=== PATIENT | female | born 1945 | race Caucasian/White ===

== ENCOUNTER → 2020-06-04 14:16 | Outpatient (BNVA) | payer MEDICARE, OTHER, SELFPAY | PROVIDERS: PCP Internal Medicine; Visit Provider Internal Medicine Cardiovascular Disease | DX: I25.10 Atherosclerotic heart disease of native coronary artery without angina pectoris (principal); I50.9 Heart failure, unspecified; I25.5 Ischemic cardiomyopathy; I34.0 Nonrheumatic mitral (valve) insufficiency | CPT/HCPCS: 99212 ==

== ENCOUNTER 2020-07-09 10:37 | Outpatient (REF) | payer MEDICARE, OTHER, SELFPAY ==
[2020-07-09 10:50] LABS: MANUAL DIFF FLAG NO
[2020-07-09 11:03] LABS: Basophils Percent Auto 0.6 % (0-2); Eosinophils Absolute Auto 0.2 X10*3/uL (0.0-0.4); Eosinophils Percent Auto 3.3 % (0-4); Hemoglobin 11.7 g/dl (12.0-16.0); Imm Gran Abs Auto 0.02 X10*3/uL (0.00-0.03); Imm Gran Pct Auto 0.3 % (0.0-0.4); Lymphocytes Absolute Auto 2.6 X10*3/uL (1.2-4.9); Lymphocytes Percent Auto 40.3 % (20-40); Mean Corpuscular HGB Conc 32.5 g/dl (31.0-35.0); Mean Corpuscular Hemoglobin 30.3 pg (27.0-33.0); Mean Corpuscular Volume 93.3 fL (80-98); Mean Platelet Volume 11.4 fL (9.4-12.3); Monocytes Absolute Auto 0.9 X10*3/uL (0.1-1.2); Monocytes Percent Auto 13.2 % (2-11); Neutrophils Absolute Auto 2.7 X10*3/uL (2.0-8.3); Neutrophils Percent Auto 42.3 % (45-73); Platelet Count 217 X10*3/uL (160-400); Red Blood Count 3.86 X10*6/uL (4.20-5.50); Red Cell Distribution Width 14.2 % (11.0-16.0); White Blood Count 6.4 X10*3/uL (4.8-10.8)
[2020-07-09 11:35] LABS: Glucose Urine UA NEG (NEG); Leukocyte Esterase Urine NEG (NEG); Nitrite Urine NEG (NEG); PH 5.5 (5.0-8.0); Specific Gravity - Urine >= 1.030 (1.005-1.025); Urine Blood TRACE (NEG); Urine Ketones 5 MG/DL (NEG); Urine Protein 1+ MG/DL (NEG-TRACE)
[2020-07-09 11:38] LABS: Appearance Urine HAZY; Color Urine YELLOW
[2020-07-09 11:48] LABS: Mucus Urine 2+ /LPF; Squamous Epithelial Cell Urine 1+ /LPF; WBC Urine 0-2 /HPF (0-4)
[2020-07-09 12:21] LABS: Alanine Aminotransferase 16 U/L (0-31); Albumin Level 4.2 g/dL (3.5-5.0); Alkaline Phosphatase 69 U/L (39-117); Anion Gap 12 (12-20); Aspartate Amino Transferase 23 U/L (5-31); Bilirubin Total 0.3 mg/dL (0.0-1.0); Blood Urea Nitrogen 20 mg/dL (9-16); Carbon Dioxide 28 mmol/L (22-29); Chloride 105 mmol/L (96-108); Cholesterol 136 mg/dL; Estimated Glomerular Filt Rate > 60; Glucose Fasting 102 mg/dL (60-99); HDL Cholesterol 83 mg/dL; LDL Cholesterol Calculated 44 mg/dl; Potassium 4.1 mmol/L (3.3-5.1); Sodium 141 mmol/L (135-145); Total Protein 6.9 g/dL (6.5-8.0); Triglycerides 49 mg/dL
[2020-07-09 13:03] LABS: Reflex LDLD? No
== END 2020-07-09 10:38 | disposition home or self-care (01) ==
LOC: HO.LNP 10:37
PROVIDERS: Visit Provider Internal Medicine
DX: E78.00 Pure hypercholesterolemia, unspecified (principal); I50.22 Chronic systolic (congestive) heart failure; R94.5 Abnormal results of liver function studies; D72.820 Lymphocytosis (symptomatic)
CPT/HCPCS: 80053; 80061; 81001; 81003; 85025

== ENCOUNTER → 2020-11-16 10:28 | Outpatient (REF) | payer MEDICARE, OTHER, SELFPAY ==
--- NOTE | 2020-11-16 10:37 | CA_ITS ---
Transthoracic Echocardiogram Amended Patient (Last, First, Middle): Rochelle Garcia M Gender: Female Date of : 1945 Age: 75 Procedure Date: 11/16/2020 Procedure Type: Transthoracic Echocardiogram Location: OP Height: 160.02 cm Weight: 69.4 kg BSA: 1.73 m2 Heart Rate: bpm BP: 108 / 62 mmHg Hook And Eye Machine Operator: DSKobe Referring MD: Talha Ulloa MD Symptoms: I25.10 - Atherosclerotic heart disease of [place] coronary artery without angina pectoris Study Quality: Fair ECG Rhythm: Sinus Conclusions: - Severely increased left ventricular cavity size. - The left ventricular systolic function is mildly decreased. The calculated ejection fraction is 51% by biplane method. - Evidence suggests grade II (moderate) diastolic dysfunction. - The basal inferior, mid inferior, and basal inferolateral segments are akinetic. - The left atrium is severely dilated. - There is moderate mitral valve regurgitation. - Mild pulmonary hypertension is present. Findings Left Ventricle Severely increased left ventricular cavity size. There is normal left ventricular wall thickness. The left ventricular systolic function is mildly decreased. The calculated ejection fraction is 51% by biplane method. E/E prime ratio is >15, consistent with elevated filling pressures. Evidence suggests grade II (moderate) diastolic dysfunction. Wall Motion Rest Echo Findings The basal inferior, mid inferior, and basal inferolateral segments are akinetic. Atria The left atrium is severely dilated. The right atrium is normal in size. Aortic Valve There is a normal trileaflet aortic valve. There is no aortic valve stenosis. There is no aortic valve regurgitation. Mitral Valve The posterior mitral leaflet has restricted mobility. There is mild posterior mitral annular calcification. There is moderate mitral valve regurgitation. The mitral regurgitation jet is directed posteriorly. There is no mitral valve stenosis. ERO calculation seems to overestimate. Pulmonic Valve The pulmonic valve was not well visualized. Tricuspid Valve Normal tricuspid valve structure. There is mild tricuspid valve regurgitation. The right ventricular systolic pressure is 37 mmHg. Mild pulmonary hypertension is present. Great Vessels The aortic annulus, sinuses of valsalva, and asc aorta are normal in size. Venous The inferior vena cava is normal in size and collapses greater than 50% with inspiration. Pericardium/Pleural There is no evidence of pericardial effusion. Prior Study Comparison Changes noted compared to prior study dated: 11/22/2019. LV more dilated (but similar to 2019). Mitral regurgitation less prominent. Measurements 2D Linear Measurements IVSd: 0.96 0.6-0.9/0.6-1.0 cm LVIDd: 6.64 3.9-5.3/4.2-5.9 cm LVIDd Index: 3.84 2.4-3.2/2.2-3.1 cm/m2 LVIDs: 4.88 2.0-3.6 cm LVPWd: 0.85 0.7-1.1 cm Ao Root: 3.20 2.1-3.5 cm LA Diam: 4.30 2.7-3.8/3.0-4.0 cm LAIDs Index: 2.49 1.5-2.3 cm/m2 LV Mass: 322.80 67-162/88-224 g LV Mass Index: 186.59 43-95/49-115 g/m2 LVOT Diam: 1.90 3.0+(-)1.3 cm 2D Volumes LA Vol: 70.50 2D Systolic Function EF 4C: 57.90 >55% EF 2C: 39.60 >55% EF BiP: 50.60 >55% Mitral Valve MV Pk E: 0.78 MV PK A: 0.36 MV Decel Time: 278.00 E/A: 2.20 E'Lateral: 4.79 E'Medial: 4.90 E/E' Med: 16.00 E/E' Lat: 16.30 PHT: 81.00 MVA PHT: 2.72 Decel Nelson: 2.82 MR Vol - PW Dopp: 87.78 MR VTI: 1.54 MR ERO: 57.00 MR Alias Josse: 0.35 MR RAD: 1.10 Aortic Valve AoV Pk Josse: 1.19 AoV Pk Grad: 6.00 LVOT LVOT Pk Josse: 1.04 LVOT Mn Josse: 0.69 LVOT VTI: 0.23 LVOT Pk Grad: 4.00 LVOT Mn Grad: 2.00 LVOT Diam: 1.90 LVOT Area: 2.84 Diastolic Function MV Pk E: 0.78 MV Pk A: 0.36 E/A: 2.20 E'Medial: 4.90 E/E' Med: 16.00 E' Laterial: 4.79 E/E' Lat: 16.30 Tricuspid Valve TR Pk Josse: 2.92 TR Pk Grad: 34.00 RA Press: 3.00 RVSP: 37.00 Great Vessels Aorta Ao Root-2D: 3.20 2.0-3.7 cm Ao Asc: 3.20 2.1-3.4 cm Updated in Other Vendor System with Status of Final Christofer Grant MD electronically signed on 11/16/2020 12:09:36 PM with status of Final
== END ==
LOC: HO.CARD 10:28
PROVIDERS: PCP Internal Medicine; Visit Provider Internal Medicine Cardiovascular Disease
DX: I25.5 Ischemic cardiomyopathy (principal); I25.10 Atherosclerotic heart disease of native coronary artery without angina pectoris; I34.0 Nonrheumatic mitral (valve) insufficiency; I50.9 Heart failure, unspecified
CPT/HCPCS: 93306

== ENCOUNTER → 2020-12-01 10:55 | Outpatient (BNVA) | payer MEDICARE, OTHER, SELFPAY | PROVIDERS: PCP Internal Medicine; Referring Provider Internal Medicine; Visit Provider Internal Medicine Cardiovascular Disease | DX: I25.10 Atherosclerotic heart disease of native coronary artery without angina pectoris (principal); I50.9 Heart failure, unspecified; I25.5 Ischemic cardiomyopathy; I34.0 Nonrheumatic mitral (valve) insufficiency | CPT/HCPCS: 93005; 99212 ==

== ENCOUNTER 2020-12-17 09:25 | Day surgery (SDC) | payer MEDICARE, OTHER, SELFPAY ==
[2020-12-08 19:26] VITALS: BMI 26.7
--- NOTE | 2020-12-14 14:09 | P.CONAN_ITS ---
Documented by User: Debora Aleja 12/14/20 14:11 HPI - Anesthesia Eval Consult details Narrative: 75yo F for Transesophageal Echocardiogram PMFSH Active Problems Active Problems: All Active Problems (Updated 12/01/20 @ 11:34 by Talha Ulloa MD) CAD (coronary artery disease) (Acute) Congestive heart failure (Acute) Ischemic cardiomyopathy (Acute) Mitral regurgitation (Acute) Past Medical History Medical History CAD (coronary artery disease) Congestive heart failure Ischemic cardiomyopathy Mitral regurgitation Family History Family History Father CVD (cardiovascular disease) Mother No problems noted. Surgical History Surgical History Hx of hand surgery Social History Social History Patient Tobacco Use Status: Never used Tobacco Use of substances other than those prescribed or required for medical reasons: No Are you DNR?: No Advance Directives: No Advance Directives Information Provided: No Advance Directives on File: No Meds Allergies Allergy/AdvReac Type Severity Reaction Status Date / Time No Known Allergies Allergy Unverified 01/23/20 15:35 [No Known Allergies*] Home Medications Medication Instructions Recorded Confirmed Last Taken Type furosemide 40 mg tablet 40 mg PO DAILY 06/04/20 12/08/20 Unknown History metoprolol succinate 25 mg 25 mg PO BID 06/04/20 12/08/20 12/17/20 08:00 History tablet,extended release 24 hr rosuvastatin 40 mg tablet 40 mg PO DAILY 06/04/20 12/08/20 Unknown History multivit with min-folic 1 tab PO DAILY 12/01/20 12/08/20 Unknown History acid-lutein 200 mcg-137.5 mcg chewable tablet (Adult Multivitamin (w-lutein)) Exam Exam Date and Time: December 14, 2020 1409 Height,Weight and Vital Signs: Height 5 ft 3 in Weight 68.492 kg Pertinent Lab Results Pertinent Lab Results: ? Laboratory Tests 07/09/20 07/09/20 07:50 07:50 WBC 6.4 Hgb 11.7 L Hct 36.0 L Plt Count 217 Sodium 141 Potassium 4.1 Chloride 105 Carbon Dioxide 28 BUN 20 H Creatinine 0.89 Narrative Narrative: EKG 12/01/20 normal sinus rhythm with inferior infarct ECHO 11/2020 Conclusions: - Severely increased left ventricular cavity size. ? - The left ventricular systolic function is mildly decreased.? ? The calculated ejection fraction is 51% by biplane method. ? ? ? - Evidence suggests grade II (moderate) diastolic dysfunction. ? - The basal inferior, mid inferior, and basal inferolateral? ? ? segments are akinetic. ? - The left atrium is severely dilated. ? - There is moderate mitral valve regurgitation.? - Mild pulmonary hypertension is present.? ? Assessment and Plan Assessment Anesthesia Assessment: Chart Reviewed Documented by User: Preston García MD 12/17/20 11:16 [facility] Past Medical History Medical History CAD (coronary artery disease) Congestive heart failure Ischemic cardiomyopathy Mitral regurgitation Family History Family History Father CVD (cardiovascular disease) Mother No problems noted. Family history of problems with anesthesia: No Surgical History Surgical History Hx of hand surgery History of Problems with Anesthesia: No Social History Social History Patient Tobacco Use Status: Never used Tobacco Use of substances other than those prescribed or required for medical reasons: No Are you DNR?: No Advance Directives: No Advance Directives Information Provided: No Advance Directives on File: No Meds Allergies Allergy/AdvReac Type Severity Reaction Status Date / Time No Known Allergies Allergy Unverified 01/23/20 15:35 [No Known Allergies*] Home Medications Medication Instructions Recorded Confirmed Last Taken Type furosemide 40 mg tablet 40 mg PO DAILY 06/04/20 12/08/20 Unknown History metoprolol succinate 25 mg 25 mg PO BID 06/04/20 12/08/20 12/17/20 08:00 History tablet,extended release 24 hr rosuvastatin 40 mg tablet 40 mg PO DAILY 06/04/20 12/08/20 Unknown History multivit with min-folic 1 tab PO DAILY 12/01/20 12/08/20 Unknown History acid-lutein 200 mcg-137.5 mcg chewable tablet (Adult Multivitamin (w-lutein)) Exam Airway Mallampati Class: II TM Dist: >3cm Neck ROM: Full Loose/Missing/Broken Teeth: Yes Heart: RRR, TW abnormality Lungs: Mild orthopnea Assessment and Plan Assessment Anesthesia Assessment: Anesthesia Plan Discussed Final Anesthetic Review Family History of Problems with Anesthesia: No History of Problems with Anesthesia: No ASA Class: IV Final Preanesthetic Review: No Changes in Pt Med Stat, Meds/Allgs Chart Reviewed, Consent Obtained/Reviewed and Anes Risks/Benef Reviewed Patient Risk: High Procedure Risk: Low Anesthetic Plan Anesthetic Plan: MAC: Disposition: Standard PACU
[2020-12-17] VITALS (8 sets, daily range): BP systolic 79–126; BP diastolic 33–70; PULSE 60–76; RESP 16–19; TEMP 36.1; O2SAT 96–99
--- NOTE | 2020-12-17 08:37 | CA_ITS ---
Transesophageal Echocardiogram Patient (Last, First, Middle): Rochelle Garcia M Gender: Female Date of : 1945 Age: 75 Procedure Date: 12/17/2020 Procedure Type: Transesophageal Echocardiogram Location: OR Height: 160.02 cm Weight: 68.49 kg BSA: 1.72 m2 Heart Rate: bpm BP: 126 / 70 mmHg Family Day Care Worker: BRET Benitez MD: Talha Ulloa MD Consumer Loan Officer: Talha Ulloa MD Symptoms: I34.0 - Nonrheumatic mitral (valve) insufficiency Conclusion: ??? 1. Severe eccentric mitral regurgitation due to tethered posterior leaflet due to underlying myocardial infarction segment 2. Mild to moderate LV systolic dysfunction with dilated LV 3. Dilated left atrium 4. No intracardiac thrombi, masses or vegetation 4. Normal RV systolic pressure 5. No gross pericardial effusion Findings Procedure Information Consent was obtained prior to the procedure. Pre FRANCOISE oral cavity was checked and revealed no overcrowding. The adult 3D probe was passed with no difficulty. Left Ventricle Moderately increased left ventricular cavity size. There is normal left ventricular wall thickness. The left ventricular systolic function is mild to moderately decreased. The visually estimated ejection fraction is between 40-45%. Spectral Doppler is indicative of a normal filling pattern. Wall Motion Transesophageal Echo Findings The inferoseptal wall, the basal inferior, and basal inferolateral segments are akinetic. All other scored wall segments showed normal motion. Right Ventricle Normal right ventricular cavity size and systolic function. Atria The left atrium is moderately dilated. There is no evidence of interatrial shunt. The left atrial appendage was identified in multiple views. There is no evidence of clot or smoke formation seen with the left atrial appendage. The left upper, right upper pulmonary vein drained normally into the left atrium. The right atrium is normal in size. The IVC in SVC drain normally into the right atrium. Aortic Valve Normal aortic valve structure and function. There is no aortic valve stenosis. There is no aortic valve regurgitation. Mitral Valve The anterior mitral leaflet has normal mobility and the posterior mitral leaflet is immobile. There is no mitral valve stenosis. The posterior leaflet is tethered due to underlying infarcted myocardium. This leads to poor coaptation of the anterior leaflet and posterior mitral leaflet causing eccentric mitral regurgitation which appears to be severe by color Doppler. Also measuring by quantitative analysis by PISA measured effective orifice area is 0.44 centimeters sq and regurgitant volume of 61 mL which are both suggestive of severe mitral regurgitation. Pulmonic Valve The pulmonic valve is normal. There is trace pulmonic valve regurgitation. Tricuspid Valve Normal tricuspid valve structure. There is mild tricuspid valve regurgitation. The right ventricular systolic pressure is normal. Great Vessels All visible segments of the aorta are normal in size. The visualized portions of the pulmonary artery and branches are normal. there is mild atherosclerotic changes noted in the arch and descending thoracic aorta Venous The inferior vena cava is normal in size and collapses greater than 50% with inspiration. Pericardium/Pleural There is no evidence of pericardial effusion. Measurements Mitral Valve MV Pk E: 0.66 MV PK A: 0.37 MV Decel Time: 254.00 E/A: 1.80 E'Lateral: 7.72 E'Medial: 6.59 E/E' Med: 10.00 E/E' Lat: 8.60 PHT: 74.00 MVA PHT: 2.97 Decel [place]: 2.61 MR Vol - PW Dopp: 60.72 MR VTI: 1.38 MR ERO: 44.00 MR Alias Josse: 0.31 MR RAD: 1.00 Diastolic Function MV Pk E: 0.66 MV Pk A: 0.37 E/A: 1.80 E'Medial: 6.59 E/E' Med: 10.00 E' Laterial: 7.72 E/E' Lat: 8.60 Tricuspid Valve TR Pk Josse: 2.81 TR Pk Grad: 32.00 Updated by Talha Ulloa on 04:41 PM with Status of Final Talha Ulloa MD electronically signed on 12/17/2020 4:41:42 PM with status of Final
[2020-12-17] MEDS: Lactated Ringers 500 ML 20 ML IVCONT (10:22)
--- NOTE | 2020-12-17 11:25 | MHC.SHP ---
Pre-Procedural Eval Section A Date of Service: 12/17/20 The patient is an INPATIENT: No Changes since office visit: Yes Patient answered all questions; No Cold of Flu in the past 2 weeks, No New Medical Problems and No Changes in Medication The History & Physical has been completed within 30 days and I have reviewed it.: Yes Section B Chief Complaint: Nonrheumatic Mintral insufficiency Allergies: Allergies Allergy/AdvReac Type Severity Reaction Status Date / Time No Known Allergies Allergy Unverified 01/23/20 15:35 [No Known Allergies*] Plan I have reviewed the history and physical and performed a pertinent physical examination on my patient. No changes have occurred unless specified.
== END 2020-12-17 13:25 | disposition home or self-care (01) ==
PROVIDERS: PCP Internal Medicine; Visit Provider Internal Medicine Cardiovascular Disease
PROC: (CPT 93312; principal; 2020-12-17 11:00)
DX: I34.0 Nonrheumatic mitral (valve) insufficiency (principal); I25.10 Atherosclerotic heart disease of native coronary artery without angina pectoris; I50.9 Heart failure, unspecified; I25.5 Ischemic cardiomyopathy; Z79.899 Other long term (current) drug therapy; Z79.82 Long term (current) use of aspirin
CPT/HCPCS: 93312

== ENCOUNTER 2021-01-07 10:33 | Outpatient (REF) | payer MEDICARE, OTHER, SELFPAY ==
[2021-01-07 10:51] LABS: Alanine Aminotransferase 14 U/L (0-31); Albumin Level 4.2 g/dL (3.5-5.0); Alkaline Phosphatase 65 U/L (39-117); Aspartate Amino Transferase 22 U/L (5-31); Bilirubin Direct 0.2 mg/dL (0.0-0.5); Bilirubin Total 0.5 mg/dL (0.0-1.0); Cholesterol 135 mg/dL; HDL Cholesterol 75 mg/dL; LDL Cholesterol Calculated 50 mg/dl; Total Protein 6.8 g/dL (6.5-8.0); Triglycerides 50 mg/dL
[2021-01-07 11:14] LABS: Reflex LDLD? No
== END 2021-01-07 10:34 | disposition home or self-care (01) ==
LOC: HO.LNP 10:33
PROVIDERS: Visit Provider Internal Medicine
DX: E78.00 Pure hypercholesterolemia, unspecified (principal)
CPT/HCPCS: 80061; 80076

== ENCOUNTER → 2021-01-18 13:26 | Outpatient (BNVA) | payer MEDICARE, OTHER, SELFPAY | PROVIDERS: PCP Internal Medicine; Referring Provider Internal Medicine; Visit Provider Internal Medicine Cardiovascular Disease | DX: I34.0 Nonrheumatic mitral (valve) insufficiency (principal); I25.5 Ischemic cardiomyopathy; I50.20 Unspecified systolic (congestive) heart failure; I25.10 Atherosclerotic heart disease of native coronary artery without angina pectoris | CPT/HCPCS: 99212 ==

== ENCOUNTER → 2021-04-19 13:03 | Outpatient (BNVA) | payer MEDICARE, OTHER, SELFPAY | PROVIDERS: PCP Internal Medicine; Referring Provider Internal Medicine; Visit Provider Internal Medicine Cardiovascular Disease | DX: I34.0 Nonrheumatic mitral (valve) insufficiency (principal); I50.9 Heart failure, unspecified; I25.10 Atherosclerotic heart disease of native coronary artery without angina pectoris | CPT/HCPCS: 99212 ==

== ENCOUNTER 2021-05-06 13:22 | Outpatient (REF) | payer MEDICARE, OTHER, SELFPAY ==
[2021-05-06 14:08] LABS: Hematocrit 34.7 % (37.0-47.0); Hemoglobin 11.4 g/dl (12.0-16.0); Mean Corpuscular HGB Conc 32.9 g/dl (31.0-35.0); Mean Corpuscular Hemoglobin 30.6 pg (27.0-33.0); Mean Platelet Volume 10.9 fL (9.4-12.3); Platelet Count 195 X10*3/uL (160-400); Red Blood Count 3.73 X10*6/uL (4.20-5.50); White Blood Count 7.3 X10*3/uL (4.8-10.8)
[2021-05-06 14:20] LABS: INTERNATIONAL NORM RATIO 0.9 (0.9-1.1); Prothrombin Time 10.7 SEC (9.9-13.0)
[2021-05-06 14:37] LABS: Anion Gap 11 (12-20); Blood Urea Nitrogen 20 mg/dL (9-16); Calcium 9.8 mg/dL (8.4-10.2); Carbon Dioxide 31 mmol/L (22-29); Chloride 102 mmol/L (96-108); Estimated Glomerular Filt Rate > 60; Glucose Random 93 mg/dL (60-115); Potassium 4.2 mmol/L (3.3-5.1); Sodium 140 mmol/L (135-145)
== END 2021-05-06 13:23 | disposition home or self-care (01) ==
LOC: HO.LAB 13:22
PROVIDERS: PCP Internal Medicine; Referring Provider Internal Medicine; Visit Provider Internal Medicine Cardiovascular Disease
DX: I25.10 Atherosclerotic heart disease of native coronary artery without angina pectoris (principal); I25.5 Ischemic cardiomyopathy; I50.9 Heart failure, unspecified
CPT/HCPCS: 36415; 80048; 85027; 85610

== ENCOUNTER 2021-07-15 12:00 | Outpatient (REF) | payer MEDICARE, OTHER, SELFPAY ==
[2021-07-15 12:05] LABS: MANUAL DIFF FLAG NO
[2021-07-15 12:18] LABS: Basophils Percent Auto 0.6 % (0-2); Eosinophils Absolute Auto 0.2 X10*3/uL (0.0-0.4); Hematocrit 34.2 % (37.0-47.0); Hemoglobin 11.2 g/dl (12.0-16.0); Imm Gran Abs Auto 0.01 X10*3/uL (0.00-0.03); Imm Gran Pct Auto 0.2 % (0.0-0.4); Lymphocytes Absolute Auto 1.9 X10*3/uL (1.2-4.9); Lymphocytes Percent Auto 29.4 % (20-40); Mean Corpuscular HGB Conc 32.7 g/dl (31.0-35.0); Mean Corpuscular Hemoglobin 30.4 pg (27.0-33.0); Mean Corpuscular Volume 92.9 fL (80.0-98.0); Mean Platelet Volume 11.4 fL (9.4-12.3); Monocytes Absolute Auto 0.7 X10*3/uL (0.1-1.2); Monocytes Percent Auto 11.5 % (2-11); Neutrophils Absolute Auto 3.5 x10*3/uL (2.0-8.3); Neutrophils Percent Auto 55.3 % (45-73); Platelet Count 208 X10*3/uL (160-400); Red Blood Count 3.68 X10*6/uL (4.20-5.50); Red Cell Distribution Width 14.3 % (11.0-16.0); White Blood Count 6.4 X10*3/uL (4.8-10.8)
[2021-07-15 12:41] LABS: Alanine Aminotransferase 16 U/L (0-31); Albumin Level 4.1 g/dL (3.5-5.0); Alkaline Phosphatase 65 U/L (39-117); Anion Gap 13 (12-20); Aspartate Amino Transferase 22 U/L (5-31); Bilirubin Total 0.5 mg/dL (0.0-1.0); Blood Urea Nitrogen 25 mg/dL (9-16); Calcium 9.3 mg/dL (8.4-10.2); Carbon Dioxide 28 mmol/L (22-29); Chloride 103 mmol/L (96-108); Cholesterol 149 mg/dL; Estimated Glomerular Filt Rate 60; Glucose Fasting 98 mg/dL (60-99); HDL Cholesterol 75 mg/dL; LDL Cholesterol Calculated 60 mg/dl; Sodium 140 mmol/L (135-145); Total Protein 6.8 g/dL (6.5-8.0); Triglycerides 70 mg/dL
[2021-07-15 12:49] LABS: Appearance Urine CLEAR; Color Urine OTHER; Glucose Urine UA NEG (NEG); Leukocyte Esterase Urine NEG (NEG); Nitrite Urine NEG (NEG); Urine Blood NEG (NEG); Urine Ketones NEG (NEG); Urine Protein NEG (NEG-TRACE)
== END 2021-07-15 12:01 | disposition home or self-care (01) ==
LOC: HO.LNP 12:00
PROVIDERS: Visit Provider Internal Medicine
DX: D72.820 Lymphocytosis (symptomatic) (principal); E78.00 Pure hypercholesterolemia, unspecified; I50.22 Chronic systolic (congestive) heart failure
CPT/HCPCS: 80053; 80061; 81003; 85025

== ENCOUNTER → 2021-07-19 13:50 | Outpatient (REF) | payer MEDICARE, OTHER, SELFPAY ==
--- NOTE | 2021-07-19 13:57 | CA_ITS ---
Transthoracic Echocardiogram Patient (Last, First, Middle): Rochelle Garcia M Gender: Female Date of : 1945 Age: 75 Procedure Date: 07/19/2021 Procedure Type: Transthoracic Echocardiogram Location: OP Height: 160.02 cm Weight: 70.31 kg BSA: 1.74 m2 Heart Rate: bpm BP: 110 / 80 mmHg Barrel Bridge Assembler: BRET Referring MD: Talha Ulloa MD Symptoms: I34.0 - Nonrheumatic mitral (valve) insufficiency Study Quality: Good Conclusions: - The left ventricular systolic function is low normal. The visually estimated ejection fraction is between 50-55%. - The basal inferior, basal inferoseptal, and basal inferolateral segments are akinetic. - The posterior mitral leaflet has restricted mobility. There is moderate to severe mitral valve regurgitation. The mitral regurgitation jet is directed posteriorly. Underestimation possible due to eccentricity. - Mild pulmonary hypertension is present. Findings Left Ventricle Moderately increased left ventricular cavity size. There is normal left ventricular wall thickness. The left ventricular systolic function is low normal. The visually estimated ejection fraction is between 50-55%. There is evidence of regional wall motion abnormalities. E/E prime ratio is >15, consistent with elevated filling pressures. Evidence suggests grade II (moderate) diastolic dysfunction. LV peak GLS -15.6%. Wall Motion Rest Echo Findings The basal inferior, basal inferoseptal, and basal inferolateral segments are akinetic. Right Ventricle Mildly increased right ventricular cavity size. Atria The left atrium is severely dilated. The right atrium is normal in size. Aortic Valve There is a normal trileaflet aortic valve. There is no aortic valve stenosis. There is no aortic valve regurgitation. Mitral Valve The posterior mitral leaflet has restricted mobility. There is moderate to severe mitral valve regurgitation. The mitral regurgitation jet is directed posteriorly. ERO by PISA 0.36sqcm. Regurgitant volume 51cc. Pulmonic Valve The pulmonic valve is likely normal. Tricuspid Valve Normal tricuspid valve structure. There is mild tricuspid valve regurgitation. The right ventricular systolic pressure is 43 mmHg. Mild pulmonary hypertension is present. Great Vessels The sinuses of valsalva, asc aorta, and aortic arch are normal in size. Venous The inferior vena cava is normal in size and collapses greater than 50% with inspiration. Pericardium/Pleural There is no evidence of pericardial effusion. Prior Study Comparison No significant change compared to prior study dated: 12/17/2020. Measurements 2D Linear Measurements IVSd: 0.82 0.6-0.9/0.6-1.0 cm LVIDd: 6.36 3.9-5.3/4.2-5.9 cm LVIDd Index: 3.66 2.4-3.2/2.2-3.1 cm/m2 LVIDs: 4.55 2.0-3.6 cm LVPWd: 0.68 0.7-1.1 cm LA Diam: 4.30 2.7-3.8/3.0-4.0 cm LAIDs Index: 2.47 1.5-2.3 cm/m2 LV Mass: 237.08 67-162/88-224 g LV Mass Index: 136.25 43-95/49-115 g/m2 LVOT Diam: 2.00 3.0+(-)1.3 cm 2D Systolic Function EF 4C: 58.60 >55% EF 2C: 56.20 >55% EF BiP: 57.70 >55% Mitral Valve MV Pk E: 0.90 MV PK A: 0.48 MV Decel Time: 231.00 E/A: 1.90 E'Lateral: 5.55 E'Medial: 4.79 E/E' Med: 18.80 E/E' Lat: 16.20 PHT: 68.00 MVA PHT: 3.24 Decel Elbert: 3.89 MR Vol - PW Dopp: 51.48 MR VTI: 1.43 MR ERO: 36.00 MR Alias Josse: 0.46 MR RAD: 0.80 Aortic Valve AoV Pk Josse: 1.33 AoV Mn Josse: 0.91 AoV VTI: 0.27 AoV Pk Grad: 7.00 Aov Mn Grad: 4.00 QUITA Cont.VTI: 2.20 LVOT LVOT Pk Josse: 0.81 LVOT Mn Josse: 0.59 LVOT VTI: 0.19 LVOT Pk Grad: 3.00 LVOT Mn Grad: 2.00 LVOT Diam: 2.00 LVOT Area: 3.14 Diastolic Function MV Pk E: 0.90 MV Pk A: 0.48 E/A: 1.90 E'Medial: 4.79 E/E' Med: 18.80 E' Laterial: 5.55 E/E' Lat: 16.20 Right Ventricle TAPSE (mm): 26.50 TVS' Josse: 11.90 Tricuspid Valve TR Pk Josse: 3.15 TR Pk Grad: 40.00 RA Press: 3.00 RVSP: 43.00 Great Vessels Aorta Sinus of Valsalva: 3.76 2.0-3.[address] [place]: 3.16 1.7-3.4 cm Ao Asc: 3.40 2.1-3.4 cm Ao Arch: 3.00 Updated in Other Vendor System with Status of Final Christofer Grant MD electronically signed on 07/20/2021 12:29:34 PM with status of Final
== END ==
LOC: HO.CARD 13:50
PROVIDERS: PCP Internal Medicine; Visit Provider Internal Medicine Cardiovascular Disease
DX: I34.0 Nonrheumatic mitral (valve) insufficiency (principal)
CPT/HCPCS: 93306; 93356

== ENCOUNTER → 2021-07-26 13:15 | Outpatient (BNVA) | payer MEDICARE, OTHER, SELFPAY | PROVIDERS: PCP Internal Medicine; Referring Provider Internal Medicine; Visit Provider Internal Medicine Cardiovascular Disease | DX: I51.7 Cardiomegaly (principal); I50.9 Heart failure, unspecified; I25.10 Atherosclerotic heart disease of native coronary artery without angina pectoris; I25.5 Ischemic cardiomyopathy; I34.0 Nonrheumatic mitral (valve) insufficiency; R53.83 Other fatigue; Z79.82 Long term (current) use of aspirin; Z79.899 Other long term (current) drug therapy | CPT/HCPCS: 99212 ==

== ENCOUNTER 2021-07-28 11:18 | Outpatient (REF) | payer MEDICARE, OTHER, SELFPAY ==
[2021-07-28 12:01] LABS: MANUAL DIFF FLAG NO
[2021-07-28 12:35] LABS: Basophils Percent Auto 0.6 % (0-2); Eosinophils Absolute Auto 0.1 X10*3/uL (0.0-0.4); Eosinophils Percent Auto 2.2 % (0-4); Hematocrit 35.9 % (37.0-47.0); Hemoglobin 11.5 g/dl (12.0-16.0); Imm Gran Abs Auto 0.01 X10*3/uL (0.00-0.03); Imm Gran Pct Auto 0.2 % (0.0-0.4); Mean Corpuscular Hemoglobin 29.6 pg (27.0-33.0); Mean Corpuscular Volume 92.3 fL (80.0-98.0); Mean Platelet Volume 10.9 fL (9.4-12.3); Monocytes Absolute Auto 0.8 X10*3/uL (0.1-1.2); Monocytes Percent Auto 11.9 % (2-11); Neutrophils Absolute Auto 3.4 x10*3/uL (2.0-8.3); Neutrophils Percent Auto 54.1 % (45-73); Platelet Count 195 X10*3/uL (160-400); Red Blood Count 3.89 X10*6/uL (4.20-5.50); Red Cell Distribution Width 14.4 % (11.0-16.0); White Blood Count 6.3 X10*3/uL (4.8-10.8)
[2021-07-28 12:39] LABS: Prothrombin Time 11.5 SEC (9.9-13.0)
[2021-07-28 13:36] LABS: Anion Gap 14 (12-20); Blood Urea Nitrogen 23 mg/dL (9-16); Calcium 9.6 mg/dL (8.4-10.2); Carbon Dioxide 29 mmol/L (22-29); Chloride 103 mmol/L (96-108); Estimated Glomerular Filt Rate 53; Glucose Random 96 mg/dL (60-115); Sodium 142 mmol/L (135-145)
== END 2021-07-28 11:19 | disposition home or self-care (01) ==
LOC: HO.LAB 11:18
PROVIDERS: Visit Provider Internal Medicine Cardiovascular Disease
DX: I25.10 Atherosclerotic heart disease of native coronary artery without angina pectoris (principal)
CPT/HCPCS: 36415; 80048; 85025; 85610

== ENCOUNTER → 2021-09-01 13:10 | Outpatient (BNVA) | payer MEDICARE, OTHER, SELFPAY | PROVIDERS: PCP Internal Medicine; Referring Provider Internal Medicine; Visit Provider Nurse Practitioner Family | DX: I25.10 Atherosclerotic heart disease of native coronary artery without angina pectoris (principal); I25.5 Ischemic cardiomyopathy; I50.9 Heart failure, unspecified; I34.0 Nonrheumatic mitral (valve) insufficiency; Z79.899 Other long term (current) drug therapy; Z98.890 Other specified postprocedural states | CPT/HCPCS: Q3014 ==

== ENCOUNTER 2021-12-02 10:58 | Outpatient (REF) | payer MEDICARE, OTHER, SELFPAY ==
[2021-12-02 12:17] LABS: Basophils Percent Auto 0.7 % (0-2); Eosinophils Absolute Auto 0.2 X10*3/uL (0.0-0.4); Eosinophils Percent Auto 3.3 % (0-4); Hematocrit 34.6 % (37.0-47.0); Hemoglobin 11.3 g/dl (12.0-16.0); Imm Gran Abs Auto 0.02 X10*3/uL (0.00-0.03); Imm Gran Pct Auto 0.4 % (0.0-0.4); Lymphocytes Absolute Auto 1.8 X10*3/uL (1.2-4.9); MANUAL DIFF FLAG SCAN; Mean Corpuscular HGB Conc 32.7 g/dl (31.0-35.0); Mean Corpuscular Hemoglobin 29.4 pg (27.0-33.0); Mean Corpuscular Volume 90.1 fL (80.0-98.0); Monocytes Absolute Auto 0.6 X10*3/uL (0.1-1.2); Monocytes Percent Auto 10.5 % (2-11); Neutrophils Absolute Auto 2.9 x10*3/uL (2.0-8.3); Neutrophils Percent Auto 52.1 % (45-73); Platelet Count 195 X10*3/uL (160-400); Red Blood Count 3.84 X10*6/uL (4.20-5.50); Red Cell Distribution Width 14.9 % (11.0-16.0); SCAN SMEAR FLAG 1; White Blood Count 5.5 X10*3/uL (4.8-10.8)
[2021-12-02 12:40] LABS: SLIDE REVIEW VERIFIED
[2021-12-02 12:48] LABS: Anion Gap 10 (12-20); Blood Urea Nitrogen 28 mg/dL (9-16); Calcium 9.3 mg/dL (8.4-10.2); Carbon Dioxide 30 mmol/L (22-29); Chloride 103 mmol/L (96-108); Estimated Glomerular Filt Rate 52; Glucose Random 91 mg/dL (60-115); Potassium 4.4 mmol/L (3.3-5.1); Sodium 139 mmol/L (135-145)
[2021-12-04 04:31] LABS: NT-proBNP 718 pg/mL
== END 2021-12-02 10:59 | disposition home or self-care (01) ==
LOC: HO.LAB 10:58
PROVIDERS: PCP Internal Medicine; Visit Provider Internal Medicine Cardiovascular Disease
DX: Z01.818 Encounter for other preprocedural examination (principal)
CPT/HCPCS: 36415; 80048; 83880; 85025

== ENCOUNTER → 2021-12-24 11:12 | Outpatient (BNVA) | payer MEDICARE, OTHER, SELFPAY | PROVIDERS: PCP Internal Medicine; Referring Provider Internal Medicine; Visit Provider Internal Medicine Cardiovascular Disease | DX: I25.10 Atherosclerotic heart disease of native coronary artery without angina pectoris (principal); I25.5 Ischemic cardiomyopathy; Z95.2 Presence of prosthetic heart valve; Z95.818 Presence of other cardiac implants and grafts; Z98.890 Other specified postprocedural states; Z79.899 Other long term (current) drug therapy | CPT/HCPCS: 99212 ==

== ENCOUNTER 2021-12-28 10:20 | Outpatient (REF) | payer MEDICARE, OTHER, SELFPAY ==
--- NOTE | ~2021-12-28 | MM_ITS ---
EXAMINATION: BONE DENSITOMETRY CLINICAL INDICATION: Menopause. COMPARISON: Previous BD dated 12/25/2019 and baseline BD dated 01/04/2013. TECHNIQUE: Using a [employer] DXA System (software version: 13.1) manufactured by [employer], dual-energy x-ray absorptiometry was performed of the lumbar spine and left hip. The images are of good technical quality. Summary results are attached. FINDINGS: AP SPINE L1-L4: Current: BMD 1.043 g/cm2, Z-score 0.5, T-score -1.1, osteopenia, 2.5% increase from previous, 0.1% decrease from baseline (<5% change is not significant). Prior: BMD 1.018 g/cm2. Baseline: BMD 1.044 g/cm2. LEFT FEMUR, NECK: Current: BMD 0.746 g/cm2, Z-score -0.2, T-score -2.1, osteopenia. Prior: BMD 0.756 g/cm2. Baseline: BMD 0.832 g/cm2. LEFT FEMUR, TOTAL: Current: BMD 0.848 g/cm2, Z-score 0.4, T-score -1.3, osteopenia, 4.3% increase from previous, 6.7% decrease from baseline (<5% change is not significant). Prior: BMD 0.813 g/cm2. Baseline: BMD 0.909 g/cm2. IDENTIFIED RISK FACTORS: Early menopause, secondary osteoporosis, hysterectomy, thiazide. HISTORY OF FRACTURE: None listed. MEDICATIONS: Calcium supplements or multivitamin, vitamin D. MM/XR DEXA axial skeleton IMPRESSION: 1. DIAGNOSIS: Osteopenia based on the lowest T-score value of -2.1 in the femoral neck applying World Health Organization criteria. 2. 10-YEAR FRACTURE RISK PREDICTION, FRAX: Major osteoporotic fracture (clinical spine, forearm, hip or shoulder) 14.5%. Hip fracture 4.0%. 3. Treatment Recommendations: NOF guidelines recommend consideration for treatment in postmenopausal women and men age 50 and older presenting with the following: -A hip or vertebral (clinical or morphometric) fracture. -T-score less than or equal to -2.5 at the femoral neck or spine after appropriate evaluation to exclude secondary causes. -Low bone mass at the hip or spine and a 10-year fracture probability by FRAX of greater than or equal to 3% for hip fracture or greater than or equal to 20% for major osteoporotic fracture based on the [place] adapted WHO algorithm. 4. Other Recommendations: All treatment decisions require clinical judgment and consideration of individual patient factors, including patient preferences, comorbidities, previous drug use, risk factors not captured in the FRAX model (e.g. frailty, falls, vitamin D deficiency, increased bone turnover, interval significant decline in bone density) and possible under or overestimation of fracture risk by FRAX. Additional medical evaluation for secondary cause of low bone mineral density may be appropriate. FUTURE SCAN RECOMMENDATION: People with diagnosed cases of osteoporosis or at high risk for fracture should have regular bone mineral density tests. For patients eligible for Medicare, routine testing is allowed once every 2 years. The testing frequency can be increased to one year for patients who have rapidly progressing disease, those who are receiving or discontinuing medical therapy to restore bone mass, or have additional risk factors.
== END 2021-12-28 10:21 | disposition home or self-care (01) ==
LOC: HO.MAMMO 10:20
PROVIDERS: Visit Provider Internal Medicine
DX: Z13.820 Encounter for screening for osteoporosis (principal); M85.80 Other specified disorders of bone density and structure, unspecified site; Z78.0 Asymptomatic menopausal state
CPT/HCPCS: 77080

== ENCOUNTER 2021-12-30 15:58 | Outpatient (REF) | payer MEDICARE, OTHER, SELFPAY ==
[2021-12-30 16:01] LABS: MANUAL DIFF FLAG NO
[2021-12-30 16:05] LABS: Basophils Absolute Auto 0.1 X10*3/uL (0.0-0.2); Basophils Percent Auto 0.8 % (0-2); Eosinophils Absolute Auto 0.4 X10*3/uL (0.0-0.4); Eosinophils Percent Auto 6.7 % (0-4); Hematocrit 31.3 % (37.0-47.0); Hemoglobin 10.5 g/dl (12.0-16.0); Imm Gran Abs Auto 0.02 X10*3/uL (0.00-0.03); Imm Gran Pct Auto 0.3 % (0.0-0.4); Lymphocytes Absolute Auto 1.4 X10*3/uL (1.2-4.9); Lymphocytes Percent Auto 22.3 % (20-40); Mean Corpuscular HGB Conc 33.5 g/dl (31.0-35.0); Mean Corpuscular Hemoglobin 30.3 pg (27.0-33.0); Mean Corpuscular Volume 90.2 fL (80.0-98.0); Mean Platelet Volume 10.6 fL (9.4-12.3); Monocytes Percent Auto 16.4 % (2-11); Neutrophils Absolute Auto 3.3 x10*3/uL (2.0-8.3); Neutrophils Percent Auto 53.5 % (45-73); Platelet Count 226 X10*3/uL (160-400); Red Blood Count 3.47 X10*6/uL (4.20-5.50); White Blood Count 6.2 X10*3/uL (4.8-10.8)
== END 2021-12-30 15:59 | disposition home or self-care (01) ==
LOC: HO.LNP 15:58
PROVIDERS: Visit Provider Internal Medicine
DX: D62 Acute posthemorrhagic anemia (principal)
CPT/HCPCS: 85025

== ENCOUNTER → 2022-01-03 10:27 | Outpatient (REF) | payer MEDICARE, OTHER, SELFPAY ==
--- NOTE | 2022-01-03 10:31 | CA_ITS ---
Transthoracic Echocardiogram Patient (Last, First, Middle): Rochelle Garcia M Gender: Female Date of : 1945 Age: 76 Procedure Date: 01/03/2022 Procedure Type: Transthoracic Echocardiogram Location: OP Height: 160.02 cm Weight: 64.86 kg BSA: 1.68 m2 Heart Rate: bpm BP: 103 / 65 mmHg Group Captain: IMELDA Referring MD: Claudia Mohan MD Vp Analytics: Talha Ulloa MD Symptoms: S/P MITRACLIP , MITRAL STENOSIS Study Quality: Good ECG Rhythm: Sinus Conclusions: - 1. Mildly reduced LV systolic function with underlying regional wall motion abnormality suggestive coronary artery disease with impaired relaxation. 2. Presence of MitraClip with mild mitral regurgitation 3. Normal RV systolic pressure 4. No gross pericardial effusion Findings Left Ventricle Mildly increased left ventricular cavity size. There is normal left ventricular wall thickness. The left ventricular systolic function is mildly decreased. The visually estimated ejection fraction is between 45-50%. There is evidence of regional wall motion abnormalities. Spectral Doppler is indicative of an impaired relaxation filling pattern. Wall Motion Rest Echo Findings The mid inferior and mid inferoseptal segments are hypokinetic. The basal inferior, basal inferoseptal, and basal inferolateral segments are akinetic. All other scored wall segments showed normal motion. Right Ventricle Normal right ventricular cavity size and systolic function. Atria The left atrium is severely dilated. There is no evidence of interatrial shunt. The right atrium is mildly dilated. Aortic Valve Normal aortic valve structure and function. There is no aortic valve stenosis. There is no aortic valve regurgitation. Mitral Valve There is mild anterior and severe posterior mitral leaflet thickening. There is mild mitral valve regurgitation. There is no mitral valve stenosis. Reported and findings consistent with presence of MitraClip with restricted anterior and posterior mitral leaflet. There is no significant mitral stenosis. However there is mild mitral regurgitation noted. Pulmonic Valve The pulmonic valve is likely normal. Tricuspid Valve Normal tricuspid valve structure. There is trace tricuspid valve regurgitation. The right ventricular systolic pressure is normal. The right ventricular systolic pressure is 30 mmHg. Normal right atrial pressure. There is no evidence of pulmonary hypertension. Great Vessels All visible segments of the aorta are normal in size. The pulmonary artery was not well visualized. Venous The inferior vena cava is normal in size and collapses greater than 50% with inspiration. Pericardium/Pleural There is no evidence of pericardial effusion. Prior Study Comparison Changes noted compared to prior study dated: 07/19/2021. Mitral regurgitation has significantly improved with presence of MitraClip. LV systolic function is marginally reduced Measurements 2D Linear Measurements IVSd: 0.94 0.6-0.9/0.6-1.0 cm LVIDd: 5.55 3.9-5.3/4.2-5.9 cm LVIDd Index: 3.30 2.4-3.2/2.2-3.1 cm/m2 LVIDs: 4.74 2.0-3.6 cm LVPWd: 1.05 0.7-1.1 cm LA Diam: 4.20 2.7-3.8/3.0-4.0 cm LAIDs Index: 2.50 1.5-2.3 cm/m2 LV Mass: 268.37 67-162/88-224 g LV Mass Index: 159.74 43-95/49-115 g/m2 LVOT Diam: 1.90 3.0+(-)1.3 cm 2D Systolic Function EF 4C: 50.00 >55% EF 2C: 50.90 >55% EF BiP: 47.70 >55% Mitral Valve MV VTI: 0.51 MV Pk Josse: 1.54 MV Mn Josse: 0.77 MV Pk Grad: 9.00 MV Mn Grad: 3.00 MV Pk E: 0.95 MV PK A: 1.38 MV Decel Time: 440.00 E/A: 0.70 E'Lateral: 6.20 E'Medial: 3.15 E/E' Med: 30.00 E/E' Lat: 15.30 PHT: 129.00 MVA PHT: 1.71 MVA Continuity: 1.52 Decel Lincoln: 2.15 MR VTI: 1.59 Aortic Valve AoV Pk Josse: 1.36 AoV Mn Josse: 0.97 AoV VTI: 0.32 AoV Pk Grad: 7.00 Aov Mn Grad: 4.00 QIUTA Cont.VTI: 2.43 LVOT LVOT Pk Josse: 1.25 LVOT Mn Josse: 0.81 LVOT VTI: 0.27 LVOT Pk Grad: 6.00 LVOT Mn Grad: 3.00 LVOT Diam: 1.90 LVOT Area: 2.84 Diastolic Function MV Pk E: 0.95 MV Pk A: 1.38 E/A: 0.70 E'Medial: 3.15 E/E' Med: 30.00 E' Laterial: 6.20 E/E' Lat: 15.30 Right Ventricle TAPSE (mm): 22.60 TVS' Josse: 10.20 Tricuspid Valve TR Pk Josse: 2.60 TR Pk Grad: 27.00 RA Press: 3.00 RVSP: 30.00 Great Vessels Aorta Sinus of Valsalva: 3.93 2.0-3.[address] [place]: 2.86 1.7-3.4 cm Ao Asc: 3.40 2.1-3.4 cm Ao Arch: 3.00 Updated in Other Vendor System with Status of Final Talha Ulloa MD electronically signed on 01/04/2022 11:14:06 AM with status of Final
== END ==
LOC: HO.CARD 10:27
PROVIDERS: PCP Internal Medicine; Visit Provider Internal Medicine Cardiovascular Disease
DX: I34.2 Nonrheumatic mitral (valve) stenosis (principal)
CPT/HCPCS: 93306

== ENCOUNTER 2022-01-20 11:47 | Outpatient (REF) | payer MEDICARE, OTHER, SELFPAY ==
[2022-01-20 12:24] LABS: Alanine Aminotransferase 10 U/L (0-31); Albumin Level 3.7 g/dL (3.5-5.0); Alkaline Phosphatase 71 U/L (39-117); Aspartate Amino Transferase 16 U/L (5-31); Bilirubin Direct 0.2 mg/dL (0.0-0.5); Bilirubin Total 0.3 mg/dL (0.0-1.0); Cholesterol 110 mg/dL; HDL Cholesterol 51 mg/dL; LDL Cholesterol Calculated 47 mg/dl; Total Protein 6.8 g/dL (6.5-8.0); Triglycerides 60 mg/dL
[2022-01-20 13:37] LABS: Reflex LDLD? No
== END 2022-01-20 11:48 | disposition home or self-care (01) ==
LOC: HO.LNP 11:47
PROVIDERS: Visit Provider Internal Medicine
DX: E78.00 Pure hypercholesterolemia, unspecified (principal)
CPT/HCPCS: 80061; 80076

== ENCOUNTER 2022-01-28 09:08 | Outpatient (REF) | payer MEDICARE, OTHER, SELFPAY ==
[2022-01-28 09:33] LABS: MANUAL DIFF FLAG NO
[2022-01-28 09:43] LABS: Basophils Absolute Auto 0.1 X10*3/uL (0.0-0.2); Basophils Percent Auto 1.2 % (0-2); Eosinophils Absolute Auto 0.7 X10*3/uL (0.0-0.4); Eosinophils Percent Auto 9.5 % (0-4); Hematocrit 32.1 % (37.0-47.0); Hemoglobin 10.5 g/dl (12.0-16.0); Imm Gran Abs Auto 0.02 X10*3/uL (0.00-0.03); Imm Gran Pct Auto 0.3 % (0.0-0.4); Lymphocytes Absolute Auto 1.3 X10*3/uL (1.2-4.9); Lymphocytes Percent Auto 18.1 % (20-40); Mean Corpuscular HGB Conc 32.7 g/dl (31.0-35.0); Mean Corpuscular Volume 88.7 fL (80.0-98.0); Mean Platelet Volume 9.6 fL (9.4-12.3); Neutrophils Absolute Auto 4.2 x10*3/uL (2.0-8.3); Neutrophils Percent Auto 57.9 % (45-73); Platelet Count 306 X10*3/uL (160-400); Red Blood Count 3.62 X10*6/uL (4.20-5.50); Red Cell Distribution Width 13.8 % (11.0-16.0); White Blood Count 7.3 X10*3/uL (4.8-10.8)
[2022-01-28 10:13] LABS: Anion Gap 17 (12-20); Blood Urea Nitrogen 20 mg/dL (9-16); Calcium 8.9 mg/dL (8.4-10.2); Carbon Dioxide 24 mmol/L (22-29); Chloride 101 mmol/L (96-108); Estimated Glomerular Filt Rate 54; Glucose Random 95 mg/dL (60-115); Potassium 4.2 mmol/L (3.3-5.1); Sodium 138 mmol/L (135-145)
== END 2022-01-28 09:09 | disposition home or self-care (01) ==
LOC: HO.LAB 09:08
PROVIDERS: PCP Internal Medicine; Referring Provider Internal Medicine; Visit Provider Internal Medicine Cardiovascular Disease
DX: Z95.2 Presence of prosthetic heart valve (principal)
CPT/HCPCS: 36415; 80048; 85025

== ENCOUNTER → 2022-02-15 11:02 | Outpatient (BNVA) | payer MEDICARE, OTHER, SELFPAY | PROVIDERS: PCP Internal Medicine; Referring Provider Internal Medicine; Visit Provider Internal Medicine Cardiovascular Disease | DX: I50.9 Heart failure, unspecified (principal); I25.10 Atherosclerotic heart disease of native coronary artery without angina pectoris; Z98.890 Other specified postprocedural states; Z95.818 Presence of other cardiac implants and grafts | CPT/HCPCS: 99212 ==

== ENCOUNTER 2022-07-25 10:42 | Outpatient (REF) | payer MEDICARE, OTHER, SELFPAY ==
[2022-03-01 10:00] VITALS: BP 110/58; BP 128/62
[2022-06-29 12:19] VITALS: BP 102/50; BMI 25.2
[2022-07-25 10:46] LABS: MANUAL DIFF FLAG NO
[2022-07-25 10:59] LABS: Basophils Percent Auto 0.7 % (0-2); Eosinophils Absolute Auto 0.2 X10*3/uL (0.0-0.4); Eosinophils Percent Auto 3.3 % (0-4); Hematocrit 34.6 % (37.0-47.0); Hemoglobin 11.2 g/dl (12.0-16.0); Imm Gran Abs Auto 0.02 X10*3/uL (0.00-0.03); Imm Gran Pct Auto 0.3 % (0.0-0.4); Lymphocytes Absolute Auto 2.5 X10*3/uL (1.2-4.9); Lymphocytes Percent Auto 43.3 % (20-40); Mean Corpuscular HGB Conc 32.4 g/dl (31.0-35.0); Mean Corpuscular Hemoglobin 30.4 pg (27.0-33.0); Mean Platelet Volume 11.8 fL (9.4-12.3); Monocytes Absolute Auto 0.9 X10*3/uL (0.1-1.2); Monocytes Percent Auto 14.7 % (2-11); Neutrophils Absolute Auto 2.2 x10*3/uL (2.0-8.3); Neutrophils Percent Auto 37.7 % (45-73); Platelet Count 187 X10*3/uL (160-400); Red Blood Count 3.68 X10*6/uL (4.20-5.50); Red Cell Distribution Width 15.1 % (11.0-16.0); White Blood Count 5.8 X10*3/uL (4.8-10.8)
[2022-07-25 11:08] LABS: Appearance Urine Clear; Color Urine Yellow; Glucose Urine UA Negative (Negative); Leukocyte Esterase Urine Small (1+) (Negative); Nitrite Urine Negative (Negative); PH 5.5 (5.0-9.0); UMIC TRIGGER UACC YES; Urine Blood Negative (Negative); Urine Ketones Negative (Negative); Urine Protein Negative (Neg-Trace)
[2022-07-25 11:33] LABS: Alanine Aminotransferase 14 U/L (0-31); Albumin Level 3.9 g/dL (3.5-5.0); Alkaline Phosphatase 66 U/L (39-117); Anion Gap 11 (12-20); Aspartate Amino Transferase 22 U/L (5-31); Bilirubin Total 0.4 mg/dL (0.0-1.0); Blood Urea Nitrogen 28 mg/dL (9-16); Carbon Dioxide 28 mmol/L (22-29); Chloride 107 mmol/L (96-108); Cholesterol 144 mg/dL; Estimated Glomerular Filt Rate 47; Glucose Fasting 87 mg/dL (60-99); HDL Cholesterol 75 mg/dL; LDL Cholesterol Calculated 61 mg/dl; Potassium 4.4 mmol/L (3.3-5.1); Sodium 142 mmol/L (135-145); Total Protein 6.4 g/dL (6.5-8.0); Triglycerides 41 mg/dL
[2022-07-25 11:41] LABS: Bacteria Urine None Seen (None Seen); Hyaline Casts Urine 0-2 /LPF (0-2); RBC Urine 0-2 /HPF (0-2); Squamous Epithelial Cell Urine 0-2 /HPF (0-2); UACC Culture Trigger YES; WBC Urine 0-5 /HPF (0-5)
== END 2022-07-25 10:43 | disposition home or self-care (01) ==
LOC: HO.LNP 10:42
PROVIDERS: Visit Provider Internal Medicine
DX: D72.820 Lymphocytosis (symptomatic) (principal); E78.00 Pure hypercholesterolemia, unspecified; I50.22 Chronic systolic (congestive) heart failure; R82.90 Unspecified abnormal findings in urine
CPT/HCPCS: 80053; 80061; 81001; 85025; 87086

== ENCOUNTER 2023-01-02 11:05 | Outpatient (AMB) | payer MEDICARE, OTHER, SELFPAY ==
[2022-08-03 07:45] VITALS: BP 102/50; BP 104/62; BP 126/50; BMI 24.1
--- NOTE | 2023-01-02 11:12 | MHC.OFFVIS ---
Intake Vital Signs 01/02/23 11:13 Height 5 ft 5 in Weight 149 lb 0.52 oz BMI 24.8 BP 102/62 Blood Pressure Location Lt brachial Position Sitting Pulse 65 Pulse Source Monitor Intake Visit Reasons: 6 month follow up Intake Note: 6 month follow up with EKG. 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 Accompanied by: Self / Same As Patient Allergies No Known Allergies [No Known Allergies*] Allergy (Verified 01/02/23 11:14) Medication List - Last Reconciled 01/02/23 by Talha Ulloa MD amoxicillin 500 mg orally 4 capsules ( 2000 mg) one hour prior to dental work; aspirin 81 mg PO DAILY blood pressure test kit-medium As directed furosemide 20 mg PO DAILY losartan 25 mg PO BID metoprolol succinate ER 25 mg PO BID dh-zhe-kjnch acid-lutein 200-137.5 mcg (Adult Multivitamin (w-lutein)) 1 tab PO DAILY rosuvastatin 40 mg PO DAILY HPI HPI Comments History of Present Illness Details Rochelle comes for follow-up. She has been doing well from cardiac perspective. She is remaining very active. Denies any exertional chest pain, shortness of breath. No heart failure symptoms of orthopnea, PND. Taking all her medications currently. Not on Plavix anymore although it is listed on her med list. She is currently taking low-dose Lasix therapy.. No prolonged palpitations irregular heartbeats. [facility], [facility] Medical History CAD (coronary artery disease) Congestive heart failure Ischemic cardiomyopathy Mitral regurgitation Surgical History Hx of hand surgery Status post cardiac catheterization Family History Father CVD (cardiovascular disease) Mother No problems noted. Social History Alcohol intake: never Patient Tobacco Use Status: Never used Tobacco Tobacco use type: Smokeless Tobacco Review of Systems Const Denies weakness ENT Denies dizziness Card Denies chest pain, Denies chest pain with activity, Denies syncope, Denies rapid heart rate, Denies pedal edema, Denies edema, Denies leg edema, Denies lightheadedness, Denies palpitations, Denies dyspnea, Denies dyspnea on exertion and Denies orthopnea Resp Denies cough, Denies dyspnea and Denies dyspnea on exertion GI Denies hematochezia and Denies change in stool character Musc Denies abnormal gait, Denies muscle cramps, Denies muscle weakness, Denies numbness, Denies radiating pain into limb and Denies tingling Neuro Denies abnormal gait, Denies dizziness, Denies syncope, Denies numbness, Denies tingling and Denies weakness Endo Denies palpitations Physical Exam Vital Signs: Last Vital Signs Pulse 65 01/02/23 11:13 BP 102/62 01/02/23 11:13 BMI result Body Mass Index 24.8 Const General: cooperative, healthy appearing, no acute distress, alert and awake Orientation/consciousness: patient oriented x3 Neck Neck: Yes normal visual inspection and Yes no JVD Resp Effort & Inspection: normal respiratory effort, able to speak in complete sentences and not labored Auscultation: clear to auscultation bilaterally, no crackles, no rales, no rhonchi and no wheezes Cardio Rate: regular rate Rhythm: regular rhythm Heart sounds: S1 normal heart sound present, S2 normal heart sound present, no click, no gallops and Murmur heart sound present systolic other (Short systolic murmur which has much improved) Peripheral pulses: Peripheral pulses 2+ throughout GI Inspection: Yes normal to inspection Neuro General: patient oriented x3 Extrem Other: Right radial catheterization site with easily palpable radial pulse, right hand assessment normal General: Yes normal to inspection and No edema Office Procedures EKG Details: EKG shows normal sinus rhythm with normal EKG at 65 beats per minute [id number], Complete Assessment & Plan Assessment & Plan (1) S/P mitral valve clip implantation: Code(s): Z98.890 - Other specified postprocedural states; Z95.818 - Presence of other cardiac implants and grafts Plan: Status post MitraClip for significant ischemic mitral regurgitation. Since then she has done remarkably well. She has improvement symptomatology. Continue monitor. Continue low-dose aspirin therapy for life. SBE prophylaxis as per ACC/aha guidelines. Will follow up with echocardiogram in near future. (2) Congestive heart failure: Code(s): I50.9 - Heart failure, unspecified Plan: Heart failure with mildly reduced ejection fraction by last echocardiogram. Could not tolerate Entresto therapy. Currently tolerating losartan as well as metoprolol for neurohormonal modulation. Clinically appears to be euvolemic and well compensated. Continue current low-dose diuretic therapy with Lasix. Daily weight monitoring avoidance of salt loading was discussed. Continue to exercise as tolerated. (3) CAD (coronary artery disease): Comment: History of inferior inferolateral myocardial infarction, manage conservatively as for patient's wish Code(s): I25.10 - Atherosclerotic heart disease of circle coronary artery without angina pectoris Plan: Patient underlying CAD with no recent symptoms of angina. Continue lifelong aspirin therapy. Blood pressure is currently well optimized. Importance of good blood pressure control was discussed. Continue high-intensity statin therapy. Target goal LDL less than 70 mg/dL. Will follow up in the clinic in 1 year's time, sooner p.r.n.. Thank you for allowing me to partake in her care Orders: Orders CA echo transthoracic complete Today Z95.818 - Presence of other cardiac implants and grafts, Z98.890 - Other specified postprocedural states Coding Level of Care Code Est Pt Level 4 (50895) Diagnoses S/P mitral valve clip implantation Z98.890; Z95.818 Congestive heart failure I50.9 CAD (coronary artery disease) I25.10 CPT Codes EKG - CPT: 25179-[id number], Complete ([id number])
[2023-01-02 11:13] VITALS: BP 102/62; PULSE 65; BMI 24.8
== END 2023-01-02 11:31 | disposition home or self-care (01) ==
PROVIDERS: PCP Internal Medicine; Referring Provider Internal Medicine; Visit Provider Internal Medicine Cardiovascular Disease
DX: Z98.890 Other specified postprocedural states (principal); Z95.818 Presence of other cardiac implants and grafts; I50.9 Heart failure, unspecified; I25.10 Atherosclerotic heart disease of native coronary artery without angina pectoris
CPT/HCPCS: 93010; 99214

== ENCOUNTER → 2023-01-02 11:05 | Outpatient (BNVA) | payer MEDICARE, OTHER, SELFPAY ==
[2022-08-03 07:45] VITALS: BP 102/50; BP 104/62; BP 126/50; BMI 24.1
== END ==
PROVIDERS: PCP Internal Medicine; Referring Provider Internal Medicine; Visit Provider Internal Medicine Cardiovascular Disease
DX: I50.9 Heart failure, unspecified (principal); I25.10 Atherosclerotic heart disease of native coronary artery without angina pectoris; Z79.82 Long term (current) use of aspirin; Z79.899 Other long term (current) drug therapy; Z95.818 Presence of other cardiac implants and grafts
CPT/HCPCS: 93005; 99212

== ENCOUNTER → 2023-01-23 12:54 | Outpatient (REF) | payer MEDICARE, OTHER, SELFPAY ==
[2022-08-03 07:45] VITALS: BP 102/50; BP 104/62; BP 126/50; BMI 24.1
--- NOTE | 2023-01-23 12:56 | CA_ITS ---
Transthoracic Echocardiogram Patient (Last, First, Middle): Rochelle Garcia M Gender: Female Date of : 1945 Age: 77 Procedure Date: 01/23/2023 Procedure Type: Transthoracic Echocardiogram Location: OP Height: 165.1 cm Weight: 66.23 kg BSA: 1.73 m2 Heart Rate: 55 bpm BP: 118 / 62 mmHg Writer Technical Publications: PETE Referring MD: Talha Ulloa MD Symptoms: Z98.890 - Other specified postprocedural states Study Quality: Adequate ECG Rhythm: Bradycardia Conclusions: - The left ventricular systolic function is mildly decreased. The visually estimated ejection fraction is between 45-50%. - The basal inferior, mid inferior, basal inferoseptal, and basal inferolateral segments are akinetic. - There is mild mitral valve regurgitation. s/p mitraclip. Findings Left Ventricle Mildly increased left ventricular cavity size. There is normal left ventricular wall thickness. The left ventricular systolic function is mildly decreased. The visually estimated ejection fraction is between 45-50%. There is evidence of regional wall motion abnormalities. Evidence suggests grade I (mild) diastolic dysfunction. LV peak GLS -17.5%, suspect overestimate. Wall Motion Rest Echo Findings The basal inferior, mid inferior, basal inferoseptal, and basal inferolateral segments are akinetic. Right Ventricle Normal right ventricular cavity size and systolic function. Atria The left atrium is severely dilated. The right atrium is normal in size. Aortic Valve There is a normal trileaflet aortic valve. There is no aortic valve stenosis. There is no aortic valve regurgitation. Mitral Valve There is mild mitral valve regurgitation. There is no mitral valve stenosis. s/p mitraclip. Pulmonic Valve The pulmonic valve is likely normal. Tricuspid Valve There is mild tricuspid valve regurgitation. There is no evidence of pulmonary hypertension. Great Vessels The asc aorta is normal in size. Venous The inferior vena cava is normal in size and collapses greater than 50% with inspiration. Pericardium/Pleural There is no evidence of pericardial effusion. Prior Study Comparison No significant change compared to prior study dated: 01/03/2022. Measurements 2D Linear Measurements IVSd: 0.88 0.6-0.9/0.6-1.0 cm LVIDd: 5.61 3.9-5.3/4.2-5.9 cm LVIDd Index: 3.24 2.4-3.2/2.2-3.1 cm/m2 LVIDs: 4.32 2.0-3.6 cm LVPWd: 0.83 0.7-1.1 cm LA Diam: 3.40 2.7-3.8/3.0-4.0 cm LAIDs Index: 1.97 1.5-2.3 cm/m2 LV Mass: 223.96 67-162/88-224 g LV Mass Index: 129.45 43-95/49-115 g/m2 LVOT Diam: 1.90 3.0+(-)1.3 cm 2D Systolic Function EF 4C: 56.70 >55% EF 2C: 53.90 >55% EF BiP: 54.20 >55% Mitral Valve MV VTI: 0.44 MV Pk Josse: 1.41 MV Mn Josse: 0.77 MV Pk Grad: 8.00 MV Mn Grad: 3.00 MV Pk E: 1.08 MV PK A: 1.23 MV Decel Time: 414.00 E/A: 0.90 E'Lateral: 5.45 E'Medial: 4.04 E/E' Med: 26.70 E/E' Lat: 19.80 PHT: 121.00 MVA PHT: 1.82 MVA Continuity: 1.60 Decel Dade: 2.61 MR Vol - PW Dopp: 22.22 MR VTI: 2.02 MR ERO: 11.00 MR Alias Josse: 0.39 MR RAD: 0.50 Aortic Valve AoV Pk Josse: 1.14 AoV Mn Josse: 0.86 AoV VTI: 0.31 AoV Pk Grad: 5.00 Aov Mn Grad: 3.00 QUITA Cont.VTI: 2.27 LVOT LVOT Pk Josse: 1.00 LVOT Mn Josse: 0.71 LVOT VTI: 0.25 LVOT Pk Grad: 4.00 LVOT Mn Grad: 2.00 LVOT Diam: 1.90 LVOT Area: 2.84 Diastolic Function MV Pk E: 1.08 MV Pk A: 1.23 E/A: 0.90 E'Medial: 4.04 E/E' Med: 26.70 E' Laterial: 5.45 E/E' Lat: 19.80 Right Ventricle TAPSE (mm): 24.30 TVS' Josse: 8.08 Tricuspid Valve TR Pk Josse: 2.42 TR Pk Grad: 23.00 RA Press: 3.00 RVSP: 26.00 Great Vessels Aorta Sinus of Valsalva: 3.70 2.0-3.5 cm Ao Asc: 3.40 2.1-3.4 cm Pulmonary Valve PV Pk Josse: 0.75 Peak PV Grad: 2.00 Updated in Other Vendor System with Status of Final Christofer Grant MD electronically signed on 01/24/2023 1:45:06 PM with status of Final
== END ==
LOC: HO.CARD 12:54
PROVIDERS: PCP Internal Medicine; Visit Provider Internal Medicine Cardiovascular Disease
DX: Z98.890 Other specified postprocedural states (principal); Z95.818 Presence of other cardiac implants and grafts; Z95.4 Presence of other heart-valve replacement
CPT/HCPCS: 93306; 93356

== ENCOUNTER → 2023-01-23 12:56 | Outpatient (BNV) | payer MEDICARE, OTHER, SELFPAY ==
[2022-08-03 07:45] VITALS: BP 102/50; BP 104/62; BP 126/50; BMI 24.1
== END ==
PROVIDERS: PCP Internal Medicine; Visit Provider Internal Medicine
DX: I34.0 Nonrheumatic mitral (valve) insufficiency (principal)
CPT/HCPCS: 93306

== ENCOUNTER 2023-01-26 13:33 | Outpatient (REF) | payer MEDICARE, OTHER, SELFPAY ==
[2022-08-03 07:45] VITALS: BP 102/50; BP 104/62; BP 126/50; BMI 24.1
[2023-01-26 14:21] LABS: Alanine Aminotransferase 16 U/L (0-31); Albumin Level 4.2 g/dL (3.5-5.0); Alkaline Phosphatase 58 U/L (39-117); Aspartate Amino Transferase 25 U/L (5-31); Bilirubin Direct 0.2 mg/dL (0.0-0.5); Bilirubin Total 0.4 mg/dL (0.0-1.0); Blood Urea Nitrogen 21 mg/dL (9-16); Estimated Glomerular Filt Rate 54; Total Protein 7.2 g/dL (6.5-8.0)
[2023-01-26 14:30] LABS: Cholesterol 142 mg/dL (<200); HDL Cholesterol 79 mg/dL (>40); LDL Cholesterol Calculated 52 mg/dL (<100); Triglycerides 55 mg/dL (<150)
[2023-01-26 15:49] LABS: Reflex LDLD? No
== END 2023-01-26 13:34 | disposition home or self-care (01) ==
LOC: HO.LNP 13:33
PROVIDERS: Visit Provider Internal Medicine
DX: E78.00 Pure hypercholesterolemia, unspecified (principal); I50.22 Chronic systolic (congestive) heart failure; R79.9 Abnormal finding of blood chemistry, unspecified
CPT/HCPCS: 80061; 80076; 82565; 84520

== ENCOUNTER 2023-07-21 11:15 | Outpatient (REF) | payer MEDICARE, OTHER, SELFPAY ==
[2022-08-03 07:45] VITALS: BP 102/50; BP 104/62; BP 126/50; BMI 24.1
[2023-07-21 11:18] LABS: MANUAL DIFF FLAG NO
[2023-07-21 11:50] LABS: Appearance Urine Clear; Color Urine Yellow; Glucose Urine UA Negative (Negative); Leukocyte Esterase Urine Moderate (2+) (Negative); Nitrite Urine Negative (Negative); PH 5.5 (5.0-9.0); UMIC TRIGGER UACC YES; Urine Blood Negative (Negative); Urine Ketones Negative (Negative); Urine Protein Negative (Neg-Trace)
[2023-07-21 11:58] LABS: Basophils Absolute Auto 0.1 X10*3/uL (0.0-0.2); Eosinophils Absolute Auto 0.2 X10*3/uL (0.0-0.4); Eosinophils Percent Auto 3.4 % (0-4); Hematocrit 36.5 % (37.0-47.0); Hemoglobin 11.9 g/dl (12.0-16.0); Imm Gran Abs Auto 0.01 X10*3/uL (0.00-0.03); Imm Gran Pct Auto 0.2 % (0.0-0.4); Lymphocytes Absolute Auto 2.1 X10*3/uL (1.2-4.9); Lymphocytes Percent Auto 41.9 % (20-40); Mean Corpuscular HGB Conc 32.6 g/dl (31.0-35.0); Mean Corpuscular Hemoglobin 30.4 pg (27.0-33.0); Mean Corpuscular Volume 93.1 fL (80.0-98.0); Mean Platelet Volume 11.6 fL (9.4-12.3); Monocytes Absolute Auto 0.7 X10*3/uL (0.1-1.2); Monocytes Percent Auto 13.7 % (2-11); Neutrophils Percent Auto 39.8 % (45-73); Platelet Count 183 X10*3/uL (160-400); Red Blood Count 3.92 X10*6/uL (4.20-5.50); Red Cell Distribution Width 14.2 % (11.0-16.0)
[2023-07-21 12:05] LABS: Bacteria Urine None Seen (None Seen); Granular Casts Urine Present; Hyaline Casts Urine 0-2 /LPF (0-2); RBC Urine 0-2 /HPF (0-2); Squamous Epithelial Cell Urine 0-2 /HPF (0-2); UACC Culture Trigger YES
[2023-07-21 12:39] LABS: Alanine Aminotransferase 13 U/L (0-31); Alkaline Phosphatase 62 U/L (39-117); Anion Gap 12 (12-20); Aspartate Amino Transferase 20 U/L (5-31); Bilirubin Total 0.3 mg/dL (0.0-1.0); Blood Urea Nitrogen 29 mg/dL (9-16); Calcium 9.3 mg/dL (8.4-10.2); Carbon Dioxide 28 mmol/L (22-29); Chloride 107 mmol/L (96-108); Cholesterol 144 mg/dL (<200); Estimated Glomerular Filt Rate 45; Glucose Fasting 84 mg/dL (60-99); HDL Cholesterol 78 mg/dL (>40); LDL Cholesterol Calculated 55 mg/dL (<100); Potassium 4.3 mmol/L (3.3-5.1); Sodium 143 mmol/L (135-145); Total Protein 6.8 g/dL (6.5-8.0); Triglycerides 56 mg/dL (<150)
== END 2023-07-21 11:16 | disposition home or self-care (01) ==
LOC: HO.LNP 11:15
PROVIDERS: Visit Provider Internal Medicine
DX: D72.820 Lymphocytosis (symptomatic) (principal); E78.00 Pure hypercholesterolemia, unspecified; I50.22 Chronic systolic (congestive) heart failure; R82.90 Unspecified abnormal findings in urine
CPT/HCPCS: 80053; 80061; 81001; 85025; 87086

== ENCOUNTER 2023-09-06 13:41 | Outpatient (REF) | payer MEDICARE, OTHER, SELFPAY ==
[2022-08-03 07:45] VITALS: BP 102/50; BP 104/62; BP 126/50; BMI 24.1
--- NOTE | ~2023-09-06 | MM_ITS ---
EXAMINATION: MM SCREENING DIGITAL BREAST TOMOSYNTHESIS, BILATERAL CLINICAL INFORMATION: Screening. Asymptomatic. COMPARISON: Mammography: 05/22/2015, 01/04/2013, 06/24/2018. TECHNIQUE: Digital breast tomosynthesis is performed in both the craniocaudal and mediolateral oblique views along with computer-aided detection (CAD). Synthesized 2D images are generated from the tomosynthesis. FINDINGS: There are scattered areas of fibroglandular density (ACR BI-RADS breast composition Category b). There are vascular and secretory calcifications bilaterally. There are no suspicious masses, suspicious grouped calcifications, or areas of architectural distortion in either breast. The parenchymal pattern is stable from prior exams. No skin or axillary abnormalities. MM/MM tomosynthesis screening BI IMPRESSION: No mammographic evidence of malignancy. ASSESSMENT: BI-RADS BI-RADS 2 - Benign Findings RECOMMENDATION: Routine annual mammography screening. 1 year F/U This examination should not preclude the clinical evaluation of a suspicious palpable abnormality. This patient's information was entered into a reminder system with a target due date for their next mammogram.
== END 2023-09-06 13:42 | disposition home or self-care (01) ==
LOC: HO.MAMMO 13:41
PROVIDERS: PCP Internal Medicine; Visit Provider Internal Medicine
DX: Z12.31 Encounter for screening mammogram for malignant neoplasm of breast (principal)
CPT/HCPCS: 77063; 77067

== ENCOUNTER → 2023-09-06 13:45 | Outpatient (BNV) | payer MEDICARE, OTHER, SELFPAY ==
[2022-08-03 07:45] VITALS: BP 102/50; BP 104/62; BP 126/50; BMI 24.1
== END ==
PROVIDERS: PCP Internal Medicine; Visit Provider Radiology Diagnostic Radiology
DX: Z12.31 Encounter for screening mammogram for malignant neoplasm of breast (principal)
CPT/HCPCS: 77063; 77067

== ENCOUNTER 2023-10-27 10:38 | Outpatient (REF) | payer MEDICARE, OTHER, SELFPAY ==
[2022-08-03 07:45] VITALS: BP 102/50; BP 104/62; BP 126/50; BMI 24.1
[2023-10-27 11:21] LABS: Blood Urea Nitrogen 21 mg/dL (9-16); Estimated Glomerular Filt Rate > 60
== END 2023-10-27 10:39 | disposition home or self-care (01) ==
LOC: HO.LNP 10:38
PROVIDERS: Visit Provider Internal Medicine
DX: R79.9 Abnormal finding of blood chemistry, unspecified (principal)
CPT/HCPCS: 82565; 84520

== ENCOUNTER 2024-01-19 10:48 | Outpatient (REF) | payer MEDICARE, OTHER, SELFPAY ==
[2022-08-03 07:45] VITALS: BP 102/50; BP 104/62; BP 126/50; BMI 24.1
[2024-01-19 11:37] LABS: Alanine Aminotransferase 14 U/L (0-31); Albumin Level 3.9 g/dL (3.5-5.0); Alkaline Phosphatase 55 U/L (39-117); Aspartate Amino Transferase 22 U/L (5-31); Bilirubin Direct 0.1 mg/dL (0.0-0.5); Bilirubin Total 0.3 mg/dL (0.0-1.0); Cholesterol 131 mg/dL (<200); HDL Cholesterol 72 mg/dL (>40); LDL Cholesterol Calculated 48 mg/dL (<100); Total Protein 6.6 g/dL (6.5-8.0); Triglycerides 56 mg/dL (<150)
[2024-01-19 12:50] LABS: Reflex LDLD? No
== END 2024-01-19 10:49 | disposition home or self-care (01) ==
LOC: HO.LNP 10:48
PROVIDERS: Visit Provider Internal Medicine
DX: E78.00 Pure hypercholesterolemia, unspecified (principal)
CPT/HCPCS: 80061; 80076

== ENCOUNTER 2024-01-31 10:51 | Outpatient (AMB) | payer MEDICARE, OTHER, SELFPAY ==
[2022-08-03 07:45] VITALS: BP 102/50; BP 104/62; BP 126/50; BMI 24.1
[2024-01-31 11:11] VITALS: BP 116/60; PULSE 55; BMI 26.9
--- NOTE | 2024-01-31 11:11 | MHC.OFFVIS ---
Vital Signs 01/31/24 11:11 Height 5 ft 3 in Weight 152 lb 1.903 oz BMI 26.9 BP 116/60 Blood Pressure Location Lt brachial Position Sitting Pulse 55 Pulse Source Monitor Intake Visit Reasons: 1 yr f/up Allergies No Known Allergies [No Known Allergies*] Allergy (Verified 01/02/23 11:14) Medication List - Last Reconciled 01/31/24 by Talha Ulloa MD amoxicillin 500 mg orally 4 capsules ( 2000 mg) one hour prior to dental work; aspirin 81 mg PO DAILY blood pressure test kit-medium As directed furosemide 20 mg PO DAILY losartan 25 mg PO BID metoprolol succinate ER 25 mg PO BID ms-ywu-vjhvj acid-lutein 200-137.5 mcg (Adult Multivitamin (w-lutein)) 1 tab PO DAILY rosuvastatin 40 mg PO DAILY HPI Comments Details: Rochelle comes for follow-up. She has been doing extremely well. She says she is completely functional, she does get short of breath when she completes a flight of stairs but this is not change. No orthopnea, PND, leg edema. No abdominal distension. No prolonged palpitation irregular heartbeat. Takes all her medications. No lightheadedness, syncope. No fever or chills. [facility] Medical History CAD (coronary artery disease) Congestive heart failure Ischemic cardiomyopathy Mitral regurgitation Surgical History Status post cardiac catheterization Hx of hand surgery Family History Father CVD (cardiovascular disease) Mother No problems noted. Social History Alcohol intake: never Patient Tobacco Use Status: Never used Tobacco Tobacco use type: Smokeless Tobacco Review of Systems Const Denies weakness ENT Denies dizziness Card Denies chest pain, Denies chest pain with activity, Denies syncope, Denies rapid heart rate, Denies pedal edema, Denies edema, Denies leg edema, Denies lightheadedness, Denies palpitations, Denies dyspnea, Denies dyspnea on exertion and Denies orthopnea Resp Denies cough, Denies dyspnea and Denies dyspnea on exertion GI Denies hematochezia and Denies change in stool character Musc Denies abnormal gait, Denies muscle cramps, Denies muscle weakness, Denies numbness, Denies radiating pain into limb and Denies tingling Neuro Denies abnormal gait, Denies dizziness, Denies syncope, Denies numbness, Denies tingling and Denies weakness Endo Denies palpitations Physical Exam Vital Signs: Last Vital Signs Pulse 55 01/31/24 11:11 BP 116/60 01/31/24 11:11 BMI result Body Mass Index 26.9 Const General: cooperative, healthy appearing, no acute distress, alert and awake Orientation/consciousness: patient oriented x3 Neck Neck: Yes normal visual inspection and Yes no JVD Resp Effort & Inspection: normal respiratory effort, able to speak in complete sentences and not labored Auscultation: clear to auscultation bilaterally, no crackles, no rales, no rhonchi and no wheezes Cardio Rate: regular rate Rhythm: regular rhythm Heart sounds: S1 normal heart sound present, S2 normal heart sound present, no click, no gallops and Murmur heart sound present systolic other (Short systolic murmur which has much improved) Peripheral pulses: Peripheral pulses 2+ throughout GI Inspection: Yes normal to inspection Neuro General: patient oriented x3 Extrem Other: Right radial catheterization site with easily palpable radial pulse, right hand assessment normal General: Yes normal to inspection and No edema Office Procedures EKG Details: EKG shows normal sinus rhythm with Q-waves in inferior and lateral wall suggestive of prior myocardial infarction [id number], Complete Assessment & Plan Assessment & Plan (1) Congestive heart failure: Code(s): I50.9 - Heart failure, unspecified Category: Medical Plan: Ischemic cardiomyopathy with erme-fi-kshvppho LV systolic dysfunction. Clinically euvolemic and well compensated current diuretic dose. Continue the same. Importance of diuretic therapy was discussed. Daily weight monitoring avoidance of salt loading was discussed. Continue current neurohormonal modulation with losartan and metoprolol therapy. Management of heart failure was discussed in details. Continue maintain activity level as tolerated. She understands and agrees. (2) CAD (coronary artery disease): Comment: History of inferior inferolateral myocardial infarction, manage conservatively as for patient's wish Code(s): I25.10 - Atherosclerotic heart disease of [place] coronary artery without angina pectoris Category: Medical Plan: CAD with inferior inferolateral myocardial infarction with occluded LAD. Clinically without any symptoms angina. Continue aggressive medical therapy. Low-dose aspirin therapy for life. Continue metoprolol therapy. Continue high-intensity statin therapy. Target goal LDL less than 70 mg/dL. Her last LDL was 48 mg/dL well optimized. Continue current therapy. (3) S/P mitral valve clip implantation: Code(s): Z98.890 - Other specified postprocedural states; Z95.818 - Presence of other cardiac implants and grafts Category: Surgical Plan: Status post mitral valve clip for heart failure syndrome and significant mitral regurgitation due to restricted posterior leaflet. Has done well with heart failure syndrome since the MitraClip procedure. Follow-up echocardiogram near future. Continue aspirin therapy. SBE prophylaxis as per ACC/[facility] guidelines. Follow up in the clinic in 1 year's time, sooner p.r.n.. Thank you for allowing me to partake in her care Orders: Orders CA echo transthoracic complete 1 Day I25.5 - Ischemic cardiomyopathy Coding Level of Care Code Est Pt Level 4 (01591) Diagnoses Congestive heart failure I50.9 CAD (coronary artery disease) I25.10 S/P mitral valve clip implantation Z98.890; Z95.818 CPT Codes EKG - CPT: 09469-Zmjfycmajdgbcjqlm, Complete ([id number])
== END 2024-01-31 11:26 | disposition home or self-care (01) ==
PROVIDERS: PCP Internal Medicine; Visit Provider Internal Medicine Cardiovascular Disease
DX: I50.9 Heart failure, unspecified (principal); I25.10 Atherosclerotic heart disease of native coronary artery without angina pectoris; Z98.890 Other specified postprocedural states; Z95.818 Presence of other cardiac implants and grafts
CPT/HCPCS: 93010; 99214

== ENCOUNTER → 2024-01-31 10:51 | Outpatient (BNVA) | payer MEDICARE, OTHER, SELFPAY ==
[2022-08-03 07:45] VITALS: BP 102/50; BP 104/62; BP 126/50; BMI 24.1
== END ==
PROVIDERS: PCP Internal Medicine; Visit Provider Internal Medicine Cardiovascular Disease
DX: I11.0 Hypertensive heart disease with heart failure (principal); I50.9 Heart failure, unspecified; I25.10 Atherosclerotic heart disease of native coronary artery without angina pectoris; Z98.890 Other specified postprocedural states; Z95.818 Presence of other cardiac implants and grafts
CPT/HCPCS: 93005; 99212

== ENCOUNTER → 2024-02-15 14:42 | Outpatient (REF) | payer MEDICARE, OTHER, SELFPAY ==
[2022-08-03 07:45] VITALS: BP 102/50; BP 104/62; BP 126/50; BMI 24.1
--- NOTE | 2024-02-15 14:46 | CA_ITS ---
Transthoracic Echocardiogram Patient (Last, First, Middle): Rochelle Garcia M Gender: Female Date of : 1945 Age: 78 Procedure Date: 02/15/2024 Procedure Type: Transthoracic Echocardiogram Location: OP Height: 160.02 cm Weight: 68.49 kg BSA: 1.72 m2 Heart Rate: bpm BP: 114 / 60 mmHg Technical Support Assistant: IMELDA Referring MD: Talha Ulloa MD Tire Fixer: Talha Ulloa MD Symptoms: I25.5 - Ischemic cardiomyopathy Study Quality: Adequate ECG Rhythm: Sinus Conclusions: - 1. Mildly dilated left ventricle with low normal LV ejection fraction of 50-55% with regional wall motion abnormality consistent with ischemic cardiomyopathy 2. Severely dilated left atrium 3. Presence of MitraClip with xdqt-ba-grpbihqj mitral regurgitation 4. Normal RV systolic pressure 5. No gross pericardial effusion Findings Left Ventricle Mildly increased left ventricular cavity size. There is normal left ventricular wall thickness. The left ventricular systolic function is low normal. The visually estimated ejection fraction is between 50-55%. Spectral Doppler is indicative of an impaired relaxation filling pattern. E/E prime ratio is between 8 and 15 consistent with indeterminate filling pressures. Wall Motion Rest Echo Findings The mid inferior and mid inferoseptal segments are hypokinetic. The inferolateral wall, the apical inferior, basal inferior, and basal inferoseptal segments are akinetic. All other scored wall segments showed normal motion. Right Ventricle Normal right ventricular cavity size and systolic function. Atria The left atrium is severely dilated. There is no evidence of interatrial shunt. The right atrium is mildly dilated. Aortic Valve Normal aortic valve structure and function. There is no aortic valve stenosis. There is no aortic valve regurgitation. Mitral Valve The posterior mitral leaflet has restricted mobility. that is linear refractile density at the tip of both mitral valve leaflet consistent with MitraClip. No significant mitral stenosis noted by gradient Although this can not be entirely ruled out. Jdnj-vv-kqvgekdx mitral regurgitation noted Pulmonic Valve The pulmonic valve is likely normal. Tricuspid Valve Normal tricuspid valve structure. There is mild tricuspid valve regurgitation. The right ventricular systolic pressure is normal. The right ventricular systolic pressure is 28 mmHg. Normal right atrial pressure. There is no evidence of pulmonary hypertension. Great Vessels All visible segments of the aorta are normal in size. The pulmonary artery was not well visualized. Venous The inferior vena cava is normal in size and collapses greater than 50% with inspiration. Pericardium/Pleural There is no evidence of pericardial effusion. Prior Study Comparison Changes noted compared to prior study dated: 01/23/2023. marginal improvement in LV systolic function. Measurements 2D Linear Measurements IVSd: 1.02 0.6-0.9/0.6-1.0 cm LVIDd: 5.82 3.9-5.3/4.2-5.9 cm LVIDd Index: 3.38 2.4-3.2/2.2-3.1 cm/m2 LVIDs: 4.51 2.0-3.6 cm LVPWd: 1.05 0.7-1.1 cm LA Diam: 3.90 2.7-3.8/3.0-4.0 cm LAIDs Index: 2.27 1.5-2.3 cm/m2 LV Mass: 305.79 67-162/88-224 g LV Mass Index: 177.79 43-95/49-115 g/m2 LVOT Diam: 2.00 3.0+(-)1.3 cm 2D Systolic Function EF 4C: 55.60 >55% EF 2C: 54.20 >55% EF BiP: 54.70 >55% Mitral Valve MV VTI: 0.51 MV Pk Josse: 1.62 MV Mn Josse: 0.81 MV Pk Grad: 10.00 MV Mn Grad: 3.00 MV Pk E: 1.03 MV PK A: 1.28 MV Decel Time: 401.00 E/A: 0.80 E'Lateral: 4.13 E'Medial: 3.15 E/E' Med: 32.70 E/E' Lat: 24.90 PHT: 118.00 MVA PHT: 1.86 MVA Continuity: 1.56 Decel Stone: 2.58 Aortic Valve AoV Pk Josse: 1.24 AoV Mn Josse: 0.88 AoV VTI: 0.32 AoV Pk Grad: 6.00 Aov Mn Grad: 3.00 QUITA Cont.VTI: 2.49 LVOT LVOT Pk Josse: 1.09 LVOT Mn Josse: 0.73 LVOT VTI: 0.25 LVOT Pk Grad: 5.00 LVOT Mn Grad: 2.00 LVOT Diam: 2.00 LVOT Area: 3.14 Diastolic Function MV Pk E: 1.03 MV Pk A: 1.28 E/A: 0.80 E'Medial: 3.15 E/E' Med: 32.70 E' Laterial: 4.13 E/E' Lat: 24.90 Right Ventricle TAPSE (mm): 26.50 TVS' Josse: 11.60 Tricuspid Valve TR Pk Josse: 2.48 TR Pk Grad: 25.00 RA Press: 3.00 RVSP: 28.00 Great Vessels Aorta Sinus of Valsalva: 3.88 2.0-3.[address] Ridge: 2.60 1.7-3.4 cm Ao Asc: 3.30 2.1-3.4 cm Ao Arch: 2.80 Updated in Other Vendor System with Status of Final Talha Ulloa MD electronically signed on 02/16/2024 4:20:17 PM with status of Final
== END ==
LOC: HO.CARD 14:42
PROVIDERS: PCP Internal Medicine; Visit Provider Internal Medicine Cardiovascular Disease
DX: I25.5 Ischemic cardiomyopathy (principal)
CPT/HCPCS: 93306

== ENCOUNTER → 2024-02-15 14:46 | Outpatient (BNV) | payer MEDICARE, OTHER, SELFPAY ==
[2022-08-03 07:45] VITALS: BP 102/50; BP 104/62; BP 126/50; BMI 24.1
== END ==
PROVIDERS: PCP Internal Medicine; Visit Provider Internal Medicine Cardiovascular Disease
DX: I25.5 Ischemic cardiomyopathy (principal); I34.89 Other nonrheumatic mitral valve disorders; Z95.4 Presence of other heart-valve replacement; I36.1 Nonrheumatic tricuspid (valve) insufficiency
CPT/HCPCS: 93306

== ENCOUNTER 2024-07-23 10:57 | Outpatient (REF) | payer MEDICARE, OTHER, SELFPAY ==
[2022-08-03 07:45] VITALS: BP 102/50; BP 104/62; BP 126/50; BMI 24.1
[2024-07-23 11:02] LABS: MANUAL DIFF FLAG NO
[2024-07-23 11:16] LABS: Basophils Absolute Auto 0.1 X10*3/uL (0.0-0.2); Basophils Percent Auto 0.8 % (0-2); Eosinophils Absolute Auto 0.2 X10*3/uL (0.0-0.4); Eosinophils Percent Auto 2.9 % (0-4); Hemoglobin 10.9 g/dl (12.0-16.0); Imm Gran Abs Auto 0.01 X10*3/uL (0.00-0.03); Imm Gran Pct Auto 0.2 % (0.0-0.4); Lymphocytes Absolute Auto 2.7 X10*3/uL (1.2-4.9); Mean Corpuscular Hemoglobin 29.9 pg (27.0-33.0); Mean Corpuscular Volume 90.7 fL (80.0-98.0); Mean Platelet Volume 11.2 fL (9.4-12.3); Monocytes Absolute Auto 0.7 X10*3/uL (0.1-1.2); Monocytes Percent Auto 11.1 % (2-11); Neutrophils Absolute Auto 2.9 x10*3/uL (2.0-8.3); Platelet Count 219 X10*3/uL (160-400); Red Blood Count 3.64 X10*6/uL (4.20-5.50); Red Cell Distribution Width 15.3 % (11.0-16.0); White Blood Count 6.6 X10*3/uL (4.8-10.8)
[2024-07-23 11:17] LABS: Appearance Urine Clear; Color Urine Yellow; Glucose Urine UA Negative (Negative); Leukocyte Esterase Urine Negative (Negative); Nitrite Urine Negative (Negative); Specific Gravity - Urine 1.015 (1.005-1.025); Urine Blood Negative (Negative); Urine Ketones Negative (Negative); Urine Protein Negative (Neg-Trace)
[2024-07-23 11:22] LABS: Bacteria Urine None Seen (None Seen); Hyaline Casts Urine 0-2 /LPF (0-2); RBC Urine 0-2 /HPF (0-2); Squamous Epithelial Cell Urine 0-2 /HPF (0-2); WBC Urine 0-5 /HPF (0-5)
[2024-07-23 11:26] LABS: Alanine Aminotransferase 13 U/L (0-31); Alkaline Phosphatase 65 U/L (39-117); Anion Gap 11 (12-20); Aspartate Amino Transferase 25 U/L (5-31); Bilirubin Total 0.3 mg/dL (0.0-1.0); Blood Urea Nitrogen 27 mg/dL (9-16); Calcium 9.1 mg/dL (8.4-10.2); Carbon Dioxide 27 mmol/L (22-29); Chloride 108 mmol/L (96-108); Cholesterol 145 mg/dL (<200); Estimated Glomerular Filt Rate 54; Glucose Fasting 94 mg/dL (60-99); HDL Cholesterol 74 mg/dL (>40); LDL Cholesterol Calculated 60 mg/dL (<100); Potassium 4.2 mmol/L (3.3-5.1); Sodium 142 mmol/L (135-145); Total Protein 7.1 g/dL (6.5-8.0); Triglycerides 57 mg/dL (<150)
== END 2024-07-23 10:58 | disposition home or self-care (01) ==
LOC: HO.LNP 10:57
PROVIDERS: Visit Provider Internal Medicine
DX: D72.820 Lymphocytosis (symptomatic) (principal); E78.00 Pure hypercholesterolemia, unspecified; I50.22 Chronic systolic (congestive) heart failure
CPT/HCPCS: 80053; 80061; 81001; 85025

== ENCOUNTER 2024-08-20 13:56 | Outpatient (AMB) | payer MEDICARE, OTHER, SELFPAY ==
[2022-08-03 07:45] VITALS: BP 102/50; BP 104/62; BP 126/50; BMI 24.1
--- NOTE | 2024-08-20 13:58 | MHC.OFFVIS ---
Vital Signs 08/20/24 14:02 Height 5 ft 2.05 in Weight 145 lb 4.554 oz BMI 26.5 BP 110/70 Blood Pressure Location Rt brachial Position Sitting Pulse 68 Pulse Source Pulse Oximeter Pulse Oximetry (%) 99 Oxygen Delivery Method Room Air Intake Visit Reasons: Osteoporosis Intake Note: New patient present today for Osteoporosis. Allergies No Known Allergies [No Known Allergies*] Allergy (Verified 08/20/24 14:06) HPI Comments Details: The patient is a 78-year-old female presenting with concerns regarding osteopenia, initially diagnosed a few years ago during a screening test at a senior center using a portable device. . She has not received treatment beyond calcium and vitamin D supplementation. She denies any fractures since a childhood radius fracture. She also has a history of macular degeneration, stage 3A renal failure likely related to Lasix use, and mild mitral regurgitation post-mitraclip. She maintains regular weight-bearing exercises at the gym. Menopause occurred naturally at age 42 without estrogen replacement. Laboratory findings suggest anemia, possibly due to B12 deficiency, warranting further evaluation. First diagnosed in few yrs . Not Received treatment in the past No history of pathologic fracture or ONJ. Has several servings of dietary calcium per day in the form of cheese, broccoli, OJ , oranges . Takes Calcium supplement 200 mg daily in divided doses. Takes 3000 IU of Vitamin D daily. Denies ever using PPI, anticoagulant, antiepileptic or glucocorticoid medication. - Calcium and Vitamin D supplementation for osteopenia: No previous pharmacological treatment noted. The patient reports a diet that includes cheese two to three times a week, broccoli once a week, and cereal with milk. She attempts to consume orange juice fortified with calcium as much as possible and eats oranges at least four times weekly. Approximately 40-50% of her diet consists of raw fruits and vegetables. She denies regular calcium supplementation aside from some intake through ?[employer]? which contains 216 mg of calcium. - Vitamins for macular degeneration: No noted adverse effects. - Lasix (Furosemide): Maintains renal function, possibly contributing to minor renal status changes. - Aspirin for coronary artery disease: No noted complications. Does weight bearing exercise 3 days per week in the form of wt bearing exercise . - Engages in weight-bearing exercises three times a week at the gym. - Exercise regimen includes cycling and light weightlifting. - Reports exercise positively impacting general health without associated symptoms. Fracture history: No Height loss: Yes RN INTERNSHIP history: Menarche at age 13- Menopause at age 42 - nl menses Denies history of Kidney stones: Denies family history of Osteoporosis or hip fracture. UTD on dental cleanings and sees dentist every 6 months. No planned upcoming dental work or extractions. No tabacco use or heavy ETOH use DXA dated 12/28/21:FINDINGS: AP SPINE L1-L4: Current: BMD 1.043 g/cm2, Z-score 0.5, T-score -1.1, osteopenia, 2.5% increase from previous, 0.1% decrease from baseline (<5% change is not significant). Prior: BMD 1.018 g/cm2. Baseline: BMD 1.044 g/cm2. LEFT FEMUR, NECK: Current: BMD 0.746 g/cm2, Z-score -0.2, T-score -2.1, osteopenia. Prior: BMD 0.756 g/cm2. Baseline: BMD 0.832 g/cm2. LEFT FEMUR, TOTAL: Current: BMD 0.848 g/cm2, Z-score 0.4, T-score -1.3, osteopenia, 4.3% increase from previous, 6.7% decrease from baseline (<5% change is not significant). Prior: BMD 0.813 g/cm2. Baseline: BMD 0.909 g/cm2. IDENTIFIED RISK FACTORS: Early menopause, secondary osteoporosis, hysterectomy, thiazide. HISTORY OF FRACTURE: None listed. MEDICATIONS: Calcium supplements or multivitamin, vitamin D. MM/XR DEXA axial skeleton IMPRESSION: 1. DIAGNOSIS: Osteopenia based on the lowest T-score value of -2.1 in the femoral neck applying World Health Organization criteria. Labs: [facility] Medical History Osteopenia CAD (coronary artery disease) Congestive heart failure Ischemic cardiomyopathy Mitral regurgitation Surgical History Status post cardiac catheterization Hx of hand surgery Family History Father CVD (cardiovascular disease) Mother No problems noted. Social History (Reviewed 04/15/25 @ 14:11 by Candace Ladd [facility] [address]) Alcohol intake: never Patient Tobacco Use Status: Never used Tobacco Tobacco use type: Smokeless Tobacco Physical Exam Vital Signs: Last Vital Signs Pulse 68 08/20/24 14:02 BP 110/70 08/20/24 14:02 Pulse Ox 99 08/20/24 14:02 Oxygen Delivery Method Room Air 08/20/24 14:02 BMI result Body Mass Index 26.5 There are no Cushingoid features. Absence of blue sclera. Absence of kyphosis. Thyroid gland is of nl size and weighs 15 gms. There are no thyroid nodules palpated. Lungs CTA. Heart S1 S2 Reg R/R Abdominal exam benign. Muscle strength 5/5 . Examination of spine reveals absence of tenderness on palpation Assessment & Plan Assessment & Plan (1) Osteopenia: Code(s): M85.80 - Other specified disorders of bone density and structure, unspecified site Category: Medical Plan: This 78-year-old white female with a history of low bone mass with partial secondary workup. Plan is to complete the secondary workup by checking a phosphorus level, TSH, free T4, 25 hydroxy vitamin-D, SPEP, urine immunofixation, 24 hour urine for calcium and creatinine. Will ensure 1200 mg of calcium and vitamin D3 supplementation 2000 IU. Assuming secondary workup is negative, the patient does meet FRAX threshold for hip fracture and could be treated with anti resorptive agent like an oral bisphosphonate. 1. Osteopenia Request a DEXA scan with vertebral fracture assessment. Order secondary workup including 24 urine calcium and vitamin D level monitoring. Encourage 1200 mg calcium intake daily primarily through diet. 6. Weight-Bearing Exercise Recommend continuation of current exercise routine due to positive effects on bone health. During the visit, I explained to the patient the importance of treating osteopenia proactively to prevent osteoporosis development. I outlined the plan for follow-up DEXA imaging including a vertebral fracture assessment, emphasizing the potential role of calcium and vitamin D in maintaining bone health. We discussed the balanced approach to her diuretic use regarding its impact on renal function. Concerns about osteoporosis pharmacotherapy side effects were addressed, ensuring her current regimen supports her cardiac status. The patient agreed with this comprehensive approach and appeared reassured regarding renal status, believing it to be reflective of medication effects rather than intrinsic dysfunction. - Obtain a DEXA scan along with a vertebral fracture assessment as ordered. - Increase calcium intake through diet, reaching 1200 mg daily. Use calcium citrate supplements if dietary sources are insufficient. - Continue vitamin regimen for macular degeneration as advised by your equipment operator/laborer. - Engage in regular weight-bearing exercises without overexertion. - - Return for follow-up in approximately four months with the completed labs and imaging. - The patient had an opportunity to ask questions regarding treatment plan. The patient expressed understanding and agreement with the above treatment plan. The patient is aware they should contact our office by phone for worsening glucose readings or for any low blood sugars which may warrant a change in diabetes medication. Compliance is encouraged with medications and any followup testing/consults which may have been ordered. Patient was informed and verbally consented to the use of an ambient scribe for clinic note documentation during this visit. Orders: Orders Protein Electrophoresis, Serum Today M85.80 - Other specified disorders of bone density and structure, unspecified site Immunofixation, Random Urine Today M85.80 - Other specified disorders of bone density and structure, unspecified site Calcium, 24 Hr Ur Today M85.80 - Other specified disorders of bone density and structure, unspecified site Creatinine, 24 Hr Group Today M85.80 - Other specified disorders of bone density and structure, unspecified site Phosphorus Today M85.80 - Other specified disorders of bone density and structure, unspecified site Free T4 (Free Thyroxine) Today M85.80 - Other specified disorders of bone density and structure, unspecified site Thyroid Stimulating Hormone Today M85.80 - Other specified disorders of bone density and structure, unspecified site Vitamin D 25-OH Total Today M85.80 - Other specified disorders of bone density and structure, unspecified site XR DEXA axial skeleton Today M85.80 - Other specified disorders of bone density and structure, unspecified site Coding Level of Care Code New Pt Level 4 (33695) Diagnoses Osteopenia M85.80
[2024-08-20 14:02] VITALS: BP 110/70; PULSE 68; O2SAT 99; BMI 26.5
--- OUTSIDE RECORDS SUMMARY | 2024-08-20 17:10 | XMS_ITS | Patient Health Record ---
Author Organization Wyatt Eldridge MD Address [address] [place], [place] [id number] Care Team Providers Care Overlay Plastician Name Role Phone Wyatt Eldridge Primary Care Provider Allergies Allergen (clinical drug ingredient) Drug/Non Drug Allergy documented on EMR Reaction Allergy Type Onset Date Status tramadol traMADol HCl confusion Drug Allergy Acti ve Results Component Value Reference Range Notes Blood Urea Nitrogen Reviewed date:10/27/2023 12:35:34 PM Interpretation: Performing Lab:[facility], [address] [place] [phone] Notes/Report: Blood Urea Nitrogen 21 9-16 mg/dL Creatinine Reviewed date:10/27/2023 12:36:28 PM Interpretation: Performing Lab:[facility], [address] [place] [phone] Notes/Report: Creatinine 0.83 0.5-1.4 mg/dL Estimated Glomerular Filt Rate > 60 NOTE: For -[place] Island[place] individuals, multiply the result by 1.210. Chronic Kidney Disease: Estimated GFR < 60 mL/min/1.73m2 Severe Kidney Disease: Estimated GFR < 15 mL/min/1.73m2 Liver Panel Reviewed date:01/19/2024 03:46:59 PM Interpretation: Performing Lab:[facility], [address] [place] [phone] Notes/Report: Bilirubin Total 0.3 0.0-1.0 mg/dL Bilirubin Direct 0.1 0.0-0.5 mg/dL Aspartate Amino Transferase 22 5-31 U/L Alanine Aminotransferase 14 0-31 U/L Total Protein 6.6 6.5-8.0 g/dL Albumin Level 3.9 3.5-5.0 g/dL Alkaline Phosphatase 55 39-117 U/L Lipid Panel with Reflex Reviewed date:01/21/2024 05:01:09 PM Interpretation: Performing Lab:[facility], [address] [place] [phone] Notes/Report: Triglycerides 56 <150 mg/dL Desirable Triglyceride: [...] low results in patients with liver disease. Complete Blood Count Auto Di ff Reviewed date:07/23/2024 12:10:00 PM Interpretation: Performing Lab:[facility], [address] [place] [phone] Notes/Report: White Blood Count 6.6 4.8-10.8 X10*3/uL [...] NRBC Abs Auto 0.000 0.0-0.012 X10*3/uL Comprehensive Corry. Panel Fa st Reviewed date:07/23/2024 12:09:07 PM Interpretation: Performing Lab:[facility], [address] [place] [phone] Notes/Report: Sodium 142 135-145 mmol/L Potassium 4.2 [...] Panel Reviewed date:07/23/2024 12:08:44 PM Interpretation: Performing Lab:[facility], [address] [place] [phone] Notes/Report: Triglycerides 57 <150 mg/dL Desirable Triglyceride: [...] t Reviewed date:07/23/2024 12:10:23 PM Interpretation: Performing Lab:[facility], [address] [place] [phone] Notes/Report: Urine, Clean Catch Color Urine Yellow Appearance Urine Clear PH 6.0 5.0-9.0 Glucose Urine UA Negative Negative mg/dL Urine Blood Negative Negative Specific [place] - Urine 1.015 1.005-1.025 Urine Protein Negative Neg-Trace mg/dL Urine Ketones Negative Negative mg/dL Nitrite Urine Negative Negative Leukocyte Esterase Urine Negative Negative RBC Urine 0-2 0-2 /HPF WBC Urine 0-5 0-5 /HPF Squamous Epithelial Cell Urine 0-2 0-2 /HPF Bacteria Urine None Seen None Seen Hyaline Casts Urine 0-2 0-2 /LPF MM tomosynthesis screening B I Reviewed date:09/28/2023 07:17:08 PM Interpretation: Performing Lab: Notes/Report: [facility] [address] [place] [address] Mammography Report Signed Patient: Rochelle Garcia MR#: [id number] : 1945 Acct:[id number] Age/Sex: 77 / F ADM Date: 09/06/23 Loc: MAMMO Attending Dr: Wyatt Eldridge MD Ordering Physician: Wyatt Eldridge MD Results: 2Be nign Findings Date of Service: 09/06/23 Follow Up: 1 Year From Orig inal Mammogram Procedure(s): MM tomosynthesis screening BI Accession Number(s): [id number] cc: Wyatt Eldridge MD EXAMINATION: MM SCREENING DIGITAL BREAST TOMOSYNTHESIS, BILATERAL CLINICAL INFORMATION: Screening. Asymptomatic. COMPARISON: Mammography: 05/22/2015, 01/04/2013, 06/24/2018. TECHNIQUE: Digital breast tomosynthesis is performed in both the craniocaudal and mediolateral oblique views along with computer-aided detection (CAD). Synthesized 2D images are generated from the tomosynthesis. FINDINGS: There are scattered areas of fibroglandular density (ACR BI-RADS breast composition Category b). There are vascular and secretory calcifications bilaterally. There are no suspicious masses, suspicious grouped calcifications, or areas of architectural distortion in either breast. The parenchymal pattern is stable from prior exams. No skin or axillary abnormalities. MM/MM tomosynthesis screening BI IMPRESSION: No mammographic evidence of malignancy. ASSESSMENT: BI-RADS BI-RADS 2 - Benign Findings RECOMMENDATION: Routine annual mammography screening. 1 year F/U This examination should not preclude the clinical evaluation of a suspicious palpable abnormality. This patient's information was entered into a reminder system with a target due date for their next mammogram. Dictated By: Gregg Conklin MD Signed By: <Electronically signed by Gregg Conklin MD in OV> 09/26/23 0914 DD/ 1400 TD/TT: Special Services Director: [facility] [address] [place] [address] Mammography Report Signed Patient: Rochelle Garcia MR#: [id number] : 1945 Acct:[id number] Age/Sex: 77 / F ADM Date: 09/06/23 Loc: MAMMO Attending Dr: Wyatt Eldridge MD Ordering Physician: Wyatt Eldridge MD Results: 2Be nign Findings Date of Service: 09/06/23 Follow Up: 1 Year From Orig inal Mammogram Procedure(s): MM tomosynthesis screening BI Accession Number(s): [id number] cc: Wyatt Eldridge MD EXAMINATION: MM SCREENING DIGITAL BREAST TOMOSYNTHESIS, BILATERAL CLINICAL INFORMATION: Screening. Asymptomatic. COMPARISON: Mammography: 05/22/2015, 01/04/2013, 06/24/2018. TECHNIQUE: Digital breast tomosynthesis is performed in both the craniocaudal and mediolateral oblique views along with computer-aided detection (CAD). Synthesized 2D image s are generated from the tomosynthesis. FINDINGS: There are scattered areas of fibroglandular density (ACR BI-RADS breast composition Category b). There are vascular a nd secretory calcifications bilaterally. There are no suspicious masses , suspicious grouped calcifications, or areas of architectural distortion in either breast. The parenchymal pattern is stable from prior exams. No skin or axillary abnormalities. MM/MM tomosynthesis screening BI IMPRESSION: No mammographic evidence of malignancy. ASSESSMENT: BI-RADS BI-RADS 2 - Benign Findings RECOMMENDATION: Routine annual mammography screening. 1 year F/U This examination nikhil uld not preclude the clinical evaluation of a suspicious palpable abnormality. This patient's information was entered into a reminder system with a target due date for their next mammogram. Dictated By: Gregg Conklin MD Signed By: <Electronically signed by Gregg Conklin MD in OV> 09/26/23 0914 DD/ 1400 TD/TT: Special Services Director: Flavia Duran Reviewed date:01/19/2024 03:44:37 PM Interpretation: Performing Lab:[facility], [address] [place] [phone] Notes/Report: Flavia Duran See Note Specimen held untested for 24 hours; Call to request Chemistry testing. Reason For Referral Reason OSTEOPOROSIS Diagnosis 1 Osteoporosis (M81.0) Referral Organization Wyatt Eldridge MD Referring Provider First Name Wyatt Referring Provider Last Name Jazmyn Referring Provider Speciality Internal M edicine Referred Provider Zach Bolton Referred Provider Specialty Endocrinolog y General Notes Radha Cruz 07/30/2024 03:09:03 PM >REFERRAL FAXED TO [facility], Anthony Radha Morton 08/12/2024 10:20:34 AM >APPT SCHEDULED FOR 08/20/24 AT 2PM Referral Priority Routine Referral Appointment Date 08/20/2024 Medications Medication SIG (Take, Route, Frequency, Duration) Notes Start Date End Date Status Rosuvastatin Calcium 40 MG TAKE 1 TABLET BY MOUTH EVERY DAY Active Losartan Potassium 25 MG 1 tablet Orally BID Active Metoprolol Succinate ER 25 MG 1 tablet Orally bid Active Farxiga 5 MG 1 tablet Orally Once a day for 30 days 07/30/2024 Active traZODone HCl 50 MG TAKE 1 TABLET BY MOUTH DAILY AT BEDTIME NEEDED for 30 Not-Taking Slow Fe 142 (45 Fe) MG 1 tablet Orally T wice a week Active Furosemide 20 MG TAKE 1 TABLET BY MOUTH EVERY DAY Orally Active Aspir-Low 81 MG 1 tablet Orally Once a day for 30 day(s) Active Cyclobenzaprine HCl 5 MG TAKE 1 TABLET B Y MOUTH TWICE DAILY AT BEDTIME FOR 10 DAYS NEEDED for 10 Not-Taking traMADol HCl 50 MG 1 tablet as needed Orally every 8 hrs as needed for 10 days 05/03/2024 Active Ibuprofen 800 MG TAKE 1 TABLET BY MOUTH THREE TIMES DAILY WITH FOOD OR MILK FOR 14 DAYS NEEDED for 14 Active Immunizations Vaccine Route Administration Date Status Comme nts Flu Vaccine Unknown 02/10/2014 Administered [facility] Flu Vaccine Unknown 02/17/2015 Administered [facility] Flu Vaccine Unknown 03/07/2016 Administered pt had it a [facility] Fluarix Quadrivalent Unknown 01/26/2017 Administered [facility] Fluarix Quadrivalent IM Intramuscular 01/23/2018 Administered Prevnar 13 IM Intramuscular 07/06/2018 Administered Influenza High Dose IM Intramuscular 03/19/2019 Administer ed Fluarix Quadrivalent IM Intramuscular 01/29/2020 Administered SARS-COV-2 Moderna Unknown 08/26/2020 Administered SARS-COV-2 Moderna Unknown 09/23/2020 Administered Influenza High Dose IM Intramuscular 01/29/2021 Administer ed SARS-COV-2 Moderna Unknown 05/15/2021 Administered Influenza High Dose IM Intramuscular 02/02/2023 Administer ed Influenza High Dose IM Intramuscular 01/19/2024 Administer ed PPSV23 (Pnemovax) Unknown 05/12/2015 Refused PPSV23 (Pnemovax) Unknown 05/27/2016 Refused PPSV23 (Pnemovax) Unknown 07/08/2019 Refused Social History Tobacco Use: Social History Observation [...] Problem Status W/U Status Risk Notes Problem 43813582 Lymphocytosis (D72.820) Active confirmed Problem Insomnia (919566771) Insomnia (G47.00) Active confirmed Problem 7266614 Primary insomnia (F51.01) Active confirmed Problem 625514104 Ischemic cardiomyopathy (I25.5) Active confirmed Problem Localized, primary osteoarthritis of the hand (159725772) Primary osteoarthritis, right hand (M19.041) Active confirmed Problem Localized, primary osteoarthritis of the hand (481662491) Primary osteoarthritis, left hand (M19.042) Active confirmed Problem 441800787 Osteopenia (M85.80) Active confirmed Problem Osteoporosis (70783262) Osteoporosis (M81.0) Active confirmed Problem Age-related macular degeneration (disorder) (673617117) Macular degeneration (H35.30) Active confirmed Problem 588150917 Non-rheumatic mi tral regurgitation (I34.0) Active confirmed Problem Coronary artery disease (52836726) CAD (coronary artery disease) (I25.10) Active confirmed Problem 03477426 Acute GA, inferi or wall (I21.19) Active confirmed Problem 593359416 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 Problem 730653157 Pure hypercholesterolemia (E78.00) Active confirmed Problem Anemia due to blood loss (673190062) Anemia due to blood loss (D50.0) Active confirmed Problem 684450499 Chronic systolic heart failure (I50.22) Active confirmed Problem 551692429 Osteopenia of ne ck of femur, unspecified laterality (M85.859) Active confirmed Problem 158003230 Basal cell carci noma, forehead (C44.319) Active confirmed Vital Signs Blood pressure diastolic 58 mm Hg 07/30/2024 esme ght is3 pounds since 05-03-24 Height 63 in 07/30/2024 weight is3 poun ds since 05-03-24 Blood pressure systolic 122 mm Hg 07/30/2024 weig ht is3 pounds since 05-03-24 Weight 155 lbs 07/30/2024 weight is3 poun ds since 05-03-24 BMI 27.45 kg/m2 07/30/2024 weight is3 poun ds since 05-03-24 Encounters Encounter Location Date Provider Diagnosis Wyatt Eldridge MD [address] [place] [id number] 10/27/2023 Wyatt Eldridge Elevated BUN R79.9 Wyatt Eldridge MD [address] [place] [id number] 01/19/2024 Wyatt Lucretiaer Pure hypercholestero lemia E78.00 and Encounter for immunization Z23 Wyatt Eldridge MD [address] [place] [id number] 07/23/2024 Wyatt Eldridge Lymphocytosis D72.82 0 ; Pure hypercholesterolemia E78.00 and Chronic systolic heart failure I50.22 Wyatt Eldridge MD [address] [place] [id number] 08/29/2023 Wyatt Eldridge Back muscle spasm M6 2.830 Wyatt Eldridge MD [address] [place] [id number] 01/26/2024 Wyatt Boykiner Pure hypercholestero lemia E78.00 and Chronic systolic heart failure I50.22 Wyatt Eldridge MD [address] [place] [id number] 05/03/2024 Wytat Eldridge Muscle spasm of back M62.830 Wyatt Eldridge MD [address] [place] [id number] 07/30/2024 Wyatt Eldridge Muscle spasm of back M62.830 ; Macular degeneration H35.30 ; Osteoporosis M81.0 ; Chronic systolic heart failure I50.22 ; Pure hypercholesterolemia E78.00 and Depression screening Z13.31 Wyatt Eldridge MD [address] [place] [address] Drive [address] [place], [place] [id number] 09/22/2023 Wyatt Eldridge Assessments Encounter Date Diagnosis (ICD Code) Assessment Notes Treatment Notes Treatment Clinical Notes Section Notes 10/27/2023 Elevated BUN (ICD-10 - R79.9) 01/19/2024 Pure hypercholesterolemia (ICD-10 - E78.00) 01/19/2024 Encounter for immunization (ICD-10 - Z23) 07/23/2024 Lymphocytosis (ICD-1 0 - D72.820) 08/29/2023 Back muscle spasm (ICD-10 - M62.830) patient vrblized understanding of medication and directions for use 01/26/2024 Pure hypercholesterolemia (ICD-10 - E78.00) has great cholesterol 01/26/2024 Chronic systolic hea rt failure (ICD-10 - I50.22) Stable. Continue current regiment. doing great on meds. no symptoms 05/03/2024 Muscle spasm of back (ICD-10 - M62.830) have her use the cyclobenziprine and ibuprofen, patient verbalized understanding of medications and directions for use 07/30/2024 Muscle spasm of back (ICD-10 - M62.830) consider physical therapy 07/30/2024 Macular degeneration (ICD-10 - H35.30) followed by opth 07/23/2024 Pure hypercholesterolemia (ICD-10 - E78.00) 07/30/2024 Osteoporosis (ICD-10 - M81.0) send to endocrine/ REFERRAL FAXED TO [facility] 07/23/2024 Chronic systolic hea rt failure (ICD-10 - I50.22) 07/30/2024 Chronic systolic hea rt failure (ICD-10 - I50.22) stable, will continue current regiment 07/30/2024 Pure hypercholesterolemia (ICD-10 - E78.00) stable, will continue current regiment 07/30/2024 Depression screening (ICD-10 - Z13.31) negative screen Plan Of Treatment Pending Test Test Name Order Date Electrocardiogram (EKG) 05/27/2016 Electrocardiogram (EKG) 07/06/2018 BONE DENSITY DEXA 11/05/2021 BONE DENSITY DEXA 10/29/2021 MAMMOGRAM DIGITAL BILATERAL SCREEN 07/27 US CAROTID BILATERAL DOPPLER 07/12/2019 MM tomosynthesis diagnostic BI Future Test Test Name Order Date BONE DENSITY DEXA 02/03/2021 Next Appt Details Provider Name:Wyatt Meyers ier, 10/31/2024 07:30:00 AM, [address] [place] [address], Suite [facility], [place], [place], [phone], Provider Name:Wyatt Meyers ier, 01/30/2025 08:00:00 AM, [address] [place] [address], [place] [address], [place], [place], [phone], Provider Name:Wyatt Meyers ier, 07/28/2025 07:45:00 AM, [address] [place] [address], [place] [address], [place], [place], [phone], Provider Name:Wyatt Meyers ier, 08/04/2025 01:00:00 PM, [address] [place] [address], [place] [address], [place], [place], [phone], Insurance Providers Payer Name Payer Address Payer Phone Subscriber Number Group Number Insured Name Patient Relationship to Insured Coverage Start Date Coverage End Date [employer] [address] [place] [address] [id number] Rochelle Garcia Self - patient is the insured [facility] [address] [place] [address] [phone] [id number] Rochelle Garcia Self - patient is the insured Medical (General) History Medical History History ICD Code colonoscopy refused. 2012,2015, 201801/04/2013 - bone density - repeat 1 year ; done 05/2015; done 09/08/17 Deep vein thrombosis (DVT) o f femoral vein of left lower extremity, unspecified chronicity I82.412 Deep vein thrombosis (DVT) o f femoral vein of left lower extremity, unspecified chronicity
--- OUTSIDE RECORDS SUMMARY | 2024-08-20 17:10 | XMS_ITS | Patient Health Record ---
Author Organization [facility] Address [address] [place] [address] Care Team Providers Care Para Professional Name Role Phone Wyatt Eldridge MD Primary Care Provider Aye Grace Unavailable [phone] Allergies No Known Allergies Reason For Referral No Information Medications Medication SIG (Take, Route, Frequency, Duration) Notes Start Date End Date Status Ammonium Lactate 12 % 1 application Exte rnally to affected areas of dry skin to feet except for between the toes Twice a day for 30 days Active Metoprolol Succinate 25 MG 1 capsule Ora lly Once a day Active Aspirin Adult Low Dose Active Losartan Potassium 25 MG 1 tablet Orally Once a day Active Lasix Active Rosuvastatin Calcium 40 MG 1 tablet Oral ly Once a day Active Social History Tobacco Use: Social History Observation Description Date Details (start date - stop date) Never Smoker NA - NA Tobacco use other than smoking: Question Answer Notes Are you an other tobacco user? No Tobacco Control (Standard) Question Answer Notes Tobacco use: Nonsmoker Additional Findings: Tobacco non-user Current no nsmoker AUDIT-C (Standard) Question Answer Notes Did you have a drink containing alcohol in the p ast year? No Points 0 Interpretation Negative Problems Problem Type SNOMED Code ICD Code Onset Dates Problem Status W/U Status Risk Notes Problem Atherosclerosis of ute artery of both lower extremities, with unspecified presence of clinical manifestation (I70.203) Active confirmed Q7(A), Q8(2B), Q9(1B,2C) Vital Signs Blood pressure diastolic 56 mm Hg 06/18/2024 Height 5ft3in in 06/18/2024 Blood pressure systolic 98 mm Hg 06/18/2024 Weight 149 lbs 06/18/2024 BMI 26.39 kg/m2 06/18/2024 Encounters Encounter Location Date Provider Diagnosis [address] [phone] 06/18/2024 Aye Reardon Atherosclerosis of ute artery of both lower extremities, with unspecified presence of clinical manifestation I70.203 ; Xerosis of skin L85.3 ; Tinea unguium B35.1 ; Pain in right toe(s) M79.674 and Pain in left toe(s) M79.[address] [phone] 04/01/2024 Aye Reardon Assessments Encounter Date Diagnosis (ICD Code) Assessment Notes Treatment Notes Treatment Clinical Notes Section Notes 06/18/2024 Xerosis of skin (ICD-10 - L85.3) 06/18/2024 Atherosclerosis of ute artery of both lower extremities, with unspecified presence of clinical manifestation (ICD-10 - I70.203) Q7(A), Q8(2B), Q9(1B,2C) 06/18/2024 Tinea unguium (ICD-10 - B35.1) 06/18/2024 Pain in right toe(s) (ICD-10 - M79.674) 06/18/2024 Pain in left toe(s) (ICD-10 - M79.675) Plan Of Treatment Next Appt Details Provider Name:Aye Selene colón, 09/11/2024 01:00:00 PM, [address] [place] [address], [phone], Insurance Providers Payer Name Payer Address Payer Phone Subscriber Number Group Number Insured Name Patient Relationship to Insured Coverage Start Date Coverage End Date [employer] [address] [place] [address] [id number] Rochelle Landeros Self - patient is the insured [place] ([facility]) [address] [place] [address] [phone] [id number] Rochelle Landeros Self - patient is the insured Medical (General) History Medical History History ICD Code Back,Hip,and Knee pain Heart disease Vascular phlebitis (clots) Surgical History Surgery Date(Month/Year) heart surgery/ davon clip 12/08/21
--- OUTSIDE RECORDS SUMMARY | 2024-08-20 17:10 | XMS_ITS ---
Author Organization [facility] Address [address] [place] [address] Care Team Providers Care Founder Name Role Phone Wyatt Eldridge MD Primary Care Provider Aye Grace Unavailable [phone] REASON FOR VISIT RECYCLING ATTENDANT Encounters Encounter Location Date Provider Diagnosis [address] [phone] 04/01/2024 Aye Reardon Plan Of Treatment Next Appt Details Provider Name:Aye colón, 09/11/2024 01:00:00 PM, [address] [place] [address], [phone], Progress Notes * Jaycob HUDDLESTONOB:1945 (78 yo F)Acc No.[id number]:04/01/2024 Patient:?Glory HUDDLESTON :1945???Age:78 Y???Sex:Female Address:[address] [place], [address] * true * Date:? Generated for Printi ng/Faxing/eTransmitting on:?08/20/2024 05:10 PM EDT
--- OUTSIDE RECORDS SUMMARY | 2024-08-20 17:10 | XMS_ITS ---
Author Organization Wyatt Eldridge MD Address [address] [place] [id number] Care Team Providers Care Security Flex Utility Officer Name Role Phone Jazmyn Wyatt Primary Care Provider [phone] Allergies Allergen (clinical drug ingredient) Drug/Non Drug [...] Cruz 07/30/2024 03:09:03 PM >[facility] Patti A 08/12/2024 10:20:34 AM >APPT [...] Risk Notes Problem Age-related macular degeneration (disorder) (183267558) Macular degeneration (H35.30) Active confirmed Problem Osteoporosis (03915181) Osteoporosis (M81.0) Active confirmed Vital Signs Blood pressure systolic 122 mm Hg 07/31/19 Blood pressure diastolic 58 mm Hg 025 Height 63 in 07/30/2024 Weight 155 lbs 07/30/2024 BMI 27.45 kg/m2 07/30/2024 weight is3 pounds since 12-2 7-24 Encounters Encounter Location Date Provider Diagnosis Wyatt Eldridge MD [address] [place] [address] [address] [place], [place] [id number] 07/30/2024 Wyatt Eldridge Muscle spasm of back M62.830 ; Macular degeneration H35.30 ; Osteoporosis M81.0 ; Chronic systolic heart failure I50.22 ; Pure hypercholesterolemia E78.00 and Depression screening Z13.31 Assessments Encounter Date Diagnosis (ICD Code) Assessment Notes Treatment Notes Treatment Clinical Notes Section Notes 07/30/2024 Muscle spasm of back (ICD-10 - M62.830) consider physical therapy 07/30/2024 Macular degeneration (ICD-10 - H35.30) followed by opt 07/30/2024 Osteoporosis (ICD-10 - M81.0) send to endocrine/ REFERRAL FAXED TO [facility] 07/30/2024 Chronic systolic hea rt failure [...] send to endocrine/ R EFERRAL FAXED TO [facility] Chronic systolic heart failure stable, w ill continue current regiment Pure hypercholesterolemia stable, will c ontinue current regiment Depression screening negative screen Future Test Test Name Order Date Blood Urea Nitrogen 10/30/2024 Creatinine 10/30/2024 Referrals Referral Date Details 07/30/2024 07/30/2024, Zach BARNETT Next Appt Details Provider Name:Wyatt walton, 10/31/2024 07:30:00 AM, [address] [place] [address], [address], [place], [place], [phone], Provider Name:Wyatt walton, 01/30/2025 08:00:00 AM, [address] [place] [address], [address], [place], [place], [phone], Provider Name:Wyatt walton, 07/28/2025 07:45:00 AM, [address] [place] [address], [address], [place], [place], [phone], Provider Name:Wyatt walton, 08/04/2025 01:00:00 PM, [address], [address], [place], [place], [phone], Progress Notes * Rochelle DOWNS MDOB:0 1945 (78 yo F)Acc No.[id number]:07/30/2024 Patient:?Glory DOWNS Provider:?Wyatt Eldridge MD :1945???Age:78 Y???Sex:Female D ate:07/30/2024 Address:[address] [place] [address] [place] [phone] Subjective: * Chief Complaints: * ???Review labs * HPI: ???Depression Screening:?PHQ-9?Little interest or pleasure in doing things?Not at all,?Feeling down, depressed, or hopeless?Not at all,?Trouble falling or staying asleep, or sleeping too much?Not at all,?Feeling tired or having little energy?Not at all,?Poor appetite or overeating?Not at all,?Feeling bad about yourself or that you are a failure, or have let yourself or your family down?Not at all,?Trouble concentrating on things, such as reading the newspaper or watching television?Not at all,?Moving or speaking so slowly that other people could have noticed; or the opposite, being so fidgety or restless that you have been moving around a lot more than usual?Not at all,?Thoughts that you would be better off or of hurting yourself in some way?Not at all,?Total Score?0.?Interpretation and Intervention?Depression Screening Findings?Negative,?Follow-Up for Depression?: review of PHQ-9 found negative result, no follow-up needed.?patient is? 78 yo female here for visit with review of recent and follow up of chronci issues/ back pain in may. got confused on tramadol. ???Communication Needs:?Communication Needs?Does the patient have a hearing impairment?No,?Does the patient have a vision impairment??Yes,?If yes, what is the vision impairment??Glasses,?Does the patient have a cognition impairment??No.?Fall Risk:?History?Have you had any falls with injury in the past year??No,?Have you had two or more falls in the past year??No.?SDOH Questions:?SDOH Questions?In the past year have you been worried about losing housing??No,?In the past year have you or any family members you live with been unable to get any of the following when it was really needed? Check all that apply:?None.? * ROS:?General/Constitutional:?Change in appetite?denies.?Chills?denies.?Fever?denies.?Ophthalmologic:?Blurred vision?denies.?Discharge?denies.?Pain?denies.?ENT:?Decreased hearing?denies.?Sore throat?denies.?Swollen glands?denies.?Endocrine:?Cold intolerance?denies.?Excessive thirst?denies.?Heat intolerance?denies.?Weight loss?denies.?Respiratory:?Cough?denies.?Shortness of breath at rest?denies.?Shortness of breath with exertion?denies.?Wheezing?denies.?Cardiovascular:?Chest pain at rest?denies.?Chest pain with exertion?denies.?Irregular heartbeat?denies.?Shortness of breath?denies.?Gastrointestinal:?Abdominal pain?denies.?Change in bowel habits?denies.?Diarrhea?denies.?Nausea?denies.?Rectal bleeding?denies.?Vomiting?denies .?Genitourinary:?Blood in urine?denies.?Difficulty urinating?denies.?Frequent urination?denies.?Urinary incontinence?Denies.?Musculoskeletal:?Painful joints?denies.?Weakness?denies.?Skin:?Dry skin?denies.?Itching?denies.?Denies?Mole(s),? changes in moles, new moles or any lesions of concern.?Denies?Photosensitivity.?Rash?denies.?Neurologic:?Dizziness?denies.?Fainting?denies.?Headache?denies.? * Medical History:? * Surgical History:? * Hospitalization/Major Diagno stic Procedure:? * Family History:?Father: dece ased 73 yrs, diagnosed with COPD.?Mother: 83 yrs.?1 brother(s) , 1 sister(s) . 4 son(s) , 2 daughter(s) . .? Father- AAA Mother- CVA, Denies mental health/substance abuse family history, Denies mental health/substance abuse family history, Denies mental health/substance abuse family history, Denies mental health/substance abuse family history 1 son. * Social History:?Tobacco Use:?Tobacco Use/Smoking?Patient is a?nonsmoker,?Additional Findings: Tobacco Non-User?Current non-smoker, currently using no form of tobacco.?Drugs/Alcohol:?Alcohol Screen?Did you have a drink containing alcohol in the past year??Yes,?How often did you have a drink containing alcohol in the past year??Monthly or less (1 point),?How many drinks did you have on a typical day when you were drinking in the past year??1 or 2 drinks (0 point),?How often did you have 6 or more drinks on one occasion in the past year??Never (0 point),?Points?1,?Interpretation?Negative.?Miscellaneous:?Caffeine: yes, frequency:, more than 4 cups per day. Children: yes. Exercise: yes, 45 min cardio senior strength. Home smoke detector use: yes. Living with: family. Marital status: . Occupation: works part-time. Pets: cats: dogs: 1 dog 1 cat. Travel outside of the [place]: no. * Medications:?TakingSlow Fe 1 42 (45 Fe) MG Tablet Extended Release 1 [...] reviewed and reconciled with the patient * Allergies:?traMADol HCl: con fusion - Side Effects Objective: * Vitals:?Ht: 63, Wt: 155, BMI :27.45, BP:122/58, Wt-k.31. weight is3 pounds since 05-03-24. * ???Past Orders: ???Lab:Complete Blood Count Auto Diff (Order Date - 07/23/2024) (Collection Date & Time - 07/23/2024 07:45 AM) ? Value Reference Range ?White Blood Count 6.6 4. 8-10.8 - X10*3/uL ?Red Blood Count 3.64 L 4.20 -5.50 - X10*6/uL ?Hemoglobin 10.9 L 12.0-16.0 - g/dl ?Hematocrit 33.0 L 37.0-47.0 - % ?Mean Corpuscular Volume 90.7 80.0-98.0 - fL ?Mean Corpuscular Hemoglobin 29.9 27.0-33.0 - pg ?Mean Corpuscular HGB Conc 33.0 31.0-35.0 - g/dl ?Red Cell Distribution Width 15.3 11.0-16.0 - % ?Platelet Count 219 160-4 00 - X10*3/uL ?Mean Platelet Volume 11.2 9.4-12.3 - fL ?Neutrophils Percent Auto 44.0 L 45-73 - % ?Imm Gran Pct Auto 0.2 0. 0-0.4 - % ?Lymphocytes Percent Auto 41.0 H 20-40 - % ?Monocytes Percent Auto 11.1 H 2-11 - % ?Eosinophils Percent Auto 2.9 0-4 - % ?Basophils Percent Auto 0.8 0-2 - % ?NRBC Pct Auto 0.0 0.0-0. 2 - /100WBC ?Neutrophils Absolute Auto 2.9 2.0-8.3 - x10*3/uL ?Imm Gran Abs Auto 0.01 0. 00-0.03 - X10*3/uL ?Lymphocytes Absolute Auto 2.7 1.2-4.9 - X10*3/uL ?Monocytes Absolute Auto 0.7 0.1-1.2 - X10*3/uL ?Eosinophils Absolute Auto 0.2 0.0-0.4 - X10*3/uL ?Basophils Absolute Auto 0.1 0.0-0.2 - X10*3/uL ?NRBC Abs Auto 0.000 0.0-0. 012 - X10*3/uL ???Lab:Comprehensive [place]. P jacoby Fast (Order Date - 07/23/2024) (Collection Date & Time - 07/23/2024 07:45 AM) ? Value Reference Range ?Sodium 142 135-145 - mmo l/L ?Bilirubin Total 0.3 0.0- 1.0 - mg/dL ?Aspartate Amino Transferase 25 5-31 - U/L ?Alanine Aminotransferase 13 0-31 - U/L ?Total Protein 7.1 6.5-8. 0 - g/dL ?Albumin Level 4.0 3.5-5. 0 - g/dL ?Alkaline Phosphatase 65 39-117 - U/L ?Potassium 4.2 3.3-5.1 - mmol/L ?Chloride 108 96-108 - mm ol/L ?Carbon Dioxide 27 22-29 - mmol/L ?Anion Gap 11 L 12-20 - ?Blood Urea Nitrogen 27 H 9-16 - mg/dL ?Creatinine 0.99 0.5-1.4 - mg/dL ?Estimated Glomerular Filt Rate 54 - ?Glucose Fasting 94 60-9 9 - mg/dL ?Calcium 9.1 8.4-10.2 - m g/dL ???Lab:Lipid Panel (Order Da te - 07/23/2024) (Collection Date & Time - 07/23/2024 07:45 AM) ? Value Reference Range ?Triglycerides 57 <150 - mg/dL ?Cholesterol 145 <200 - m g/dL ?LDL Cholesterol Calculated 60 <100 - mg/dL ?HDL Cholesterol 74 >40 - mg/dL ???Lab:UA ClnCatch+Micro w/r flx Cult (Order Date - 07/23/2024) (Collection Date & Time - 07/23/2024 07:45 AM) ? Value Reference Range ?Color Urine Yellow - ?Appearance Urine Clear - ?PH 6.0 5.0-9.0 - ?Glucose Urine UA Negative Neg ative - mg/dL ?Urine Blood Negative Negative - ?Specific [place] - Urine 1.015 1.005-1.025 - ?Urine Protein Negative Neg-Tr hans - mg/dL ?Urine Ketones Negative Negati ve - mg/dL ?Nitrite Urine Negative Negati ve - ?Leukocyte Esterase Urine Negative Negative - ?RBC Urine 0-2 0-2 - /HPF ?WBC Urine 0-5 0-5 - /HPF ?Squamous Epithelial Cell Urine 0-2 0-2 - /HPF ?Bacteria Urine None Seen None Seen - ?Hyaline Casts Urine 0-2 0-2 - /LPF * Examination: ???General Examination: ?GENERAL APPEARANCE:?well developed, well nourished, in no acute distress.?HEAD:?normocephalic, atraumatic.?EYES:?pupils equal, round, reactive to light and accommodation, sclera non-icteric.?EARS:?normal.?ORAL CAVITY:?mucosa moist.?THROAT:?clear.?NECK/THYROID:?neck supple, full range of motion, no cervical lymphadenopathy, no bruits.?SKIN:?warm and dry, no suspicious lesions.?HEART:?regular rate and rhythm, S1, S2 normal, loud systolic murmur at apex.?LUNGS:?clear to auscultation bilaterally.?BREASTS:?No mass, no lump.?ABDOMEN:?soft, nontender, nondistended, bowel sounds present, normal, no organomegaly , no masses palpable.?RECTAL EXAM:?declined.?FEMALE GENITOURINARY:?declined.?EXTREMITIES:?no clubbing, cyanosis, or edema.?NEUROLOGIC:?nonfocal, motor strength normal upper and lower extremities, sensory exam intact.? Assessment: * Assessment: 1.?Muscle spasm of back - M6 2.830 (Primary)???2.?Macular degeneration - H35.30???3.?Osteoporosis - M81.0???4.?Chronic systolic heart failure - I50.22???5.?Pure hypercholesterolemia - E78.00???6.?Depression screening - Z13.31??? Plan: * Treatment: 2.?Macular degeneration? Notes: followed by opth?? 3.?Osteoporosis? Notes: send to endocrine/ REFERRAL FAXED TO [facility] ? Referral To:Zach Bolton??Endocrinology ?Reason:OSTEOPOROSIS 4.?Chronic systolic heart fa ilure? Start Farxiga Tablet, 5 MG, 1 tablet, Orally, Once a day, 30 days, 30, Refills 5;?Continue Furosemide Tablet, 20 MG, TAKE 1 TABLET BY MOUTH EVERY DAY, Orally.?? Notes: stable, will continue current regiment?? 5.?Pure hypercholesterolemia ? Continue Rosuvastatin Calcium Tablet, 40 MG, TAKE 1 TABLET BY MOUTH EVERY DAY.?? Notes: stable, will continue current regiment?? 6.?Depression screening? Notes: negative screen?? * Procedure Codes:?G2211 Compl ex e/m visit add on * * Sign off status: Completed true * Provider:?Wyatt Eldridge MD Date:?0 07/30/2024 Generated for Nai ramírez/Emily/Dianeitting on:?08/20/2024 05:10 PM EDT History and Physical Notes * [...] Total Score: 0 Interpretation and Intervention Depression Rito jacobs Findings: Negative Follow-Up for Depression: : review [...] had two or more falls in the st year?: No Communication Needs Communication Needs Does the patient have a hearing impairment: No Does the patient have a vision impairmen t?: Yes ?If yes, what is the vision impairment?: Glasses Does the patient have a cognition impair ment?: No Examination Category Sub-Category Detail Notes Category Not es General Examination GENERAL APPEARANCE: well dev eloped, well nourished, in no acute distress HEAD: normocephalic, atrau matic EYES: pupils equal, round, reactive to light and accommodation, sclera non- icteric EARS: normal THROAT: clear NECK/THYROID: neck supple, [...]
--- OUTSIDE RECORDS SUMMARY | 2024-08-20 17:10 | XMS_ITS ---
Author Organization Wyatt Eldridge MD Address [address] [place] [phone] Care Team Providers Care Enamel Burner Name Role Phone Wyatt Eldridge Primary Care Provider [phone] Results Component Value Reference Range Notes Complete Blood Count Auto Di ff Reviewed date:07/23/2024 12:10:00 PM Interpretation: Performing Lab:[facility], [address] [place] [phone] Notes/Report: White Blood Count 6.6 4.8-10.8 X10*3/uL [...] NRBC Abs Auto 0.000 0.0-0.012 X10*3/uL Comprehensive [place]. Panel Fa st Reviewed date:07/23/2024 12:09:07 PM Interpretation: Performing Lab:[address] [phone] Notes/Report: Sodium 142 135-145 mmol/L Potassium 4.2 [...] Panel Reviewed date:07/23/2024 12:08:44 PM Interpretation: Performing Lab:[address] [phone] Notes/Report: Triglycerides 57 <150 mg/dL Desirable Triglyceride: [...] t Reviewed date:07/23/2024 12:10:23 PM Interpretation: Performing Lab:[facility], [address] [place] [phone] Notes/Report: Urine, Clean Catch Color Urine Yellow Appearance Urine Clear PH 6.0 5.0-9.0 Glucose Urine UA Negative Negative mg/dL Urine Blood Negative Negative Specific [place] [address] [place] - Urine 1.015 1.005-1.025 Urine Protein Negative [...] Date Provider Diagnosis Wyatt Eldridge MD [address] [place], [place] [phone] 07/23/2024 Wyatt Eldridge Lymphocytosis D72.82 0 ; [...] Provider Name:Wyatt Meyers ier, 10/31/2024 07:30:00 AM, [address], [address], [place], [id number], Provider Name:Wyatt Meyers ier, 01/30/2025 08:00:00 AM, [address], [address], [place], [id number], Provider Name:Wyatt Meyers ier, 07/28/2025 07:45:00 AM, [address], [address], [place], [id number], Provider Name:Wyatt Meyers ier, 08/04/2025 01:00:00 PM, [address], [address], [place], [id number], Progress Notes * Rochelle DOWNS MDOB:0 1945 (78 yo F)Acc No.[id number]:07/23/2024 Progress Note Patient:?Glory DOWNS Provider:?Wyatt Eldridge MD :1945???Age:78 Y???Sex:Female D ate:07/23/2024 Address:[address] [place], [place] [phone] Subjective: * Chief Complaints: * ???1. FASTING LABS. * Medical History:? Objective: * Vitals:? Assessment: * Assessment: 1.?Lymphocytosis - D72.820 ( Primary)???2.?Pure hypercholesterolemia - E78.00???3.?Chronic systolic heart failure - I50.22??? Plan: * Treatment: 2.?Pure hypercholesterolemia ?LAB: Complete Blood Count Auto Diff (Collection Date & Time - 07/23/2024 07:45 AM) ?LAB: Comprehensive [place]. Panel Fast (Collection Date & Time - 07/23/2024 07:45 AM) ?LAB: Lipid Panel (Collection Date & Time - 07/23/2024 07:45 AM) ?LAB: UA ClnCatch+Micro w/rflx Cult (Collection Date & Time - 07/23/2024 07:45 AM) 3.?Chronic systolic heart fa ilure?LAB: Complete Blood Count Auto Diff (Collection Date & Time - 07/23/2024 07:45 AM) ?LAB: Comprehensive [place]. Panel Fast (Collection Date & Time - 07/23/2024 07:45 AM) ?LAB: Lipid Panel (Collection Date & Time - 07/23/2024 07:45 AM) ?LAB: UA ClnCatch+Micro w/rflx Cult (Collection Date & Time - 07/23/2024 07:45 AM) * Procedure Codes:?69103 VENIP UNCT, ROUTINE* * * The named appointment provid er may or may not be the originator of this progress note, and it is not deemed complete until electronically signed by the appointment provider. Sign off status: Pending * Provider:?Wyatt Eldridge MD Date:?0 07/23/2024 Generated for Nai ramírez/Emily/eTransmitting on:?08/20/2024 05:10 PM EDT
--- OUTSIDE RECORDS SUMMARY | 2024-08-20 17:10 | XMS_ITS ---
Author Organization [facility] Address [address] [place] [address] Care Team Providers Care Utility Lineman Name Role Phone Wyatt Eldridge MD Primary Care Provider Aye Grace Unavailable [phone] Allergies No Known Allergies REASON FOR VISIT At Risk Footcare, Painful Nail(s) aggravated by shoes and causing difficulty standing/walking., Skin problem(s) Medications Medication SIG (Take, Route, Frequency, Duration) [...] W/U Status Risk Notes Problem Atherosclerosis of [place] artery of both lower extremities, with unspecified presence of clinical manifestation (I70.203) Active confirmed Q7(A), Q8(2B), Q9(1B,2C) Vital Signs Height 5ft3in in 06/18/2024 Weight 149 lbs 06/18/2024 BMI 26.39 kg/m2 06/18/2024 Blood pressure systolic 98 mm Hg 06/18/19 25 Blood pressure diastolic 56 mm Hg 025 Encounters Encounter Location Date Provider Diagnosis [facility] [place] [address] [place] [address] 06/18/2024 Aye Reardon Atherosclerosis of bridge[place] artery of both lower extremities, with unspecified presence of clinical manifestation I70.203 ; Xerosis of skin L85.3 ; Tinea unguium B35.1 ; Pain in right toe(s) M79.674 and Pain in left toe(s) M79.675 Assessments Encounter Date Diagnosis (ICD Code) Assessment Notes Treatment Notes Treatment Clinical Notes Section Notes 06/18/2024 Atherosclerosis of bridge[place] artery of both lower extremities, with unspecified presence of clinical manifestation (ICD-10 - I70.203) Q7(A), Q8(2B), Q9(1B,2C) 06/18/2024 Xerosis of skin (ICD-10 - L85.3) 06/18/2024 Tinea unguium (ICD-10 - B35.1) 06/18/2024 Pain in right toe(s) (ICD-10 - M79.674) 06/18/2024 Pain in left toe(s) (ICD-10 - M79.675) Plan Of Treatment Medication Medication Name Sig Start Date Stop Date Notes Ammonium Lactate 12 % 1 application Exte rnally to affected areas of dry skin to feet except for between the toes Twice a day for 30 days Next Appt Details Follow Up: 2 Months, Reason: Provider Name:Aye colón, 09/11/2024 01:00:00 PM, [address] [place], [id number], Procedure Notes * Category Sub-Category Detail Notes Debride Nail 6-10 Nail debridement Due to the cl inical pathology outlined in the exam findings, performance of this nail treatment is medically necessary as its management by an unskilled/untrained nonprofessional would put this patients foot and overall health at risk. Therefore, debridement to affected nail(s), as described in exam ( TA, T1, T2, T3, T4, T5, T6, T7, T8, T9, ), was performed exclusively by the physician of record to reduce/remove overall nail length, girth, thickness, subungual debris, and necrotic tissue, by manual and/or electrical means through the use of a nail nipper and/or dremel-type hob grinder, to a more viable healthy nail plate or bed tissue 6-10 nails in total. Silver nitrate was used for any petechial bleeding as necessary. Definitive antifungal treatment options, both pharmaceutical and surgical, have been reviewed and discussed with the patient. The patient solely prefers the use of intermittent/as needed professional debridement services for their nail condition and understands the need for additional periodic treatments to maintain effectiveness in symptomatic relief - 74469 Keratoma Treatment Parring or Cutting o f Benign Hyperkeratotic Lesion(s) (-57) More than 4 Lesions - Due to the at risk nature of the patients medical condition as documented in the exam findings, performance of this keratoderma treatment is medically necessary as its management by an unskilled/untrained nonprofessional would put this patients foot and overall health at risk. Therefore, the benign hyperkeratotic lesions, ( 10 ) in total, locations as stated and described in the exam ( TA, T5, T1, T4, T6, T9, SUB MTH (s), 1, 3, B/L), were pared, and/or cut utilizing a sterile 15 blade, tissue nippers, and/or power dremel instrumentation by the physician of record - 38117 Progress Notes * Rochelle FOOTE MDOB: [birth year] (78 yo F)Acc No.[id number]:06/18/2024 Progress Notes Patient:?Rochelle FOOTE Provider:?Aye Reardon DPM :1945???Age:78 Y???Sex:Female D ate:06/18/2024 Address:[address] [place] [address] [facility] Pcp:Wyatt Eldridge MD Subjective: * Chief Complaints: * ???At Risk FootcarePainful N ail(s) aggravated by shoes and causing difficulty standing/walking.Skin problem(s) * HPI: ???At Risk footcare:?Pt States Last PCP Visit:?Date?01/24/2024 ???Skin problems:?Nature:?dryness , scaling.?Location:?B/L .?Duration:?several days.?Course:?worse.? * ROS:?General/Constitutional:?Nausea?denies.?Vomiting?denies.?Hunger Thirst?denies.?Loss appetite?denies.?Chills?denies.?Fatigue?admits.?Fever?denies.?Night Sweats?denies.?Unexplained weight loss?denies.?Unexplained weight gain?denies.?HEENTM:?Dentures?denies.?Dizziness?denies.?Glasses/contacts?admits.?Retinopathy?de nies.?Blurred/double vision?denies.?TMJ?denies.?Discharge/drainage?denies.?Implants?denies.?Sore throat?denies.?Dental implants?denies.?Hard of hearing ?denies.?Difficulty chewing/swallowing/speaking?denies.?Nose bleeds?denies.?Sore mouth?denies.?Respiratory:?On Oxygen?denies.?Pneumonia/pleurisy?denies.?Bronchitis?denies.?Emphysema?denies.?C oughing?denies.?Cough blood?denies.?Shortness of breath?denies.?Wheezing?denies.?Cardiovascular:?Pacemaker?denies.?MVP?denies.?WPW?denies.?CHF?admits.?Heart attack?admits.?Septal defect?denies.?Rapid beat?denies.?Chest pain ?denies.?Atrial Fib.?denies.?Murmur/Palpitations?denies.?Gastrointestinal:?Hemorrhoids?denies.?Stomach/Abdominal pain?denies.?Dark blood stool?denies.?Irritable bowel ?denies.?Constipation?denies.?Diarrhea?denies.?Hematology:?Swelling?denies.?Clots?denies.?Varicose Veins?denies.?Bruising?denies.?Bleeding problem?denies.?Genitourinary:?Blood urine?denies.?Frequent/Painfu/urination/bladder control?denies.?Kidney stones?denies.?Infection (UTI)?denies.?Nephropathy?denies.?sex trans dis (STD)?denies.?Prostate?denies.?Musculoskeletal:?Hammertoes?admits.?Bunions?denies.?Back Pain?denies.?Muscle Cramps/ Resting?admits.?Muscle cramps / walking?denies.?Generalized aches and pains?denies.?Weakness?denies.?Integ.:?Duenas?denies.?Scars?denies.?Corns/calluses?admits.?Ingrown nails?admits.?Painful nails?denies.?Open Sores?denies.?Rashes?denies.?Neurologic:?Difficulty sleeping?admits.?Brain disorder?denies.?Numbness?denies.?Balance trouble?denies.?Confusion?denies.?Fainting/blackouts?denies.?Tingling?denies.?Tr emors?denies.? * Medical History:? * Surgical History:?heart surg carine/ davon clip 12/08/21 * Hospitalization/Major Diagno stic Procedure:?Denies Past Hospitalization * Family History:?Mother: dece ased, stroke, diagnosed with Unspecified heart disease.?Father: , heart attack, diagnosed with Unspecified heart disease.?Son(s): cancer, heart attack, diagnosed with Other malignant neoplasm of unspecified site, Unspecified heart disease.? * Social History:?Tobacco Use:?Tobacco use other than smoking?Are you an other tobacco user??No ?Tobacco Control (Standard)?Tobacco use:?Nonsmoker ?Additional Findings: Tobacco non-user?Current nonsmoker ???Drugs/Alcohol:?Drugs?Have you used drugs other than those for medical reasons in the past 12 months??No ???Miscellaneous:?Caffeine: yes, 2-3 cups. ?Children: yes, 7 kids. ?Exercise: yes, Gym membership. ?Marital status: , . 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 ???Drug/Alcohol:?AUDIT-C (Standard)?Did you have a drink containing alcohol in the past year??No ?Points?0 ?Interpretation?Negative * Medications:?TakingAspirin A dult Low Dose Metoprolol Succinate 25 MG Capsule ER 24 Hour Sprinkle 1 capsule Orally Once a day Rosuvastatin Calcium 40 MG Tablet 1 tablet Orally Once a day Lasix Losartan Potassium 25 MG Tablet 1 tablet Orally Once a day Medication List reviewed and reconciled with the patientTaking Aspirin Adult Low Dose Taking Metoprolol Succinate 25 MG Capsule ER 24 Hour Sprinkle 1 capsule Orally Once a day Taking Rosuvastatin Calcium 40 MG Tablet 1 tablet Orally Once a day Taking Lasix Taking Losartan Potassium 25 MG Tablet 1 tablet Orally Once a day Medication List reviewed and reconciled with the patient * Allergies:?N.K.D.A.yes[Aller gies Verified] Objective: * Vitals:?Ht: 5ft3in, Wt: 149, BMI: 26.39, Shoe size: 8, BP: 98/56 mm Hg, Ht-cm: 160.02 cm, Wt-k.59 kg. * Examination: ???Vascular: ?DP PULSES (B):?1/4, B/L.?PT PULSES (B):? 0/4, B/L.?CAPILLARY FILL TIME:? delayed, all digits, B/L.?TROPHIC CONDITION-TEXTURE/ELASTICITY/TURGOR/HAIR GROWTH (B):? decreased, fragile, thin, shiny skin, with sparse to absent hair growth, B/L.?TEMPERTURE GRADIENT (C):? decreased, cool to cool, proximal to distal, B/L.?PIGMENTATION:?pale, B/L.?EDEMA (C):?absent, B/L.?CLAUDICATION (C):?denies, B/L.?REST PAIN:?denies, B/L.?PARESTHESIA (C):?absent, B/L.?BURNING (C):?absent, B/L.?Nails: ?NAILS are:? Elongated, overgrown, dystrophic, lytic, greater than 3mm thick, discolored and friable with crumbly malodorous subungual debris, with pain on palpation,TA, T1, T2, T3, T4, T5, T6, T7, T8, T9.?Dermatologic: ?SKIN FINDINGS:?Skin shows sign(s) of, dryness, scaling, in a stocking fashion, no fissure(s) present, B/L Skin exam reveals Keratotic lesion(s) located at , , Medial plantar, TA, T5, T1, T4, T6, T9, SUB MTH (s), 1, 3, B/L.?Orthopedic: ?MUSCLE STRENGTH:?5/5 all groups in a symmetrical fashion, B/L.?DIGITAL DEFORMITIES:?Digital contracture, PIPJ, 2-5 B/L, incompl-reducible with WB, or to push-up test, no over, nor underlapping.?FOOTWEAR:?fair condition.?Neurological: ?SENSORY:?Neurological exam reveals intact sensorium, pain sensation normal, vibration sensation intact, pinprick sensation is normal in the lower extremities, Pt denies, anesthesia, burning, paresthesia, tingling, B/L.?General Examination: ?GENERAL APPEARANCE:?Reveals a pleasant, alert, well nourished, well- developed, well hydrated individual, who demonstrates proper attention to hygiene/body habitus, and is in no acute distress, Pt serves as own historian for office visit today.?ORIENTED:?person, place, and time.? Assessment: * Assessment: 1.?Xerosis of skin - L85.3 ( Primary)???2.?Atherosclerosis of bridge[place] artery of both lower extremities, with unspecified presence of clinical manifestation - I70.203???Notes :Q7(A), Q8(2B), Q9(1B,2C)???3.?Tinea unguium - B35.1???4.?Pain in right toe(s) - M79.674???5.?Pain in left toe(s) - M79.675??? Plan: * Treatment: * Procedures:?Debride Nail 6-10:?Nail debridement?Due to the clinical pathology outlined in the exam findings, performance of this nail treatment is medically necessary as its management by an unskilled/untrained nonprofessional would put this patients foot and overall health at risk. Therefore, debridement to affected nail(s), as described in exam ( TA, T1, T2, T3, T4, T5, T6, T7, T8, T9, ), was performed exclusively by the physician of record to reduce/remove overall nail length, girth, thickness, subungual debris, and necrotic tissue, by manual and/or electrical means through the use of a nail nipper and/or dremel-type hob grinder, to a more viable healthy nail plate or bed tissue 6- 10 nails in total. Silver nitrate was used for any petechial bleeding as necessary. Definitive antifungal treatment options, both pharmaceutical and surgical, have been reviewed and discussed with the patient. The patient solely prefers the use of intermittent/as needed professional debridement services for their nail condition and understands the need for additional periodic treatments to maintain effectiveness in symptomatic relief - 21332.?Keratoma Treatment:?Parring or Cutting of Benign Hyperkeratotic Lesion(s)?(-57) More than 4 Lesions - Due to the at risk nature of the patients medical condition as documented in the exam findings, performance of this keratoderma treatment is medically necessary as its management by an unskilled/untrained nonprofessional would put this patients foot and overall health at risk. Therefore, the benign hyperkeratotic lesions, ( 10 ) in total, locations as stated and described in the exam (?TA,?T5,?T1,?T4,?T6,?T9,?SUB MTH (s),?1,?3,?B/L), were pared, and/or cut utilizing a sterile 15 blade, tissue nippers, and/or power dremel instrumentation by the physician of record - 96872.? * Procedure Codes:?42178 DEBRI DE NAIL, 6 OR MORE, Modifiers: XS 67895 TRIM SKIN LESIONS, OVER 4, Modifiers: XS , Q8 * Preventive Medicine:? ??Counseling:?Discussion:?-03: Office or other outpatient visit for the evaluation and management of a new patient, which required a medically appropriate history and/or examination and LOW level of DECISION MAKING for: 1 STABLE ACUTE UNCOMPLICATED PROBLEM, 2 OR MORE MINOR PROBLEMS, OR 1 STABLE CHRONIC PROBLEM, THAT POSE(S) A LOW RISK FOR MORBIDITY/MORTALITY. The visit on the day of the encounter encompassed interpreting the data and educating the patient as to the nature of their condition, treatment options available according to their individual PMH, meds, allergies, and overall health/living conditions, as well as any potential risks or complications that may occur from a failure to adhere to, and participate in, the recommended course of therapy. The discussion included a complete verbal, and/or written explanation of the examination results, any x-rays taken, the proposed diagnosis, and outline of the treatment plan. A schedule for future care needs was also explained. The patient verbalized an understanding of the instructions at this time and agreed to be an active participant in their treatment. If the patient should think of any questions or concerns after the visit, I have encouraged the patient to call the office.?Fungal Nail Counseling:?The patient was counseled on the diagnosis, potential etiologies (including, but not limited to, environmental factors, genetic, immune deficiency), and the multiple treatment options for Onychomycosis. We discussed the risks and benefits of each option from performing no treatment, to ultraviolet light shoe treatment, to laser nail treatment, to applying topical antifungals, to taking oral antifungal medication, to surgical removal of the involved nail(s) with or without performing a matricectomy, or any combination thereof. We discussed the advantages and disadvantages of each of possible treatment and importance for adherence to all the recommended therapies for optimum success. This includes the necessity for weekly emery board self nail home debridements, and control the nail and skin environment as much as possible by only using a fresh, dry pair of shoes/socks each day, as well as keeping the skin as dry as possible through the use of sprays/powders if necessary. The patient was instructed to discard the emery board after use to prevent reinfection of the involved nail(s). We discussed the mycological and visual clinical effectiveness of topical vs oral antifungal treatments as well as each ones potential side effects and/or any patient- specific medication interactions. We discussed the reasons behind the important requirement of regular liver function testing with oral antifungal therapy for safety. Patient questions regarding use, dosage, successful outcomes, blood tests, and possible pharmaceutical interactions were reviewed and the patient verbalized that all answers were clearly understood.?Xerosis:?The patient was counseled on the diagnosis, potential etiologies, and treatment options for their skin condition. We discussed the risks and benefits of each option from performing no treatment, to utilizing OTC topical skin creams/ointments, to utilizing prescription topical creams/ointments, to utilizing customized compounded topical medications and use of nocturnal occlusion with any/all previously detailed therapies. We discussed the advantages and disadvantages of each possible treatment and importance for adherence to all the recommended therapies for optimum success and avoid potential complications such as open sore/infection/possible hospitalization. We discussed the potential effectiveness of each topical preparation as well as each ones possible side effects and/or patient medication interactions. Patient questions re: use, dosage, successful outcomes, and application consistency were reviewed and the patient verbalized that all answers were clearly understood, Recom Eucerin or Cerave OTC as directed twice daily, Recom. Gold Graham.? ??Screening/Special Tests:?Fall Risk?Screening:?No falls in the past year ?FALLS: Screening for Future Fall Risk?Have you had any falls with injury in the past year??No * Follow Up:?2 Months * Images: * Sign off status: Completed true * Provider:?Aye Reardon DPM Date:?03/2025 Generated for Nai ramírez/Emily/[place] on:?08/20/2024 05:10 PM EDT History and Physical Notes * HPI (History of Present Illness) Category Sub-Category Detail Notes Category Not es Skin problems Nature: dryness , scaling Location: B/L Duration: several days Course: worse At Risk footcare Pt States Last PCP Visit: Date: 4 Examination Category Sub-Category Detail Notes Category Not es Neurological SENSORY: Neurological exa m reveals intact sensorium, pain sensation normal, vibration sensation intact, pinprick sensation is normal in the lower extremities, Pt denies, anesthesia, burning, paresthesia, tingling, B/L Dermatologic SKIN FINDINGS: Skin shows sign( s) of, dryness, scaling, in a stocking fashion, no fissure(s) present, B/L Skin exam reveals Keratotic lesion(s) located at , , Medial plantar, TA, T5, T1, T4, T6, T9, SUB MTH (s), 1, 3, B/L Orthopedic FOOTWEAR EVALUATION: fair condition DIGITAL DEFORMITIES: Digital contracture , PIPJ, 2-5 B/L, incompl-reducible with WB, or to push-up test, no over, nor underlapping MUSCLE STRENGTH: 5/5 all groups in a symmetrical fashion, B/L General Examination GENERAL APPEARANCE: Reveals a pleasant, alert, well nourished, well-developed, well hydrated individual, who demonstrates proper attention to hygiene/body habitus, and is in no acute distress, Pt serves as own historian for office visit today ORIENTED: person, place, and t maria g Vascular DP PULSES (B): 1/4, B/L PT PULSES (B): 0/4, B/L CAPILLARY FILL TIME: delayed, all digits , B/L TEMPERTURE GRADIENT (C): decreased, cool to cool, proximal to distal, B/L TROPHIC CONDITION-TEXTURE/ELASTICITY/TURGOR/HAIR GROWTH (B): decreased, fragile, thin, shiny skin, wi th sparse to absent hair growth, B/L EDEMA (C): absent, B/L CLAUDICATION (C): denies, B/L REST PAIN: denies, B/L PIGMENTATION: pale, B/L PARESTHESIA (C): absent, B/L BURNING (C): absent, B/L Nails NAILS are: Elongated, overg rown, dystrophic, lytic, greater than 3mm thick, discolored and friable with crumbly malodorous subungual debris, with pain on palpation,TA, T1, T2, T3, T4, T5, T6, T7, T8, T9
--- OUTSIDE RECORDS SUMMARY | 2024-08-20 17:10 | XMS_ITS ---
Author Organization Wyatt Eldridge MD Address [address] [place] [phone] Care Team Providers Care Metal Smelter Name Role Phone Wyatt Edlridge Primary Care Provider Allergies No Known Allergies REASON FOR VISIT [...] Location Date Provider Diagnosis Wyatt Eldridge MD [address] [place] [phone] 05/03/2024 Wyatt Eldridge Muscle spasm of back [...] use Next Appt Details Provider Name:Wyatt walton, 10/31/2024 07:30:00 AM, [address] [place] [address], [address], [phone], Provider Name:Wyatt walton, 01/30/2025 08:00:00 AM, [address] [place] [address], [phone], Provider Name:Wyatt walton, 07/28/2025 07:45:00 AM, [address] [place] [address], [id number], Provider Name:Wyatt walton, 08/04/2025 01:00:00 PM, [address] [place] [address], [phone], Progress Notes * Rochelle DOWNS MDOB:0 1945 (78 yo F)Acc No.[id number]:05/03/2024 Progress Notes Patient:?Glory Downs Provider:?Wyatt Eldridge MD :1945???Age:78 Y???Sex:Female D ate:05/03/2024 Address:[facility] [place], [id number] Subjective: * Chief Complaints: * ???Back pain since 04-12 was lower back pulling out a Ellis bed * HPI: ???Symptom(s):? patient is a 78 yo female here for a severe back pain.. was pulling ellis bed. and hurt lower back. took the flexeril with some relief but stopped it and went on ibuprofen. * ROS:?General/Constitutional:?Denies?Chills.?Denies?Fatigue.?Denies?Fever.?Denies?Headache.?ENT:?Patient denies?decreased sense of smell , any loss of taste , sore throat.?Denies?Sore throat.?Respiratory:?Denies?Cough.?Denies?Shortness of breath at rest.?Denies?Shortness of breath with exertion.?Gastrointestinal:?Denies?Diarrhea.?Denies?Nausea.?Musculoskeletal:?Patient denies?muscle aches.?Peripheral Vascular:?Patient denies?red and blue toes.? * Medical History:? * Surgical History:? * Hospitalization/Major Diagno stic Procedure:? * Medications:?TakingSlow Fe 1 42 (45 Fe) [...] * Allergies:?N.K.D.A.yes[Aller gies Verified] Objective: * Vitals:?Ht: 63, Wt:158, BMI: 27.99, BP:104/50 weight is up 4 pounds since 01-26-24. * Examination: ???General Examination: ?GENERAL APPEARANCE:?alert, well hydrated, in no distress.?HEAD:?normocephalic.?SKIN:?good turgor.?HEART:?grade 2/6 systolic murmur at left sternal border.?LUNGS:?no wheezes, rales, rhonchi , good air movement , clear to auscultation bilaterally.? Assessment: * Assessment: 1.?Muscle spasm of back - M6 2.830 (Primary)? Plan: * Treatment: * Procedure Codes:? * * Sign off status: Completed true * Provider:?Wyatt Eldridge MD Date:?07/04/2023 Generated for Nai ramírez/Emily/eTransmitting on:?08/20/2024 05:10 PM EDT History and Physical [...]
== END 2024-08-20 14:57 | disposition home or self-care (01) ==
LOC: HO.ENCR 13:56
PROVIDERS: PCP Internal Medicine; Visit Provider Internal Medicine Endocrinology, Diabetes & Metabolism
DX: M85.80 Other specified disorders of bone density and structure, unspecified site (principal)
CPT/HCPCS: 99204

== ENCOUNTER → 2024-08-20 13:56 | Outpatient (BNVA) | payer MEDICARE, OTHER, SELFPAY ==
[2022-08-03 07:45] VITALS: BP 102/50; BP 104/62; BP 126/50; BMI 24.1
== END ==
PROVIDERS: PCP Internal Medicine; Visit Provider Internal Medicine Endocrinology, Diabetes & Metabolism
DX: M85.80 Other specified disorders of bone density and structure, unspecified site (principal)
CPT/HCPCS: 99202

== ENCOUNTER 2024-09-19 13:17 | Outpatient (REF) | payer MEDICARE, OTHER, SELFPAY ==
[2022-08-03 07:45] VITALS: BP 102/50; BP 104/62; BP 126/50; BMI 24.1
--- NOTE | ~2024-09-19 | MM_ITS ---
EXAMINATION: DXA BONE DENSITY AXIAL HISTORY: M85.80 - Other specified disorders of bone density and structure, unspecified... TECHNIQUE: Smartisan Dual energy absorptiometry (DEXA) of the lumbar spine, total left hip, and femoral neck was performed. COMPARISON: Comparison is made with the prior examination dated 12/28/2021. FINDINGS: The bone mineral density of the lumbar spine is 1.041 with a T-score of -1.2, and a Z-score of 0.6. This is indicative of osteopenia. This represents a BMD change of -0.2% compared to the prior exam. This is not statistically significant. The bone mineral density of the left total hip is 0.787 with a T-score of -1.7, and a Z-score of 0.1. This is indicative of osteopenia. This represents a BMD change of -7.2% compared to the prior exam. This is statistically significant. The bone mineral density of the left femoral neck is 0.756 with a T-score of -2.0, and a Z-score of 0.0. This is indicative of osteopenia.- This represents a BMD change of 9.1% compared to the prior exam. FRACTURE RISK: The FRAX index suggests a ten year probability of major osteoporotic fracture of 15.6%, and of hip fracture 4.6%. MM/XR DEXA axial skeleton IMPRESSION: Based on bone mineral density, and according to World Health Organization (WHO) criteria, the diagnosis is consistent with osteopenia. All bone density values are in grams per centimeter squared (g/cm2). Statistically, 68% of repeat scans fall within 1 SD (+/- 0.010 g/cm2 for AP spine L1-L4) and 1 SD (+/- 0.012 g/cm2 for femur total) FRAX is a trademark of the [employer]'s [place] for Metabolic Bone Disease, a World Health Organization (WHO) Collaborating Center. Electronically signed by: Zach Reece MD 09/19/2024 02:01 PM EDT
--- OUTSIDE RECORDS SUMMARY | 2024-09-19 13:51 | XMS_ITS ---
Author Organization [facility] Address [address] [place] [address] Care Team Providers Care Qa Automation Architect Name Role Phone Wyatt Eldridge MD Primary Care Provider Aye Grace Unavailable [phone] Allergies No Known Allergies REASON FOR VISIT [...] W/U Status Risk Notes Problem Atherosclerosis of tribal artery of both lower extremities, with unspecified presence of clinical manifestation (I70.203) Active confirmed Q7(A), Q8(2B), Q9(1B,2C) Vital Signs Height 5ft3in in 06/18/2024 Weight 149 lbs 06/18/2024 BMI 26.39 kg/m2 06/18/2024 Blood pressure systolic 98 mm Hg 06/18/19 25 Blood pressure diastolic 56 mm Hg 025 Encounters Encounter Location Date Provider Diagnosis [facility] [place] [address] [place] [address] 06/18/2024 Aye Reardon Atherosclerosis of tribal artery of both lower extremities, with unspecified presence of clinical manifestation I70.203 ; Xerosis of skin L85.3 ; Tinea unguium B35.1 ; Pain in right toe(s) M79.674 and Pain in left toe(s) M79.675 Assessments Encounter Date Diagnosis (ICD Code) Assessment Notes Treatment Notes Treatment Clinical Notes Section Notes 06/18/2024 Atherosclerosis of tribal artery of both lower extremities, with unspecified [...] Up: 2 Months, Reason: Provider Name:Aye colón, 12/11/2024 02:30:00 PM, [address] [place], [address], Procedure Notes * Category Sub-Category Detail Notes [...] use of a nail nipper and/or dremel-type grinder machine setter, to a more viable healthy nail plate [...] to maintain effectiveness in symptomatic relief - 80045 Keratoma Treatment Parring or Cutting o f [...] instrumentation by the physician of record - 50413 Progress Notes * Rochelle FOOTE MDOB: [birth year] (78 yo F)Acc No.[id number]:06/18/2024 Progress Notes Patient:?Rochelle FOOTE Provider:?Aye Reardon DPM :1945???Age:78 Y???Sex:Female D ate:06/18/2024 Address:[address] [place] [address] [facility] Pcp:Wyatt Eldridge MD Subjective: * Chief Complaints: [...] of skin - L85.3 ( Primary)???2.?Atherosclerosis of tribal artery of both lower extremities, with unspecified [...] use of a nail nipper and/or dremel-type grinder machine setter, to a more viable healthy nail plate [...] to maintain effectiveness in symptomatic relief - 17336.?Keratoma Treatment:?Parring or Cutting of Benign Hyperkeratotic Lesion(s)?(-57) [...] instrumentation by the physician of record - 13715.? * Procedure Codes:?55078 DEBRI DE NAIL, 6 OR MORE, Modifiers: XS 91974 TRIM SKIN LESIONS, OVER 4, Modifiers: XS [...] Reardon DPM Date:?03/2025 Generated for Nai ramírez/Emily/[place] on:?09/19/2024 01:51 PM EDT History and Physical Notes * [...]
--- OUTSIDE RECORDS SUMMARY | 2024-09-19 13:51 | XMS_ITS | Patient Health Record ---
Author Organization Wyatt Eldridge MD Address [address] [place], [place] [id number] Care Team Providers Care Leather Stretcher Name Role Phone Wyatt Eldridge Primary Care Provider Allergies Allergen (clinical drug ingredient) Drug/Non Drug Allergy documented on EMR Reaction Allergy Type Onset Date Status tramadol traMADol HCl confusion Drug Allergy Acti ve Results Component Value Reference Range Notes Blood Urea Nitrogen Reviewed date:10/27/2023 12:35:34 PM Interpretation: Performing Lab:[facility], [address] [place] [phone] Notes/Report: Blood Urea Nitrogen 21 9-16 mg/dL Creatinine Reviewed date:10/27/2023 12:36:28 PM Interpretation: Performing Lab:[facility], [address] [place] [phone] Notes/Report: Creatinine 0.83 0.5-1.4 mg/dL Estimated Glomerular Filt Rate > 60 NOTE: For -Belarusian individuals, multiply the result by 1.210. Chronic Kidney Disease: Estimated GFR < 60 mL/min/1.73m2 Severe Kidney Disease: Estimated GFR < 15 mL/min/1.73m2 Liver Panel Reviewed date:01/19/2024 03:46:59 PM Interpretation: Performing Lab:[facility], [address] [place] [phone] Notes/Report: Bilirubin Total 0.3 0.0-1.0 mg/dL Bilirubin Direct 0.1 0.0-0.5 mg/dL Aspartate Amino Transferase 22 5-31 U/L Alanine Aminotransferase 14 0-31 U/L Total Protein 6.6 6.5-8.0 g/dL Albumin Level 3.9 3.5-5.0 g/dL Alkaline Phosphatase 55 39-117 U/L Lipid Panel with Reflex Reviewed date:01/21/2024 05:01:09 PM Interpretation: Performing Lab:[facility], [address] [place] [phone] Notes/Report: Triglycerides 56 <150 mg/dL Desirable Triglyceride: [...] ff Reviewed date:07/23/2024 12:10:00 PM Interpretation: Performing Lab:[facility], [address] [place] [phone] Notes/Report: White Blood Count 6.6 4.8-10.8 X10*3/uL [...] NRBC Abs Auto 0.000 0.0-0.012 X10*3/uL Comprehensive [place]. Panel Fa st Reviewed date:07/23/2024 12:09:07 PM Interpretation: Performing Lab:[facility], [address] [place] [phone] Notes/Report: Sodium 142 135-145 mmol/L Potassium 4.2 [...] Panel Reviewed date:07/23/2024 12:08:44 PM Interpretation: Performing Lab:[facility], [address] [place] [phone] Notes/Report: Triglycerides 57 <150 mg/dL Desirable Triglyceride: [...] t Reviewed date:07/23/2024 12:10:23 PM Interpretation: Performing Lab:[facility], [address] [place] [phone] Notes/Report: Urine, Clean Catch Color Urine Yellow Appearance Urine Clear PH 6.0 5.0-9.0 Glucose Urine UA Negative Negative mg/dL Urine Blood Negative Negative Specific [place] - Urine 1.015 1.005-1.025 Urine Protein Negative Neg-Trace mg/dL Urine Ketones Negative Negative mg/dL Nitrite Urine Negative Negative Leukocyte Esterase Urine Negative Negative RBC Urine 0-2 0-2 /HPF WBC Urine 0-5 0-5 /HPF Squamous Epithelial Cell Urine 0-2 0-2 /HPF Bacteria Urine None Seen None Seen Hyaline Casts Urine 0-2 0-2 /LPF Hold Gold Reviewed date:01/19/2024 03:44:37 PM Interpretation: Performing Lab:[facility], [address] [place] [phone] Notes/Report: Flavia Duran See Note Specimen held [...] Cruz 07/30/2024 03:09:03 PM >REFERRAL FAXED TO [facility], Radha Cruz 08/12/2024 10:20:34 AM >APPT SCHEDULED FOR 08/20/24 AT 2PM, Radha Cruz 08/22/2024 12:19:17 PM >OFFICE NOTE HAS BEEN [...] Comme nts Flu Vaccine Unknown 02/10/2014 Administered [facility] Flu Vaccine Unknown 02/17/2015 Administered [facility] Flu Vaccine Unknown 03/07/2016 Administered pt had it a t [facility] Fluarix Quadrivalent Unknown 01/26/2017 Administered [facility] [place] Fluarix Quadrivalent IM Intramuscular 01/23/2018 Administered Prevnar [...] Problem Status W/U Status Risk Notes Problem 06697900 Lymphocytosis (D72.820) Active confirmed Problem Insomnia (926904897) Insomnia (G47.00) Active confirmed Problem 0460301 Primary insomnia (F51.01) Active confirmed Problem 191566606 Ischemic cardiomyopathy (I25.5) Active confirmed Problem Localized, primary osteoarthritis of the hand (702672391) Primary osteoarthritis, right hand (M19.041) Active confirmed Problem Localized, primary osteoarthritis of the hand (841441683) Primary osteoarthritis, left hand (M19.042) Active confirmed Problem 939883189 Osteopenia (M85.80) Active confirmed Problem Osteoporosis (17056981) Osteoporosis (M81.0) Active confirmed Problem Age-related macular degeneration (disorder) (972666980) Macular degeneration (H35.30) Active confirmed Problem 305531402 Non-rheumatic mi tral regurgitation (I34.0) Active confirmed Problem Coronary artery disease (85062498) CAD (coronary artery disease) (I25.10) Active confirmed Problem 69085826 Acute OH, inferi or wall (I21.19) Active confirmed Problem 795298105 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 Problem 257194163 Pure hypercholesterolemia (E78.00) Active confirmed Problem Anemia due to blood loss (478181449) Anemia due to blood loss (D50.0) Active confirmed Problem 834488201 Chronic systolic heart failure (I50.22) Active confirmed Problem 060842310 Osteopenia of ne ck of femur, unspecified laterality (M85.859) Active confirmed Problem 184663130 Basal cell carci noma, forehead (C44.319) Active [...] Wyatt Eldridge MD [address] [place] [id number] 10/27/2023 Wyatt Eldridge Elevated BUN R79.9 Wyatt Eldridge MD [address] [place] [id number] 01/19/2024 Wyatt Billardier Pure hypercholestero lemia E78.00 and Encounter for immunization Z23 Wyatt Eldridge MD [address] [place] [id number] 07/23/2024 Wyatt Eldridge Lymphocytosis D72.82 0 ; Pure hypercholesterolemia E78.00 and Chronic systolic heart failure I50.22 Wyatt Eldridge MD [address] [place] [id number] 01/26/2024 Wyatt Eldridge Pure hypercholestero lemia E78.00 and Chronic systolic heart failure I50.22 Wyatt Eldridge MD [address] [place] [id number] 05/03/2024 Wyatt Eldridge Muscle spasm of back M62.830 Wyatt Eldridge MD [address] [place] [id number] 07/30/2024 Wyatt Eldridge Muscle spasm of back M62.830 ; Macular degeneration H35.30 ; Osteoporosis M81.0 ; Chronic systolic heart failure I50.22 ; Pure hypercholesterolemia E78.00 and Depression screening Z13.31 Wyatt Eldridge MD [address] [place] [id number] 09/22/2023 Wyatt Eldridge MD [address] [place] [id number] 08/22/2024 Wyatt Eldridge Assessments Encounter Date Diagnosis (ICD Code) Assessment Notes Treatment Notes Treatment Clinical Notes Section Notes 10/27/2023 Elevated BUN (ICD-10 - R79.9) 01/19/2024 Pure hypercholesterolemia (ICD-10 - E78.00) 01/19/2024 Encounter for immunization (ICD-10 - Z23) 07/23/2024 Lymphocytosis (ICD-1 0 - D72.820) 01/26/2024 Pure hypercholesterolemia (ICD-10 - E78.00) has [...] M81.0) send to endocrine/ REFERRAL FAXED TO [facility] 07/23/2024 Chronic systolic hea rt failure [...] DEXA 02/03/2021 Next Appt Details Provider Name:Wyatt tomasr, 10/31/2024 07:30:00 AM, [address] [place] [address], [address], [phone], Provider Name:Wyatt Meyers ier, 01/30/2025 08:00:00 AM, [address] [place] [address], [address], [phone], Provider Name:Wyatt Meyers ier, 02/03/2025 10:00:00 AM, [address] [place] [address], [address], [phone], Provider Name:Wyatt Meyers ier, 07/28/2025 07:45:00 AM, [address] [place] [address], [address], [phone], Provider Name:Wyatt tomasr, 08/04/2025 01:00:00 PM, [address] [place] [address], [address], [phone], Insurance Providers Payer Name Payer Address Payer Phone Subscriber Number Group Number Insured Name Patient Relationship to Insured Coverage Start Date Coverage End Date [employer] [address] [place] [address] [id number] Rochelle Garcia Self - patient is the insured [facility] [address] [place] [phone] [id number] Rochelle Garcia Self - patient is the [...]
--- OUTSIDE RECORDS SUMMARY | 2024-09-19 13:52 | XMS_ITS | Patient Health Record ---
Author Organization [facility] Address [address] [place] [address] Care Team Providers Care Soa Engineer Name Role Phone Wyatt Eldridge MD Primary Care Provider Aye Grace Unavailable [phone] Allergies No Known Allergies Reason For Referral No Information Medications Medication SIG (Take, Route, Frequency, Duration) Notes Start Date End Date Status Losartan Potassium 25 MG 1 tablet Orally Once a day Active Ammonium Lactate 12 % 1 application Exte rnally to affected areas of dry skin to feet except for between the toes Twice a day for 30 days Active Rosuvastatin Calcium 40 MG 1 tablet Oral ly Once a day Active Lasix Active Aspirin Adult Low Dose Active Metoprolol Succinate 25 MG 1 capsule Ora lly Once a day Active Social History Tobacco [...] W/U Status Risk Notes Problem Atherosclerosis of cher[place] artery of both lower extremities, with unspecified presence of clinical manifestation (I70.203) Active confirmed Q7(A), Q8(2B), Q9(1B,2C) Vital Signs Blood pressure diastolic 60 mm Hg 09/11/2024 Height 5ft3in in 09/11/2024 Blood pressure systolic 98 mm Hg 09/11/2024 Weight 147 lbs 09/11/2024 BMI 26.04 kg/m2 09/11/2024 Encounters Encounter Location Date Provider Diagnosis [address] [address] 06/18/2024 Aye Reardon Atherosclerosis of cher-ae heights artery of both lower extremities, with unspecified presence of clinical manifestation I70.203 ; Xerosis of skin L85.3 ; Tinea unguium B35.1 ; Pain in right toe(s) M79.674 and Pain in left toe(s) M79.[address] [address] 09/11/2024 Aye Reardon Xerosis of skin L85. 3 ; Tinea unguium B35.1 ; Atherosclerosis of cher-ae heights artery of both lower extremities, with unspecified presence of clinical manifestation I70.203 ; Pain in right toe(s) M79.674 and Pain in left toe(s) M79.[address] [address] 04/01/2024 Aye Reardon Assessments Encounter Date Diagnosis (ICD Code) Assessment Notes Treatment Notes Treatment Clinical Notes Section Notes 06/18/2024 Xerosis of skin (ICD-10 - L85.3) 06/18/2024 Atherosclerosis of cher-ae heights artery of both lower extremities, with unspecified presence of clinical manifestation (ICD-10 - I70.203) Q7(A), Q8(2B), Q9(1B,2C) 09/11/2024 Tinea unguium (ICD-10 - B35.1) 09/11/2024 Xerosis of skin (ICD-10 - L85.3) 09/11/2024 Atherosclerosis of cher-ae heights artery of both lower extremities, with unspecified presence of clinical manifestation (ICD-10 - I70.203) Q7(A), Q8(2B), Q9(1B,2C) 06/18/2024 Tinea unguium (ICD-10 - B35.1) 06/18/2024 Pain in right toe(s) (ICD-10 - M79.674) 09/11/2024 Pain in right toe(s) (ICD-10 - M79.674) 06/18/2024 Pain in left toe(s) (ICD-10 - M79.675) 09/11/2024 Pain in left toe(s) (ICD-10 - M79.675) Plan Of Treatment Next Appt Details Provider Name:Aye colón, 12/11/2024 02:30:00 PM, [address] [place] [address], [phone], Insurance Providers Payer Name Payer Address Payer Phone Subscriber Number Group Number Insured Name Patient Relationship to Insured Coverage Start Date Coverage End Date Medicare National Govt [facility] [address] [facility] [place] [address] [id number] Rochelle Landeros Self - patient is the insured [facility] [address] [place] [address] [phone] [id number] Rochelle Landeros Self - patient is the insured Medical (General) History Medical History History ICD Code Back,Hip,and Knee pain Heart disease Vascular phlebitis (clots) Surgical History Surgery Date(Month/Year) heart surgery/ davon clip 12/08/21
--- OUTSIDE RECORDS SUMMARY | 2024-09-19 13:52 | XMS_ITS ---
Author Organization Wyatt Eldridge MD Address [address] [place] [phone] Care Team Providers Care Online Community Manager Name Role Phone Jazmyn Wyatt Primary [...] Cruz 07/30/2024 03:09:03 PM >[facility] Patti A 08/12/2024 [...] Risk Notes Problem Age-related macular degeneration (disorder) (107789100) Macular degeneration (H35.30) Active confirmed Problem Osteoporosis (96852346) Osteoporosis (M81.0) Active confirmed Vital Signs Blood pressure systolic 122 mm Hg 07/31/19 25 Blood pressure diastolic 58 mm Hg 025 Height 63 in 07/30/2024 Weight 155 lbs 07/30/2024 BMI 27.45 kg/m2 07/30/2024 weight is3 pounds since 12-2 7-24 Encounters Encounter Location Date Provider Diagnosis Wyatt Eldridge MD [address] [place] [address] [place] [id number] 07/30/2024 Wyatt Eldridge Muscle spasm of back [...] M81.0) send to endocrine/ REFERRAL FAXED TO [facility] 07/30/2024 Chronic systolic [...] send to endocrine/ R EFERRAL FAXED TO [facility] Chronic systolic heart failure stable, w ill continue current regiment Pure hypercholesterolemia stable, will c ontinue current regiment Depression screening negative screen Future Test Test Name Order Date Blood Urea Nitrogen 10/30/2024 Creatinine 10/30/2024 Referrals Referral Date Details 07/30/2024 07/30/2024, Zach BARNETT Next Appt Details Provider Name:Wyatt walton, 10/31/2024 07:30:00 AM, [address] [place] [address], [address], [place], [phone], Provider Name:Wyatt walton, 01/30/2025 08:00:00 AM, [address] [facility], [address], [place], [place], [phone], Provider Name:Wyatt walton, 02/03/2025 10:00:00 AM, [address], [address], [place], [place], [phone], Provider Name:Wyatt Meyers isabelle, 07/28/2025 07:45:00 AM, [address], [address], [place], [place], [phone], Provider Name:Wyatt Meyers isabelle, 08/04/2025 01:00:00 PM, [address], [address], [place], [place], [phone], Progress Notes * Rochelle DOWNS MDOB:0 1945 (78 yo F)Acc No.[id number]:07/30/2024 Patient:?Glory DOWNS Provider:?Wyatt Eldridge MD :1945???Age:78 Y???Sex:Female D ate:07/30/2024 Address:[address] [place] [address] Subjective: * Chief Complaints: * ???Review labs [...] Auto 0.000 0.0-0. 012 - X10*3/uL ???Lab:[facility]. P jacoby Fast (Order Date - 07/23/2024) [...] mg/dL ?Urine Blood Negative Negative - ?Specific [place] - Urine 1.015 1.005-1.025 - ?Urine Protein [...] Notes: send to endocrine/ REFERRAL FAXED TO [facility] ? Referral To:Zach Bolton??Endocrinology ?Reason:OSTEOPOROSIS 4.?Chronic [...] MD Date:?0 07/30/2024 Generated for Nai ramírez/Emily/Dianeitting on:?09/19/2024 01:52 PM EDT History and Physical Notes * [...]
--- OUTSIDE RECORDS SUMMARY | 2024-09-19 13:52 | XMS_ITS ---
Author Organization [facility] Address [address] [place] [address] Care Team Providers Care Schedule Checker Name Role Phone Wyatt Eldridge MD Primary Care Provider Aye Grace Unavailable [phone] Allergies No Known Allergies REASON FOR VISIT [...] Additional Findings: Tobacco non-user Current no nsmoker Vital Signs Height 5ft3in in 09/11/2024 Weight 147 lbs 09/11/2024 BMI 26.04 kg/m2 09/11/2024 Blood pressure systolic 98 mm Hg 09/12/19 25 Blood pressure diastolic 60 mm Hg 025 Encounters Encounter Location Date Provider Diagnosis [facility] [address] [place] [address] 09/11/2024 Aye Adamaeldon Xerosis of skin L85. 3 ; Tinea unguium B35.1 ; Atherosclerosis of [place] artery of both lower extremities, with unspecified presence of clinical manifestation I70.203 ; Pain in right toe(s) M79.674 and Pain in left toe(s) M79.675 Assessments Encounter Date Diagnosis (ICD Code) Assessment Notes Treatment Notes Treatment Clinical Notes Section Notes 09/11/2024 Xerosis of skin (ICD-10 - L85.3) 09/11/2024 Tinea unguium (ICD-10 - B35.1) 09/11/2024 Atherosclerosis of [place] artery of both lower extremities, with unspecified presence of clinical manifestation (ICD-10 - I70.203) Q7(A), Q8(2B), Q9(1B,2C) 09/11/2024 Pain in right toe(s) (ICD-10 - M79.674) 09/11/2024 Pain in left toe(s) (ICD-10 - M79.675) Plan Of Treatment Next Appt Details Follow Up: 3 Months, Reason: Provider Name:Aye colón, 12/11/2024 02:30:00 PM, [address] [place] [address], [phone], Procedure Notes * Category Sub-Category Detail Notes Debride Nail 6-10 Nail debridement Due to the cl inical pathology outlined in the exam findings, performance of this nail treatment is medically necessary as its management by an unskilled/untrained nonprofessional would put this patients foot and overall health at risk. Therefore, debridement to affected nail(s), as described in exam ( TA, T1, T2, T3, T5, T6, T7, T8 ), was performed exclusively by the physician of record to reduce/remove overall nail length, girth, thickness, subungual debris, and necrotic tissue, by manual and/or electrical means through the use of a nail nipper and/or dremel-type radius grinder, to a more viable healthy nail [...] to maintain effectiveness in symptomatic relief - 31185 Keratoma Treatment Parring or Cutting o f [...] risk. Therefore, the benign hyperkeratotic lesions, ( 6 ) in total, locations as stated and described in the exam ( SUB MTH (s), 1, 3, B/L lateral T9, T4 DIPJ), were pared, and/or cut utilizing a sterile 15 blade, tissue nippers, and/or power dremel instrumentation by the physician of record - 93832 Progress Notes * Rochelle HUDDLESTON MDOB: [birth year] (78 yo F)Acc No.[id number]:09/11/2024 Progress Note Patient:?Rochelle HUDDLESTON Provider:?Aye Reardon DPM :1945???Age:78 Y???Sex:Female D ate:09/11/2024 Address:[address] [place] [address] [phone] Pcp:Wyatt Eldridge MD Subjective: * Chief Complaints: * ???At Risk FootcarePainful N ail(s) aggravated by shoes and causing difficulty standing/walking.Skin problem(s) * HPI: ???At Risk footcare:?Pt States Last PCP Visit:?Date?07/06/2024 ???Skin problems:?Nature:?dryness , scaling.?Location:?B/L .?Course:?improved.?Treatments:?Topical OTC moisturizing lotion/cream Gold Graham?.? * ROS:?General/Constitutional:?Nausea?denies.?Vomiting?denies.?Hunger Thirst?denies.?Loss appetite?denies.?Chills?denies.?Fatigue?admits.?Fever?denies.?Night Sweats?denies.?Unexplained weight loss?denies.?Unexplained [...] (Standard)?Tobacco use:?Nonsmoker ?Additional Findings: Tobacco non-user?Current nonsmoker ???Miscellaneous:?Caffeine: yes, 2-3 cups. ?Children: yes, 7 kids. ?Exercise: yes, Gym membership. ?Marital status: , . 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 * Medications:?TakingAspirin A dult Low Dose Metoprolol Succinate 25 MG Capsule ER 24 Hour Sprinkle 1 capsule Orally Once a day Rosuvastatin Calcium 40 MG Tablet 1 tablet Orally Once a day Lasix Losartan Potassium 25 MG Tablet 1 tablet Orally Once a day Ammonium Lactate 12 % Cream 1 application Externally to affected areas of dry skin to feet except for between the toes Twice a day Medication List reviewed and reconciled with the patientTaking Aspirin Adult Low Dose Taking Metoprolol Succinate 25 MG Capsule ER 24 Hour Sprinkle 1 capsule Orally Once a day Taking Rosuvastatin Calcium 40 MG Tablet 1 tablet Orally Once a day Taking Lasix Taking Losartan Potassium 25 MG Tablet 1 tablet Orally Once a day Taking Ammonium Lactate 12 % Cream 1 application Externally to affected areas of dry skin to feet except for between the toes Twice a day Medication List reviewed and reconciled with the patient * Allergies:?N.K.D.A.yes[Aller gies Verified] Objective: * Vitals:?Ht: 5ft3in, Wt: 147, BMI: 26.04, Shoe size: 8, BP: 98/60 mm Hg, Ht-cm: 160.02 cm, Wt-k.68 kg. * Examination: ???Vascular: ?DP PULSES (B):?1/4, [...] T6, T7, T8, T9.?Dermatologic: ?SKIN FINDINGS:?Skin shows approximately 90 percent LESS, sign(s) of, dryness, scaling, in a stocking fashion, no fissure(s) present, B/L Skin exam reveals Keratotic lesion(s) located at , SUB MTH (s), 1, 3, B/L lateral T9, T4 DIPJ.?Orthopedic: ?MUSCLE STRENGTH:?5/5 all groups in a symmetrical fashion, B/L.?DIGITAL DEFORMITIES:?Digital contracture, PIPJ, 2-5 B/L, incompl-reducible with WB, or to push-up test, no over, nor underlapping.?Neurological: ?SENSORY:?Neurological exam reveals intact sensorium, pain sensation [...] today.?ORIENTED:?person, place, and time.? Assessment: * Assessment: 1.?Tinea unguium - B35.1 (Pr imary)???2.?Xerosis of skin - L85.3???3.?Atherosclerosis of [place] artery of both lower extremities, with unspecified presence of clinical manifestation - I70.203???Notes :Q7(A), Q8(2B), Q9(1B,2C)???4.?Pain in right toe(s) - M79.674???5.?Pain in left [...] described in exam ( TA, T1, T2, T3,? T5, T6, T7, T8 ), was performed exclusively by the physician of record to reduce/remove overall nail length, girth, thickness, subungual debris, and necrotic tissue, by manual and/or electrical means through the use of a nail nipper and/or dremel-type radius grinder, to a more viable healthy nail [...] to maintain effectiveness in symptomatic relief - 40206.?Keratoma Treatment:?Parring or Cutting of Benign Hyperkeratotic Lesion(s)?(-57) More than 4 Lesions - Due to the at risk nature of the patients medical condition as documented in the exam findings, performance of this keratoderma treatment is medically necessary as its management by an unskilled/untrained nonprofessional would put this patients foot and overall health at risk. Therefore, the benign hyperkeratotic lesions, ( 6 ) in total, locations as stated and described in the exam (?SUB MTH (s),?1,?3,?B/L lateral T9, T4 DIPJ), were pared, and/or cut utilizing a sterile 15 blade, tissue nippers, and/or power dremel instrumentation by the physician of record - 03030.? * Procedure Codes:?27003 DEBRI DE NAIL, 6 OR MORE, Modifiers: XS 10001 TRIM SKIN LESIONS, OVER 4, Modifiers: XS , Q8 * Preventive Medicine:? ??Screening/Special Tests:?Fall Risk?Screening:?No falls in the past year ?FALLS: Screening for Future Fall Risk?Have you had any falls with injury in the past year??No * Follow Up:?3 Months * Images: * Sign off status: Completed true * Provider:?Aye Reardon, DPM Date:?11/2024 Generated for Nai ramírez/Emily/[place] on:?09/19/2024 01:51 PM EDT History and Physical Notes * HPI (History of Present Illness) Category Sub-Category Detail Notes Category Not es Skin problems Nature: dryness , scaling Location: B/L Course: improved Treatments: Topical OTC moisturi zing lotion/cream Gold Graham At Risk footcare Pt States Last PCP Visit: Date: 5 Examination Category Sub-Category Detail Notes Category Not es Neurological SENSORY: Neurological exa m reveals intact sensorium, pain sensation normal, vibration sensation intact, pinprick sensation is normal in the lower extremities, Pt denies, anesthesia, burning, paresthesia, tingling, B/L Dermatologic SKIN FINDINGS: Skin shows appro ximately 90 percent LESS, sign(s) of, dryness, scaling, in a stocking fashion, no fissure(s) present, B/L Skin exam reveals Keratotic lesion(s) located at , SUB MTH (s), 1, 3, B/L lateral T9, T4 DIPJ Orthopedic DIGITAL DEFORMITIES: Digital con tracture, PIPJ, 2-5 B/L, incompl-reducible with WB, or [...]
--- OUTSIDE RECORDS SUMMARY | 2024-09-19 13:52 | XMS_ITS ---
Author Organization Wyatt Eldridge MD Address [address] [facility] [address] [place] [phone] Care Team Providers Care Tetryl Wringer Operator Name Role Phone Wyatt Eldridge Primary Care Provider REASON FOR VISIT ENDO VISIT Encounters Encounter Location Date Provider Diagnosis Wyatt Eldridge MD [address] [place] [address] [address] [place] [phone] 08/22/2024 Wyatt Eldridge Plan Of Treatment Next Appt Details Provider Name:Wyatt walton, 10/31/2024 07:30:00 AM, [address] [place] [address], [address], [phone], Provider Name:Wyatt tomasr, 01/30/2025 08:00:00 AM, [address] [place] [address], [address], [phone], Provider Name:Wyatt walton, 02/03/2025 10:00:00 AM, [address] [place] [address], [address], [phone], Provider Name:Wyatt walton, 07/28/2025 07:45:00 AM, [address] [place] [address], [address], [phone], Provider Name:Wyatt Meyers isabelle, 08/04/2025 01:00:00 PM, [address], [address], [place], [phone], Progress Notes * Rochelle DOWNS MDOB:0 1945 (78 yo F)Acc No.[id number]:08/22/2024 Patient:?Glory DOWNS :1945???Age:78 Y???Sex:Female Address:[address] [place] [address] [facility], [address] * true * Date:? Generated for Nai ramírez/Emily/eTransmitting on:?09/19/2024 01:52 PM EDT
--- OUTSIDE RECORDS SUMMARY | 2024-09-19 13:52 | XMS_ITS ---
Author Organization Wyatt Eldridge MD Address [address] [place] [phone] Care Team Providers Care Resizer Operator Name Role Phone Wyatt Eldridge Primary Care Provider Results Component Value Reference Range Notes Complete Blood Count Auto Di ff Reviewed date:07/23/2024 12:10:00 PM Interpretation: Performing Lab:[facility], [address] [place] [phone] Notes/Report: White Blood Count 6.6 4.8-10.8 X10*3/uL [...] NRBC Abs Auto 0.000 0.0-0.012 X10*3/uL Comprehensive [place]. Panel Fa st Reviewed date:07/23/2024 12:09:07 PM Interpretation: Performing Lab:[address] [address] Notes/Report: Sodium 142 135-145 mmol/L Potassium 4.2 [...] Panel Reviewed date:07/23/2024 12:08:44 PM Interpretation: Performing Lab:[address] [phone] Notes/Report: Triglycerides 57 <150 mg/dL Desirable Triglyceride: [...] t Reviewed date:07/23/2024 12:10:23 PM Interpretation: Performing Lab:[facility], [address] [place] [phone] Notes/Report: Urine, Clean Catch Color Urine Yellow Appearance Urine Clear PH 6.0 5.0-9.0 Glucose Urine UA Negative Negative mg/dL Urine Blood Negative Negative Specific [place] - Urine 1.015 1.005-1.025 Urine Protein Negative [...] Date Provider Diagnosis Wyatt Eldridge MD [address] [place], [place] [phone] 07/23/2024 Wyatt Eldridge Lymphocytosis D72.82 0 ; [...] [address], [address], [place], [phone], Provider Name:Wyatt Meyers ier, 01/30/2025 08:00:00 AM, [address], [address], [place], [phone], Provider Name:Wyatt Meyers ier, 02/03/2025 10:00:00 AM, [address], [address], [place], [place], [phone], Provider Name:Wyatt Meyers ier, 07/28/2025 07:45:00 AM, [address], [address], [place], [place], [phone], Provider Name:Wyatt Meyers ier, 08/04/2025 01:00:00 PM, [address], [address], [place], [place], [phone], Progress Notes * Rochelle DOWNS MDOB:0 1945 (79 yo F)Acc No.[id number]:07/23/2024 Progress Note Patient:?Glory DOWNS Provider:?Wyatt Eldridge MD :1945???Age:78 Y???Sex:Female D ate:07/23/2024 Address:[address] [place] [address] [place] [facility], [phone] Subjective: * Chief Complaints: * ???1. FASTING LABS. * Medical History:? Objective: * Vitals:? Assessment: * Assessment: 1.?Lymphocytosis - D72.820 ( Primary)???2.?Pure hypercholesterolemia - E78.00???3.?Chronic systolic heart failure - I50.22??? Plan: * Treatment: 2.?Pure hypercholesterolemia ?LAB: Complete Blood Count Auto Diff (Collection Date & Time - 07/23/2024 07:45 AM) ?LAB: Comprehensive [place]. Panel Fast (Collection Date & Time - 07/23/2024 07:45 AM) ?LAB: Lipid Panel (Collection Date & Time - 07/23/2024 07:45 AM) ?LAB: UA ClnCatch+Micro w/rflx Cult (Collection Date & Time - 07/23/2024 07:45 AM) 3.?Chronic systolic heart fa ilure?LAB: Complete Blood Count Auto Diff (Collection Date & Time - 07/23/2024 07:45 AM) ?LAB: Comprehensive [place]. Panel Fast (Collection Date & Time - 07/23/2024 07:45 AM) ?LAB: Lipid Panel (Collection Date & Time - 07/23/2024 07:45 AM) ?LAB: UA ClnCatch+Micro w/rflx Cult (Collection Date & Time - 07/23/2024 07:45 AM) * Procedure Codes:?47027 VENIP UNCT, ROUTINE* * * The named appointment provid er may or may not be the originator of this progress note, and it is not deemed complete until electronically signed by the appointment provider. Sign off status: Pending * Provider:?Wyatt Eldridge MD Date:?0 07/23/2024 Generated for Nai ramírez/Emily/eTransmitting on:?09/19/2024 01:51 PM EDT
--- OUTSIDE RECORDS SUMMARY | 2024-09-19 13:52 | XMS_ITS ---
Author Organization [facility] Address [address] [place] [address] Care Team Providers Care Plsql Developer Name Role Phone Wyatt Eldridge MD Primary Care Provider Aye Grace Unavailable [phone] REASON FOR VISIT FILE CLERK Encounters Encounter Location Date Provider Diagnosis [address] [address] 04/01/2024 Aye Reardon Plan Of Treatment Next Appt Details Provider Name:Aye colón, 12/11/2024 02:30:00 PM, [address] [place] [address], [phone], Progress Notes * Jaycob HUDDLESTONOB:1945 (78 yo F)Acc No.[id number]:04/01/2024 Patient:?Glory HUDDLESTON :1945???Age:78 Y???Sex:Female Address:[address] [place], [address] * true * Date:? Generated for Printi ng/Faxing/eTransmitting on:?09/19/2024 01:52 PM EDT
[2024-09-19 15:25] LABS: Phosphorus 3.9 mg/dL (2.7-4.5)
[2024-09-19 15:38] LABS: Free T4 (Free Thyroxine) 0.93 ng/dL (0.71-1.85); Thyroid Stimulating Hormone 2.64 uIU/mL (0.32-4.0)
[2024-09-23 19:18] LABS: Prot Elec - Alpha1 0.2 g/dL (0.2-0.3); Prot Elec - Alpha2 0.6 g/dL (0.5-0.9); Prot Elec - Beta 1 0.4 g/dL (0.4-0.6); Prot Elec - Beta 2 0.3 g/dL (0.2-0.5); Prot Elec - Gamma 1.1 g/dL (0.8-1.7); Prot Elec - Total Protein 6.6 g/dL (6.1-8.1)
== END 2024-09-19 13:18 | disposition home or self-care (01) ==
LOC: HO.MAMMO 13:17
PROVIDERS: PCP Internal Medicine; Visit Provider Internal Medicine Endocrinology, Diabetes & Metabolism
DX: Z13.820 Encounter for screening for osteoporosis (principal)
CPT/HCPCS: 77080; 82306; 84100; 84165; 84439; 84443; 86335

== ENCOUNTER → 2024-09-19 13:30 | Outpatient (BNV) | payer MEDICARE, OTHER, SELFPAY ==
[2022-08-03 07:45] VITALS: BP 102/50; BP 104/62; BP 126/50; BMI 24.1
== END ==
PROVIDERS: PCP Internal Medicine; Visit Provider Radiology Diagnostic Radiology
DX: E28.39 Other primary ovarian failure (principal)
CPT/HCPCS: 77080

== ENCOUNTER 2024-09-25 10:35 | Outpatient (REF) | payer MEDICARE, OTHER, SELFPAY ==
[2022-08-03 07:45] VITALS: BP 102/50; BP 104/62; BP 126/50; BMI 24.1
[2024-09-25 11:30] LABS: Creatinine, mg/dL 50.14
--- OUTSIDE RECORDS SUMMARY | 2024-09-25 12:03 | XMS_ITS ---
Author Organization [facility] Address [address] [place] [address] Care Team Providers Care Unbundler Name Role Phone Wyatt Eldridge MD Primary Care Provider Aye Grace Unavailable [phone] Allergies No Known Allergies REASON FOR VISIT [...] W/U Status Risk Notes Problem Atherosclerosis of [place] artery of both lower extremities, with unspecified presence of clinical manifestation (I70.203) Active confirmed Q7(A), Q8(2B), Q9(1B,2C) Vital Signs Height 5ft3in in 06/18/2024 Weight 149 lbs 06/18/2024 BMI 26.39 kg/m2 06/18/2024 Blood pressure systolic 98 mm Hg 06/18/19 25 Blood pressure diastolic 56 mm Hg 025 Encounters Encounter Location Date Provider Diagnosis [facility] [address] [place] [address] 06/18/2024 Aye Reardon Atherosclerosis of [place] artery of both lower extremities, with unspecified presence of clinical manifestation I70.203 ; Xerosis of skin L85.3 ; Tinea unguium B35.1 ; Pain in right toe(s) M79.674 and Pain in left toe(s) M79.675 Assessments Encounter Date Diagnosis (ICD Code) Assessment Notes Treatment Notes Treatment Clinical Notes Section Notes 06/18/2024 Atherosclerosis of [place] artery of both lower extremities, with unspecified [...] Provider Name:Aye colón, 12/11/2024 02:30:00 PM, [address] [place], [phone], Procedure Notes * Category Sub-Category Detail Notes [...] use of a nail nipper and/or dremel-type stand grinder, to a more viable healthy nail [...] to maintain effectiveness in symptomatic relief - 54952 Keratoma Treatment Parring or Cutting o f [...] instrumentation by the physician of record - 86417 Progress Notes * Rochelle FOOTE MDOB: [birth year] (78 yo F)Acc No.[id number]:06/18/2024 Progress Notes Patient:?Rochelle FOOTE Provider:?Aye Reardon DPM :1945???Age:78 Y???Sex:Female D ate:06/18/2024 Address:[address] [place] [address] [facility] Pcp:Wyatt Eldridge MD Subjective: * Chief [...] of skin - L85.3 ( Primary)???2.?Atherosclerosis of [place] artery of both lower extremities, with unspecified [...] use of a nail nipper and/or dremel-type stand grinder, to a more viable healthy nail [...] to maintain effectiveness in symptomatic relief - 87578.?Keratoma Treatment:?Parring or Cutting of Benign Hyperkeratotic Lesion(s)?(-57) [...] instrumentation by the physician of record - 79190.? * Procedure Codes:?68743 DEBRI DE NAIL, 6 OR MORE, Modifiers: XS 93781 TRIM SKIN LESIONS, OVER 4, Modifiers: XS [...] Reardon DPM Date:?03/2025 Generated for Nai ramírez/Emily/[place] on:?09/25/2024 12:03 PM EDT History and Physical Notes * [...]
--- OUTSIDE RECORDS SUMMARY | 2024-09-25 12:03 | XMS_ITS | Patient Health Record ---
Author Organization Wyatt Eldridge MD Address [address] [place], [place] [id number] Care Team Providers Care Meteorological Aide Name Role Phone Wyatt Eldridge Primary Care Provider Allergies Allergen (clinical drug ingredient) Drug/Non Drug Allergy documented on EMR Reaction Allergy Type Onset Date Status tramadol traMADol HCl confusion Drug Allergy Acti ve Results Component Value Reference Range Notes Blood Urea Nitrogen Reviewed date:10/27/2023 12:35:34 PM Interpretation: Performing Lab:[facility], [address] [place] [phone] Notes/Report: Blood Urea Nitrogen 21 9-16 mg/dL Creatinine Reviewed date:10/27/2023 12:36:28 PM Interpretation: Performing Lab:[facility], [address] [place] [phone] Notes/Report: Creatinine 0.83 0.5-1.4 mg/dL Estimated Glomerular Filt Rate > 60 NOTE: For -Mexican individuals, multiply the result by 1.210. Chronic Kidney Disease: Estimated GFR < 60 mL/min/1.73m2 Severe Kidney Disease: Estimated GFR < 15 mL/min/1.73m2 Liver Panel Reviewed date:01/19/2024 03:46:59 PM Interpretation: Performing Lab:[facility], [address] [place] [phone] Notes/Report: Bilirubin Total 0.3 0.0-1.0 mg/dL Bilirubin Direct 0.1 0.0-0.5 mg/dL Aspartate Amino Transferase 22 5-31 U/L Alanine Aminotransferase 14 0-31 U/L Total Protein 6.6 6.5-8.0 g/dL Albumin Level 3.9 3.5-5.0 g/dL Alkaline Phosphatase 55 39-117 U/L Lipid Panel with Reflex Reviewed date:01/21/2024 05:01:09 PM Interpretation: Performing Lab:[facility], [address] [place] [phone] Notes/Report: Triglycerides 56 <150 mg/dL Desirable Triglyceride: [...] ff Reviewed date:07/23/2024 12:10:00 PM Interpretation: Performing Lab:[facility], [address] [place] [phone] Notes/Report: White Blood Count 6.6 4.8-10.8 X10*3/uL [...] 0.0-0.2 /100WBC Neutrophils Absolute Auto 2.9 2.0-8.3 x10*3/uL Imm Gran Abs Auto 0.01 0.00-0.03 X10*3/uL Lymphocytes Absolute Auto 2.7 1.2-4.9 X10*3/uL Monocytes Absolute Auto 0.7 0.1-1.2 X10*3/uL Eosinophils Absolute Auto 0.2 0.0-0.4 X10*3/uL Basophils Absolute Auto 0.1 0.0-0.2 X10*3/uL NRBC Abs Auto 0.000 0.0-0.012 X10*3/uL Comprehensive [place]. Panel Fa st Reviewed date:07/23/2024 12:09:07 PM Interpretation: Performing Lab:[facility], [address] [place] [phone] Notes/Report: Sodium 142 135-145 mmol/L Potassium 4.2 [...] Panel Reviewed date:07/23/2024 12:08:44 PM Interpretation: Performing Lab:[facility], [address] [place] [phone] Notes/Report: Triglycerides 57 <150 mg/dL Desirable Triglyceride: [...] t Reviewed date:07/23/2024 12:10:23 PM Interpretation: Performing Lab:[facility], [address] [place] [phone] Notes/Report: Urine, Clean Catch Color Urine Yellow Appearance Urine Clear PH 6.0 5.0-9.0 Glucose Urine UA Negative Negative mg/dL Urine Blood Negative Negative Specific [place] - Urine 1.015 1.005-1.025 Urine Protein Negative Neg-Trace mg/dL Urine Ketones Negative Negative mg/dL Nitrite Urine Negative Negative Leukocyte Esterase Urine Negative Negative RBC Urine 0-2 0-2 /HPF WBC Urine 0-5 0-5 /HPF Squamous Epithelial Cell Urine 0-2 0-2 /HPF Bacteria Urine None Seen None Seen Hyaline Casts Urine 0-2 0-2 /LPF Hold Gold Reviewed date:01/19/2024 03:44:37 PM Interpretation: Performing Lab:[facility], [address] [place] [phone] Notes/Report: Hold Gold See Note Specimen held untested for 24 hours; Call to request Chemistry testing. Protein Electrophoresis, Ser um (Not yet reviewed by provider) Interpretation: Performing Lab:[facility], [address] [place] [phone] Notes/Report: Prot Elec - Total Protein 6.6 6.1-8.1 g/dL Prot Elec - Albumin 4.0 3.8-4.8 g/dL Prot Elec - Alpha1 0.2 0.2-0.3 g/dL Prot Elec - Alpha2 0.6 0.5-0.9 g/dL Prot Elec - Beta 1 0.4 0.4-0.6 g/dL Prot Elec - Beta 2 0.3 0.2-0.5 g/dL Prot Elec - Gamma 1.1 0.8-1.7 g/dL PES - Abn Protein Band 1 TNP PES-Abn Protein Band 2 TNP PES-Abn Protein Band 3 TNP Prot Elec - Interpretation SEE NOTE Normal Serum Protein Electrophoresis Pattern. No abnormal protein bands (M-protein) detected. THIS TEST WAS PERFORMED AT: [facility] [address] [place] [phone] MINOO BRYAN MD Phosphorus Reviewed date:09/19/2024 04:40:31 PM Interpretation: Performing Lab:[facility], [address] [place] [phone] Notes/Report: Phosphorus 3.9 2.7-4.5 mg/dL Vitamin D 25-OH Total Reviewed date:09/19/2024 04:40:22 PM Interpretation: Performing Lab:[facility], [address] [place] [phone] Notes/Report: Vitamin D 25-OH Total 63.0 >30 ng/mL Health Based Reference Values* < 20 ng/mL Deficient 20-30 ng/mL Insufficient > 30 ng/mL Sufficient *Eliza DARDEN. N Engl J Med. 2007;357:266-280 There is no well-established upper level of normal vitamin D levels. Some laboratories use 50 ng/mL as an upper limit of normal. However, toxicity is patient-dependent and may occur at any level. Careful correlation with the patient's presentation is necessary and, if there is concern for vitamin D toxicity, treatment should be considered irrespective of the serum level. Care must be taken in interpreting Vitamin D results from different laboratories and methodologies. Published data demonstrated that results from patients undergoing hemodialysis may show a negative bias when tested with various automated 25-OH vitamin D assays when compared to LC-MS/MS. When testing samples from patients whose predominant form of Vitamin D is Vitamin D2, such as patients receiving Vitamin D2 supplementation, results that are subtherapeutic should be confirmed with another method such as LC-MS/MS. Free T4 (Free Thyroxine) Reviewed date:09/19/2024 04:40:13 PM Interpretation: Performing Lab:[address] [phone] Notes/Report: Free T4 (Free Thyroxine) 0.93 0.71-1.85 ng/dL Thyroid Stimulating Hormone Reviewed date:09/19/2024 04:40:06 PM Interpretation: Performing Lab:[facility], [address] [place] [phone] Notes/Report: Thyroid Stimulating Hormone 2.64 0.32-4.0 uIU/mL Note: A sustained TSH level above 2.5 uIU/mL may warrant further investigation. TSH 3rd Generation ([facility]) Immunofixation, Random Urine Reviewed date:09/22/2024 05:37:27 PM Interpretation: Performing Lab:[address] [phone] Notes/Report: Immunofixation, Random Urine SEE NOTE Normal pattern. No monoclonal proteins detected. The supplier of the testing reagents for this assay has changed. Detection of small monoclonal proteins may vary by test system. THIS TEST WAS PERFORMED AT: [facility] [address] [place] [phone] MINOO BRYAN MD XR DEXA axial skeleton Reviewed date:09/19/2024 02:34:51 PM Interpretation: Performing Lab: Notes/Report: [facility] [address] [place] [address] Mammography Report Signed Patient: Rochelle Garcia MR#: [id number] : 1945 Acct:[id number] Age/Sex: 79 / F ADM Date: 09/19/24 Loc: ITA.MAMMO Attending Dr: Zach Bolton MD Ordering Physician: Zach Bolton MD Results: Date of Service: 09/19/24 Follow Up: Procedure(s): XR DEXA axial skeleton Accession Number(s): [id number] cc: Wyatt Eldridge MD; Zach Bolton MD EXAMINATION: DXA BONE DENSITY AXIAL HISTORY: M85.80 - Other specified disorders of bone density and structure, unspecified... TECHNIQUE: Micromidas Dual energy absorptiometry (DEXA) of the lumbar spine, total left hip, and femoral neck was performed. COMPARISON: Comparison is made with the prior examination dated 12/28/2021. FINDINGS: The bone mineral density of the lumbar spine is 1.041 with a T-score of -1.2, and a Z-score of 0.6. This is indicative of osteopenia. This represents a BMD change of -0.2% compared to the prior exam. This is not statistically significant. The bone mineral density of the left total hip is 0.787 with a T-score of -1.7, and a Z-score of 0.1. This is indicative of osteopenia. This represents a BMD change of -7.2% compared to the prior exam. This is statistically significant. The bone mineral density of the left femoral neck is 0.756 with a T-score of -2.0, and a Z-score of 0.0. This is indicative of osteopenia.- This represents a BMD change of 9.1% compared to the prior exam. FRACTURE RISK: The FRAX index suggests a ten year probability of major osteoporotic fracture of 15.6%, and of hip fracture 4.6%. MM/XR DEXA axial skeleton IMPRESSION: Based on bone mineral density, and according to World Health Organization (WHO) criteria, the diagnosis is consistent with osteopenia. All bone density values are in grams per centimeter squared (g/cm2). Statistically, 68% of repeat scans fall within 1 SD (+/- 0.010 g/cm2 for AP spine L1-L4) and 1 SD (+/- 0.012 g/cm2 for femur total) FRAX is a trademark of the [employer] Metabolic Bone Disease, a World Health Organization (WHO) Collaborating Center. Electronically signed by: Zach Reece MD 09/19/2024 02:01 PM EDT RP Dictated By: Zach Reece MD Signed By: <Electronically signed by Zach Reece MD in OV> 09/19/24 1401 DD/ 1330 TD/TT: 09/19/24 1346 Public Welfare Director: [facility] [address] [place] [address] Mammography Report Signed Patient: Rochelle Garcia MR#: [id number] : 1945 Acct:[id number] Age/Sex: 79 / F ADM Date: 09/19/24 Loc: HO.MAMMO Attending Dr: Zach Bolton MD Ordering Physician: Zach Bolton MD Results: Date of Service: 09/19/24 Follow Up: Procedure(s): XR DEX A axial skeleton Accession Number(s): [id number] cc: Wyatt Eldridge MD; Zach Bolton MD EXAMINATION: DXA BON E DENSITY AXIAL HISTORY: M85.80 - Other specified disorders of bone density and structure, unspecified... TECHNIQUE: Micromidas Dual energy absorptiometry (DEXA) of the lumbar spine, total left hip, and femoral neck was performed. COMPARISON: Comparison is made with the prior examination dated 12/28/2021. FINDINGS: The bone mineral density of the lumbar spine is 1.041 with a T-score of -1.2, and a Z-score of 0.6. This is indicative of osteopenia. This represents a BM D change of -0.2% compared to the prior exam. This is not statistically significant. The bone mineral density of the left total hip is 0.787 with a T-score of -1.7, and a Z-sco re of 0.1. This is indicative of osteopenia. This represents a BM D change of -7.2% compared to the prior exam. This is statistically significant. The bone mineral density of the left femoral neck is 0.756 with a T-score of -2.0, and a Z-score of 0.0. This is indicative of osteopenia.- This represents a BM D change of 9.1% compared to the prior exam. FRACTURE RISK: The FRAX index suggests a ten year probability of major osteoporotic fracture of 15.6%, a nd of hip fracture 4.6%. __ MM/XR DEXA axial skeleton IMPRESSION: Based on bone minera l density, and according to World Health Organization (WHO) criteria, the diagnosis is consistent with osteopenia. All bone density values are in grams per centimeter squared (g/cm2). Statistically, 68% o f repeat scans fall within 1 SD (+/- 0.010 g/cm2 for AP spine L1-L4) and 1 SD (+/- 0.012 g/cm2 for femur total) FRAX is a trademark of the [employer] for Metabolic Bone Disease, a World Health Organization (WHO) Collaborating Center. Electronically rui d by: Zach Reece MD 09/19/2024 02:01 PM EDT Dictated By: Zach Reece MD Signed By: <Electronically signed by Zach Reece MD in OV> 09/19/24 1401 DD/ 1330 TD/TT: 09/19/24 1346 Public Welfare Director: Reason For Referral Reason OSTEOPOROSIS Diagnosis 1 Osteoporosis (M81.0) Referral Organization Wyatt Eldridge MD Referring Provider First Name Wyatt Referring Provider Last Name Jazmyn Referring Provider Speciality Internal M edicine Referred Provider Zach Bolton Referred Provider Specialty Endocrinolog y General Notes Radha Cruz 07/30/2024 03:09:03 PM >REFERRAL FAXED TO [facility], Rdaha Cruz 08/12/2024 10:20:34 AM >APPT SCHEDULED FOR [...] Comme nts Flu Vaccine Unknown 02/10/2014 Administered [facility] Flu Vaccine Unknown 02/17/2015 Administered [facility] Flu Vaccine Unknown 03/07/2016 Administered pt had it a t [email or web address] Flu[employer]ix Quadrivalent Unknown 01/26/2017 Administered [facility] [place] Fluarix Quadrivalent IM Intramuscular 01/23/2018 Administered Prevnar [...] Problem Status W/U Status Risk Notes Problem 02313588 Lymphocytosis (D72.820) Active confirmed Problem Insomnia (G47.00) Active confirmed Problem 4182444 Primary insomnia (F51.01) Active confirmed Problem 050160055 Ischemic cardiomyopathy (I25.5) Active confirmed Problem Localized, primary osteoarthritis of the hand (899344004) Primary osteoarthritis, right hand (M19.041) Active confirmed Problem Localized, primary osteoarthritis of the hand (244983353) Primary osteoarthritis, left hand (M19.042) Active confirmed Problem 625006841 Osteopenia (M85.80) Active confirmed Problem Osteoporosis (18210579) Osteoporosis (M81.0) Active confirmed Problem Age-related macular degeneration (disorder) (671073136) Macular degeneration (H35.30) Active confirmed Problem 974648568 Non-rheumatic mi tral regurgitation (I34.0) Active confirmed Problem Coronary artery disease (92315716) CAD (coronary artery disease) (I25.10) Active confirmed Problem 32247891 Acute SD, inferi or wall (I21.19) Active confirmed Problem 545383663 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 Problem 091920374 Pure hypercholesterolemia (E78.00) Active confirmed Problem Anemia due to blood loss (002381375) Anemia due to blood loss (D50.0) Active confirmed Problem 008106993 Chronic systolic heart failure (I50.22) Active confirmed Problem 866686476 Osteopenia of ne ck of femur, unspecified laterality (M85.859) Active confirmed Problem 814242476 Basal cell carci noma, forehead (C44.319) Active [...] Wyatt Eldridge MD [address] [place] [id number] 10/27/2023 Wyatt Eldridge Elevated BUN R79.9 Wyatt Eldridge MD [address] [place] [id number] 01/19/2024 Wyatt Eldridge Pure hypercholestero lemia E78.00 and Encounter for immunization Z23 Wyatt Eldridge MD [address] [place] [id number] 07/23/2024 Wyatt Eldridge Lymphocytosis D72.82 0 ; Pure hypercholesterolemia E78.00 and Chronic systolic heart failure I50.22 Wyatt Eldridge MD [address] [place] [id number] 01/26/2024 Wyatt Eldridge Pure hypercholestero lemia E78.00 and Chronic systolic heart failure I50.22 Wyatt Eldridge MD [address] [place] [id number] 05/03/2024 Wyatt Eldridge Muscle spasm of back M62.830 Wyatt Eldridge MD [address] [place] [id number] 07/30/2024 Wyatt Eldridge Muscle spasm of back M62.830 ; Macular degeneration H35.30 ; Osteoporosis M81.0 ; Chronic systolic heart failure I50.22 ; Pure hypercholesterolemia E78.00 and Depression screening Z13.31 Wyatt Eldridge MD [address] [place] [id number] 08/22/2024 Wyatt Eldridge Assessments Encounter Date Diagnosis [...] M81.0) send to endocrine/ REFERRAL FAXED TO [facility] 07/23/2024 Chronic systolic hea rt failure [...] SCREEN 07/27 US CAROTID BILATERAL DOPPLER 07/12/2019 Protein Electrophoresis, Serum 5 MM tomosynthesis diagnostic BI 4 Future Test Test Name Order Date BONE DENSITY DEXA 02/03/2021 Next Appt Details Provider Name:Wyatt walton, 10/31/2024 07:30:00 AM, [address] [place] [address], [address], [place], [place], [phone], Provider Name:Wyatt walton, 01/30/2025 08:00:00 AM, [address] [place] [address], [address], [place], [place], [phone], Provider Name:Wyatt Meyers ier, 02/03/2025 10:00:00 AM, [address] [place] [address], [address], [place], [phone], Provider Name:Wyatt Meyers ier, 07/28/2025 07:45:00 AM, [address] [place] [address], [address], [place], [phone], Provider Name:Wyatt Meyers ier, 08/04/2025 01:00:00 PM, [address] [place] [address], Suite [facility] [place], [phone], Insurance Providers Payer Name Payer Address Payer Phone Subscriber Number Group Number Insured Name Patient Relationship to Insured Coverage Start Date Coverage End Date MEDICARE NHIC KIRA [address] [place] [address] [id number] Rochelle Garcia Self - patient is the insured [facility] [address] [place] [phone] [id number] Rochelle Garcia Self - patient is the [...]
--- OUTSIDE RECORDS SUMMARY | 2024-09-25 12:03 | XMS_ITS ---
Author Organization Wyatt Eldridge MD Address [address] [place] [phone] Care Team Providers Care Nuclear Instructor Name Role Phone Wyatt Eldridge Primary Care Provider Results Component Value Reference Range Notes Complete Blood Count Auto Di ff Reviewed date:07/23/2024 12:10:00 PM Interpretation: Performing Lab:[facility], [address] [place] [phone] Notes/Report: White Blood Count 6.6 4.8-10.8 X10*3/uL [...] NRBC Abs Auto 0.000 0.0-0.012 X10*3/uL Comprehensive [place]. Panel Fa st Reviewed date:07/23/2024 12:09:07 PM Interpretation: Performing Lab:[address] [phone] Notes/Report: Sodium 142 135-145 mmol/L Potassium 4.2 [...] Panel Reviewed date:07/23/2024 12:08:44 PM Interpretation: Performing Lab:[address] [phone] Notes/Report: Triglycerides 57 <150 mg/dL Desirable Triglyceride: [...] t Reviewed date:07/23/2024 12:10:23 PM Interpretation: Performing Lab:[facility], [address] [place] [phone] Notes/Report: Urine, Clean Catch Color Urine Yellow Appearance Urine Clear PH 6.0 5.0-9.0 Glucose Urine UA Negative Negative mg/dL Urine Blood Negative Negative Specific [place] - Urine 1.015 1.005-1.025 Urine Protein Negative [...] Date Provider Diagnosis Wyatt Eldridge MD [address] [place], [place] [phone] 07/23/2024 Wyatt Eldridge Lymphocytosis D72.82 0 ; [...] [address], [address], [place], [phone], Provider Name:Wyatt Meyers ier, 01/30/2025 08:00:00 AM, [address], [address], [place], [phone], Provider Name:Wyatt Meyers ier, 02/03/2025 10:00:00 AM, [address], [address], [place], [place], [phone], Provider Name:Wyatt Meyers ier, 07/28/2025 07:45:00 AM, [address], [address], [place], [place], [phone], Provider Name:Wyatt Meyers ier, 08/04/2025 01:00:00 PM, [address], [address], [place], [place], [phone], Progress Notes * Rochelle DOWNS MDOB:0 1945 (79 yo F)Acc No.[id number]:07/23/2024 Progress Note Patient:?Glory DOWNS Provider:?Wyatt Eldridge MD :1945???Age:78 Y???Sex:Female D ate:07/23/2024 Address:[address] [place] [address] [place] [facility], [place] Subjective: * Chief Complaints: * ???1. FASTING LABS. * Medical History:? Objective: * Vitals:? Assessment: * Assessment: 1.?Lymphocytosis - D72.820 ( Primary)???2.?Pure hypercholesterolemia - E78.00???3.?Chronic systolic heart failure - I50.22??? Plan: * Treatment: 2.?Pure hypercholesterolemia ?LAB: Complete Blood Count Auto Diff (Collection Date & Time - 07/23/2024 07:45 AM) ?LAB: Comprehensive [place]. Panel Fast (Collection Date & Time - 07/23/2024 07:45 AM) ?LAB: Lipid Panel (Collection Date & Time - 07/23/2024 07:45 AM) ?LAB: UA ClnCatch+Micro w/rflx Cult (Collection Date & Time - 07/23/2024 07:45 AM) 3.?Chronic systolic heart fa ilure?LAB: Complete Blood Count Auto Diff (Collection Date & Time - 07/23/2024 07:45 AM) ?LAB: Comprehensive [place]. Panel Fast (Collection Date & Time - 07/23/2024 07:45 AM) ?LAB: Lipid Panel (Collection Date & Time - 07/23/2024 07:45 AM) ?LAB: UA ClnCatch+Micro w/rflx Cult (Collection Date & Time - 07/23/2024 07:45 AM) * Procedure Codes:?02707 VENIP UNCT, ROUTINE* * * The named appointment provid er may or may not be the originator of this progress note, and it is not deemed complete until electronically signed by the appointment provider. Sign off status: Pending * Provider:?Wyatt Eldridge MD Date:?0 07/23/2024 Generated for Nai ramírez/Emily/eTransmitting on:?09/25/2024 12:03 PM EDT
--- OUTSIDE RECORDS SUMMARY | 2024-09-25 12:04 | XMS_ITS ---
Author Organization Wyatt Eldridge MD Address [address] [facility] [address] [place] [phone] Care Team Providers Care Caustic Loader Name Role Phone Wyatt Eldridge Primary Care Provider [phone] REASON FOR VISIT ENDO VISIT Encounters Encounter Location Date Provider Diagnosis Wyatt Eldridge MD [address] [place] [address] [address] [place] [phone] 08/22/2024 Wyatt Eldridge Plan Of Treatment Next Appt Details Provider Name:Wyatt walton, 10/31/2024 07:30:00 AM, [address] [place] [address], [address], [phone], Provider Name:Wyatt tomasr, 01/30/2025 08:00:00 AM, [address] [place] [address], [address], [phone], Provider Name:Wyatt walton, 02/03/2025 10:00:00 AM, [address] [place] [address], [address], [phone], Provider Name:Wyatt walton, 07/28/2025 07:45:00 AM, [address] [place] [address], [address], [phone], Provider Name:Wyatt Meyers isabelle, 08/04/2025 01:00:00 PM, [address], [address], [place], [phone], Progress Notes * Rochelle DOWNS MDOB:0 1945 (78 yo F)Acc No.[id number]:08/22/2024 Patient:?Glory DOWNS :1945???Age:78 Y???Sex:Female Address:[address] [place] [address] [facility] [place] [address] * true * Date:? Generated for Nai ramírez/Emily/eTransmitting on:?09/25/2024 12:04 PM EDT
--- OUTSIDE RECORDS SUMMARY | 2024-09-25 12:04 | XMS_ITS ---
Author Organization [facility] Address [address] [place] [address] Care Team Providers Care Lang Path Therapist Name Role Phone Wyatt Eldridge MD Primary Care Provider Aye Grace Unavailable [phone] Allergies No Known Allergies REASON FOR VISIT [...] 025 Encounters Encounter Location Date Provider Diagnosis [facility] [address] [place] [address] 09/11/2024 Aye Adamaeldon Xerosis of skin L85. 3 ; Tinea unguium B35.1 ; Atherosclerosis of chickaloon artery of both lower extremities, with unspecified presence of clinical manifestation I70.203 ; Pain in right toe(s) M79.674 and Pain in left toe(s) M79.675 Assessments Encounter Date Diagnosis (ICD Code) Assessment Notes Treatment Notes Treatment Clinical Notes Section Notes 09/11/2024 Xerosis of skin (ICD-10 - L85.3) 09/11/2024 Tinea unguium (ICD-10 - B35.1) 09/11/2024 Atherosclerosis of chickaloon artery of both lower extremities, with unspecified presence of clinical manifestation (ICD-10 - I70.203) Q7(A), Q8(2B), Q9(1B,2C) 09/11/2024 Pain in right toe(s) (ICD-10 - M79.674) 09/11/2024 Pain in left toe(s) (ICD-10 - M79.675) Plan Of Treatment Next Appt Details Follow Up: 3 Months, Reason: Provider Name:Aye colón, 12/11/2024 02:30:00 PM, [address] [place] [address], [phone], Procedure Notes * Category Sub-Category Detail Notes [...] use of a nail nipper and/or dremel-type instrument lens grinder apprentice, to a more viable healthy nail plate [...] to maintain effectiveness in symptomatic relief - 93921 Keratoma Treatment Parring or Cutting o f [...] instrumentation by the physician of record - 32089 Progress Notes * Rochelle HUDDLESTON MDOB: [birth year] (78 yo F)Acc No.[id number]:09/11/2024 Progress Note Patient:?Rochelle HUDDLESTON Provider:?Aye Reardon DPM :1945???Age:78 Y???Sex:Female D ate:09/11/2024 Address:[address] [place] [address] [phone] Pcp:Wyatt Eldridge MD Subjective: * Chief Complaints: [...] (Pr imary)???2.?Xerosis of skin - L85.3???3.?Atherosclerosis of chickaloon artery of both lower extremities, with unspecified [...] use of a nail nipper and/or dremel-type instrument lens grinder apprentice, to a more viable healthy nail plate [...] to maintain effectiveness in symptomatic relief - 86491.?Keratoma Treatment:?Parring or Cutting of Benign Hyperkeratotic Lesion(s)?(-57) [...] instrumentation by the physician of record - 03151.? * Procedure Codes:?82429 DEBRI DE NAIL, 6 OR MORE, Modifiers: XS 77804 TRIM SKIN LESIONS, OVER 4, Modifiers: XS , Q8 * Preventive Medicine:? ??Screening/Special Tests:?Fall Risk?Screening:?No falls in the past year ?FALLS: Screening for Future Fall Risk?Have you had any falls with injury in the past year??No * Follow Up:?3 Months * Images: * Sign off status: Completed true * Provider:?Aye Reardon, DPM Date:?11/2024 Generated for Nai ramírez/Emily/[place] on:?09/25/2024 12:03 PM [...]
--- OUTSIDE RECORDS SUMMARY | 2024-09-25 12:04 | XMS_ITS ---
Author Organization Wyatt Eldridge MD Address [address] [place] [phone] Care Team Providers Care Doffer Name Role Phone Jazmyn Wyatt Primary Care [...] Cruz 07/30/2024 03:09:03 PM >[facility] Patti A 08/12/2024 10:20:34 AM >APPT [...] Risk Notes Problem Age-related macular degeneration (disorder) (689757559) Macular degeneration (H35.30) Active confirmed Problem Osteoporosis (22464953) Osteoporosis (M81.0) Active confirmed Vital Signs Blood pressure systolic 122 mm Hg 07/31/19 25 Blood pressure diastolic 58 mm Hg 025 Height 63 in 07/30/2024 Weight 155 lbs 07/30/2024 BMI 27.45 kg/m2 07/30/2024 weight is3 pounds since 12-2 7-24 Encounters Encounter Location Date Provider Diagnosis Wyatt Eldridge MD [address] [place] [address] [place] [phone] 07/30/2024 Wyatt Eldridge Muscle spasm of back [...] M81.0) send to endocrine/ REFERRAL FAXED TO [facility] 07/30/2024 Chronic systolic hea rt failure [...] send to endocrine/ R EFERRAL FAXED TO [facility] Chronic systolic heart failure stable, w ill continue current regiment Pure hypercholesterolemia stable, will c ontinue current regiment Depression screening negative screen Future Test Test Name Order Date Blood Urea Nitrogen 10/30/2024 Creatinine 10/30/2024 Referrals Referral Date Details 07/30/2024 07/30/2024, Zach BARNETT Next Appt Details Provider Name:Wyatt walton, 10/31/2024 07:30:00 AM, [address] [place] [address], [address], [place], [phone], Provider Name:Wyatt walton, 01/30/2025 08:00:00 AM, [address] [facility], [address], [place], [place], [phone], Provider Name:Wyatt walton, 02/03/2025 10:00:00 AM, [address], [address], [place], [place], [phone], Provider Name:Wyatt Meyers isabelle, 07/28/2025 07:45:00 AM, [address], [address], [place], [place], [phone], Provider Name:Wyatt Meyers isabelle, 08/04/2025 01:00:00 PM, [address], [address], [place], [place], [phone], Progress Notes * Rochelle DOWNS MDOB:0 1945 (78 yo F)Acc No.[id number]:07/30/2024 Patient:?Glory DOWNS Provider:?Wyatt Eldridge MD :1945???Age:78 Y???Sex:Female D ate:07/30/2024 Address:[address] [place] [address] Subjective: * Chief Complaints: * ???Review labs [...] Auto 0.000 0.0-0. 012 - X10*3/uL ???Lab:Comprehensive [place]. P jacoby Fast (Order Date - 07/23/2024) [...] mg/dL ?Urine Blood Negative Negative - ?Specific [place] - Urine 1.015 1.005-1.025 - ?Urine Protein [...] Notes: send to endocrine/ REFERRAL FAXED TO [facility] ? Referral To:Zach Bolton??Endocrinology ?Reason:OSTEOPOROSIS 4.?Chronic [...] MD Date:?0 07/30/2024 Generated for Nai ramírez/Emily/Dianeitting on:?09/25/2024 12:04 PM EDT History and Physical Notes * [...]
--- OUTSIDE RECORDS SUMMARY | 2024-09-25 12:04 | XMS_ITS ---
Author Organization [facility] Address [address] [place] [address] Care Team Providers Care Volunteer Coordinator Name Role Phone Wyatt Eldridge MD Primary Care Provider Aye Grace Unavailable [phone] REASON FOR VISIT MENTAL HEALTH ORDERLY Encounters Encounter Location Date Provider Diagnosis [address] [address] 04/01/2024 Aye Reardon Plan Of Treatment Next Appt Details Provider Name:Aye colón, 12/11/2024 02:30:00 PM, [address] [place] [address], [phone], Progress Notes * Jaycob HUDDLESTONOB:1945 (78 yo F)Acc No.[id number]:04/01/2024 Patient:?Glory HUDDLESTON :1945???Age:78 Y???Sex:Female Address:[address] [place], [address] * true * Date:? Generated for Printi ng/Faxing/eTransmitting on:?09/25/2024 12:04 PM EDT
--- OUTSIDE RECORDS SUMMARY | 2024-09-25 12:04 | XMS_ITS | Patient Health Record ---
Author Organization [facility] Address [address] [place] [address] Care Team Providers Care Telecommunications Administrator Name Role Phone Wyatt Eldridge MD Primary Care Provider Aye Grace Unavailable [phone] Allergies No Known Allergies Reason For Referral [...] W/U Status Risk Notes Problem Atherosclerosis of iroquois artery of both lower extremities, with unspecified presence of clinical manifestation (I70.203) Active confirmed Q7(A), Q8(2B), Q9(1B,2C) Vital Signs Blood pressure diastolic 60 mm Hg 09/11/2024 Height 5ft3in in 09/11/2024 Blood pressure systolic 98 mm Hg 09/11/2024 Weight 147 lbs 09/11/2024 BMI 26.04 kg/m2 09/11/2024 Encounters Encounter Location Date Provider Diagnosis [address] [address] 06/18/2024 Aye Reardon Atherosclerosis of iroquois artery of both lower extremities, with unspecified presence of clinical manifestation I70.203 ; Xerosis of skin L85.3 ; Tinea unguium B35.1 ; Pain in right toe(s) M79.674 and Pain in left toe(s) M79.[address] [address] 09/11/2024 Aye Reardon Xerosis of skin L85. 3 ; Tinea unguium B35.1 ; Atherosclerosis of iroquois artery of both lower extremities, with unspecified presence of clinical manifestation I70.203 ; Pain in right toe(s) M79.674 and Pain in left toe(s) M79.[address] [address] 04/01/2024 Aye Reardon Assessments Encounter Date Diagnosis (ICD Code) Assessment Notes Treatment Notes Treatment Clinical Notes Section Notes 06/18/2024 Xerosis of skin (ICD-10 - L85.3) 06/18/2024 Atherosclerosis of iroquois artery of both lower extremities, with unspecified presence of clinical manifestation (ICD-10 - I70.203) Q7(A), Q8(2B), Q9(1B,2C) 09/11/2024 Tinea unguium (ICD-10 - B35.1) 09/11/2024 Xerosis of skin (ICD-10 - L85.3) 09/11/2024 Atherosclerosis of iroquois artery of both lower extremities, with unspecified [...] Details Provider Name:Aye colón, 12/11/2024 02:30:00 PM, [address] [place] [address], [phone], Insurance Providers Payer Name Payer Address Payer Phone Subscriber Number Group Number Insured Name Patient Relationship to Insured Coverage Start Date Coverage End Date Medicare National Govt [facility] [address] [facility] [place] [address] [id number] Rochelle Landeros Self - patient is the insured 1 [facility] [address] [place] [address] [phone] [id number] Rochelle Landeros Self - patient is the insured Medical (General) History Medical History History ICD Code Back,Hip,and Knee pain Heart disease Vascular phlebitis (clots) Surgical History Surgery Date(Month/Year) heart surgery/ davon clip 12/08/21
[2024-09-25 13:17] LABS: Creatinine, 24Hr Urine 0.8 G/Day (1.0-2.0); Total Volume 24 Hour Urine 1650 mL
[2024-09-28 14:43] LABS: Calcium, 24 Hr Urine 102 mg/24 h; Calcium/Creatinine Ratio 117 mg/g creat (30-275); Creatinine 24Hr Urine 0.87 g/24 h (0.50-2.15)
== END 2024-09-25 10:36 | disposition home or self-care (01) ==
LOC: HO.LNP 10:35
PROVIDERS: Visit Provider Internal Medicine Endocrinology, Diabetes & Metabolism
DX: M85.80 Other specified disorders of bone density and structure, unspecified site (principal)
CPT/HCPCS: 82340; 82570

== ENCOUNTER 2024-11-04 10:09 | Outpatient (REF) | payer MEDICARE, OTHER, SELFPAY ==
[2022-08-03 07:45] VITALS: BP 102/50; BP 104/62; BP 126/50; BMI 24.1
[2024-11-04 10:27] LABS: Blood Urea Nitrogen 20 mg/dL (9-16); Estimated Glomerular Filt Rate 52
--- OUTSIDE RECORDS SUMMARY | 2024-11-04 10:48 | XMS_ITS | Patient Health Record ---
Author Organization Wyatt Eldridge MD Address [address] [place], [place] [id number] Care Team Providers Care Reconstructive Dentist Name Role Phone Wyatt Eldridge Primary Care Provider Allergies Allergen (clinical drug ingredient) Drug/Non Drug Allergy documented on EMR Reaction Allergy Type Onset Date Status tramadol traMADol HCl confusion Drug Allergy Acti ve Results Component Value Reference Range Notes Liver Panel Reviewed date:01/19/2024 03:46:59 PM Interpretation: Performing Lab:[facility], [address] [place] [phone] Notes/Report: Bilirubin Total 0.3 0.0-1.0 mg/dL Bilirubin Direct 0.1 0.0-0.5 mg/dL Aspartate Amino Transferase 22 5-31 U/L Alanine Aminotransferase 14 0-31 U/L Total Protein 6.6 6.5-8.0 g/dL Albumin Level 3.9 3.5-5.0 g/dL Alkaline Phosphatase 55 39-117 U/L Lipid Panel with Reflex Reviewed date:01/21/2024 05:01:09 PM Interpretation: Performing Lab:[facility], [address] [place] [phone] Notes/Report: Triglycerides 56 <150 mg/dL Desirable Triglyceride: [...] ff Reviewed date:07/23/2024 12:10:00 PM Interpretation: Performing Lab:[facility], [address] [place] [phone] Notes/Report: White Blood Count 6.6 4.8-10.8 X10*3/uL [...] NRBC Abs Auto 0.000 0.0-0.012 X10*3/uL Comprehensive Bowen. Panel Fa st Reviewed date:07/23/2024 12:09:07 PM Interpretation: Performing Lab:[facility], [address] [place] [phone] Notes/Report: Sodium 142 135-145 mmol/L Potassium 4.2 [...] Panel Reviewed date:07/23/2024 12:08:44 PM Interpretation: Performing Lab:[facility], [address] [place] [phone] Notes/Report: Triglycerides 57 <150 mg/dL Desirable Triglyceride: [...] t Reviewed date:07/23/2024 12:10:23 PM Interpretation: Performing Lab:[facility], [address] [place] [phone] Notes/Report: Urine, Clean Catch Color Urine Yellow Appearance Urine Clear PH 6.0 5.0-9.0 Glucose Urine UA Negative Negative mg/dL Urine Blood Negative Negative Specific [place] - Urine 1.015 1.005-1.025 Urine Protein Negative Neg-Trace mg/dL Urine Ketones Negative Negative mg/dL Nitrite Urine Negative Negative Leukocyte Esterase Urine Negative Negative RBC Urine 0-2 0-2 /HPF WBC Urine 0-5 0-5 /HPF Squamous Epithelial Cell Urine 0-2 0-2 /HPF Bacteria Urine None Seen None Seen Hyaline Casts Urine 0-2 0-2 /LPF Blood Urea Nitrogen (Not yet reviewed by provider) Interpretation: Performing Lab:[address] [phone] Notes/Report: Blood Urea Nitrogen 20 9-16 mg/dL Creatinine (Not yet reviewe d by provider) Interpretation: Performing Lab:[address] [phone] Notes/Report: Creatinine 1.03 0.5-1.4 mg/dL Estimated Glomerular Filt Rate 52 Chronic Kidney Disease: Estimated GFR < 60 mL/min/1.73m2 Severe Kidney Disease: Estimated GFR < 15 mL/min/1.73m2 Hold Gold Reviewed date:01/19/2024 03:44:37 PM Interpretation: Performing Lab:[address] [phone] Notes/Report: Hold Gold See Note Specimen held untested for 24 hours; Call to request Chemistry testing. Phosphorus Reviewed date:09/19/2024 04:40:31 PM Interpretation: Performing Lab:[facility], [address] [place] [phone] Notes/Report: Phosphorus 3.9 2.7-4.5 mg/dL Vitamin D 25-OH Total Reviewed date:09/19/2024 04:40:22 PM Interpretation: Performing Lab:[address] [phone] Notes/Report: Vitamin D 25-OH Total 63.0 >30 [...] Thyroxine) Reviewed date:09/19/2024 04:40:13 PM Interpretation: Performing Lab:[address] [phone] Notes/Report: Free T4 (Free Thyroxine) 0.93 0.71-1.85 ng/dL Thyroid Stimulating Hormone Reviewed date:09/19/2024 04:40:06 PM Interpretation: Performing Lab:[address] [phone] Notes/Report: Thyroid Stimulating Hormone 2.64 0.32-4.0 uIU/mL Note: A sustained TSH level above 2.5 uIU/mL may warrant further investigation. TSH 3rd Generation ([facility]) Protein Electrophoresis, Ser um Reviewed date:09/26/2024 01:39:54 PM Interpretation: Performing Lab:[facility] [phone] Notes/Report: Prot Elec - Total Protein 6.6 [...] (M-protein) detected. THIS TEST WAS PERFORMED AT: [facility] [address] [place] [phone] MINOO BRYAN MD Immunofixation, Random Urine Reviewed date:09/22/2024 05:37:27 PM Interpretation: Performing Lab:[facility], [address] [place] [phone] Notes/Report: Immunofixation, Random Urine SEE NOTE Normal pattern. No monoclonal proteins detected. The supplier of the testing reagents for this assay has changed. Detection of small monoclonal proteins may vary by test system. THIS TEST WAS PERFORMED AT: [facility] [address] [place] [phone] MINOO BRYAN MD XR DEXA axial skeleton Reviewed date:09/19/2024 02:34:51 PM Interpretation: Performing Lab: Notes/Report: [facility] [address] [place] [address] Mammography Report Signed Patient: Rochelle Garcia MR#: [id number] : 1945 Acct:[id number] Age/Sex: 79 / F ADM Date: 09/19/24 Loc: HO.MAMMO Attending Dr: Zach Bolton MD Ordering Physician: Zach Bolton MD Results: Date of Service: 09/19/24 Follow Up: Procedure(s): XR DEXA axial skeleton Accession Number(s): [id number] cc: Wyatt Eldridge MD; Zach Bolton MD EXAMINATION: DXA BONE DENSITY AXIAL HISTORY: M85.80 - Other specified disorders of bone density and structure, unspecified... TECHNIQUE: Executive Intermediary Dual energy absorptiometry (DEXA) of the lumbar [...] is a trademark of the [employer] [place] for Metabolic Bone Disease, a World Health Organization (WHO) Collaborating Center. Electronically signed by: Zach Reece MD 09/19/2024 02:01 PM EDT Dictated By: Zach Reece MD Signed By: <Electronically signed by Zach Reece MD in OV> 09/19/24 1401 DD/ 1330 TD/TT: 09/19/24 1346 Grants Specialist: [facility]'[address] [place] [address] Mammography Report Signed Patient: Rochelle Garcia MR#: [id number] : 1945 Acct:[id number] Age/Sex: 79 / F ADM Date: 09/19/24 Loc: HO.MAMMO Attending Dr: Zach Bolton MD Ordering Physician: Zach Bolton MD Results: Date of Service: 09/19/24 Follow Up: Procedure(s): XR DEX A axial skeleton Accession Number(s): [id number] cc: Wyatt Eldridge MD; Zach Bolton MD EXAMINATION: DXA BON E DENSITY AXIAL HISTORY: M85.80 - Other specified disorders of bone density and structure, unspecified... TECHNIQUE: Executive Intermediary Dual energy absorptiometry (DEXA) of the lumbar [...] is a trademark of the [employer] [place] for Metabolic Bone Disease, a World Health Organization (WHO) Collaborating Center. Electronically rui d by: Zach Reece MD 09/19/2024 02:01 PM EDT RP Dictated By: Zach Reece MD Signed By: <Electronically signed by Zach Reece MD in OV> 09/19/24 1401 DD/ 1330 TD/TT: 09/19/24 1346 Grants Specialist: Reason For Referral Reason OSTEOPOROSIS Diagnosis 1 Osteoporosis (M81.0) Referral Organization Wyatt Eldridge MD Referring Provider First Name Wyatt Referring Provider Last Name Jazmyn Referring Provider Speciality Internal M edicine Referred Provider Zach Bolton Referred Provider Specialty Endocrinolog y General Notes Radha Cruz 07/30/2024 03:09:03 PM >[facility] Patti A 08/12/2024 [...] a day for 30 days 07/30/2024 Active Slow Fe 142 (45 Fe) MG [...] FOR 14 DAYS NEEDED for 14 Active traZODone HCl 50 MG TAKE 1 TABLET BY MOUTH DAILY AT BEDTIME NEEDED for 30 Active Immunizations Vaccine Route Administration Date Status Comme nts Flu Vaccine Unknown 02/10/2014 Administered [facility] Flu Vaccine Unknown 02/17/2015 Administered [facility] Flu Vaccine Unknown 03/07/2016 Administered pt had it a t [facility] Fluarix Quadrivalent Unknown 01/26/2017 Administered [facility] [place] Fluarix Quadrivalent IM Intramuscular 01/23/2018 Administered Prevnar [...] Problem Status W/U Status Risk Notes Problem 20045832 Lymphocytosis (D72.820) Active confirmed Problem Insomnia (439529796) Insomnia (G47.00) Active confirmed Problem 0064804 Primary insomnia (F51.01) Active confirmed Problem 129916890 Ischemic cardiomyopathy (I25.5) Active confirmed Problem Localized, primary osteoarthritis of the hand (434805033) Primary osteoarthritis, right hand (M19.041) Active confirmed Problem Localized, primary osteoarthritis of the hand (526402389) Primary osteoarthritis, left hand (M19.042) Active confirmed Problem 049953353 Osteopenia (M85.80) Active confirmed Problem Osteoporosis (22133516) Osteoporosis (M81.0) Active confirmed Problem Age-related macular degeneration (disorder) (661518395) Macular degeneration (H35.30) Active confirmed Problem 837923533 Non-rheumatic mi tral regurgitation (I34.0) Active confirmed Problem Coronary artery disease (78758777) CAD (coronary artery disease) (I25.10) Active confirmed Problem 17698424 Acute MA, inferi or wall (I21.19) Active confirmed Problem 719323589 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 Problem 032989186 Pure hypercholesterolemia (E78.00) Active confirmed Problem Anemia due to blood loss (454277720) Anemia due to blood loss (D50.0) Active confirmed Problem 540646076 Chronic systolic heart failure (I50.22) Active confirmed Problem 940351622 Osteopenia of ne ck of femur, unspecified laterality (M85.859) Active confirmed Problem 710504123 Basal cell carci noma, forehead (C44.319) Active [...] Wyatt Eldridge MD [address] [place] [id number] 01/19/2024 Wyatt Eldridge Pure hypercholestero lemia E78.00 and Encounter for immunization Z23 Wyatt Eldridge MD [address] [place] [id number] 07/23/2024 Wyatt Eldridge Lymphocytosis D72.82 0 ; Pure hypercholesterolemia E78.00 and Chronic systolic heart failure I50.22 Wyatt Eldridge MD [address] [place] [id number] 11/04/2024 Wyatt Eldridge Muscle spasm of back M62.830 Wyatt Eldridge MD [address] [place] [id number] 01/26/2024 Wyatt Eldridge Pure hypercholestero lemia E78.00 and Chronic systolic heart failure I50.22 Wyatt Eldridge MD [address] [place] [id number] 05/03/2024 Wyatt Eldridge Muscle spasm of back M62.830 Wyatt Eldridge MD [address] [id number] 07/30/2024 Wyatt Eldridge Muscle spasm of back M62.830 ; Macular degeneration H35.30 ; Osteoporosis M81.0 ; Chronic systolic heart failure I50.22 ; Pure hypercholesterolemia E78.00 and Depression screening Z13.31 Wyatt Eldridge MD [address] [place] [id number] 08/22/2024 Wyatt Eldridge Assessments Encounter Date Diagnosis (ICD Code) Assessment Notes Treatment Notes Treatment Clinical Notes Section Notes 01/19/2024 Pure hypercholesterolemia (ICD-10 - E78.00) 01/19/2024 Encounter for immunization (ICD-10 - Z23) 07/23/2024 Lymphocytosis (ICD-1 0 - D72.820) 11/04/2024 Muscle spasm of back (ICD-10 - M62.830) 01/26/2024 Pure hypercholesterolemia (ICD-10 - E78.00) has [...] M81.0) send to endocrine/ REFERRAL FAXED TO [facility] 07/23/2024 Chronic systolic hea rt failure [...] BILATERAL DOPPLER 07/12/2019 MM tomosynthesis diagnostic BI Blood Urea Nitrogen 11/04/2024 Creatinine 11/04/2024 Future Test Test Name Order Date BONE DENSITY DEXA 02/03/2021 Next Appt Details Provider Name:Wyatt walton, 01/30/2025 08:00:00 AM, [address] [place] [address], [address], [place], [place], [phone], Provider Name:Wyatt walton, 02/03/2025 10:00:00 AM, [address] [place] [address], [address], [place], [place], [phone], Provider Name:Wyatt Meyers genovevar, 07/28/2025 07:45:00 AM, [address] [place] [address], [address], [place], [phone], Provider Name:Wyatt Meyers ier, 08/04/2025 01:00:00 PM, [address] [place] [address], [address] [facility], [place], [phone], Insurance Providers Payer Name Payer Address Payer Phone Subscriber Number Group Number Insured Name Patient Relationship to Insured Coverage Start Date Coverage End Date MEDICARE NHIC [address] [place] [address] [id number] Rochelle Garcia Self - patient is the insured [facility] [address] [place] [phone] [id number] Rochelle Garcia Self - patient is the insured Medical (General) History Medical History History ICD Code colonoscopy refused. 2012,2015, 2019 01/04/2013 - bone density - repeat 1 year ; done 05/2015; done 09/08/17 Deep vein thrombosis (DVT) o f femoral vein of left lower extremity, unspecified chronicity I82.412 Deep vein thrombosis (DVT) o f femoral vein of left lower extremity, unspecified chronicity
== END 2024-11-04 10:10 | disposition home or self-care (01) ==
LOC: HO.LNP 10:09
PROVIDERS: Visit Provider Internal Medicine
DX: M62.830 Muscle spasm of back (principal)
CPT/HCPCS: 82565; 84520

== ENCOUNTER 2024-12-18 14:02 | Outpatient (AMB) | payer MEDICARE, OTHER, SELFPAY ==
[2022-08-03 07:45] VITALS: BP 102/50; BP 104/62; BP 126/50; BMI 24.1
[2024-12-18 14:04] VITALS: BP 100/60; PULSE 75; O2SAT 96; BMI 25.8
--- NOTE | 2024-12-18 14:04 | A.OFFVIS_ITS ---
Vital Signs 12/18/24 14:04 Height 5 ft 2.05 in Weight 141 lb 1.533 oz BMI 25.8 BP 100/60 Blood Pressure Location Rt brachial Position Sitting Pulse 75 Pulse Source Pulse Oximeter Pulse Oximetry (%) 96 Oxygen Delivery Method Room Air Intake Visit Reasons: Osteoporosis Intake Note: Patient present today for a follow-up Osteoporosis. 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 Accompanied by: Self / Same As Patient Allergies No Known Allergies (No Known Allergies*) Allergy (Verified 12/18/24 14:10) Medication List - Last Reconciled 12/18/24 by Zach Bolton MD aspirin 81 mg PO DAILY [id number] 1.7 mg-400 mcg- 2.4 mcg (Neuriva Plus [employer] Performance) caps PO blood pressure test kit-medium As directed dapagliflozin propanediol (Farxiga) 5 mg PO DAILY ferrous sulfate 134 mg PO DAILY furosemide 20 mg PO DAILY losartan 25 mg PO BID metoprolol succinate ER 25 mg PO BID eueeddoj-nby-lhilu acid-lutein 200-137.5 mcg (Adult Multivitamin (w-lutein)) 1 tab PO DAILY rosuvastatin 40 mg PO DAILY trazodone 50 mg PO BEDTIME PRN HPI Comments Details: The patient is a 78-year-old female presenting with concerns regarding osteopenia, initially diagnosed a few years ago during a screening test at a senior center using a portable device. . She has not received treatment beyond calcium and vitamin D supplementation. She denies any fractures since a childhood radius fracture. She also has a history of macular degeneration, stage 3A renal failure likely related to Lasix use, and mild mitral regurgitation post-mitraclip. She maintains regular weight-bearing exercises at the gym. Menopause occurred naturally at age 42 without estrogen replacement. Laboratory findings suggest anemia, possibly due to B12 deficiency, warranting further evaluation. First diagnosed in few yrs . Not Received treatment in the past No history of pathologic fracture or ONJ. Has several servings of dietary calcium per day in the form of cheese, broccoli, OJ , oranges . Takes Calcium supplement 200 mg daily in divided doses. Takes 3000 IU of Vitamin D daily. Denies ever using PPI, anticoagulant, antiepileptic or glucocorticoid medication. - Calcium and Vitamin D supplementation for osteopenia: No previous pharmacological treatment noted. The patient reports a diet that includes cheese two to three times a week, broccoli once a week, and cereal with milk. She attempts to consume orange juice fortified with calcium as much as possible and eats oranges at least four times weekly. Approximately 40-50% of her diet consists of raw fruits and vegetables. She denies regular calcium supplementation aside from some intake through ?[employer]? which contains 216 mg of calcium. - Vitamins for macular degeneration: No noted adverse effects. - Lasix (Furosemide): Maintains renal function, possibly contributing to minor renal status changes. - Aspirin for coronary artery disease: No noted complications. Does weight bearing exercise 3 days per week in the form of wt bearing exercise . - Engages in weight-bearing exercises three times a week at the gym. - Exercise regimen includes cycling and light weightlifting. - Reports exercise positively impacting general health without associated symptoms. Fracture history: No Height loss: Yes WAREHOUSE SELECTOR history: Menarche at age 13- Menopause at age 42 - nl menses Denies history of Kidney stones: Denies family history of Osteoporosis or hip fracture. UTD on dental cleanings and sees dentist every 6 months. No planned upcoming dental work or extractions. No tabacco use or heavy ETOH use DXA dated 12/28/21:FINDINGS: AP SPINE L1-L4: Current: BMD 1.043 g/cm2, Z-score 0.5, T-score -1.1, osteopenia, 2.5% increase from previous, 0.1% decrease from baseline (<5% change is not significant). Prior: BMD 1.018 g/cm2. Baseline: BMD 1.044 g/cm2. LEFT FEMUR, NECK: Current: BMD 0.746 g/cm2, Z-score -0.2, T-score -2.1, osteopenia. Prior: BMD 0.756 g/cm2. Baseline: BMD 0.832 g/cm2. LEFT FEMUR, TOTAL: Current: BMD 0.848 g/cm2, Z-score 0.4, T-score -1.3, osteopenia, 4.3% increase from previous, 6.7% decrease from baseline (<5% change is not significant). Prior: BMD 0.813 g/cm2. Baseline: BMD 0.909 g/cm2. IDENTIFIED RISK FACTORS: Early menopause, secondary osteoporosis, hysterectomy, thiazide. HISTORY OF FRACTURE: None listed. MEDICATIONS: Calcium supplements or multivitamin, vitamin D. MM/XR DEXA axial skeleton IMPRESSION: 1. DIAGNOSIS: Osteopenia based on the lowest T-score value of -2.1 in the femoral neck applying World Health Organization criteria. Labs: The patient is a 79-year-old female presenting with osteopenia and back pain. The osteopenia was identified during a previous bone density scan, which showed a decrease in bone mass, particularly in the hip region. The patient's risk of major osteoporotic fracture was calculated at 15.6%, with a hip fracture risk of 4.6%. The patient has been considering medication options to prevent further bone loss, including the use of alendronate. The patient reports persistent back pain, which has been present since January 14, with no clear inciting event identified. The pain is localized to the lumbar spine and worsens at night. There has been no imaging performed to date to ascertain the cause of the pain, and the patient has not experienced any trauma. [facility] Medical History Osteopenia CAD (coronary artery disease) Congestive heart failure Ischemic cardiomyopathy Mitral regurgitation Surgical History Status post cardiac catheterization Hx of hand surgery Family History Father CVD (cardiovascular disease) Mother No problems noted. Social History Alcohol intake: never Patient Tobacco Use Status: Never used Tobacco Tobacco use type: Smokeless Tobacco Physical Exam Vital Signs: Last Vital Signs Pulse 75 12/18/24 14:04 BP 100/60 12/18/24 14:04 Pulse Ox 96 12/18/24 14:04 Oxygen Delivery Method Room Air 12/18/24 14:04 BMI result Body Mass Index 25.8 Assessment & Plan Assessment & Plan (1) Osteopenia: Code(s): M85.80 - Other specified disorders of bone density and structure, unspecified site Category: Medical Plan: This 78-year-old white female with a history of low bone mass with negative secondary workup 1. Osteopenia The patient's bone density scan indicates osteopenia with a significant risk of fracture. The plan includes considering alendronate to prevent further bone loss, given the patient's age and risk factors. The patient is advised to continue weight-bearing exercises and maintain adequate calcium and vitamin D intake. If there was no fracture in the lumbar spine and the patient wants to hold off on taking alendronate currently, she will follow up with the primary care provider who can retest the bone density in 2 years and a further decline in the osteoporotic range can refer the patient back to endocrinology 2. Back pain The patient reports persistent lumbar back pain with no prior imaging. An x-ray of the lumbar spine is ordered to rule out fractures. If no fracture is found, further evaluation with an MRI may be considered to assess for other causes such as disc herniation. The patient is advised to follow up with her primary care physician for further management. The patient had an opportunity to ask questions regarding treatment plan. The patient expressed understanding and agreement with the above treatment plan. Patient was informed and verbally consented to the use of an ambient scribe for clinic note documentation during this visit. The patient had an opportunity to ask questions regarding treatment plan. The patient expressed understanding and agreement with the above treatment plan. Patient was informed and verbally consented to the use of an ambient scribe for clinic note documentation during this visit. Orders: Orders XR lumbar spine 4V min Today M85.80 - Other specified disorders of bone density and structure, unspecified site Coding Level of Care Code Est Pt Level 3 (56730) Diagnoses Osteopenia M85.80
--- OUTSIDE RECORDS SUMMARY | 2024-12-18 14:23 | XMS_ITS | Patient Health Record ---
Author Organization [facility] Address [address] [place] [address] Care Team Providers Care Post Anesthesia Care Unit Nurse Name Role Phone Wyatt Eldridge MD Primary Care Provider Aye Grace Unavailable [phone] Allergies No Known Allergies Reason For Referral No Information Medications Medication SIG (Take, Route, Frequency, Duration) Notes Start Date End Date Status Losartan Potassium 25 MG 1 tablet Orally Once a day Active Ammonium Lactate 12 % 1 application Exte rnally to affected areas of dry skin to feet except for between the toes Twice a day; Duration: 30 days Active Rosuvastatin Calcium 40 MG [...] W/U Status Risk Notes Problem Atherosclerosis of craig artery of both lower extremities, with unspecified presence of clinical manifestation (I70.203) Active confirmed Q7(A), Q8(2B), Q9(1B,2C) Vital Signs Blood pressure diastolic 60 mm Hg 09/11/2024 Height 5ft3in in 09/11/2024 Blood pressure systolic 98 mm Hg 09/11/2024 Weight 147 lbs 09/11/2024 BMI 26.04 kg/m2 09/11/2024 Encounters Encounter Location Date Provider Diagnosis [address] [address] 06/18/2024 Aye Reardon Atherosclerosis of craig artery of both lower extremities, with unspecified presence of clinical manifestation I70.203 ; Xerosis of skin L85.3 ; Tinea unguium B35.1 ; Pain in right toe(s) M79.674 and Pain in left toe(s) M79.[address] [address] 09/11/2024 Aye Reardon Xerosis of skin L85. 3 ; Tinea unguium B35.1 ; Atherosclerosis of craig artery of both lower extremities, with unspecified presence of clinical manifestation I70.203 ; Pain in right toe(s) M79.674 and Pain in left toe(s) M79.[address] [address] 04/01/2024 Aye Reardon [address] [address] 12/09/2024 Aye Reardon Assessments Encounter Date Diagnosis (ICD Code) Assessment Notes Treatment Notes Treatment Clinical Notes Section Notes 06/18/2024 Xerosis of skin (ICD-10 - L85.3) 06/18/2024 Atherosclerosis of craig artery of both lower extremities, with unspecified presence of clinical manifestation (ICD-10 - I70.203) Q7(A), Q8(2B), Q9(1B,2C) 09/11/2024 Tinea unguium (ICD-10 - B35.1) 09/11/2024 Xerosis of skin (ICD-10 - L85.3) 09/11/2024 Atherosclerosis of craig artery of both lower extremities, with unspecified [...] Details Provider Name:Aye colón, 02/25/2025 02:00:00 PM, [address] [place] [address], [phone], Insurance Providers Payer Name Payer Address Payer Phone Subscriber Number Group Number Insured Name Patient Relationship to Insured Coverage Start Date Coverage End Date Medicare National Govt Sv[employer] Inc [address] [place] [address] [id number] Rochelle Landeros Self - patient is the insured 1 [employer]) [address] [place] [address] [id number] Rochelle Landeros Self - patient is the insured Medical (General) History Medical History History ICD Code Back,Hip,and Knee pain Heart disease Vascular phlebitis (clots) Surgical History Surgery Date(Month/Year) heart surgery/ davon clip 12/08/21
--- OUTSIDE RECORDS SUMMARY | 2024-12-18 14:23 | XMS_ITS | Patient Health Record ---
Author Organization Wyatt Eldridge MD Address [address] [place], [place] [id number] Care Team Providers Care Vitamin Manager Name Role Phone Wyatt Eldridge Primary Care Provider Allergies Allergen (clinical drug ingredient) Drug/Non Drug Allergy documented on EMR Reaction Allergy Type Onset Date Status tramadol traMADol HCl confusion Drug Allergy Acti ve Results Component Value Reference Range Notes Liver Panel Reviewed date:01/19/2024 03:46:59 PM Interpretation: Performing Lab:[facility], [address] [place] [phone] Notes/Report: Bilirubin Total 0.3 0.0-1.0 mg/dL Bilirubin Direct 0.1 0.0-0.5 mg/dL Aspartate Amino Transferase 22 5-31 U/L Alanine Aminotransferase 14 0-31 U/L Total Protein 6.6 6.5-8.0 g/dL Albumin Level 3.9 3.5-5.0 g/dL Alkaline Phosphatase 55 39-117 U/L Lipid Panel with Reflex Reviewed date:01/21/2024 05:01:09 PM Interpretation: Performing Lab:[facility], [address] [place] [phone] Notes/Report: Triglycerides 56 <150 mg/dL Desirable Triglyceride: [...] ff Reviewed date:07/23/2024 12:10:00 PM Interpretation: Performing Lab:[facility], [address] [place] [phone] Notes/Report: White Blood Count 6.6 4.8-10.8 X10*3/uL [...] NRBC Abs Auto 0.000 0.0-0.012 X10*3/uL Comprehensive [place]. Panel Fa st Reviewed date:07/23/2024 12:09:07 PM Interpretation: Performing Lab:[facility], [address] [place] [phone] Notes/Report: Sodium 142 135-145 mmol/L Potassium 4.2 [...] Panel Reviewed date:07/23/2024 12:08:44 PM Interpretation: Performing Lab:[facility], [address] [place] [phone] Notes/Report: Triglycerides 57 <150 mg/dL Desirable Triglyceride: [...] t Reviewed date:07/23/2024 12:10:23 PM Interpretation: Performing Lab:[facility], [address] [place] [phone] Notes/Report: Urine, Clean Catch Color Urine Yellow Appearance Urine Clear PH 6.0 5.0-9.0 Glucose Urine UA Negative Negative mg/dL Urine Blood Negative Negative Specific Gilbert - Urine 1.015 1.005-1.025 Urine Protein Negative Neg-Trace mg/dL Urine Ketones Negative Negative mg/dL Nitrite Urine Negative Negative Leukocyte Esterase Urine Negative Negative RBC Urine 0-2 0-2 /HPF WBC Urine 0-5 0-5 /HPF Squamous Epithelial Cell Urine 0-2 0-2 /HPF Bacteria Urine None Seen None Seen Hyaline Casts Urine 0-2 0-2 /LPF Blood Urea Nitrogen Reviewed date:11/05/2024 10:25:54 AM Interpretation: Performing Lab:[facility], [address] [place] [phone] Notes/Report: Blood Urea Nitrogen 20 9-16 mg/dL Creatinine Reviewed date:11/05/2024 10:25:47 AM Interpretation: Performing Lab:[address] [address] Notes/Report: Creatinine 1.03 0.5-1.4 mg/dL Estimated Glomerular Filt Rate 52 Chronic Kidney Disease: Estimated GFR < 60 mL/min/1.73m2 Severe Kidney Disease: Estimated GFR < 15 mL/min/1.73m2 Hold Gold Reviewed date:01/19/2024 03:44:37 PM Interpretation: Performing Lab:[facility], [address] [place] [phone] Notes/Report: Hold Gold See Note Specimen held untested for 24 hours; Call to request Chemistry testing. Phosphorus Reviewed date:09/19/2024 04:40:31 PM Interpretation: Performing Lab:[facility], [address] [place] [phone] Notes/Report: Phosphorus 3.9 2.7-4.5 mg/dL Vitamin D 25-OH Total Reviewed date:09/19/2024 04:40:22 PM Interpretation: Performing Lab:[facility], [address] [place] [phone] Notes/Report: Vitamin D 25-OH Total 63.0 >30 [...] Thyroxine) Reviewed date:09/19/2024 04:40:13 PM Interpretation: Performing Lab:[facility], [address] [place] [phone] Notes/Report: Free T4 (Free Thyroxine) 0.93 0.71-1.85 ng/dL Thyroid Stimulating Hormone Reviewed date:09/19/2024 04:40:06 PM Interpretation: Performing Lab:[facility], [address] [place] [phone] Notes/Report: Thyroid Stimulating Hormone 2.64 0.32-4.0 uIU/mL Note: A sustained TSH level above 2.5 uIU/mL may warrant further investigation. TSH 3rd Generation ([facility] [employer]) Protein Electrophoresis, Ser um Reviewed date:09/26/2024 01:39:54 PM Interpretation: Performing Lab:[facility], [address] [place] [phone] Notes/Report: Prot Elec - Total Protein 6.6 [...] (M-protein) detected. THIS TEST WAS PERFORMED AT: [facility] [address] [place] [phone] MINOO BRYAN MD Immunofixation, Random Urine Reviewed date:09/22/2024 05:37:27 PM Interpretation: Performing Lab:[facility], [address] [place] [phone] Notes/Report: Immunofixation, Random Urine SEE NOTE Normal pattern. No monoclonal proteins detected. The supplier of the testing reagents for this assay has changed. Detection of small monoclonal proteins may vary by test system. THIS TEST WAS PERFORMED AT: [facility] [address] [place] [phone] MINOO BRYAN MD XR DEXA axial skeleton Reviewed date:09/19/2024 02:34:51 PM Interpretation: Performing Lab: Notes/Report: [facility] [address] [place] [address] Mammography Report Signed Patient: Rochelle Garcia MR#: [id number] : 1945 Acct:[id number] Age/Sex: 79 / F ADM Date: 09/19/24 Loc: HO.MAMMO Attending Dr: Zach Bolton MD Ordering Physician: Zach Bolton MD Results: Date of Service: 09/19/24 Follow Up: Procedure(s): XR DEXA axial skeleton Accession Number(s): [id number] cc: Wyatt Eldridge MD; Zach Bolton MD EXAMINATION: DXA BONE DENSITY AXIAL HISTORY: M85.80 - Other specified disorders of bone density and structure, unspecified... TECHNIQUE: [employer] Dual energy absorptiometry (DEXA) of the lumbar [...] is a trademark of the [employer]'s [place] for Metabolic Bone Disease, a World Health Organization (WHO) Collaborating Center. Electronically signed by: Zach Reece MD 09/19/2024 02:01 PM EDT RP Dictated By: Zach Reece MD Signed By: <Electronically signed by Zach Reece MD in OV> 09/19/24 1401 DD/ 1330 TD/TT: 09/19/24 1346 Money Room Teller: [facility] [address] [place] [address] Mammography Report Signed Patient: Rochelle Garcia MR#: [id number] : 1945 Acct:[id number] Age/Sex: 79 / F ADM Date: 09/19/24 Loc: HO.MAMMO Attending Dr: Zach Bolton MD Ordering Physician: Zach Bolton MD Results: Date of Service: 09/19/24 Follow Up: Procedure(s): XR DEX A axial skeleton Accession Number(s): [id number] cc: Wyatt Eldridge MD; Zach Bolton MD EXAMINATION: DXA BON E DENSITY AXIAL HISTORY: M85.80 - Other specified disorders of bone density and structure, unspecified... TECHNIQUE: [employer] Dual energy absorptiometry (DEXA) of the lumbar [...] is a trademark of the [employer] [place] for Metabolic Bone Disease, a World Health Organization (WHO) Collaborating Center. Electronically rui d by: Zach Reece MD 09/19/2024 02:01 PM EDT Dictated By: Zach Reece MD Signed By: <Electronically signed by Zach Reece MD in OV> 09/19/24 1401 DD/ 1330 TD/TT: 09/19/24 1346 Money Room Teller: Reason For Referral Reason OSTEOPOROSIS Diagnosis 1 Osteoporosis (M81.0) Referral Organization Wyatt Eldridge MD Referring Provider First Name Wyatt Referring Provider Last Name Jazmyn Referring Provider Speciality Internal M edicine Referred Provider Zach Bolton Referred Provider Specialty Endocrinolog y General Notes Radha Cruz 07/30/2024 03:09:03 PM >REFERRAL FAXED TO [facility], Radha Cruz 08/12/2024 10:20:34 AM >APPT [...] Comme nts Flu Vaccine Unknown 02/10/2014 Administered [facility] Flu Vaccine Unknown 02/17/2015 Administered [facility] Flu Vaccine Unknown 03/07/2016 Administered pt had it a t [facility] Flu[facility]ix Quadrivalent Unknown 01/26/2017 Administered [facility] [place] Fluarix Quadrivalent IM Intramuscular 01/23/2018 Administered Prevnar [...] Problem Status W/U Status Risk Notes Problem 07234284 Lymphocytosis (D72.820) Active confirmed Problem Insomnia (994142057) Insomnia (G47.00) Active confirmed Problem 4694751 Primary insomnia (F51.01) Active confirmed Problem 233305121 Ischemic cardiomyopathy (I25.5) Active confirmed Problem Localized, primary osteoarthritis of the hand (017744205) Primary osteoarthritis, right hand (M19.041) Active confirmed Problem Localized, primary osteoarthritis of the hand (505594471) Primary osteoarthritis, left hand (M19.042) Active confirmed Problem 946997129 Osteopenia (M85.80) Active confirmed Problem Osteoporosis (13511760) Osteoporosis (M81.0) Active confirmed Problem Age-related macular degeneration (disorder) (266141650) Macular degeneration (H35.30) Active confirmed Problem 174709166 Non-rheumatic mi tral regurgitation (I34.0) Active confirmed Problem Coronary artery disease (49578571) CAD (coronary artery disease) (I25.10) Active confirmed Problem 67646139 Acute LA, inferi or wall (I21.19) Active confirmed Problem 439897742 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 Problem 463869366 Pure hypercholesterolemia (E78.00) Active confirmed Problem Anemia due to blood loss (775685444) Anemia due to blood loss (D50.0) Active confirmed Problem 193115339 Chronic systolic heart failure (I50.22) Active confirmed Problem 257509875 Osteopenia of ne ck of femur, unspecified laterality (M85.859) Active confirmed Problem 868086586 Basal cell carci noma, forehead (C44.319) Active confirmed Vital Signs Blood pressure diastolic 58 mm Hg 07/30/2024 esme ght is3 pounds since 12-27-24 Height 63 in 07/30/2024 weight is3 poun ds since 05-03-24 Blood pressure systolic 122 mm Hg 07/30/2024 weig ht is3 pounds since 05-03-24 Weight 155 lbs 07/30/2024 weight is3 poun ds since 05-03-24 BMI 27.45 kg/m2 07/30/2024 weight is3 poun ds since 05-03-24 Encounters Encounter Location Date Provider Diagnosis Wyatt Eldridge MD [address] [place] [id number] 01/19/2024 Wyatt Eldridge Pure hypercholestero lemia E78.00 and Encounter for immunization Z23 Wyatt Eldridge MD [address] [place] [address] [phone] 07/23/2024 Wyatt Eldridge Lymphocytosis D72.82 0 ; Pure hypercholesterolemia E78.00 and Chronic systolic heart failure I50.22 Wyatt Eldridge MD [address] [place] [address] [id number] 11/04/2024 Wyatt Eldridge Muscle spasm of back M62.830 Wyatt Eldridge MD [address] [place] [address] [address] [place] [id number] 01/26/2024 Wyatt Eldridge Pure hypercholestero lemia E78.00 and Chronic systolic heart failure I50.22 Wyatt Eldridge MD [address] [place] [id number] 05/03/2024 Wyatt Eldridge Muscle spasm of back M62.830 Wyatt Eldridge MD [address] [place] [address] [id number] 07/30/2024 Wyatt Eldridge Muscle spasm of back M62.830 ; Macular degeneration H35.30 ; Osteoporosis M81.0 ; Chronic systolic heart failure I50.22 ; Pure hypercholesterolemia E78.00 and Depression screening Z13.31 Wyatt Eldridge MD [address] [place] [address] [address] [place] [id number] 08/22/2024 Wyatt Eldridge Assessments Encounter Date Diagnosis [...] M81.0) send to endocrine/ REFERRAL FAXED TO [facility] 07/23/2024 Chronic systolic hea rt failure [...] Details Provider Name:Wyatt walton, 01/30/2025 08:00:00 AM, [address] [place] [address], [address], [place], [place], [phone], Provider Name:Wyatt walton, 02/03/2025 10:00:00 AM, [address] [place] [address], [address], [place], [phone], Provider Name:Wyatt Meyers isabelle, 07/28/2025 07:45:00 AM, [facility], [address], [place], [phone], Provider Name:Wyatt Meyers genovevar, 08/04/2025 01:00:00 PM, [facility], [address], [place], [phone], Insurance Providers Payer Name Payer Address Payer Phone Subscriber Number Group Number Insured Name Patient Relationship to Insured Coverage Start Date Coverage End Date MEDICARE NHIC KIR[address] [place] [address] [id number] Rochelle Garcia Self - patient is the insured [facility] [address] [place] [phone] [id number] Rochelle Garcia Self - patient is the [...]
== END 2024-12-18 14:40 | disposition home or self-care (01) ==
LOC: HO.ENCR 14:03
PROVIDERS: PCP Internal Medicine; Visit Provider Internal Medicine Endocrinology, Diabetes & Metabolism
DX: M85.80 Other specified disorders of bone density and structure, unspecified site (principal)
CPT/HCPCS: 99213

== ENCOUNTER 2024-12-18 14:02 | Outpatient (REF) | payer MEDICARE, OTHER, SELFPAY ==
[2022-08-03 07:45] VITALS: BP 102/50; BP 104/62; BP 126/50; BMI 24.1
--- NOTE | ~2024-12-18 | XR_ITS ---
EXAMINATION: XR LUMBOSACRAL SPINE WITH OBLIQUES CLINICAL INFORMATION: M85.80 - Other specified disorders of bone density and structure, unspec... COMPARISON: November 23, 2018. TECHNIQUE: AP, both oblique, and lateral views of the lumbar spine. Lateral view of the lumbosacral junction. FINDINGS: Grade 1 anterolisthesis L4-5 and likely L5-S1. Endplate sclerosis marginal osteophyte formation and decreased intervertebral disc height with vacuum phenomenon at L5-S1. Marginal osteophyte formation and endplate sclerosis at L4-5. Multilevel marginal osteophyte formation and endplate sclerosis lower thoracic spine. Facet joint hypertrophy at L4-5 and L5-S1. Degenerative changes in the symphysis with an inferior sacroiliac joints. 20% volume loss of the vertebral body L2 and L3 likely old. XR/XR lumbar spine 4V min IMPRESSION: Multilevel thoracolumbar spondylosis resulting in grade 1 anterolisthesis L4-5 and L5-S1. Likely old superior endplate compression deformities at L2 and L3. Electronically signed by: Edward Irving MD 12/18/2024 03:20 PM EDT
== END 2024-12-18 14:03 | disposition home or self-care (01) ==
LOC: HO.XRAY 14:02
PROVIDERS: PCP Internal Medicine; Visit Provider Internal Medicine Endocrinology, Diabetes & Metabolism
DX: M85.80 Other specified disorders of bone density and structure, unspecified site (principal); M54.59 Other low back pain; M81.0 Age-related osteoporosis without current pathological fracture
CPT/HCPCS: 72110; 99212

== ENCOUNTER → 2024-12-18 14:47 | Outpatient (BNV) | payer MEDICARE, OTHER, SELFPAY ==
[2022-08-03 07:45] VITALS: BP 102/50; BP 104/62; BP 126/50; BMI 24.1
== END ==
PROVIDERS: PCP Internal Medicine; Visit Provider Radiology Diagnostic Radiology
DX: M47.815 Spondylosis without myelopathy or radiculopathy, thoracolumbar region (principal)
CPT/HCPCS: 72110

== ENCOUNTER 2025-01-17 12:45 | Outpatient (RCR) | payer MEDICARE, OTHER, SELFPAY ==
[2022-08-03 07:45] VITALS: BP 102/50; BP 104/62; BP 126/50; BMI 24.1
== END 2025-01-21 07:59 | disposition home or self-care (01) ==
LOC: HO.PT 12:45
PROVIDERS: PCP Internal Medicine; Visit Provider Internal Medicine
DX: M54.9 Dorsalgia, unspecified (principal)
CPT/HCPCS: 97112; 97162

== ENCOUNTER 2025-01-30 10:52 | Outpatient (REF) | payer MEDICARE, OTHER, SELFPAY ==
[2022-08-03 07:45] VITALS: BP 102/50; BP 104/62; BP 126/50; BMI 24.1
[2025-01-30 11:32] LABS: Alanine Aminotransferase 16 U/L (0-31); Albumin Level 4.0 g/dL (3.5-5.0); Alkaline Phosphatase 56 U/L (39-117); Aspartate Amino Transferase 29 U/L (5-31); Cholesterol 132 mg/dL (<200); HDL Cholesterol 66 mg/dL (>40); Total Protein 6.7 g/dL (6.5-8.0); Triglycerides 68 mg/dL (<150)
[2025-01-30 12:10] LABS: Reflex LDLD? No
== END 2025-01-30 10:53 | disposition home or self-care (01) ==
LOC: HO.LNP 10:52
PROVIDERS: Visit Provider Internal Medicine
DX: E78.00 Pure hypercholesterolemia, unspecified (principal)
CPT/HCPCS: 80061; 80076

== ENCOUNTER → 2025-02-11 09:01 | Outpatient (REF) | payer MEDICARE, OTHER, SELFPAY ==
[2022-08-03 07:45] VITALS: BP 102/50; BP 104/62; BP 126/50; BMI 24.1
--- OUTSIDE RECORDS SUMMARY | 2024-08-22 08:15 | XMS_ITS ---
Author Organization Wyatt Eldridge MD Address [facility] [address] [place] [phone] Care Team Providers Care Local Owner Operator Truck Driver Name Role Phone Wyatt Eldridge Primary Care Provider [phone] REASON FOR VISIT ENDO VISIT Encounters Encounter Location Date Provider Diagnosis Wyatt Eldridge MD [address] [place] [address] [place] [phone] 08/22/2024 Wyatt Eldridge Plan Of Treatment Next Appt Details Provider Name:Wyatt Meyers ier, 07/28/2025 07:45:00 AM, [address] [place] [address], [address], [phone], Provider Name:Wyatt Meyers ier, 08/04/2025 01:00:00 PM, [address] [place] [address], [address], [phone], Progress Notes * Rochelle DOWNS MDOB:0 1945 (78 yo F)Acc No.[id number]:08/22/2024 Patient: Rochelle GRANT :1945 A ge:78 Y S ex:Female Address:[address] [place], [address] * true * Date: Generated for Nai ramírez/Emily/[place] on: 09:54 AM EDT
--- OUTSIDE RECORDS SUMMARY | 2024-11-04 03:30 | XMS_ITS ---
Author Organization Wyatt Eldridge MD Address [address] [place] [phone] Care Team Providers Care Director Mba Name Role Phone Jazmyn Wyatt Primary Care Provider Results Component Value Reference Range Notes Blood Urea Nitrogen Reviewed date:11/05/2024 10:25:54 AM Interpretation: Performing Lab:[facility], [address] [place] [phone] Notes/Report: Blood Urea Nitrogen 20 9-16 mg/dL Creatinine Reviewed date:11/05/2024 10:25:47 AM Interpretation: Performing Lab:[facility], [address] [place] [phone] Notes/Report: Creatinine 1.03 0.5-1.4 mg/dL Estimated Glomerular Filt Rate 52 Chronic Kidney Disease: Estimated GFR < 60 mL/min/1.73m2 Severe Kidney Disease: Estimated GFR < 15 mL/min/1.73m2 REASON FOR VISIT BUN, CREATININE Encounters Encounter Location Date Provider Diagnosis Wyatt Eldridge MD [address] [place] [phone] 11/04/2024 Wyatt Eldridge Muscle spasm of back M62.830 Assessments Encounter Date Diagnosis (ICD Code) Assessment Notes Treatment Notes Treatment Clinical Notes Section Notes 11/04/2024 Muscle spasm of back (ICD-10 - M62.830) Plan Of Treatment Next Appt Details Provider Name:Wyatt walton, 07/28/2025 07:45:00 AM, [address], [address], [place], [place], [phone], Provider Name:Wyatt walton, 08/04/2025 01:00:00 PM, [address] [facility], [address], [place], [place], [phone], Progress Notes * Rochelle DOWNS MDOB:0 1945 (79 yo F)Acc No.[id number]:11/04/2024 Progress Note Patient: Brandt ORR Rochelle BARAJAS Provider: Kobe Eldridge MD :1945 A ge:79 Y S ex:Female Date:11/04/2024 Address:[address] [place], [place] [phone] Subjective: * Chief Complaints: * 1 . BUN, CREATININE. * Medical History: Objective: * Vitals: Assessment: * Assessment: 1. M uscle spasm of back - M62.830 (Primary) Plan: * Treatment: * Procedure Codes: 3 6415 VENIPUNCT, ROUTINE* * * The named appointment provid er may or may not be the originator of this progress note, and it is not deemed complete until electronically signed by the appointment provider. Sign off status: Pending * Provider: Kobe Eldridge MD Date: 0 11/04/2024 Generated for Nai ramírez/Emily/Peaceransmitting on: 1 09:54 AM EDT
--- OUTSIDE RECORDS SUMMARY | 2024-12-11 10:30 | XMS_ITS ---
Author Organization [facility] Address [address] [place] [phone] Care Team Providers Care Blow Molder Name Role Phone Wyatt Eldridge MD Primary Care Provider Aye Grace Unavailable [phone] Encounters Encounter Location Date Provider Diagnosis [address] [phone] 12/11/2024 Aye Reardon Plan Of Treatment Next Appt Details Provider Name:Aye colón, 02/25/2025 02:00:00 PM, [address] [place] [address], [phone], Progress Notes * Rochelle HUDDLESTON MDOB: [birth year] (79 yo F)Acc No.[id number]:12/11/2024 Progress Note Patient: Rochelle ROMERO Provider: Marcin [...] 0 12/11/2024 Generated for Nai Cooley on: 09:54 AM EDT
--- OUTSIDE RECORDS SUMMARY | 2024-12-20 07:32 | XMS_ITS ---
Author Organization Wyatt Eldridge MD Address 10 [facility] [address] [place] [phone] Care Team Providers Care Silver Spray Worker Name Role Phone Jazmyn Wyatt Primary Care Provider [phone] REASON FOR VISIT ?PT Encounters Encounter Location Date Provider Diagnosis Wyatt Eldridge MD [address] [place] [address] [place] [id number] 12/20/2024 Wyatt Eldridge Plan Of Treatment Next Appt Details Provider Name:Wyatt Meyers ier, 07/28/2025 07:45:00 AM, [address] [place] [address], [address], [phone], Provider Name:Wyatt P Billiris ier, 08/04/2025 01:00:00 PM, [address] [place] [address], [address], [phone], Progress Notes * Rochelle DOWNS MDOB:0 1945 (79 yo F)Acc No.[id number]:12/20/2024 Patient: Rochelle GRANT :1945 A ge:79 Y S ex:Female Address:[address] [place], [address] * true * Date: Generated for Nai ramírez/Emily/[place] on: 09:54 AM EDT
--- OUTSIDE RECORDS SUMMARY | 2025-01-30 04:00 | XMS_ITS ---
Author Organization Wyatt Eldridge MD Address [address] [place], [place] [phone] Care Team Providers Care Financial Secretary Name Role Phone Wyatt Eldridge Primary Care Provider Results Component Value Reference Range Notes Liver Panel Reviewed date:01/30/2025 12:15:44 PM Interpretation: Performing Lab:[facility], [address] [place] [phone] Notes/Report: Bilirubin Total 0.3 0.0-1.0 mg/dL Bilirubin Direct 0.1 0.0-0.5 mg/dL Aspartate Amino Transferase 29 5-31 U/L Alanine Aminotransferase 16 0-31 U/L Total Protein 6.7 6.5-8.0 g/dL Albumin Level 4.0 3.5-5.0 g/dL Alkaline Phosphatase 56 39-117 U/L Lipid Panel with Reflex Reviewed date:01/30/2025 12:28:24 PM Interpretation: Performing Lab:[facility], [address] [place] [phone] Notes/Report: Triglycerides 68 <150 mg/dL Desirable Triglyceride: less than 150 mg/dL Borderline High Triglyceride 150-199 mg/dL High Triglyceride: 200-499 mg/dL Very High Triglyceride: greater than or equal to 5OO mg/dL Cholesterol 132 <200 mg/dL Desirable Cholesterol: less than 200 mg/dL Borderline High Cholesterol: 200-239 mg/dL High Cholesterol: greater than 239 mg/dL LDL Cholesterol Calculated 53 <100 mg/dL Desirable LDL: less than 100 mg/dL Near Optimal/Above Optimal LDL: 110-129 mg/dL Borderline High LDL: 130-159 mg/dL High LDL: 160-189 mg/dL Very High LDL: greater than or equal to 190 mg/dL HDL Cholesterol 66 >40 mg/dL Desirable HDL: greater than 40 mg/dL Note: This HDL assay may give artificially low results in patients with liver disease. REASON FOR VISIT FASTING LIPIDS Encounters Encounter Location Date Provider Diagnosis Wyatt Eldridge MD [address] [place] [address] [place] [phone] 01/30/2025 Wyatt Eldridge Pure hypercholestero lemia E78.00 Assessments Encounter Date Diagnosis (ICD Code) Assessment Notes Treatment Notes Treatment Clinical Notes Section Notes 01/30/2025 Pure hypercholesterolemia (ICD-10 - E78.00) Plan Of Treatment Next Appt Details Provider Name:Wyatt walton, 07/28/2025 07:45:00 AM, [address] [place] [address], Suite [facility], [place], [place], [phone], Provider Name:Wyatt walton, 08/04/2025 01:00:00 PM, [address] [place] [address], Suite [facility], [place], [place], [phone], Progress Notes * Rochelle DOWNS MDOB:0 1945 (79 yo F)Acc No.[id number]:01/30/2025 Progress Note Patient: Rochelle GRANT Provider: Kobe Eldridge MD :1945 A ge:79 Y S ex:Female Date:01/30/2025 Address:[address] [place], [place] [id number] Subjective: * Chief Complaints: * 1 . FASTING LIPIDS. * Medical History: Objective: * Vitals: Assessment: * Assessment: 1. P ure hypercholesterolemia - E78.00 (Primary) Plan: * Treatment: * Procedure Codes: 3 6415 VENIPUNCT, ROUTINE* * * The named appointment provid er may or may not be the originator of this progress note, and it is not deemed complete until electronically signed by the appointment provider. Sign off status: Pending * Provider: Kobe Eldridge MD Date: 0 01/30/2025 Generated for Nai ramírez/Emily/[place] on: 1 09:53 AM EDT
--- OUTSIDE RECORDS SUMMARY | 2025-02-03 06:00 | XMS_ITS ---
Author Organization Wyatt Eldridge MD Address [address] [place] [phone] Care Team Providers Care Director Of Radiology Name Role Phone Wyatt Eldridge Primary Care [...] Date Provider Diagnosis Wyatt Eldridge MD [address] [place], [place] [phone] 02/03/2025 Wyatt Eldridge Weight loss R63.4 ; [...] Name:Wyatt Meyers ier, 07/28/2025 07:45:00 AM, [address], [address], [place], [place], [phone], Provider Name:Wyatt Meyers ier, 08/04/2025 01:00:00 PM, [address] [facility], [address], [place], [place], [phone], Progress Notes * Rochelle DOWNS MDOB:0 1945 (79 yo F)Acc No.[id number]:02/03/2025 Progress Notes Patient: Brandt Rochelle GARG Provider: Kobe Eldridge MD :1945 A ge:79 Y S ex:Female Date:02/03/2025 Address:[address] [place], [place] [phone] Subjective: * Chief Complaints: * 6 MO [...] 9 0662 FLU VACC PRSV FREE INC [id number] ADMN FLU VAC NO FEE SCHED SAME DAY * Follow Up: 3 Months * * Sign off status: Completed true * Provider: Kobe Eldridge MD Date: 0 02/03/2025 Generated for Nai ramírez/Emily/[place] on: 1 09:53 AM EDT History and Physical Notes * HPI [...]
--- NOTE | 2025-02-11 09:05 | CA_ITS ---
Transthoracic Echocardiogram Patient (Last, First, Middle): Rochelle Garcia M Gender: F Date of : 1945 Age: 79 Procedure Date: 02/11/2025 Procedure Type: Transthoracic Echocardiogram Location: OP Height: 157.48 cm Weight: 63.96 kg BSA: 1.65 m2 Heart Rate: bpm BP: 100 / 60 mmHg Cardiac Rn: IMELDA Referring MD: Talha Ulloa MD Contact Center Specialist: Talha Ulloa MD Symptoms: I25.5 - Ischemic cardiomyopathy Study Quality: Fair ECG Rhythm: Sinus Conclusions: - 1. Low normal LV ejection fraction 50-55% with impaired relaxation filling pattern with underlying regional wall motion abnormality consistent with prior myocardial infarction 2. Severely dilated left atrium 3. Hafv-qe-srjwtskw mitral regurgitation with MitraClip in place 4. Normal LV systolic pressure 5. No gross pericardial effusion Findings Left Ventricle Normal left ventricular cavity size. There is normal left ventricular wall thickness. The left ventricular systolic function is low normal. The visually estimated ejection fraction is between 50-55%. Spectral Doppler is indicative of an impaired relaxation filling pattern. E/E prime ratio is between 8 and 15 consistent with indeterminate filling pressures. Wall Motion Rest Echo Findings The mid inferoseptal segment is hypokinetic. The inferolateral wall, the basal inferior, mid inferior, and basal inferoseptal segments are akinetic. All other scored wall segments showed normal motion. Right Ventricle Normal right ventricular cavity size and systolic function. Atria The left atrium is severely dilated. There is no evidence of interatrial shunt. The right atrium is mildly dilated. Aortic Valve Normal aortic valve structure and function. There is no aortic valve stenosis. There is no aortic valve regurgitation. Mitral Valve There is mild anterior and posterior mitral leaflet thickening. The anterior mitral leaflet has restricted mobility and the posterior mitral leaflet has restricted mobility. There is mild to moderate mitral valve regurgitation. The mitral regurgitation jet is directed posteriorly. Mitralclip is present. Pulmonic Valve The pulmonic valve is likely normal. Tricuspid Valve Normal tricuspid valve structure. There is mild tricuspid valve regurgitation. The right ventricular systolic pressure is 32 mmHg. Normal right atrial pressure. There is no evidence of pulmonary hypertension. Great Vessels All visible segments of the aorta are normal in size. The pulmonary artery was not well visualized. There is no dilatation of the ascending aorta measuring 3.10 cm. Venous The inferior vena cava is mildly dilated and collapses greater than 50% with inspiration. Pericardium/Pleural There is no evidence of pericardial effusion. Prior Study Comparison No significant change compared to prior study dated: 02/15/2024. Measurements 2D Linear Measurements IVSd: 0.94 0.6-0.9/0.6-1.0 cm LVIDd: 5.43 3.9-5.3/4.2-5.9 cm LVIDd Index: 3.29 2.4-3.2/2.2-3.1 cm/m2 LVIDs: 4.30 2.0-3.6 cm LVPWd: 0.80 0.7-1.1 cm LA Diam: 4.20 2.7-3.8/3.0-4.0 cm LAIDs Index: 2.55 1.5-2.3 cm/m2 LV Mass: 216.68 67-162/88-224 g LV Mass Index: 131.32 43-95/49-115 g/m2 LVOT Diam: 2.00 3.0+(-)1.3 cm 2D Systolic Function EF 4C: 56.70 >55% EF 2C: 48.60 >55% EF BiP: 51.10 >55% Mitral Valve MV VTI: 0.55 MV Pk Josse: 1.50 MV Mn Josse: 0.74 MV Pk Grad: 9.00 MV Mn Grad: 3.00 MV Pk E: 1.16 MV PK A: 1.32 MV Decel Time: 329.00 E/A: 0.90 E'Lateral: 5.22 E'Medial: 2.83 E/E' Med: 41.00 E/E' Lat: 22.20 PHT: 96.00 MVA PHT: 2.29 MVA Continuity: 1.45 Decel Comal: 3.54 MR Vol - PW Dopp: 12.96 MR VTI: 2.16 MR ERO: 6.00 MR Alias Josse: 0.35 MR RAD: 0.40 Aortic Valve AoV Pk Josse: 1.21 AoV Mn Josse: 0.91 AoV VTI: 0.32 AoV Pk Grad: 6.00 Aov Mn Grad: 4.00 QUITA Cont.VTI: 2.52 LVOT LVOT Pk Josse: 1.05 LVOT Mn Josse: 0.75 LVOT VTI: 0.26 LVOT Pk Grad: 4.00 LVOT Mn Grad: 3.00 LVOT Diam: 2.00 LVOT Area: 3.14 Diastolic Function MV Pk E: 1.16 MV Pk A: 1.32 E/A: 0.90 E'Medial: 2.83 E/E' Med: 41.00 E' Laterial: 5.22 E/E' Lat: 22.20 Right Ventricle TAPSE (mm): 22.80 TVS' Josse: 12.30 Tricuspid Valve TR Pk Josse: 2.69 TR Pk Grad: 29.00 RA Press: 3.00 RVSP: 32.00 Great Vessels Aorta Sinus of Valsalva: 3.92 2.0-3.[address] Ridge: 2.88 1.7-3.4 cm Ao Asc: 3.10 2.1-3.4 cm Ao Arch: 3.40 Pulmonary Veins Pulm Vein S/D 1.40 Updated in Other Vendor System with Status of Final Talha Ulloa MD electronically signed on 02/11/2025 2:51:14 PM with status of Final
--- OUTSIDE RECORDS SUMMARY | 2025-02-11 09:54 | XMS_ITS | Clinical Summary ---
Author Organization [employer] Address [address] [facility] [address] [place] [address] Care Team Providers Care Rehab Tech Name Role Phone Unavailable Primary Care Provider Unavailabl e Encounters Date Type Department Care Team Description 01/28/2025 11:20 AM EDT Nurse Only [facility] [address] [place] [address] Brittany Lowery RN Encounter for vaccination from Last 3 Months Immunizations Immunization Administration Dates Next Due Pfizer Covid-19 Vaccine 12+ 01/28/2025 Social History Tobacco Use Types Packs/Day Years Used Date Smoking Tobacco: Never Assessed Comments Unknown Sex and Gender Information Value Date Recorded Sex Assigned at Female 02/03/2025 9:33 AM EDT Legal Sex Female 9:31 AM EDT Gender Identity Female 02/03/2025 9:33 AM EDT Sexual Orientation Don't know 02/03/2025 9: 33 AM EDT Plan of Treatment Health Maintenance Due Date Last Done Comments Depression Screening 1945 SDOH Screening 1945 Alcohol/Substance Use Screening 1957 Tobacco Screening 1957 Hepatitis C Screening 09/18/1963 DTaP/Tdap/Td Vaccines (1 - Tdap) 1964 Pneumococcal Vaccine: 50+ Ye ars (1 of 1 - PCV) 09/18/1995 Zoster Vaccines (1 of 2) 09/18/1995 RSV Patients and Pa tients Aged 60 years or older (1 - 1-dose 75+ series) 2020 Influenza Vaccine (#1) 2025 COVID-19 Vaccine (2 - 2023-2 5 season) 2025 01/28/2025 HIB Vaccines Aged Out No longer eligi ble based on patient's age to complete this topic HPV Vaccines Aged Out No longer eligi ble based on patient's age to complete this topic Hepatitis A Vaccines Aged Out No long er eligible based on patient's age to complete this topic Hepatitis B Vaccines Aged Out No long er eligible based on patient's age to complete this topic IPV Vaccines Aged Out No longer eligi ble based on patient's age to complete this topic Meningococcal B Vaccine Aged Out No l onger eligible based on patient's age to complete this topic Meningococcal Vaccine Aged Out No светлана mariana eligible based on patient's age to complete this topic RSV under 20 months Aged Out No longe r eligible based on patient's age to complete this topic Rotavirus Vaccines Aged Out No longer eligible based on patient's age to complete this topic Insurance [facility]
--- OUTSIDE RECORDS SUMMARY | 2025-02-11 09:54 | XMS_ITS | Patient Health Record ---
Author Organization [facility] Address [address] [place] [address] Care Team Providers Care Sample Patternmaker Name Role Phone Wyatt Eldridge MD Primary Care Provider Aye Grace Unavailable [phone] Allergies No Known Allergies Reason For Referral [...] Problem Status W/U Status Risk Notes Problem Bilateral atherosclerosis of arteries of lower limbs (disorder) ([id number] ) Atherosclerosis of [place] artery of both lower extremities, with unspecified presence of clinical manifestation (I70.203) Active confirmed Q7(A), Q8(2B), Q9(1B,2 C) Vital Signs Blood pressure diastolic 60 mm Hg 09/11/2024 Height 5ft3in in 09/11/2024 Blood pressure systolic 98 mm Hg 09/11/2024 Weight 147 lbs 09/11/2024 BMI 26.04 kg/m2 09/11/2024 Encounters Encounter Location Date Provider Diagnosis [address] [phone] 06/18/2024 Aye Reardon Atherosclerosis of [place] artery of both lower extremities, with unspecified presence of clinical manifestation I70.203 ; Xerosis of skin L85.3 ; Tinea unguium B35.1 ; Pain in right toe(s) M79.674 and Pain in left toe(s) M79.[address] [address] 09/11/2024 Aye Reardon Xerosis of skin L85. 3 ; Tinea unguium B35.1 ; Atherosclerosis of [place] artery of both lower extremities, with unspecified presence of clinical manifestation I70.203 ; Pain in right toe(s) M79.674 and Pain in left toe(s) M79.[address] [address] 04/01/2024 Aye Reardon [address] [address] 12/09/2024 Aye Reardon Assessments Encounter Date Diagnosis (ICD Code) Assessment Notes Treatment Notes Treatment Clinical Notes Section Notes 06/18/2024 Xerosis of skin (ICD-10 - L85.3) 06/18/2024 Atherosclerosis of [place] artery of both lower extremities, with unspecified presence of clinical manifestation (ICD-10 - I70.203) Q7(A), Q8(2B), Q9(1B,2C) 09/11/2024 Tinea unguium (ICD-10 - B35.1) 09/11/2024 Xerosis of skin (ICD-10 - L85.3) 09/11/2024 Atherosclerosis of [place] artery of both lower extremities, with unspecified [...] Details Provider Name:Aye colón, 02/25/2025 02:00:00 PM, [address] [place] [address], [place], [phone], Insurance Providers Payer Name Payer Address Payer Phone Subscriber Number Group Number Insured Name Patient Relationship to Insured Coverage Start Date Coverage End Date Medicare National [employer]t [employer] [address] [place] [address] [id number] Rochelle Landeros Self - patient is the insured 1 [employer] [facility] [address] [place] [address] [phone] [id number] Rochelle Landeros Self - patient is the insured Medical (General) History Medical History History ICD Code Back,Hip,and Knee pain Heart disease Vascular phlebitis (clots) Surgical History Surgery Date(Month/Year) heart surgery/ davon clip 12/08/21
--- OUTSIDE RECORDS SUMMARY | 2025-02-11 09:54 | XMS_ITS | Patient Health Record ---
Author Organization Wyatt Eldridge MD Address [address] [place], [place] [id number] Care Team Providers Care Log Operations Coordinator Name Role Phone Wyatt Eldridge Primary Care Provider Allergies Allergen (clinical drug ingredient) Drug/Non Drug Allergy documented on EMR Reaction Allergy Type Onset Date Status tramadol traMADol HCl confusion Drug Allergy Acti ve Results Component Value Reference Range Notes Complete Blood Count Auto Di ff Reviewed date:07/23/2024 12:10:00 PM Interpretation: Performing Lab:[facility], [address] [place] [phone] Notes/Report: White Blood Count 6.6 4.8-10.8 X10*3/uL [...] NRBC Abs Auto 0.000 0.0-0.012 X10*3/uL Comprehensive Justin. Panel Fa st Reviewed date:07/23/2024 12:09:07 PM Interpretation: Performing Lab:[facility], [address] [place] [phone] Notes/Report: Sodium 142 135-145 mmol/L Potassium 4.2 [...] Panel Reviewed date:07/23/2024 12:08:44 PM Interpretation: Performing Lab:[facility], [address] [place] [phone] Notes/Report: Triglycerides 57 <150 mg/dL Desirable Triglyceride: [...] t Reviewed date:07/23/2024 12:10:23 PM Interpretation: Performing Lab:[facility], [address] [place] [phone] Notes/Report: Urine, Clean Catch Color Urine Yellow Appearance Urine Clear PH 6.0 5.0-9.0 Glucose Urine UA Negative Negative mg/dL Urine Blood Negative Negative Specific Clever - Urine 1.015 1.005-1.025 Urine Protein Negative Neg-Trace mg/dL Urine Ketones Negative Negative mg/dL Nitrite Urine Negative Negative Leukocyte Esterase Urine Negative Negative RBC Urine 0-2 0-2 /HPF WBC Urine 0-5 0-5 /HPF Squamous Epithelial Cell Urine 0-2 0-2 /HPF Bacteria Urine None Seen None Seen Hyaline Casts Urine 0-2 0-2 /LPF Blood Urea Nitrogen Reviewed date:11/05/2024 10:25:54 AM Interpretation: Performing Lab:[facility], [address] [place] [phone] Notes/Report: Blood Urea Nitrogen 20 9-16 mg/dL Creatinine Reviewed date:11/05/2024 10:25:47 AM Interpretation: Performing Lab:[facility], [address] [place] [phone] Notes/Report: Creatinine 1.03 0.5-1.4 mg/dL Estimated Glomerular Filt Rate 52 Chronic Kidney Disease: Estimated GFR < 60 mL/min/1.73m2 Severe Kidney Disease: Estimated GFR < 15 mL/min/1.73m2 Liver Panel Reviewed date:01/30/2025 12:15:44 PM Interpretation: Performing Lab:[facility], [address] [place] [phone] Notes/Report: Bilirubin Total 0.3 0.0-1.0 mg/dL Bilirubin Direct 0.1 0.0-0.5 mg/dL Aspartate Amino Transferase 29 5-31 U/L Alanine Aminotransferase 16 0-31 U/L Total Protein 6.7 6.5-8.0 g/dL Albumin Level 4.0 3.5-5.0 g/dL Alkaline Phosphatase 56 39-117 U/L Lipid Panel with Reflex Reviewed date:01/30/2025 12:28:24 PM Interpretation: Performing Lab:[facility], [address] [place] [phone] Notes/Report: Triglycerides 68 <150 mg/dL Desirable Triglyceride: [...] low results in patients with liver disease. Phosphorus Reviewed date:09/19/2024 04:40:31 PM Interpretation: Performing Lab:[facility], [address] [place] [phone] Notes/Report: Phosphorus 3.9 2.7-4.5 mg/dL Vitamin D 25-OH Total Reviewed date:09/19/2024 04:40:22 PM Interpretation: Performing Lab:[facility], [address] [place] [phone] Notes/Report: Vitamin D 25-OH Total 63.0 >30 [...] Thyroxine) Reviewed date:09/19/2024 04:40:13 PM Interpretation: Performing Lab:[address] [phone] Notes/Report: Free T4 (Free Thyroxine) 0.93 0.71-1.85 ng/dL Thyroid Stimulating Hormone Reviewed date:09/19/2024 04:40:06 PM Interpretation: Performing Lab:[facility], [address] [place] [phone] Notes/Report: Thyroid Stimulating Hormone 2.64 0.32-4.0 uIU/mL Note: A sustained TSH level above 2.5 uIU/mL may warrant further investigation. TSH 3rd Generation ([facility]) Protein Electrophoresis, Ser um Reviewed date:09/26/2024 01:39:54 PM Interpretation: Performing Lab:[address] [phone] Notes/Report: Prot Elec - Total Protein 6.6 [...] (M-protein) detected. THIS TEST WAS PERFORMED AT: [facility] [address] [place] [phone] MINOO BRYAN MD Immunofixation, Random Urine Reviewed date:09/22/2024 05:37:27 PM Interpretation: Performing Lab:[facility], [address] [place] [phone] Notes/Report: Immunofixation, Random Urine SEE NOTE Normal pattern. No monoclonal proteins detected. The supplier of the testing reagents for this assay has changed. Detection of small monoclonal proteins may vary by test system. THIS TEST WAS PERFORMED AT: [facility] [address] [place] [phone] MINOO BRYAN MD XR DEXA axial skeleton Reviewed date:09/19/2024 02:34:51 PM Interpretation: Performing Lab: Notes/Report: [address] [place] [id number] Mammography Report Signed Patient: Rochelle Garcia MR#: [id number] : 1945 Acct:[id number] Age/Sex: 79 / F ADM Date: 09/19/24 Loc: HO.MAMMO Attending Dr: Zach Bolton MD Ordering Physician: Zach Bolton MD Results: Date of Service: 09/19/24 Follow Up: Procedure(s): XR DEXA axial skeleton Accession Number(s): [id number] cc: Wyatt Eldridge MD; Zach Bolton MD EXAMINATION: DXA BONE DENSITY AXIAL HISTORY: M85.80 - Other specified disorders of bone density and structure, unspecified... TECHNIQUE: benchee Dual energy absorptiometry (DEXA) of the lumbar [...] of the [employer] Metabolic Bone Disease, a World Health Organization (WHO) Collaborating Center. Electronically signed by: Zach Reece MD 09/19/2024 02:01 PM EDT Dictated By: Zach Reece MD Signed By: <Electronically signed by Zach Reece MD in OV> 09/19/24 1401 DD/ 1330 TD/TT: 09/19/24 1346 District Or District Office Director: Lita [facility]'s [address] [place], [place] [address] Mammography Report Signed Patient: Rochelle Garcia MR#: [id number] : 1945 Acct:[id number] Age/Sex: 79 / F ADM Date: 09/19/24 Loc: HO.MAMMO Attending Dr: Zach Bolton MD Ordering Physician: Zach Bolton MD Results: Date of Service: 09/19/24 Follow Up: Procedure(s): XR DEX A axial skeleton Accession Number(s): [id number] cc: Wyatt Eldridge MD; Zach Bolton MD EXAMINATION: DXA BON E DENSITY AXIAL HISTORY: M85.80 - Ot her specified disorders of bone density and structure, unspecified... TECHNIQUE: benchee Dual energy absorptiometry (DEXA) of the lumbar spine, total left hip, and femoral neck was performed. COMPARISON: Comparison is made w ith the prior examination dated 12/28/2021. FINDINGS: The [...] prior exam. FRACTURE RISK: The FRAX index sugge sts a ten year probability of major osteoporotic fracture of 15.6%, a nd of hip fracture 4.6%. ___ MM/XR DEXA axial skeleton IMPRESSION: Based on bone minera l density, and according to World Health Organization (WHO) criteria, the diagnosis is consistent with osteopenia. All bone density eamon ues are in grams per centimeter squared (g/cm2). Statistically, 68% o f repeat scans fall within 1 SD (+/- 0.010 g/cm2 for AP spine L1-L4) and 1 SD (+/- 0.012 g/cm2 for femur total) FRAX is a trademark of the [employer] Metabolic [employer] Disease, a World Health Organization (WHO) Collaborating Center. Electronically rui d by: Zach Reece MD 09/19/2024 02:01 PM EDT RP Dictated By: Zach Reece MD Signed By: <Electronically signed by Zach Reece MD in OV> 09/19/24 1401 DD/ 1330 TD/TT: 09/19/24 1346 District Or District Office Director: XR lumbar spine 4V min Reviewed date:12/19/2024 12:32:37 PM Interpretation: Performing Lab: Notes/Report: [place] [address] XRay Report Signed Patient: Rochelle Garcia MR#: [id number] : 1945 Acct:[id number] Age/Sex: 79 / F ADM Date: 12/18/24 Loc: JITENDRA Attending Dr: Zach Bolton MD Ordering Physician: Zach Bolton MD Date of Service: 12/18/24 Procedure(s): XR lumbar spine 4V min Accession Number(s): [id number] cc: Wyatt Eldridge MD; Zach Bolton MD EXAMINATION: XR LUMBOSACRAL SPINE WITH OBLIQUES CLINICAL INFORMATION: M85.80 - Other specified disorders of bone density and structure, unspec... COMPARISON: November 23, 2018. TECHNIQUE: AP, both oblique, and lateral views of the lumbar spine. Lateral view of the lumbosacral junction. FINDINGS: Grade 1 anterolisthesis L4-5 and likely L5-S1. Endplate sclerosis marginal osteophyte formation and decreased intervertebral disc height with vacuum phenomenon at L5-S1. Marginal osteophyte formation and endplate sclerosis at L4-5. Multilevel marginal osteophyte formation and endplate sclerosis lower thoracic spine. Facet joint hypertrophy at L4-5 and L5-S1. Degenerative changes in the symphysis with an inferior sacroiliac joints. 20% volume loss of the vertebral body L2 and L3 likely old. XR/XR lumbar spine 4V min IMPRESSION: Multilevel thoracolumbar spondylosis resulting in grade 1 anterolisthesis L4-5 and L5-S1. Likely old superior endplate compression deformities at L2 and L3. Electronically signed by: Edward Irving MD 12/18/2024 03:20 PM EDT RP Dictated By: Edward Hopson MD Signed By: <Electronically signed by Edward Barajas MD in OV> 12/18/24 1520 DD/ 1453 TD/TT: 12/18/24 1505 District Or District Office Director: [address] [address] XRay Report Signed Patient: Rochelle Garcia MR#: [id number] : 1945 Acct:[id number] Age/Sex: 79 / F ADM Date: 12/18/24 Loc: HO.MINESH Attending Dr: Zach Bolton MD Ordering Physician: Zach Bolton MD Date of Service: 12/18/24 Procedure(s): XR lum bar spine 4V min Accession Number(s): [id number] cc: Wyatt Eldridge MD; Zach Bolton MD EXAMINATION: XR LUMBOSACRAL SPINE WITH OBLIQUES CLINICAL INFORMATION: M85.80 - Other specified disorders of bone density and structure, unspec... COMPARISON: November 23, 2018. TECHNIQUE: AP, both oblique, an d lateral views of the lumbar spine. Lateral view of the lumbosacral junction. FINDINGS: Grade 1 anterolisthe sis L4-5 and likely L5-S1. Endplate sclerosis marginal osteophyte formation and decreased intervertebral disc height with vacuum phenomenon at L5-S1. Marginal osteophyte formation and endplate sclerosis at L4-5. Multilevel marginal osteophyte formation and endplate sclerosis lower thoracic spine. Facet joint hypertro phy at L4-5 and L5-S1. Degenerative changes in the symphysis with an inferior sacroiliac joints. 20% volume l oss of the vertebral body L2 and L3 likely old. XR/XR lumbar spine 4V min IMPRESSION: Multilevel thoracolumbar spondylosis resulting in grade 1 anterolisthesis L4-5 and L5-S1. Likely old superior endplate compression deformities at L2 and L3. Electronically rui d by: Edward Irving MD 12/18/2024 03:20 PM EDT RP Dictated By: Edward Palma MD Signed By: <Electronically signed by Edward Barajas MD in OV> 12/18/24 1520 DD/ 1453 TD/TT: 12/18/24 1505 District Or District Office Director: Flavia Duran Reviewed date:01/30/2025 12:15:52 PM Interpretation: Performing Lab:[facility], [address] [place] [phone] Notes/Report: Flavia Duran See Note Specimen held untested for 24 hours; Call to request Chemistry testing. Reason For Referral Reason OSTEOPOROSIS Diagnosis 1 Osteoporosis (M81.0) Referral Organization Wyatt Eldridge MD Referring Provider First Name Wyatt Referring Provider Last Name Jazmyn Referring Provider Speciality Internal edicine Referred Provider Zach Bolton Referred Provider Specialty Endocrinolog y General Notes Radha Cruz 07/30/2024 03:09:03 PM >REFERRAL FAXED TO [facility], Radha Cruz 08/12/2024 10:20:34 AM >APPT SCHEDULED FOR 08/20/24 AT 2PMAnthony Patti A 08/22/2024 12:19:17 PM >OFFICE NOTE HAS BEEN RECEIVED Referral Priority Routine Referral Appointment Date 08/20/2024 Reason back pain please e eamon and treat for PT Diagnosis 1 Back pain (M54.9) Referral Organization Wyatt Eldridge MD Referring Provider First Name Wyatt Referring Provider Last Name Jazmyn Referring Provider Speciality Internal M edicine Referred Provider [facility] Referred Provider Specialty Physical The rapist General Notes Joann Ross 0 12/26/2024 12:05:20 PM >referral info faxed Referral Priority Routine Referral Appointment Date 01/17/2025 Medications Medication SIG (Take, Route, Frequency, Duration) Notes Start Date End Date Status Furosemide 20 MG TAKE 1 TABLET BY MOUTH EVERY DAY Orally Once a day for 90 days Active Ibuprofen 800 MG TAKE 1 TABLET BY MOUTH THREE TIMES DAILY WITH FOOD OR MILK FOR 14 DAYS NEEDED for 14 Not-Taking traMADol HCl 50 MG 1 tablet as needed Orally every 8 hrs as needed for 10 days 05/03/2024 Not-Taking traZODone HCl 50 MG TAKE 1 TABLET BY MOUTH DAILY AT BEDTIME NEEDED for 30 Active Rosuvastatin Calcium 40 MG TAKE 1 TABLET BY MOUTH EVERY DAY Active Metoprolol Succinate ER 25 MG 1 tablet Orally bid Active Farxiga 5 MG 1 tablet Orally Once a day for 30 days 07/30/2024 Active Losartan Potassium 25 MG 1 tablet Orally BID Active Aspir-Low 81 MG 1 tablet Orally Once a day for 30 day(s) Active Slow Fe 142 (45 Fe) MG 1 tablet Orally t hree times a weel Active Cyclobenzaprine HCl 5 MG TAKE 1 TABLET B Y MOUTH TWICE DAILY AT BEDTIME FOR 10 DAYS NEEDED for 10 Not-Taking Immunizations Vaccine Route Administration Date Status Comme nts Flu Vaccine Unknown 02/10/2014 Administered [facility] Flu Vaccine Unknown 02/17/2015 Administered [facility] Flu Vaccine Unknown 03/07/2016 Administered pt had it a t [facility] Fluarix Quadrivalent Unknown 01/26/2017 Administered [facility] Fluarix Quadrivalent IM Intramuscular 01/23/2018 Administered Prevnar [...] High Dose IM Intramuscular 01/19/2024 Administer ed Influenza High Dose IM Intramuscular 02/03/2025 Administer ed PPSV23 (Pnemovax) Unknown 05/12/2015 Refused [...] Problem Status W/U Status Risk Notes Problem 70857468 Lymphocytosis (D72.820) Active confirmed Problem Insomnia (296722257) Insomnia (G47.00) Active confirmed Problem 5223921 Primary insomnia (F51.01) Active confirmed Problem 703249672 Ischemic cardiomyopathy (I25.5) Active confirmed Problem Localized, primary osteoarthritis of the hand (193852535) Primary osteoarthritis, right hand (M19.041) Active confirmed Problem Localized, primary osteoarthritis of the hand (360454410) Primary osteoarthritis, left hand (M19.042) Active confirmed Problem 833434610 Osteopenia (M85.80) Active confirmed Problem Osteoporosis (37596483) Osteoporosis (M81.0) Active confirmed Problem Age-related macular degeneration (disorder) (659472116) Macular degeneration (H35.30) Active confirmed Problem 560029481 Non-rheumatic mi tral regurgitation (I34.0) Active confirmed Problem Coronary artery disease (37578397) CAD (coronary artery disease) (I25.10) Active confirmed Problem 58933702 Acute [place], inferi or wall (I21.19) Active confirmed Problem 902215457 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 Problem 627697425 Pure hypercholesterolemia (E78.00) Active confirmed Problem Anemia due to blood loss (242876043) Anemia due to blood loss (D50.0) Active confirmed Problem 206326289 Chronic systolic heart failure (I50.22) Active confirmed Problem 975005417 Osteopenia of ne ck of femur, unspecified laterality (M85.859) Active confirmed Problem 854469586 Basal cell carci noma, forehead (C44.319) Active confirmed Vital Signs Blood pressure diastolic 48 mm Hg 02/03/2025 esme ght is down 14 pounds since Height 63 in 02/03/2025 weight is down 14 pounds since Blood pressure systolic 98 mm Hg 02/03/2025 weig ht is down 14 pounds since Weight 141 lbs 02/03/2025 weight is down 14 pounds since BMI 24.97 kg/m2 02/03/2025 weight is down 14 pounds since Encounters Encounter Location Date Provider Diagnosis Wyatt Eldridge MD [address] [place] [id number] 07/23/2024 Wyatt Eldridge Lymphocytosis D72.82 0 ; Pure hypercholesterolemia E78.00 and Chronic systolic heart failure I50.22 Wyatt Eldridge MD [address] [place] [id number] 11/04/2024 Wyatt Eldridge Muscle spasm of back M62.830 Wyatt Eldridge MD [address] [place] [id number] 01/30/2025 Wyatt Eldridge Pure hypercholestero lemia E78.00 Wyatt Eldridge MD [address] [place] [address] [id number] 05/03/2024 Wyatt Eldridge Muscle spasm of back M62.830 Wyatt Eldridge MD [address] [place] [id number] 07/30/2024 Wyatt Eldridge Muscle spasm of back M62.830 ; Macular degeneration H35.30 ; Osteoporosis M81.0 ; Chronic systolic heart failure I50.22 ; Pure hypercholesterolemia E78.00 and Depression screening Z13.31 Wyatt Eldridge MD [address] [place] [address] Drive [address] [place] [id number] 02/03/2025 Wyatt Eldridge Weight loss R63.4 ; Ischemic cardiomyopathy I25.5 ; Insomnia G47.00 ; Pure hypercholesterolemia E78.00 and Encounter for administration of vaccine Z23 Wyatt Eldridge MD [address] [place] [id number] 08/22/2024 Wyatt Eldridge MD [address] [place] [id number] 12/20/2024 Wyatt Eldridge Assessments Encounter Date Diagnosis (ICD Code) Assessment Notes Treatment Notes Treatment Clinical Notes Section Notes 07/23/2024 Lymphocytosis (ICD-1 0 - D72.820) 11/04/2024 Muscle spasm of back (ICD-10 - M62.830) 01/30/2025 Pure hypercholesterolemia (ICD-10 - E78.00) 05/03/2024 Muscle spasm of back (ICD-10 - M62.830) have her use the cyclobenziprine and ibuprofen, patient verbalized understanding of medications and directions for use 07/30/2024 Muscle spasm of back (ICD-10 - M62.830) consider physical therapy 07/30/2024 Macular degeneration (ICD-10 - H35.30) followed by opth 02/03/2025 Weight loss (ICD-10 - R63.4) has 3 grandchildren moved in and has been so busy not eating 02/03/2025 Ischemic cardiomyopa thy (ICD-10 - I25.5) had to have echo rescheduled. is seeing dr ulloa after. will continue current regiment 07/23/2024 Pure hypercholesterolemia (ICD-10 - E78.00) 07/30/2024 Osteoporosis (ICD-10 - M81.0) send to endocrine/ REFERRAL FAXED TO [facility] 02/03/2025 Insomnia (ICD-10 - G47.00) takes trazadone occasionally try taking it nightly 07/23/2024 Chronic systolic hea rt failure (ICD-10 - I50.22) 07/30/2024 Chronic systolic hea rt failure (ICD-10 - I50.22) stable, will continue current regiment 02/03/2025 Pure hypercholesterolemia (ICD-10 - E78.00) stable, will continue current regiment 07/30/2024 Pure hypercholesterolemia (ICD-10 - E78.00) stable, will continue current regiment 02/03/2025 Encounter for administration of vaccine (ICD-10 - Z23) HD flu vaccine admnistered 07/30/2024 Depression screening (ICD-10 - Z13.31) negative [...] Provider Name:Wyatt Meyers ier, 07/28/2025 07:45:00 AM, [address] [place] [address], [address], [phone], Provider Name:Wyatt Meyers ier, 08/04/2025 01:00:00 PM, [address] [place] [address], [place] [address], [place], [phone], Insurance Providers Payer Name Payer Address Payer Phone Subscriber Number Group Number Insured Name Patient Relationship to Insured Coverage Start Date Coverage End Date [employer] [address] [place] [address] [id number] Rochelle Garcia Self - patient is the insured [facility] [address] [place] [phone] [id number] Rochelle Garcia Self - patient is the [...]
== END ==
LOC: HO.CARD 09:01
PROVIDERS: PCP Internal Medicine; Visit Provider Internal Medicine Cardiovascular Disease
DX: I25.5 Ischemic cardiomyopathy (principal); I25.10 Atherosclerotic heart disease of native coronary artery without angina pectoris; I50.9 Heart failure, unspecified
CPT/HCPCS: 93306

== ENCOUNTER → 2025-02-11 09:05 | Outpatient (BNV) | payer MEDICARE, OTHER, SELFPAY ==
[2022-08-03 07:45] VITALS: BP 102/50; BP 104/62; BP 126/50; BMI 24.1
== END ==
PROVIDERS: PCP Internal Medicine; Visit Provider Internal Medicine Cardiovascular Disease
DX: I51.7 Cardiomegaly (principal); I34.0 Nonrheumatic mitral (valve) insufficiency; Z95.2 Presence of prosthetic heart valve
CPT/HCPCS: 93306

== ENCOUNTER 2025-03-03 12:52 | Outpatient (AMB) | payer MEDICARE, OTHER, SELFPAY ==
[2022-08-03 07:45] VITALS: BP 102/50; BP 104/62; BP 126/50; BMI 24.1
--- OUTSIDE RECORDS SUMMARY | 2024-01-19 03:45 | XMS_ITS ---
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 Role Phone Wyatt Eldridge Primary Care Provider [phone] Results Component Value Reference Range Notes Liver Panel Reviewed date:01/19/2024 03:46:59 PM Interpretation: Performing Lab:[facility], [address] [place] [id number] Notes/Report: Bilirubin Total 0.3 0.0-1.0 mg/dL Bilirubin Direct 0.1 0.0-0.5 mg/dL Aspartate Amino Transferase 22 5-31 U/L Alanine Aminotransferase 14 0-31 U/L Total Protein 6.6 6.5-8.0 g/dL Albumin Level 3.9 3.5-5.0 g/dL Alkaline Phosphatase 55 39-117 U/L Lipid Panel with Reflex Reviewed date:01/21/2024 05:01:09 PM Interpretation: Performing Lab:[facility], [address] [place] [id number] Notes/Report: Triglycerides 56 <150 mg/dL Desirable Triglyceride: less than 150 mg/dL Borderline High Triglyceride 150-199 mg/dL High Triglyceride: 200-499 mg/dL Very High Triglyceride: greater than or equal to 5OO mg/dL Cholesterol 131 <200 mg/dL Desirable Cholesterol: less than 200 mg/dL Borderline High Cholesterol: 200-239 mg/dL High Cholesterol: greater than 239 mg/dL LDL Cholesterol Calculated 48 <100 mg/dL Desirable LDL: less than 100 mg/dL Near Optimal/Above Optimal LDL: 110-129 mg/dL Borderline High LDL: 130-159 mg/dL High LDL: 160-189 mg/dL Very High LDL: greater than or equal to 190 mg/dL HDL Cholesterol 72 >40 mg/dL Desirable HDL: greater than 40 mg/dL Note: This HDL assay may give artificially low results in patients with liver disease. REASON FOR VISIT FASTING LIPIDS Immunizations Vaccine Route Administration Date Status Comme nts Influenza High Dose IM Intramuscular 01/19/2024 Administer ed Encounters Encounter Location Date Provider Diagnosis Wyatt Eldridge MD [address] [place] [phone] 01/19/2024 Wyatt Eldridge Pure hypercholestero lemia E78.00 and Encounter for immunization Z23 Assessments Encounter Date Diagnosis (ICD Code) Assessment Notes Treatment Notes Treatment Clinical Notes Section Notes 01/19/2024 Pure hypercholesterolemia (ICD-10 - E78.00) 01/19/2024 Encounter for immunization (ICD-10 - Z23) Plan Of Treatment Next Appt Details Provider Name:Wyatt walton, 07/28/2025 07:45:00 AM, [address] [place] [address], [address], [phone], Provider Name:Wyatt walton, 08/04/2025 01:00:00 PM, [address] [place] [address], [place] [address], [place], [place], [phone], Progress Notes * Rochelle DOWNS MDOB:0 1945 (79 yo F)Acc No.[id number]:01/19/2024 Progress Note Patient: Brandt DENNISLeslie Rochelle BARAJAS Provider: Kobe Eldridge MD :1945 A ge:78 Y S ex:Female Date:01/19/2024 Address:[address] [place] [address], [id number] Subjective: * Chief Complaints: * 1 . FASTING LIPIDS. * Medical History: Objective: * Vitals: Assessment: * Assessment: 1. E ncounter for immunization - Z23 (Primary) 2 . P ure hypercholesterolemia - E78.00 Plan: * Treatment: * Immunizations: Influenza High Dose : 0.5 mL (Dose No:1) (Route: Intramuscular) given by Jocelynn Beaver , Office Staff on Left Deltoid * Procedure Codes: 9 0662 FLU VACC PRSV FREE INC ANTIG, G0008 ADMN FLU VAC NO FEE SCHED SAME DAY, [address] VENIPUNCT, ROUTINE* * * The named appointment provid er may or may not be the originator of this progress note, and it is not deemed complete until electronically signed by the appointment provider. Sign off status: Pending * Provider: Kobe Eldridge MD Date: 0 01/19/2024 Generated for Nai ramírez/Emily/[place] on: 1 04:23 PM EDT
--- OUTSIDE RECORDS SUMMARY | 2024-01-26 11:00 | XMS_ITS ---
Author Organization Wyatt Eldridge MD Address [address] [place] [phone] Care Team Providers Care Dye Winch Operator Name Role Phone Wyatt Eldridge Primary Care Provider [phone] Allergies No Known Allergies REASON FOR VISIT 6 MO F/U Medications Medication SIG (Take, Route, Frequency, Duration) Notes Start Date End Date Status traZODone HCl 50 MG TAKE 1 TABLET BY MOUTH DAILY AT BEDTIME NEEDED for 30 Not-Taking Cyclobenzaprine HCl 5 MG 1 tablet as nee ded Orally Three times a day for 14 days 12/03/2018 Not-Taking Cyclobenzaprine HCl 5 MG 1 tablet at bed time as needed Orally twice a day for 10 days 08/29/2023 Not-Taking Metoprolol Succinate ER 25 MG 1 tablet Orally bid Active Rosuvastatin Calcium 40 MG take 1 tablet by mouth every day Once a day for 90 days Active Furosemide 20 MG TAKE 1 TABLET BY MOUTH EVERY DAY Orally Active Losartan Potassium 25 MG 1 tablet Orally BID Active Ibuprofen 800 MG 1 tablet with food o r milk as needed Orally Three times a day for 14 days 12/03/2018 Active Aspir-Low 81 MG 1 tablet Orally Once a day for 30 day(s) Active Slow Fe 142 (45 Fe) MG 1 tablet Orally T wice a week Active Vital Signs Blood pressure systolic 94 mm Hg 01/26/20 24 Blood pressure diastolic 50 mm Hg 024 Height 63 in 01/26/2024 Weight 154 lbs 01/26/2024 BMI 27.28 kg/m2 01/26/2024 weight is down 7 pounds lindsey guzman 08-29-23 Encounters Encounter Location Date Provider Diagnosis Wyatt Eldridge MD [address] [place] [phone] 01/26/2024 Wyatt Eldridge Pure hypercholestero lemia E78.00 and Chronic systolic heart failure I50.22 Assessments Encounter Date Diagnosis (ICD Code) Assessment Notes Treatment Notes Treatment Clinical Notes Section Notes 01/26/2024 Pure hypercholesterolemia (ICD-10 - E78.00) has great cholesterol 01/26/2024 Chronic systolic hea rt failure (ICD-10 - I50.22) Stable. Continue current regiment. doing great on meds. no symptoms Plan Of Treatment Medication Medication Name Sig Start Date Stop Date Notes Rosuvastatin Calcium 40 MG take 1 tablet by mouth every day Once a day for 90 days Treatment Notes Assessment Notes Pure hypercholesterolemia has great chol esterol Chronic systolic heart failure Stable. C ontinue current regiment. doing great on meds. no symptoms Next Appt Details Follow Up: 6 Months, Reason: Provider Name:Wyatt walton, 07/28/2025 07:45:00 AM, [address] [place] [address], [address], [phone], Provider Name:Wyatt walton, 08/04/2025 01:00:00 PM, [address] [place] [address], [address], [phone], Progress Notes * Rochelle DOWNS MDOB:0 1945 (78 yo F)Acc No.[id number]:01/26/2024 Progress Notes Patient: Rochelle Erazo Provider: Kobe Eldridge MD :1945 A ge:78 Y S ex:Female Date:01/26/2024 Address:[address] [place], [place] [phone] Subjective: * Chief Complaints: * 6 MO F/U * HPI: S ymptom(s): here for follow up. advised to get covid vacc and rsv vaccination. taking trazadone 2 or 3 times a month. need opthalmology. * ROS: G eneral/Constitutional: Fei [place] hills. D enies F atigue. D enies F ever. D enies H eadache. E NT: Dennba S ore throat. R espiratory: Fei Ocampo ough. D enies S hortness of breath at rest. D enies S hortness of breath with exertion. G astrointestinal: Fei John iarrhea. D enies N ausea. * Medical History: * Surgical History: * Hospitalization/Major Diagno stic Procedure: * Medications: T akingSlow Fe 142 (45 Fe) MG Tablet Extended Release 1 tablet Orally Twice a weekAspir-Low 81 MG Tablet Delayed Release 1 tablet Orally Once a dayLosartan Potassium 25 MG Tablet 1 tablet Orally BIDIbuprofen 800 MG Tablet 1 tablet with food or milk as needed Orally Three times a dayFurosemide 20 MG Tablet TAKE 1 TABLET BY MOUTH EVERY DAY Orally Metoprolol Succinate ER 25 MG Tablet Extended Release 24 Hour 1 tablet Orally bidRosuvastatin Calcium 40 MG Tablet TAKE 1 TABLET BY MOUTH EVERY DAY Taking Slow Fe 142 (45 Fe) MG Tablet Extended Release 1 tablet Orally Twice a weekTaking Aspir-Low 81 MG Tablet Delayed Release 1 tablet Orally Once a dayTaking Losartan Potassium 25 MG Tablet 1 tablet Orally BIDTaking Ibuprofen 800 MG Tablet 1 tablet with food or milk as needed Orally Three times a dayTaking Furosemide 20 MG Tablet TAKE 1 TABLET BY MOUTH EVERY DAY Orally Taking Metoprolol Succinate ER 25 MG Tablet Extended Release 24 Hour 1 tablet Orally bidTaking Rosuvastatin Calcium 40 MG Tablet TAKE 1 TABLET BY MOUTH EVERY DAY Not-Taking/PRNCyclobenzaprine HCl 5 MG Tablet 1 tablet at bedtime as needed Orally twice a daytraZODone HCl 50 MG Tablet TAKE 1 TABLET BY MOUTH DAILY AT BEDTIME NEEDED Cyclobenzaprine HCl 5 MG Tablet 1 tablet as needed Orally Three times a dayMedication List reviewed and reconciled with the patientNot-Taking/PRN Cyclobenzaprine HCl 5 MG Tablet 1 tablet at bedtime as needed Orally twice a dayNot-Taking/PRN traZODone HCl 50 MG Tablet TAKE 1 TABLET BY MOUTH DAILY AT BEDTIME NEEDED Not-Taking/PRN Cyclobenzaprine HCl 5 MG Tablet 1 tablet as needed Orally Three times a dayMedication List reviewed and reconciled with the patient * Allergies: N .K.D.A.yes[Allergies Verified] Objective: * Vitals: H t: 63, Wt:154, BMI:27.28, BP:94/50 weight is down 7 pounds since 08-29-23. * P ast Orders: L ab:Liver Panel (Order Date - 01/19/2024) (Collection Date - 01/19/2024) Value Reference Range Bilirubin Total 0.3 0.0-1.0 - mg/dL Bilirubin Direct 0.1 0.0-0.5 - mg/dL Aspartate Amino Transferase 22 5-31 - U/L Alanine Aminotransferase 14 0-31 - U/L Total Protein 6.6 6.5-8.0 - g/dL Albumin Level 3.9 3.5-5.0 - g/dL Alkaline Phosphatase 55 39-117 - U/L L ab:Lipid Panel with Reflex (Order Date - 01/19/2024) (Collection Date - 01/19/2024) Value Reference Range Triglycerides 56 <150 - mg/dL Cholesterol 131 <200 - mg/dL LDL Cholesterol Calculated 48 <100 - mg/dL HDL Cholesterol 72 >40 - mg/dL * Examination: G eneral Examination: GENERAL APPEARANCE: alert, well hydrated, in no distress . HEAD: normocephalic. SKIN: good turgor. HEART: no murmurs, rubs, gallops, regular rate and rhythm. LUNGS: no wheezes, rales, rhonchi, good air movement, clear to auscultation bilaterally. EXTREMITIES: no edema. Assessment: * Assessment: 1. P ure hypercholesterolemia - E78.00 (Primary) 2 . C hronic systolic heart failure - I50.22 Plan: * Treatment: 2. C hronic systolic heart failure Notes: Stable. Continue current regiment. doing great on meds. no symptoms * Procedure Codes: * Follow Up: 6 Months * * Sign off status: Completed true * Provider: Kobe Eldridge MD Date: 0 01/26/2024 Generated for Nai ramírez/Emily/Dianeitting on: 1 04:21 PM EDT History and Physical Notes * HPI (History of Present Illness) Category Sub-Category Detail Notes Category Not es Symptom(s) here for follow up. advised to get covid vacc and rsv vaccination. taking trazadone 2 or 3 times a month. need opthalmology Examination Category Sub-Category Detail Notes Category Not es General Examination GENERAL APPEARANCE: alert, w ell hydrated, in no distress HEAD: normocephalic HEART: no murmurs, rubs, ga llops, regular rate and rhythm LUNGS: no wheezes, rales, r honchi, good air movement, clear to auscultation bilaterally SKIN: good turgor EXTREMITIES: no edema
--- OUTSIDE RECORDS SUMMARY | 2024-05-03 07:45 | XMS_ITS ---
Author Organization Wyatt Eldridge MD Address [address] [place] [phone] Care Team Providers Care Art Critic Name Role Phone Wyatt Eldridge Primary Care Provider [phone] Allergies No Known Allergies REASON FOR VISIT Back pain since 04-12 was lower back pulling out a Ellis bed Medications Medication SIG (Take, Route, Frequency, Duration) Notes Start Date End Date Status Metoprolol Succinate ER 25 MG 1 tablet Orally bid Active Cyclobenzaprine HCl 5 MG TAKE 1 TABLET B Y MOUTH TWICE DAILY AT BEDTIME FOR 10 DAYS NEEDED for 10 Active Furosemide 20 MG TAKE 1 TABLET BY MOUTH EVERY DAY Orally Active Rosuvastatin Calcium 40 MG TAKE 1 TABLET BY MOUTH EVERY DAY for 90 Active traZODone HCl 50 MG TAKE 1 TABLET BY MOUTH DAILY AT BEDTIME NEEDED for 30 Not-Taking Aspir-Low 81 MG 1 tablet Orally Once a day for 30 day(s) Active Losartan Potassium 25 MG 1 tablet Orally BID Active Slow Fe 142 (45 Fe) MG 1 tablet Orally T wice a week Active Ibuprofen 800 MG 1 tablet with food o r milk as needed Orally Three times a day for 14 days 12/03/2018 Active traMADol HCl 50 MG 1 tablet as needed Orally every 8 hrs as needed for 10 days 05/03/2024 Active Vital Signs Blood pressure systolic 104 mm Hg 05/03/20 24 Blood pressure diastolic 50 mm Hg 024 Height 63 in 05/03/2024 Weight 158 lbs 05/03/2024 BMI 27.99 kg/m2 05/03/2024 weight is up 4 pounds since 01-26-24 Encounters Encounter Location Date Provider Diagnosis Wyatt Eldridge MD [address] [place] [address] [place] [phone] 05/03/2024 Wyatt Eldridge Muscle spasm of back M62.830 Assessments Encounter Date Diagnosis (ICD Code) Assessment Notes Treatment Notes Treatment Clinical Notes Section Notes 05/03/2024 Muscle spasm of back (ICD-10 - M62.830) have her use the cyclobenziprine and ibuprofen, patient verbalized understanding of medications and directions for use Plan Of Treatment Medication Medication Name Sig Start Date Stop Date Notes traMADol HCl 50 MG 1 tablet as needed O rally every 8 hrs as needed for 10 days 05/03/2024 Treatment Notes Assessment Notes Muscle spasm of back have her use the cy clobenziprine and ibuprofen, patient verbalized understanding of medications and directions for use Next Appt Details Provider Name:Wyatt walton, 07/28/2025 07:45:00 AM, [address] [place] [address], Suite [facility], [place], [place], [phone], Provider Name:Wyatt walton, 08/04/2025 01:00:00 PM, [address] [place] [address], Suite [facility], [place], [place], [phone], Progress Notes * Rochelle DOWNS MDOB:0 1945 (78 yo F)Acc No.[id number]:05/03/2024 Progress Notes Patient: Rochelle Erazo Provider: Kobe Eldridge MD :1945 A ge:78 Y S ex:Female Date:05/03/2024 Address:[facility] [address] [id number] Subjective: * Chief Complaints: * B ack pain since 6 was lower back pulling out a Ellis bed * HPI: S ymptom(s): patient is a 78 yo female here for a severe back pain.. was pulling ellis bed. and hurt lower back. took the flexeril with some relief but stopped it and went on ibuprofen. * ROS: G eneral/Constitutional: Denies [place]rence hills. Alvaro enies F atigue. D enies F ever. D enies H eadache. E NT: Patient denies d ecreased sense of smell , any loss of taste , sore throat. D enies S ore throat. R espiratory: Denies Terrecne ough. Alvaro ennba S hortness of breath at rest. D enies S hortness of breath with exertion. G astrointestinal: Denies Alvaro iarrhea. D ennba N ausea. M usculoskeletal: Patient denies m uscle aches. P eripheral Vascular: Patient denies r ed and blue toes. * Medical History: * Surgical History: * [...] Extended Release 24 Hour 1 tablet Orally bidCyclobenzaprine HCl 5 MG Tablet TAKE 1 TABLET BY MOUTH TWICE DAILY AT BEDTIME FOR 10 DAYS NEEDED Rosuvastatin Calcium 40 MG Tablet TAKE 1 [...] Release 24 Hour 1 tablet Orally bidTaking Cyclobenzaprine HCl 5 MG Tablet TAKE 1 TABLET BY MOUTH TWICE DAILY AT BEDTIME FOR 10 DAYS NEEDED Taking Rosuvastatin Calcium 40 MG Tablet TAKE 1 TABLET BY MOUTH EVERY DAY Not-Taking/PRNtraZODone HCl 50 MG Tablet TAKE 1 TABLET BY MOUTH DAILY AT BEDTIME NEEDED Medication List reviewed and reconciled with the patientNot-Taking/PRN traZODone HCl 50 MG Tablet TAKE 1 TABLET BY MOUTH DAILY AT BEDTIME NEEDED Medication List reviewed and reconciled with the patient * Allergies: N .K.D.A.yes[Allergies Verified] Objective: * Vitals: H t: 63, Wt:158, BMI:27.99, BP:104/50 weight is up 4 pounds since 01-26-24. * Examination: G eneral Examination: GENERAL APPEARANCE: a lert, well hydrated, in no distress.? HEAD: n ormocephalic. SKIN: g ood turgor. HEART: g rade 2/6 systolic murmur at left sternal border.? LUNGS: n o wheezes, rales, rhonchi , good air movement , clear to auscultation bilaterally. Assessment: * Assessment: 1. M uscle spasm of back - M62.830 (Primary) Plan: * Treatment: * Procedure Codes: * * Sign off status: Completed true * Provider: Kobe Eldridge MD Date: 07/04/2023 Generated for Nai ramírez/Emily/Dianeitting on: 04:22 PM EDT History and Physical Notes * HPI (History of Present Illness) Category Sub-Category Detail Notes Category Not es Symptom(s) patient is a 78 yo female here for a severe back pain.. was pulling ellis bed. and hurt lower back. took the flexeril with some relief but stopped it and went on ibuprofen. Examination Category Sub-Category Detail Notes Category Not es General Examination GENERAL APPEARANCE: alert, w ell hydrated, in no distress HEAD: normocephalic HEART: grade 2/6 systolic m urmur at left sternal border LUNGS: no wheezes, rales, r honchi , good air movement , clear to auscultation bilaterally SKIN: good turgor
--- OUTSIDE RECORDS SUMMARY | 2024-07-23 03:45 | XMS_ITS ---
Author Organization Wyatt Eldridge MD Address [address] [place] [id number] Care Team Providers Care Garment Tag Stringer Name Role Phone Wyatt Eldridge Primary Care Provider Results Component Value Reference Range Notes Complete Blood Count Auto Di ff Reviewed date:07/23/2024 12:10:00 PM Interpretation: Performing Lab:[facility], [address] [place] [phone] Notes/Report: White Blood Count 6.6 4.8-10.8 X10*3/uL Red Blood Count 3.64 4.20-5.50 X10*6/uL Hemoglobin 10.9 12.0-16.0 g/dl Hematocrit 33.0 37.0-47.0 % Mean Corpuscular Volume 90.7 80.0-98.0 fL Mean Corpuscular Hemoglobin 29.9 27.0-33.0 pg Mean Corpuscular HGB Conc 33.0 31.0-35.0 g/dl Red Cell Distribution Width 15.3 11.0-16.0 % Platelet Count 219 160-400 X10*3/uL Mean Platelet Volume 11.2 9.4-12.3 fL Neutrophils Percent Auto 44.0 45-73 % Imm Gran Pct Auto 0.2 0.0-0.4 % Lymphocytes Percent Auto 41.0 20-40 % Monocytes Percent Auto 11.1 2-11 % Eosinophils Percent Auto 2.9 0-4 % Basophils Percent Auto 0.8 0-2 % NRBC Pct Auto 0.0 0.0-0.2 /100WBC Neutrophils Absolute Auto 2.9 2.0-8.3 x10*3/u L Imm Gran Abs Auto 0.01 0.00-0.03 X10*3/uL Lymphocytes Absolute Auto 2.7 1.2-4.9 X10*3/u L Monocytes Absolute Auto 0.7 0.1-1.2 X10*3/uL Eosinophils Absolute Auto 0.2 0.0-0.4 X10*3/u L Basophils Absolute Auto 0.1 0.0-0.2 X10*3/uL NRBC Abs Auto 0.000 0.0-0.012 X10*3/uL Comprehensive Floyd. Panel Fa st Reviewed date:07/23/2024 12:09:07 PM Interpretation: Performing Lab:[address] [phone] Notes/Report: Sodium 142 135-145 mmol/L Potassium 4.2 3.3-5.1 mmol/L Chloride 108 96-108 mmol/L Carbon Dioxide 27 22-29 mmol/L Anion Gap 11 12-20 Blood Urea Nitrogen 27 9-16 mg/dL Creatinine 0.99 0.5-1.4 mg/dL Estimated Glomerular Filt Rate 54 Chronic Kidney Disease: Estimated GFR < 60 mL/min/1.73m2 Severe Kidney Disease: Estimated GFR < 15 mL/min/1.73m2 Glucose Fasting 94 60-99 mg/dL Calcium 9.1 8.4-10.2 mg/dL Bilirubin Total 0.3 0.0-1.0 mg/dL Aspartate Amino Transferase 25 5-31 U/L Alanine Aminotransferase 13 0-31 U/L Total Protein 7.1 6.5-8.0 g/dL Albumin Level 4.0 3.5-5.0 g/dL Alkaline Phosphatase 65 39-117 U/L Lipid Panel Reviewed date:07/23/2024 12:08:44 PM Interpretation: Performing Lab:[address] [phone] Notes/Report: Triglycerides 57 <150 mg/dL Desirable Triglyceride: less than 150 mg/dL Borderline High Triglyceride 150-199 mg/dL High Triglyceride: 200-499 mg/dL Very High Triglyceride: greater than or equal to 5OO mg/dL Cholesterol 145 <200 mg/dL Desirable Cholesterol: less than 200 mg/dL Borderline High Cholesterol: 200-239 mg/dL High Cholesterol: greater than 239 mg/dL LDL Cholesterol Calculated 60 <100 mg/dL Desirable LDL: less than 100 mg/dL Near Optimal/Above Optimal LDL: 110-129 mg/dL Borderline High LDL: 130-159 mg/dL High LDL: 160-189 mg/dL Very High LDL: greater than or equal to 190 mg/dL HDL Cholesterol 74 >40 mg/dL Desirable HDL: greater than 40 mg/dL Note: This HDL assay may give artificially low results in patients with liver disease. UA ClnCatch+Micro w/rflx Cul t Reviewed date:07/23/2024 12:10:23 PM Interpretation: Performing Lab:[facility], [address] [place] [phone] Notes/Report: Urine, Clean Catch Color Urine Yellow Appearance Urine Clear PH 6.0 5.0-9.0 Glucose Urine UA Negative Negative mg/dL Urine Blood Negative Negative Specific Raven - Urine 1.015 1.005-1.025 Urine Protein Negative Neg-Trace mg/dL Urine Ketones Negative Negative mg/dL Nitrite Urine Negative Negative Leukocyte Esterase Urine Negative Negative RBC Urine 0-2 0-2 /HPF WBC Urine 0-5 0-5 /HPF Squamous Epithelial Cell Urine 0-2 0-2 /HPF Bacteria Urine None Seen None Seen Hyaline Casts Urine 0-2 0-2 /LPF REASON FOR VISIT FASTING LABS Encounters Encounter Location Date Provider Diagnosis Wyatt Eldridge MD [address] [place], [place] [id number] 07/23/2024 Wyatt Eldridge Lymphocytosis D72.82 0 ; Pure hypercholesterolemia E78.00 and Chronic systolic heart failure I50.22 Assessments Encounter Date Diagnosis (ICD Code) Assessment Notes Treatment Notes Treatment Clinical Notes Section Notes 07/23/2024 Lymphocytosis (ICD-1 0 - D72.820) 07/23/2024 Pure hypercholesterolemia (ICD-10 - E78.00) 07/23/2024 Chronic systolic hea rt failure (ICD-10 - I50.22) Plan Of Treatment Next Appt Details Provider Name:Wyatt Meyers ier, 07/28/2025 07:45:00 AM, [address], [address], [place], [phone], Provider Name:Wyatt Meyers ier, 08/04/2025 01:00:00 PM, [address], [address], [place], [phone], Progress Notes * Rochelle DOWNS MDOB:0 1945 (79 yo F)Acc No.[id number]:07/23/2024 Progress Note Patient: Brandt ORR Rochelle BARAJAS Provider: Kobe Eldridge MD :1945 A ge:78 Y S ex:Female Date:07/23/2024 Address:[address] [place], [place] [id number] Subjective: * Chief Complaints: * 1 . FASTING LABS. * Medical History: Objective: * Vitals: Assessment: * Assessment: 1. L ymphocytosis - D72.820 (Primary) 2 . P ure hypercholesterolemia - E78.00 3 . C hronic systolic heart failure - I50.22 Plan: * Treatment: 2. P ure hypercholesterolemia L AB: Complete Blood Count Auto Diff (Collection Date & Time - 07/23/2024 07:45 AM) L AB: Comprehensive Floyd. Panel Fast (Collection Date & Time - 07/23/2024 07:45 AM) L AB: Lipid Panel (Collection Date & Time - 07/23/2024 07:45 AM) L AB: UA ClnCatch+Micro w/rflx Cult (Collection Date & Time - 07/23/2024 07:45 AM) 3. C hronic systolic heart failure L AB: Complete Blood Count Auto Diff (Collection Date & Time - 07/23/2024 07:45 AM) L AB: Comprehensive Floyd. Panel Fast (Collection Date & Time - 07/23/2024 07:45 AM) L AB: Lipid Panel (Collection Date & Time - 07/23/2024 07:45 AM) L AB: UA ClnCatch+Micro w/rflx Cult (Collection Date & Time - 07/23/2024 07:45 AM) * Procedure Codes: 3 6415 VENIPUNCT, ROUTINE* * * The named appointment provid er may or may not be the originator of this progress note, and it is not deemed complete until electronically signed by the appointment provider. Sign off status: Pending * Provider: Kobe Eldridge MD Date: 0 07/23/2024 Generated for Nai ramírez/Emily/Dianeitting on: 1 04:21 PM EDT
--- OUTSIDE RECORDS SUMMARY | 2024-07-30 10:30 | XMS_ITS ---
Author Organization Wyatt Eldridge MD Address [address] [place] [phone] Care Team Providers Care Geriatric Care Manager Name Role Phone Jazmyn Wyatt Primary Care Provider Allergies Allergen (clinical drug ingredient) Drug/Non Drug Allergy documented on EMR Reaction Allergy Type Onset Date Status tramadol traMADol HCl confusion Drug Allergy Acti ve Reason For Referral Reason OSTEOPOROSIS Diagnosis 1 Osteoporosis (M81.0) Referral Organization Wyatt Eldridge MD Referring Provider First Name Wyatt Referring Provider Last Name Jazmyn Referring Provider Speciality Internal M edicine Referred Provider Zach Bolton Referred Provider Specialty Endocrinolog y General Notes Radha Cruz 07/30/2024 03:09:03 PM >REFERRAL FAXED [facility] [place] [facility] Patti A 08/12/2024 10:20:34 AM >APPT SCHEDULED FOR 08/20/24 AT 2PMAnthony Patti A 08/22/2024 12:19:17 PM >OFFICE NOTE HAS BEEN RECEIVED Referral Priority Routine Referral Appointment Date 08/20/2024 REASON FOR VISIT review labs Medications Medication SIG (Take, Route, Frequency, Duration) Notes Start Date End Date Status Metoprolol Succinate ER 25 MG 1 tablet Orally bid Active traZODone HCl 50 MG TAKE 1 TABLET BY MOUTH DAILY AT BEDTIME NEEDED for 30 Not-Taking Cyclobenzaprine HCl 5 MG TAKE 1 TABLET B Y MOUTH TWICE DAILY AT BEDTIME FOR 10 DAYS NEEDED for 10 Not-Taking traMADol HCl 50 MG 1 tablet as needed Orally every 8 hrs as needed for 10 days 05/03/2024 Active Ibuprofen 800 MG TAKE 1 TABLET BY MOUTH THREE TIMES DAILY WITH FOOD OR MILK FOR 14 DAYS NEEDED for 14 Active Rosuvastatin Calcium 40 MG TAKE 1 TABLET BY MOUTH EVERY DAY Active Losartan Potassium 25 MG 1 tablet Orally BID Active Slow Fe 142 (45 Fe) MG 1 tablet Orally T wice a week Active Furosemide 20 MG TAKE 1 TABLET BY MOUTH EVERY DAY Orally Active Aspir-Low 81 MG 1 tablet Orally Once a day for 30 day(s) Active Farxiga 5 MG 1 tablet Orally Once a day for 30 days 07/30/2024 Active Social History Tobacco Use: Social History Observation Description Date Details (start date - stop date) Never Smoker NA - NA Tobacco Use/Smoking Question Answer Notes Patient is a nonsmoker Additional Findings: Tobacco Non-User Cu rrent non-smoker, currently using no form of tobacco Alcohol Screen Question Answer Notes Did you have a drink contain ing alcohol in the past year? Yes How often did you have a dri nk containing alcohol in the past year? Monthly or less (1 point) How many drinks did you have on a typical day when you were drinking in the past year? 1 or 2 drinks (0 point) How often did you have 6 or more drinks on one occasion in the past year? Never (0 point) Points 1 Interpretation Negative Problems Problem Type SNOMED Code ICD Code Onset Dates Problem Status W/U Status Risk Notes Problem Age-related macular degeneration (disorder) (336633286) Macular degeneration (H35.30) Active confirmed Problem Osteoporosis (63315990) Osteoporosis (M81.0) Active confirmed Vital Signs Blood pressure systolic 122 mm Hg 07/31/19 25 Blood pressure diastolic 58 mm Hg 025 Height 63 in 07/30/2024 Weight 155 lbs 07/30/2024 BMI 27.45 kg/m2 07/30/2024 weight is3 pounds since 12-2 7-24 Encounters Encounter Location Date Provider Diagnosis Wyatt Eldridge MD [address] [place] [address] [place] [phone] 07/30/2024 Wyatt Eldridge Muscle spasm of back M62.830 ; Macular degeneration H35.30 ; Osteoporosis M81.0 ; Chronic systolic heart failure I50.22 ; Pure hypercholesterolemia E78.00 and Depression screening Z13.31 Assessments Encounter Date Diagnosis (ICD Code) Assessment Notes Treatment Notes Treatment Clinical Notes Section Notes 07/30/2024 Muscle spasm of back (ICD-10 - M62.830) consider physical therapy 07/30/2024 Macular degeneration (ICD-10 - H35.30) followed by opth 07/30/2024 Osteoporosis (ICD-10 - M81.0) send to endocrine/ REFERRAL FAXED TO [facility] [place] [facility] 07/30/2024 Chronic systolic hea rt failure (ICD-10 - I50.22) stable, will continue current regiment 07/30/2024 Pure hypercholesterolemia (ICD-10 - E78.00) stable, will continue current regiment 07/30/2024 Depression screening (ICD-10 - Z13.31) negative screen Plan Of Treatment Medication Medication Name Sig Start Date Stop Date Notes Rosuvastatin Calcium 40 MG TAKE 1 TABLET BY MOUTH EVERY DAY Furosemide 20 MG TAKE 1 TABLET BY WAGNER TH EVERY DAY Orally Farxiga 5 MG 1 tablet Orally Once a day for 30 days 07/30/2024 Treatment Notes Assessment Notes Muscle spasm of back consider physical t herapy Macular degeneration followed by opt Osteoporosis send to endocrine/ R EFERRAL FAXED TO [facility] [place] [facility] Chronic systolic heart failure stable, w ill continue current regiment Pure hypercholesterolemia stable, will c ontinue current regiment Depression screening negative screen Referrals Referral Date Details 07/30/2024 07/30/2024, Zach BARNETT Next Appt Details Provider Name:Wyatt walton, 07/28/2025 07:45:00 AM, [address] [place] [address], Suite [facility], [place], [place], [phone], Provider Name:Wyatt walton, 08/04/2025 01:00:00 PM, [address] [place] [address], [address], [place], [place], [phone], Progress Notes * Rochelle DOWNS MDOB:0 1945 (78 yo F)Acc No.[id number]:07/30/2024 Patient: Rochelle GRANT Provider: Kobe Eldridge MD :1945 A ge:78 Y S ex:Female Date:07/30/2024 Address:[facility] [id number] Subjective: * Chief Complaints: * R eview labs * HPI: D epression Screening: PHQ-9 L ittle interest or pleasure in doing things N ot at all, F eeling down, depressed, or hopeless N ot at all, T rouble falling or staying asleep, or sleeping too much N ot at all, F eeling tired or having little energy N ot at all, P oor appetite or overeating N ot at all, F eeling bad about yourself or that you are a failure, or have let yourself or your family down N ot at all, T rouble concentrating on things, such as reading the newspaper or watching television N ot at all, M oving or speaking so slowly that other people could have noticed; or the opposite, being so fidgety or restless that you have been moving around a lot more than usual N ot at all, T houghts that you would be better off or of hurting yourself in some way N ot at all, T otal Score 0 . I nterpretation and Intervention D epression Screening Findings N egative, F ollow-Up for Depression : review of PHQ-9 found negative result, no follow-up needed. patient is 78 yo female here for visit with review of recent and follow up of chronci issues/ back pain in may. got confused on tramadol. C ommunication Needs: Communication Needs D oes the patient have a hearing impairment N o, D oes the patient have a vision impairment? Y es, I f yes, what is the vision impairment? G lasses, D oes the patient have a cognition impairment? N o. F all Risk: History H ave you had any falls with injury in the past year? N o, H ave you had two or more falls in the past year? N o. S JOSÉ Questions: SDOH Questions I n the past year have you been worried about losing housing? N o, I n the past year have you or any family members you live with been unable to get any of the following when it was really needed? Check all that apply: N one. * ROS: G eneral/Constitutional: Change in appetite d enies. C hills d enies. F ever d enies. O phthalmologic: Blurred vision d enies. D ischarge d enies. P ain d enies. E NT: Decreased hearing d enies. S ore throat d enies.?Swollen glands d enies. E ndocrine: Cold intolerance d enies. E xcessive thirst d enies. H eat intolerance d enies. W eight loss d enies. R espiratory: Cough d enies. S hortness of breath at rest d enies. S hortness of breath with exertion d enies. W heezing d enies. C ardiovascular: Chest pain at rest d enies. C hest pain with exertion?denies. I rregular heartbeat d enies. S hortness of breath d enies. ? G astrointestinal: Abdominal pain d enies. C hange in bowel habits d enies. D iarrhea d enies. N ausea d enies. R ectal bleeding d enies. V omiting d enies . G enitourinary: Blood in urine d enies. D ifficulty urinating d enies. F requent urination d enies. U rinary incontinence D enies. M usculoskeletal: Painful joints d enies. W eakness d enies. ? S kin: Dry skin d enies. I tching d enies. D enies?Mole(s), changes in moles, new moles or any lesions of concern. D enies P hotosensitivity. R sal d enies. N eurologic: Dizziness d enies. F ainting d enies. H eadache?denies. * Medical History: * Surgical History: * Hospitalization/Major Diagno stic Procedure: * Family History: F ather: 73 yrs, diagnosed with COPD. M other: 83 yrs. 1 brother(s) , 1 sister(s) . 4 son(s) , 2 daughter(s) . . Father- AAA Mother- CVA, Denies mental health/substance abuse family history, Denies mental health/substance abuse family history, Denies mental health/substance abuse family history, Denies mental health/substance abuse family history 1 son. * Social History: T obacco Use: T obacco Use/Smoking P atlawson is a n onsmoker, A dditional Findings: Tobacco Non-User C urrent non-smoker, currently using no form of tobacco. D rugs/Alcohol: A lcohol Screen D id you have a drink containing alcohol in the past year? Y es, H ow often did you have a drink containing alcohol in the past year? M onthly or less (1 point), H ow many drinks did you have on a typical day when you were drinking in the past year? 1 or 2 drinks (0 point), H ow often did you have 6 or more drinks on one occasion in the past year? N ever (0 point), P oints 1 , I nterpretation N egative. M iscellaneous: C affeine: yes, frequency:, more than 4 cups per day. Children: yes. Exercise: yes, 45 min cardio senior strength. Home smoke detector use: yes. Living with: family. Marital status: . Occupation: works part-time. Pets: cats: dogs: 1 dog 1 cat. Travel outside of the [place]: no. * Medications: T akingSlow Fe 142 (45 Fe) MG Tablet Extended Release 1 tablet Orally Twice a week Aspir-Low 81 MG Tablet Delayed Release 1 tablet Orally Once a day Losartan Potassium 25 MG Tablet 1 tablet Orally BID Furosemide 20 MG Tablet TAKE 1 TABLET BY MOUTH EVERY DAY Orally Metoprolol Succinate ER 25 MG Tablet Extended Release 24 Hour 1 tablet Orally bid Rosuvastatin Calcium 40 MG Tablet TAKE 1 TABLET BY MOUTH EVERY DAY traMADol HCl 50 MG Tablet 1 tablet as needed Orally every 8 hrs as needed Ibuprofen 800 MG Tablet TAKE 1 TABLET BY MOUTH THREE TIMES DAILY WITH FOOD OR MILK FOR 14 DAYS NEEDED Taking Slow Fe 142 (45 Fe) MG Tablet Extended Release 1 tablet Orally Twice a week Taking Aspir-Low 81 MG Tablet Delayed Release 1 tablet Orally Once a day Taking Losartan Potassium 25 MG Tablet 1 tablet Orally BID Taking Furosemide 20 MG Tablet TAKE 1 TABLET BY MOUTH EVERY DAY Orally Taking Metoprolol Succinate ER 25 MG Tablet Extended Release 24 Hour 1 tablet Orally bid Taking Rosuvastatin Calcium 40 MG Tablet TAKE 1 TABLET BY MOUTH EVERY DAY Taking traMADol HCl 50 MG Tablet 1 tablet as needed Orally every 8 hrs as needed Taking Ibuprofen 800 MG Tablet TAKE 1 TABLET BY MOUTH THREE TIMES DAILY WITH FOOD OR MILK FOR 14 DAYS NEEDED Not-Taking/PRNCyclobenzaprine HCl 5 MG Tablet TAKE 1 TABLET BY MOUTH TWICE DAILY AT BEDTIME FOR 10 DAYS NEEDED traZODone HCl 50 MG Tablet TAKE 1 TABLET BY MOUTH DAILY AT BEDTIME NEEDED Medication List reviewed and reconciled with the patientNot-Taking/PRN Cyclobenzaprine HCl 5 MG Tablet TAKE 1 TABLET BY MOUTH TWICE DAILY AT BEDTIME FOR 10 DAYS NEEDED Not-Taking/PRN traZODone HCl 50 MG Tablet TAKE 1 TABLET BY MOUTH DAILY AT BEDTIME NEEDED Medication List reviewed and reconciled with the patient * Allergies: t raMADol HCl: confusion - Side Effects Objective: * Vitals: H t: 63, Wt: 155, BMI:27.45, BP:122/58, Wt-k.31. weight is3 pounds since 05-03-24. * P ast Orders: L ab:Complete Blood Count Auto Diff (Order Date - 07/23/2024) (Collection Date & Time - 07/23/2024 07:45 AM) Value Reference Range White Blood Count 6.6 4.8-10.8 - X10*3/uL Red Blood Count 3.64 L 4.20-5.50 - X10*6/uL Hemoglobin 10.9 L 12.0-16.0 - g/dl Hematocrit 33.0 L 37.0-47.0 - % Mean Corpuscular Volume 90.7 80.0-98.0 - fL Mean Corpuscular Hemoglobin 29.9 27.0-33.0 - pg Mean Corpuscular HGB Conc 33.0 31.0-35.0 - g/ dl Red Cell Distribution Width 15.3 11.0-16.0 - % Platelet Count 219 160-400 - X10*3/uL Mean Platelet Volume 11.2 9.4-12.3 - fL Neutrophils Percent Auto 44.0 L 45-73 - % Imm Gran Pct Auto 0.2 0.0-0.4 - % Lymphocytes Percent Auto 41.0 H 20-40 - % Monocytes Percent Auto 11.1 H 2-11 - % Eosinophils Percent Auto 2.9 0-4 - % Basophils Percent Auto 0.8 0-2 - % NRBC Pct Auto 0.0 0.0-0.2 - /100WBC Neutrophils Absolute Auto 2.9 2.0-8.3 - x10* 3/uL Imm Gran Abs Auto 0.01 0.00-0.03 - X10*3/uL Lymphocytes Absolute Auto 2.7 1.2-4.9 - X10* 3/uL Monocytes Absolute Auto 0.7 0.1-1.2 - X10*3/ uL Eosinophils Absolute Auto 0.2 0.0-0.4 - X10* 3/uL Basophils Absolute Auto 0.1 0.0-0.2 - X10*3/ uL NRBC Abs Auto 0.000 0.0-0.012 - X10*3/uL L ab:Comprehensive [place]. Panel Fast (Order Date - 07/23/2024) (Collection Date & Time - 07/23/2024 07:45 AM) Value Reference Range Sodium 142 135-145 - mmol/L Bilirubin Total 0.3 0.0-1.0 - mg/dL Aspartate Amino Transferase 25 5-31 - U/L Alanine Aminotransferase 13 0-31 - U/L Total Protein 7.1 6.5-8.0 - g/dL Albumin Level 4.0 3.5-5.0 - g/dL Alkaline Phosphatase 65 39-117 - U/L Potassium 4.2 3.3-5.1 - mmol/L Chloride 108 96-108 - mmol/L Carbon Dioxide 27 22-29 - mmol/L Anion Gap 11 L 12-20 - Blood Urea Nitrogen 27 H 9-16 - mg/dL Creatinine 0.99 0.5-1.4 - mg/dL Estimated Glomerular Filt Rate 54 - Glucose Fasting 94 60-99 - mg/dL Calcium 9.1 8.4-10.2 - mg/dL L ab:Lipid Panel (Order Date - 07/23/2024) (Collection Date & Time - 07/23/2024 07:45 AM) Value Reference Range Triglycerides 57 <150 - mg/dL Cholesterol 145 <200 - mg/dL LDL Cholesterol Calculated 60 <100 - mg/dL HDL Cholesterol 74 >40 - mg/dL L ab:UA ClnCatch+Micro w/rflx Cult (Order Date - 07/23/2024) (Collection Date & Time - 07/23/2024 07:45 AM) Value Reference Range Color Urine Yellow - Appearance Urine Clear - PH 6.0 5.0-9.0 - Glucose Urine UA Negative Negative - mg/dL Urine Blood Negative Negative - Specific [place] - Urine 1.015 1.005-1.025 - Urine Protein Negative Neg-Trace - mg/dL Urine Ketones Negative Negative - mg/dL Nitrite Urine Negative Negative - Leukocyte Esterase Urine Negative Negative - RBC Urine 0-2 0-2 - /HPF WBC Urine 0-5 0-5 - /HPF Squamous Epithelial Cell Urine 0-2 0-2 - /HP F Bacteria Urine None Seen None Seen - Hyaline Casts Urine 0-2 0-2 - /LPF * Examination: G eneral Examination: GENERAL APPEARANCE: w ell developed, well nourished, in no acute distress. HEAD: n ormocephalic, atraumatic. EYES: p upils equal, round, reactive to light and accommodation, sclera non-icteric. EARS: n ormal. ORAL CAVITY: m ucosa moist. THROAT: c lear. NECK/THYROID: n jennifer supple, full range of motion, no cervical lymphadenopathy, no bruits. SKIN: w arm and dry, no suspicious lesions. HEART: r egular rate and rhythm, S1, S2 normal, loud systolic murmur at apex. LUNGS: c lear to auscultation bilaterally. BREASTS: N o mass, no lump. ABDOMEN: s oft, nontender, nondistended, bowel sounds present, normal, no organomegaly , no masses palpable. RECTAL EXAM: d eclined. FEMALE GENITOURINARY: d eclined. EXTREMITIES: n o clubbing, cyanosis, or edema. NEUROLOGIC: n onfocal, motor strength normal upper and lower extremities, sensory exam intact. Assessment: * Assessment: 1. M uscle spasm of back - M62.830 (Primary) 2 . M acular degeneration - H35.30 3 . O steoporosis - M81.0 4 . C hronic systolic heart failure - I50.22 5 . P ure hypercholesterolemia - E78.00 6 . D epression screening - Z13.31 Plan: * Treatment: 2. M acular degeneration Notes: followed by opth 3. O steoporosis Notes: send to endocrine/ REFERRAL FAXED TO [facility] [place] [facility] Referral To:[facility] Reason:OSTEOPOROSIS 4. C hronic systolic heart failure Start Farxiga Tablet, 5 MG, 1 tablet, Orally, Once a day, 30 days, 30, Refills 5; C ontinue Furosemide Tablet, 20 MG, TAKE 1 TABLET BY MOUTH EVERY DAY, Orally. Notes: stable, will continue current regiment 5. P ure hypercholesterolemia Continue Rosuvastatin Calcium Tablet, 40 MG, TAKE 1 TABLET BY MOUTH EVERY DAY. Notes: stable, will continue current regiment 6. D epression screening Notes: negative screen * Procedure Codes: G 2211 Complex e/m visit add on * * Sign off status: Completed true * Provider: Kobe Eldridge MD Date: 0 07/30/2024 Generated for Nai ramírez/Emily/Peaceransmitting on: 1 04:22 PM EDT History and Physical Notes * HPI (History of Present Illness) Category Sub-Category Detail Notes Category Not es Depression Screening PHQ-9 Little inte rest or pleasure in doing things: Not at all patient is 78 yo female here for visit with review of recent and follow up of chronci issues/ back pain in may. got confused on tramadol Feeling down, depressed, or hopeless: No t at all Trouble falling or staying asleep, or sl eeping too much: Not at all Feeling tired or having little energy: N ot at all Poor appetite or overeating: Not at all Feeling bad about yourself o r that you are a failure, or have let yourself or your family down: Not at all Trouble concentrating on thi ngs, such as reading the newspaper or watching television: Not at all Moving or speaking so slowly that other people could have noticed; or the opposite, being so fidgety or restless that you have been moving around a lot more than usual: Not at all Thoughts that you would be b bola off or of hurting yourself in some way: Not at all Total Score: 0 Interpretation and Intervention Depression Scree arlene Findings: Negative Follow-Up for Depression: : review of PH Q-9 found negative result, no follow-up needed SDOH Questions SDOH Questions In the past year have you been worried about losing housing?: No In the past year have you or any family members you live with been unable to get any of the following when it was really needed? Check all that apply:: None Fall Risk History Have you had any falls with injury i n the past year?: No Have you had two or more falls in the year?: No Communication Needs Communication Needs Does the patient have a hearing impairment: No Does the patient have a vision impairmen t?: Yes If yes, what is the vision impairment?: Glasses Does the patient have a cognition impair ment?: No Examination Category Sub-Category Detail Notes Category Not es General Examination GENERAL APPEARANCE: well dev eloped, well nourished, in no acute distress HEAD: normocephalic, atrau matic EYES: pupils equal, round, reactive to light and accommodation, sclera non-icteric EARS: normal THROAT: clear NECK/THYROID: neck supple, full ra nge of motion, no cervical lymphadenopathy, no bruits HEART: regular rate and rhy thm, S1, S2 normal, loud systolic murmur at apex LUNGS: clear to auscultatio n bilaterally ABDOMEN: soft, nontender, non distended, bowel sounds present, normal, no organomegaly , no masses palpable NEUROLOGIC: nonfocal, motor stre ngth normal upper and lower extremities, sensory exam intact SKIN: warm and dry, no chencho picious lesions EXTREMITIES: no clubbing, cyanosi s, or edema BREASTS: No mass, no lump RECTAL EXAM: declined FEMALE GENITOURINARY: declined ORAL CAVITY: mucosa moist Consultation Request Notes Referral Date Referring Provider Referred Provider Not es 07/30/2024 Wyatt Eldridge, Zach COATS SIS
--- OUTSIDE RECORDS SUMMARY | 2024-08-22 08:15 | XMS_ITS ---
Author Organization Wyatt Eldridge MD Address [facility] [address] [place] [phone] Care Team Providers Care Network Systems Administrator Name Role Phone Wyatt Eldridge Primary Care Provider [phone] REASON FOR VISIT ENDO VISIT Encounters Encounter Location Date Provider Diagnosis Wyatt Eldridge MD [address] [place] [address] [place] [phone] 08/22/2024 Wyatt Eldridge Plan Of Treatment Next Appt Details Provider Name:Wyatt Meyers ier, 07/28/2025 07:45:00 AM, [address] [place] [address], [address], [phone], Provider Name:Wyatt Meyers ier, 08/04/2025 01:00:00 PM, [address] [place] [address], [address], [phone], Progress Notes * Rochelle DOWNS MDOB:0 1945 (78 yo F)Acc No.[id number]:08/22/2024 Patient: Rochelle GRANT :1945 A ge:78 Y S ex:Female Address:[address] [place], [place], [address] * true * Date: Generated for Nai ramírez/Emily/[place] on: 04:22 PM EDT
--- OUTSIDE RECORDS SUMMARY | 2024-11-04 03:30 | XMS_ITS ---
Author Organization Wyatt Eldridge MD Address [address] [place] [phone] Care Team Providers Care Wire Chief Name Role Phone Jazmyn Wyatt Primary Care Provider [phone] Results Component Value Reference Range Notes Blood Urea Nitrogen Reviewed date:11/05/2024 10:25:54 AM Interpretation: Performing Lab:[facility], [address] [place] [phone] Notes/Report: Blood Urea Nitrogen 20 9-16 mg/dL Creatinine Reviewed date:11/05/2024 10:25:47 AM Interpretation: Performing Lab:[facility], [address] [place] [phone] Notes/Report: Creatinine 1.03 0.5-1.4 mg/dL Estimated Glomerular Filt Rate 52 Chronic Kidney Disease: Estimated GFR < 60 mL/min/1.73m2 Severe Kidney Disease: Estimated GFR < 15 mL/min/1.73m2 REASON FOR VISIT BUN, CREATININE Encounters Encounter Location Date Provider Diagnosis Wyatt Eldridge MD [address] [place] [phone] 11/04/2024 Wyatt Eldridge Muscle spasm of back M62.830 Assessments Encounter Date Diagnosis (ICD Code) Assessment Notes Treatment Notes Treatment Clinical Notes Section Notes 11/04/2024 Muscle spasm of back (ICD-10 - M62.830) Plan Of Treatment Next Appt Details Provider Name:Wyatt tomasr, 07/28/2025 07:45:00 AM, [address], [address], [place], [place], [phone], Provider Name:Wyatt Meyers ier, 08/04/2025 01:00:00 PM, [address] [facility], [address], [place], [place], [phone], Progress Notes * Rochelle DOWNS MDOB:0 1945 (79 yo F)Acc No.[id number]:11/04/2024 Progress Note Patient: Brandt ORR Rochelle BARAJAS Provider: Kobe Eldridge MD :1945 A ge:79 Y S ex:Female Date:11/04/2024 Address:[address] [place], [place] [phone] Subjective: * Chief Complaints: * 1 . [...] MD Date: 0 11/04/2024 Generated for Nai ramírez/Emily/Wilbertsmitting on: 1 04:23 PM EDT
--- OUTSIDE RECORDS SUMMARY | 2024-12-11 10:30 | XMS_ITS ---
Author Organization [facility] Address [address] [place] [phone] Care Team Providers Care Radiology Director Name Role Phone Wyatt Eldridge MD Primary Care Provider Aye Grace Unavailable [phone] Encounters Encounter Location Date Provider Diagnosis [address] [phone] 12/11/2024 Aye Reardon Plan Of Treatment Next Appt Details Provider Name:Aye colón, 06/03/2025 11:30:00 AM, [address] [place] [address], [phone], Progress Notes * Rochelle HUDDLESTON MDOB: [birth year] (79 yo F)Acc No.[id number]:12/11/2024 Progress Note Patient: Rochelle ROMERO Provider: Marcin Reardon DPM :1945 A ge:79 Y S ex:Female Date:12/11/2024 Address:[phone] Pcp:Wyatt Eldridge MD Subjective: * Chief Complaints: * * Medical History: Objective: * Vitals: Assessment: Plan: * Treatment: * Images: * The named appointment provid er may or may not be the originator of this progress note, and it is not deemed complete until electronically signed by the appointment provider. Sign off status: Pending * Provider: Marcin Reardon DPM Date: 0 12/11/2024 Generated for Nai Cooley on: 04:23 PM EDT
--- OUTSIDE RECORDS SUMMARY | 2024-12-20 07:32 | XMS_ITS ---
Author Organization Wyatt Eldridge MD Address [address] [facility] [address] [place] [phone] Care Team Providers Care Block Out Machine Operator Name Role Phone Jazmyn Wyatt Primary Care Provider REASON FOR VISIT ?PT Encounters Encounter Location Date Provider Diagnosis Wyatt Eldridge MD [address] [place] [address] [place] [id number] 12/20/2024 Wyatt Eldridge Plan Of Treatment Next Appt Details Provider Name:Wyatt Meyers ier, 07/28/2025 07:45:00 AM, [address] [place] [address], [address], [phone], Provider Name:Wyatt P Billiris ier, 08/04/2025 01:00:00 PM, [address] [place] [address], [address], [phone], Progress Notes * Rochelle DOWNS MDOB:0 1945 (79 yo F)Acc No.[id number]:12/20/2024 Patient: Rochelle GRANT :1945 A ge:79 Y S ex:Female Address:[address] [place], [place], [address] * true * Date: Generated for Nai ramírez/Emily/[place] on: 04:22 PM EDT
--- OUTSIDE RECORDS SUMMARY | 2025-01-30 04:00 | XMS_ITS ---
Author Organization Wyatt Eldridge MD Address [address] [place], [place] [phone] Care Team Providers Care Asset Protection Lead Name Role Phone Wyatt Eldridge Primary Care Provider [phone] Results Component Value Reference Range Notes Liver Panel Reviewed date:01/30/2025 12:15:44 PM Interpretation: Performing Lab:[facility], [address] [place] [phone] Notes/Report: Bilirubin Total 0.3 0.0-1.0 mg/dL Bilirubin Direct 0.1 0.0-0.5 mg/dL Aspartate Amino Transferase 29 5-31 U/L Alanine Aminotransferase 16 0-31 U/L Total Protein 6.7 6.5-8.0 g/dL Albumin Level 4.0 3.5-5.0 g/dL Alkaline Phosphatase 56 39-117 U/L Lipid Panel with Reflex Reviewed date:01/30/2025 12:28:24 PM Interpretation: Performing Lab:[facility], [address] [place] [phone] Notes/Report: Triglycerides 68 <150 mg/dL Desirable Triglyceride: [...] Location Date Provider Diagnosis Wyatt Eldridge MD [address] [place] [address] [place] [phone] 01/30/2025 Wyatt Eldridge Pure hypercholestero lemia E78.00 Assessments Encounter Date Diagnosis (ICD Code) Assessment Notes Treatment Notes Treatment Clinical Notes Section Notes 01/30/2025 Pure hypercholesterolemia (ICD-10 - E78.00) Plan Of Treatment Next Appt Details Provider Name:Wyatt walton, 07/28/2025 07:45:00 AM, [address] [place] [address], Suite [facility], [place], [place], [phone], Provider Name:Wyatt walton, 08/04/2025 01:00:00 PM, [address] [place] [address], Suite [facility], [place], [place], [phone], Progress Notes * Rochelle DOWNS MDOB:0 1945 (79 yo F)Acc No.[id number]:01/30/2025 Progress Note Patient: Rochelle GRANT Provider: Kobe Eldridge MD :1945 A ge:79 Y S ex:Female Date:01/30/2025 Address:[address] [place], [place] [id number] Subjective: * Chief Complaints: * 1 . [...] 01/30/2025 Generated for Nai ramírez/Emily/[place] on: 1 04:22 PM EDT
--- OUTSIDE RECORDS SUMMARY | 2025-02-03 06:00 | XMS_ITS ---
Author Organization Wyatt Eldridge MD Address [address] [place] [id number] Care Team Providers Care Small Products Assembler Name Role Phone Wyatt Eldridge Primary Care Provider Allergies Allergen (clinical drug ingredient) Drug/Non Drug Allergy documented on EMR Reaction Allergy Type Onset Date Status tramadol traMADol HCl confusion Drug Allergy Acti ve REASON FOR VISIT 6 MO F/U Medications Medication SIG (Take, Route, Frequency, Duration) Notes Start Date End Date Status traZODone HCl 50 MG TAKE 1 TABLET BY MOUTH DAILY AT BEDTIME NEEDED for 30 Active Rosuvastatin Calcium 40 MG TAKE 1 TABLET BY MOUTH EVERY DAY Active Metoprolol Succinate ER 25 MG 1 tablet Orally bid Active Farxiga 5 MG 1 tablet Orally Once a day for 30 days 07/30/2024 Active Cyclobenzaprine HCl 5 MG TAKE 1 TABLET B Y MOUTH TWICE DAILY AT BEDTIME FOR 10 DAYS NEEDED for 10 Not-Taking Furosemide 20 MG TAKE 1 TABLET BY MOUTH EVERY DAY Orally Once a day for 90 days Active Ibuprofen 800 MG TAKE 1 TABLET BY MOUTH THREE TIMES DAILY WITH FOOD OR MILK FOR 14 DAYS NEEDED for 14 Not-Taking traMADol HCl 50 MG 1 tablet as needed Orally every 8 hrs as needed for 10 days 05/03/2024 Not-Taking Losartan Potassium 25 MG 1 tablet Orally BID Active Aspir-Low 81 MG 1 tablet Orally Once a day for 30 day(s) Active Slow Fe 142 (45 Fe) MG 1 tablet Orally t hree times a armani Active Immunizations Vaccine Route Administration Date Status Comme nts Influenza High Dose IM Intramuscular 02/03/2025 Administer ed Vital Signs Blood pressure systolic 98 mm Hg 02/04/20 25 Blood pressure diastolic 48 mm Hg 025 Height 63 in 02/03/2025 Weight 141 lbs 02/03/2025 BMI 24.97 kg/m2 02/03/2025 weight is down 14 pounds sin ce 3-35-25 Encounters Encounter Location Date Provider Diagnosis Wyatt Eldridge MD [address] [place], [place] [phone] 02/03/2025 Wyatt Eldridge Weight loss R63.4 ; Ischemic cardiomyopathy I25.5 ; Insomnia G47.00 ; Pure hypercholesterolemia E78.00 and Encounter for administration of vaccine Z23 Assessments Encounter Date Diagnosis (ICD Code) Assessment Notes Treatment Notes Treatment Clinical Notes Section Notes 02/03/2025 Weight loss (ICD-10 - R63.4) has 3 grandchildren moved in and has been so busy not eating 02/03/2025 Ischemic cardiomyopa thy (ICD-10 - I25.5) had to have echo rescheduled. is seeing dr laila winston. will continue current regiment 02/03/2025 Insomnia (ICD-10 - G47.00) takes trazadone occasionally try taking it nightly 02/03/2025 Pure hypercholesterolemia (ICD-10 - E78.00) stable, will continue current regiment 02/03/2025 Encounter for administration of vaccine (ICD-10 - Z23) HD flu vaccine admnistered Plan Of Treatment Medication Medication Name Sig Start Date Stop Date Notes Rosuvastatin Calcium 40 MG TAKE 1 TABLET BY MOUTH EVERY DAY Metoprolol Succinate ER 25 MG 1 tablet Orally bid Furosemide 20 MG TAKE 1 TABLET BY WAGNER TH EVERY DAY Orally Once a day for 90 days Treatment Notes Assessment Notes Weight loss has 3 grandchildren moved in and has been so busy not eating Ischemic cardiomyopathy had to have echo rescheduled. is seeing dr laila winston. will continue current regiment Insomnia takes trazadone occa sionally try taking it nightly Pure hypercholesterolemia stable, will c ontinue current regiment Encounter for administration of vaccine HD flu vaccine admnistered Next Appt Details Follow Up: 3 Months, Reason: Provider Name:Wyatt Meyers ier, 07/28/2025 07:45:00 AM, [address], [address], [place], [place], [phone], Provider Name:Wyatt Meyers ier, 08/04/2025 01:00:00 PM, [address] [facility], [address], [place], [place], [phone], Progress Notes * Rochelle DOWNS MDOB:0 1945 (79 yo F)Acc No.[id number]:02/03/2025 Progress Notes Patient: Brandt Rochelle GARG Provider: Kobe Eldridge MD :1945 A ge:79 Y S ex:Female Date:02/03/2025 Address:[address] [place], [place] [phone] Subjective: * Chief Complaints: * 6 MO F/U * HPI: S ymptom(s): patientis a 79 yo female here for 6 month follow up visit/ has been doing well. totally retired. * ROS: G eneral/Constitutional: Denies C hills. D enies F atigue. D enies F ever. D enies H eadache. E NT: Denies S ore throat. R espiratory: Denies C ough. D enies S hortness of breath at rest. D enies S hortness of breath with exertion. G astrointestinal: Denies D iarrhea. D enies N ausea. * Medical History: * Surgical History: * Hospitalization/Major Diagno stic Procedure: * Medications: T akingSlow Fe 142 (45 Fe) MG Tablet Extended Release 1 tablet Orally three times a weel Aspir-Low 81 MG Tablet Delayed Release 1 tablet Orally Once a day Losartan Potassium 25 MG Tablet 1 tablet Orally BID Metoprolol Succinate ER 25 MG Tablet Extended Release 24 Hour 1 tablet Orally bid Farxiga 5 MG Tablet 1 tablet Orally Once a day Furosemide 20 MG Tablet TAKE 1 TABLET BY MOUTH EVERY DAY Orally Rosuvastatin Calcium 40 MG Tablet TAKE 1 TABLET BY MOUTH EVERY DAY traZODone HCl 50 MG Tablet TAKE 1 TABLET BY MOUTH DAILY AT BEDTIME NEEDED Taking Slow Fe 142 (45 Fe) MG Tablet Extended Release 1 tablet Orally three times a weel Taking Aspir-Low 81 MG Tablet Delayed Release 1 tablet Orally Once a day Taking Losartan Potassium 25 MG Tablet 1 tablet Orally BID Taking Metoprolol Succinate ER 25 MG Tablet Extended Release 24 Hour 1 tablet Orally bid Taking Farxiga 5 MG Tablet 1 tablet Orally Once a day Taking Furosemide 20 MG Tablet TAKE 1 TABLET BY MOUTH EVERY DAY Orally Taking Rosuvastatin Calcium 40 MG Tablet TAKE 1 TABLET BY MOUTH EVERY DAY Taking traZODone HCl 50 MG Tablet TAKE 1 TABLET BY MOUTH DAILY AT BEDTIME NEEDED Not-Taking/PRNtraMADol HCl 50 MG Tablet 1 tablet as needed Orally every 8 hrs as needed Ibuprofen 800 MG Tablet TAKE 1 TABLET BY MOUTH THREE TIMES DAILY WITH FOOD OR MILK FOR 14 DAYS NEEDED Cyclobenzaprine HCl 5 MG Tablet TAKE 1 TABLET BY MOUTH TWICE DAILY AT BEDTIME FOR 10 DAYS NEEDED Not-Taking/PRN traMADol HCl 50 MG Tablet 1 tablet as needed Orally every 8 hrs as needed Not-Taking/PRN Ibuprofen 800 MG Tablet TAKE 1 TABLET BY MOUTH THREE TIMES DAILY WITH FOOD OR MILK FOR 14 DAYS NEEDED Not-Taking/PRN Cyclobenzaprine HCl 5 MG Tablet TAKE 1 TABLET BY MOUTH TWICE DAILY AT BEDTIME FOR 10 DAYS NEEDED * Allergies: t raMADol HCl: confusion - Side Effectsyes[Allergies Verified] Objective: * Vitals: H t: 63, Wt: 141, BMI:24.97, BP:98/48, Wt-k.96. weight is down 14 pounds since . * P ast Orders: L ab:Lipid Panel with Reflex (Order Date - 01/30/2025) (Collection Date & Time - 01/30/2025 08:00 AM) Value Reference Range Triglycerides 68 <150 - mg/dL Cholesterol 132 <200 - mg/dL LDL Cholesterol Calculated 53 <100 - mg/dL HDL Cholesterol 66 >40 - mg/dL L ab:Liver Panel (Order Date - 01/30/2025) (Collection Date & Time - 01/30/2025 08:00 AM) Value Reference Range Bilirubin Total 0.3 0.0-1.0 - mg/dL Bilirubin Direct 0.1 0.0-0.5 - mg/dL Aspartate Amino Transferase 29 5-31 - U/L Alanine Aminotransferase 16 0-31 - U/L Total Protein 6.7 6.5-8.0 - g/dL Albumin Level 4.0 3.5-5.0 - g/dL Alkaline Phosphatase 56 39-117 - U/L L ab:Blood Urea Nitrogen (Order Date - 11/04/2024) (Collection Date & Time - 11/04/2024 07:30 AM) Value Reference Range Blood Urea Nitrogen 20 H 9-16 - mg/dL L ab:Creatinine (Order Date - 11/04/2024) (Collection Date & Time - 11/04/2024 07:30 AM) Value Reference Range Creatinine 1.03 0.5-1.4 - mg/dL Estimated Glomerular Filt Rate 52 - * Examination: G eneral Examination: GENERAL APPEARANCE: a lert, well hydrated, in no distress.? HEAD: n ormocephalic. SKIN: g ood turgor. HEART: r egular rate and rhythm with 3/6 holosystolic murmur. LUNGS: n o wheezes, rales, rhonchi, good air movement, clear to auscultation bilaterally. Assessment: * Assessment: 1. I schemic cardiomyopathy - I25.5 (Primary) 2 . W eight loss - R63.4 3 . I nsomnia - G47.00 4 . P ure hypercholesterolemia - E78.00? 5. E ncounter for administration of vaccine - Z23 Plan: * Treatment: 2. W eight loss Notes: has 3 grandchildren moved in and has been so busy not eating 3. I nsomnia Notes: takes trazadone occasionally try taking it nightly 4. P ure hypercholesterolemia Continue Rosuvastatin Calcium Tablet, 40 MG, TAKE 1 TABLET BY MOUTH EVERY DAY. Notes: stable, will continue current regiment 5. E ncounter for administration of vaccine Notes: HD flu vaccine admnistered * Immunizations: Influenza High Dose : 0.5 mL (Dose No:1) (Route: Intramuscular) given by Jocelynn Beaver , Office Staff on Left Deltoid * Procedure Codes: 9 0662 FLU VACC PRSV FREE INC [id number] ADMN FLU VAC NO FEE SCHED SAME DAY * Follow Up: 3 Months * * Sign off status: Completed true * Provider: Kobe Eldridge MD Date: 0 02/03/2025 Generated for Nai ramírez/Emily/[place] on: 1 04:22 PM EDT History and Physical Notes * HPI (History of Present Illness) Category Sub-Category Detail Notes Category Not es Symptom(s) patientis a 79 yo female here for 6 month follow up visit/ has been doing well. totally retired. Examination Category Sub-Category Detail Notes Category Not es General Examination GENERAL APPEARANCE: alert, w ell hydrated, in no distress HEAD: normocephalic HEART: regular rate and rhy thm with 3/6 holosystolic murmur LUNGS: no wheezes, rales, r honchi, good air movement, clear to auscultation bilaterally SKIN: good turgor
--- NOTE | 2025-03-03 12:59 | A.OFFVIS_ITS ---
Vital Signs 03/03/25 13:00 Height 5 ft 2 in Weight 136 lb 10.986 oz BMI 25.0 BP 120/72 Blood Pressure Location Lt brachial Position Sitting Pulse 60 Intake Visit Reasons: 1 yr f/up after testing Intake Note: 1 year follow-up ekg after echo feeling good Allergies No Known Allergies (No Known Allergies*) Allergy (Verified 12/18/24 14:10) Medication List - Last Reconciled 03/03/25 by Talha Ulloa MD aspirin 81 mg PO DAILY [id number]-aotijtmyiw 1.7 mg-400 mcg- 2.4 mcg (Neuriva Plus [employer] Performance) caps PO blood pressure test kit-medium As directed dapagliflozin propanediol (Farxiga) 5 mg PO DAILY ferrous sulfate 134 mg PO DAILY furosemide 20 mg PO DAILY losartan 25 mg PO BID metoprolol succinate ER 25 mg PO BID iikxqtqa-jpw-tzotl acid-lutein 200-137.5 mcg (Adult Multivitamin (w-lutein)) 1 tab PO DAILY rosuvastatin 40 mg PO DAILY trazodone 50 mg PO BEDTIME HPI Comments Details: Rochelle comes for follow-up. She has been doing well from cardiac perspective. She remains active in his day-to-day activity and has no worsening symptoms of shortness of breath. She denies any orthopnea, PND, leg edema. Patient denies any exertional chest pain. She says she has been only taking her furosemide 3 times a week because of urinary frequency and urgency. She has been started on Farxiga therapy. She is also continuing to take a losartan and metoprolol therapy religiously. Denies any prolonged palpitation irregular heartbeat. Recent echocardiogram shows improved LV ejection fraction to 50-55% with severely dilated left atrium with zgkz-pt-ocqggtcd mitral regurgitation with normally functioning MitraClip. [facility] Medical History Osteopenia CAD (coronary artery disease) Congestive heart failure Ischemic cardiomyopathy Mitral regurgitation Surgical History Status post cardiac catheterization Hx of hand surgery Family History Father CVD (cardiovascular disease) Mother No problems noted. Social History Alcohol intake: never Patient Tobacco Use Status: Never used Tobacco Tobacco use type: Smokeless Tobacco Review of Systems Const Denies chills, Denies fatigue, Denies fever(s), Denies frequent falls, Denies weakness, Denies weight gain and Denies weight loss ENT Denies dizziness Card Denies chest pain, Denies leg edema, Denies lightheadedness, Denies palpitations, Denies dyspnea, Denies dyspnea on exertion, Denies orthopnea and Denies other (loss of consciousness) Resp Denies cough, Denies dyspnea and Denies dyspnea on exertion GI Denies hematochezia and Denies change in stool character Musc Denies abnormal gait, Denies muscle weakness, Denies numbness, Denies radiating pain into limb and Denies tingling Neuro Denies abnormal gait, Denies dizziness, Denies frequent falls, Denies numbness, Denies tingling and Denies weakness Endo Denies fatigue and Denies palpitations Physical Exam Vital Signs: Last Vital Signs Pulse 60 03/03/25 13:00 BP 120/72 03/03/25 13:00 BMI result Body Mass Index 25.0 Const General: cooperative, healthy appearing, no acute distress, alert and awake Orientation/consciousness: patient oriented x3 Neck Neck: Yes normal visual inspection and Yes no JVD Resp Effort & Inspection: normal respiratory effort, able to speak in complete sentences and not labored Auscultation: clear to auscultation bilaterally, no crackles, no rales, no rhonchi and no wheezes Cardio Jugular venous distension: no JVD Rate: regular rate Rhythm: regular rhythm Heart sounds: S1 normal heart sound present, S2 normal heart sound present, no click, no gallops and Murmur heart sound present systolic other (Short systolic murmur which has much improved) Peripheral pulses: Peripheral pulses 2+ throughout GI Inspection: Yes normal to inspection Neuro General: patient oriented x3 Extrem Other: Right radial catheterization site with easily palpable radial pulse, right hand assessment normal General: Yes normal to inspection and No edema Office Procedures EKG Details: EKG shows normal sinus rhythm with inferior infarct with poor R-wave progression most likely lead placement with nonspecific ST-T changes [id number], Complete Assessment & Plan Assessment & Plan (1) Congestive heart failure: Code(s): I50.9 - Heart failure, unspecified Category: Medical Plan: Heart failure with recovered ejection fraction with low normal LV ejection fraction on neurohormonal modulation with losartan as well as metoprolol and after MitraClip procedure. He is currently on Farxiga therapy as well. Clinically euvolemic and well compensated. She is very bothered by her diuretic regimen. I have advised her to reduce furosemide to 2 times a week for a month and if she continues to remain well without heart failure symptoms 2 then 1 time a week for a month and then use it as PRN. Heart failure management was discussed. Continue daily weight monitoring avoidance salt loading. Importance of regular physical activity was discussed. Follow-up echocardiogram in 1 year's time. (2) S/P mitral valve clip implantation: Code(s): Z98.890 - Other specified postprocedural states; Z95.818 - Presence of other cardiac implants and grafts Category: Surgical Plan: Status post MitraClip for severe mitral regurgitation, secondary mitral regurgitation due to prior myocardial infarction. Has done well with MitraClip with residual cldm-rc-oxtvfxtx mitral regurgitation. Continue low-dose aspirin therapy. Continue SBE prophylaxis as per ACC/aha guidelines. Follow-up echocardiogram in 1 year's time. (3) CAD (coronary artery disease): Comment: History of inferior inferolateral myocardial infarction, manage conservatively as for patient's wish Code(s): I25.10 - Atherosclerotic heart disease of [place] coronary artery without angina pectoris Category: Medical Plan: CAD with prior inferior inferolateral myocardial infarction managed conservatively at that time. Has not had any recurrent anginal sounding chest discomfort. Continue low-dose aspirin therapy for life. Continue high- intensity statin therapy with target goal LDL less than 60 mg/dL. Blood pressure is currently well optimized. Encouraged to maintain activity. Advised to call me with any new symptoms. Will follow up in the clinic in 1 year's time, sooner PRN. Thank you for a llowing me to partake in her care Medications: Changed From furosemide 20 mg PO DAILY 90 tabs 3RF To furosemide 20 mg PO .Twice a week 90 tabs 3RF Coding Level of Care Code Est Pt Level 4 (50359) Complex EM visit Add On G2211 Diagnoses Congestive heart failure I50.9 S/P mitral valve clip implantation Z98.890; Z95.818 CAD (coronary artery disease) I25.10 CPT Codes EKG - CPT: 11193-Cnfimflnlftinhaeg, Complete ([id number])
[2025-03-03 13:00] VITALS: BP 120/72; PULSE 60; BMI 25.0
--- OUTSIDE RECORDS SUMMARY | 2025-03-03 16:21 | XMS_ITS | Patient Health Record ---
Author Organization Wyatt Eldridge MD Address [address] [place], [place] [id number] Care Team Providers Care Nurse Chemical Dependency Name Role Phone Wyatt Eldridge Primary Care Provider Allergies Allergen (clinical drug ingredient) Drug/Non Drug Allergy documented on EMR Reaction Allergy Type Onset Date Status tramadol traMADol HCl confusion Drug Allergy Acti ve Results Component Value Reference Range Notes Complete Blood Count Auto Di ff Reviewed date:07/23/2024 12:10:00 PM Interpretation: Performing Lab:[facility], [address] [place] [phone] Notes/Report: White Blood Count 6.6 4.8-10.8 X10*3/uL [...] NRBC Abs Auto 0.000 0.0-0.012 X10*3/uL Comprehensive [place]. Panel Fa st Reviewed date:07/23/2024 12:09:07 PM Interpretation: Performing Lab:[facility], [address] [place] [phone] Notes/Report: Sodium 142 135-145 mmol/L Potassium 4.2 [...] Panel Reviewed date:07/23/2024 12:08:44 PM Interpretation: Performing Lab:[facility], [address] [place] [phone] Notes/Report: Triglycerides 57 <150 mg/dL Desirable Triglyceride: [...] t Reviewed date:07/23/2024 12:10:23 PM Interpretation: Performing Lab:[facility], [address] [place] [phone] Notes/Report: Urine, Clean Catch Color Urine Yellow Appearance Urine Clear PH 6.0 5.0-9.0 Glucose Urine UA Negative Negative mg/dL Urine Blood Negative Negative Specific [place] - Urine 1.015 1.005-1.025 Urine Protein Negative Neg-Trace mg/dL Urine Ketones Negative Negative mg/dL Nitrite Urine Negative Negative Leukocyte Esterase Urine Negative Negative RBC Urine 0-2 0-2 /HPF WBC Urine 0-5 0-5 /HPF Squamous Epithelial Cell Urine 0-2 0-2 /HPF Bacteria Urine None Seen None Seen Hyaline Casts Urine 0-2 0-2 /LPF Blood Urea Nitrogen Reviewed date:11/05/2024 10:25:54 AM Interpretation: Performing Lab:[facility], [address] [place] [phone] Notes/Report: Blood Urea Nitrogen 20 9-16 mg/dL Creatinine Reviewed date:11/05/2024 10:25:47 AM Interpretation: Performing Lab:[facility], [address] [place] [phone] Notes/Report: Creatinine 1.03 0.5-1.4 mg/dL Estimated Glomerular Filt Rate 52 Chronic Kidney Disease: Estimated GFR < 60 mL/min/1.73m2 Severe Kidney Disease: Estimated GFR < 15 mL/min/1.73m2 Liver Panel Reviewed date:01/30/2025 12:15:44 PM Interpretation: Performing Lab:[facility], [address] [place] [phone] Notes/Report: Bilirubin Total 0.3 0.0-1.0 mg/dL Bilirubin Direct 0.1 0.0-0.5 mg/dL Aspartate Amino Transferase 29 5-31 U/L Alanine Aminotransferase 16 0-31 U/L Total Protein 6.7 6.5-8.0 g/dL Albumin Level 4.0 3.5-5.0 g/dL Alkaline Phosphatase 56 39-117 U/L Lipid Panel with Reflex Reviewed date:01/30/2025 12:28:24 PM Interpretation: Performing Lab:[facility], [address] [place] [phone] Notes/Report: Triglycerides 68 <150 mg/dL Desirable Triglyceride: [...] Phosphorus Reviewed date:09/19/2024 04:40:31 PM Interpretation: Performing Lab:[facility], [address] [place] [phone] Notes/Report: Phosphorus 3.9 2.7-4.5 mg/dL Vitamin D 25-OH Total Reviewed date:09/19/2024 04:40:22 PM Interpretation: Performing Lab:[facility], [address] [place] [phone] Notes/Report: Vitamin D 25-OH Total 63.0 >30 [...] Thyroxine) Reviewed date:09/19/2024 04:40:13 PM Interpretation: Performing Lab:[address] [phone] Notes/Report: Free T4 (Free Thyroxine) 0.93 0.71-1.85 ng/dL Thyroid Stimulating Hormone Reviewed date:09/19/2024 04:40:06 PM Interpretation: Performing Lab:[facility], [address] [place] [phone] Notes/Report: Thyroid Stimulating Hormone 2.64 0.32-4.0 uIU/mL Note: A sustained TSH level above 2.5 uIU/mL may warrant further investigation. TSH 3rd Generation ([facility] [employer]) Protein Electrophoresis, Ser um Reviewed date:09/26/2024 01:39:54 PM Interpretation: Performing Lab:[address] [phone] Notes/Report: Prot Elec - Total Protein 6.6 [...] (M-protein) detected. THIS TEST WAS PERFORMED AT: [email or web address] [address] [place] [phone] MINOO BRYAN MD Immunofixation, Random Urine Reviewed date:09/22/2024 05:37:27 PM Interpretation: Performing Lab:[facility], [address] [place] [phone] Notes/Report: Immunofixation, Random Urine SEE NOTE Normal pattern. No monoclonal proteins detected. The supplier of the testing reagents for this assay has changed. Detection of small monoclonal proteins may vary by test system. THIS TEST WAS PERFORMED AT: [email or web address] [address] [place] [phone] MINOO BRYAN MD XR DEXA axial skeleton Reviewed date:09/19/2024 02:34:51 PM Interpretation: Performing Lab: Notes/Report: [address] [place] [id number] Mammography Report Signed Patient: Rochelle Garcia MR#: [id number] : 1945 Acct:[id number] Age/Sex: 79 / F ADM Date: 09/19/24 Loc: HO.MAMMO Attending Dr: Zach Bolton MD Ordering Physician: Zach Bolton MD Results: Date of Service: 09/19/24 Follow Up: Procedure(s): XR DEXA axial skeleton Accession Number(s): [id number] cc: Wyatt Eldridge MD; Zach Bolton MD EXAMINATION: DXA BONE DENSITY AXIAL HISTORY: M85.80 - Other specified disorders of bone density and structure, unspecified... TECHNIQUE: [employer] Dual energy absorptiometry (DEXA) of the lumbar [...] is a trademark of the [employer] [place] for Metabolic Bone Disease, a World Health Organization (WHO) Collaborating Center. Electronically signed by: Zach Reece MD 09/19/2024 02:01 PM EDT Dictated By: Zach Reece MD Signed By: <Electronically signed by Zach Reece MD in OV> 09/19/24 1401 DD/ 1330 TD/TT: 09/19/24 1346 Solutions Consultant: Lita [facility]'s [address] [place], [place] [address] Mammography Report Signed Patient: Rochelle Garcia MR#: [id number] : 1945 Acct:[id number] Age/Sex: 79 / F ADM Date: 09/19/24 Loc: HO.MAMMO Attending Dr: Zach Bolton MD Ordering Physician: Zach Bolton MD Results: Date of Service: 09/19/24 Follow Up: Procedure(s): XR DEX A axial skeleton Accession Number(s): [id number] cc: Wyatt Eldridge MD; Zach Bolton MD EXAMINATION: DXA BON E DENSITY AXIAL HISTORY: M85.80 - Ot her specified disorders of bone density and structure, unspecified... TECHNIQUE: [employer] Dual energy absorptiometry (DEXA) of the lumbar [...] of the [employer] [place] for Metabolic Bone Disease, a World Health Organization (WHO) Collaborating Center. Electronically rui d by: Zach Reece MD 09/19/2024 02:01 PM EDT RP Dictated By: Zach Reece MD Signed By: <Electronically signed by Zach Reece MD in OV> 09/19/24 1401 DD/ 1330 TD/TT: 09/19/24 1346 [employer] Consultant: XR lumbar spine 4V min Reviewed date:12/19/2024 12:32:37 PM Interpretation: Performing Lab: Notes/Report: [place] [address] XRay Report Signed Patient: Rochelle Garcia MR#: [id number] : 1945 Acct:[id number] Age/Sex: 79 / F ADM Date: 12/18/24 Loc: JITENDRA Attending Dr: Zach Bolton MD Ordering Physician: Zach Bolton MD Date of Service: 12/18/24 Procedure(s): XR lumbar spine 4V min Accession Number(s): [id number] cc: Wyatt Eldridge MD; Zach Bolton MD [...] 12/18/24 1520 DD/ 1453 TD/TT: 12/18/24 1505 Solutions Consultant: [address] [address] XRay Report Signed Patient: Rochelle Garcia MR#: [id number] : 1945 Acct:[id number] Age/Sex: 79 / F ADM Date: 12/18/24 Loc: HO.MINESH Attending Dr: Zach Bolton MD Ordering Physician: Zach Bolton MD Date of Service: 12/18/24 Procedure(s): XR lum bar spine 4V min Accession Number(s): [id number] cc: Wyatt Eldridge MD; Zach Bolton MD [...] 12/18/24 1520 DD/ 1453 TD/TT: 12/18/24 1505 [employer] Consultant: Flavia Duran Reviewed date:01/30/2025 12:15:52 PM Interpretation: Performing Lab:[facility], [address] [place] [phone] Notes/Report: Flavia Duran See Note Specimen held [...] Cruz 07/30/2024 03:09:03 PM >REFERRAL FAXED TO [facility], Radha Cruz 08/12/2024 [...] Provider Speciality Internal M edicine Referred Provider [facility] Referred Provider Specialty [...] 25 MG 1 tablet Orally bid Active Losartan Potassium 25 MG 1 tablet Orally BID Active Aspir-Low 81 MG 1 tablet Orally Once a day for 30 day(s) Active Slow Fe 142 (45 Fe) MG 1 tablet Orally t hree times a weel Active Farxiga 5 MG TAKE 1 TABLET BY MOUTH DAILY for 30 Active Cyclobenzaprine HCl 5 MG TAKE 1 TABLET B Y MOUTH TWICE DAILY AT BEDTIME FOR 10 DAYS NEEDED for 10 Not-Taking Immunizations Vaccine Route Administration Date Status Comme nts Flu Vaccine Unknown 02/10/2014 Administered [facility] Flu Vaccine Unknown 02/17/2015 Administered [facility] Flu Vaccine Unknown 03/07/2016 Administered pt had it a t Art[facility] Fluarix Quadrivalent Unknown 01/26/2017 Administered [facility] Fluarix Quadrivalent IM Intramuscular 01/23/2018 Administered [...] Problem Status W/U Status Risk Notes Problem 71374143 Lymphocytosis (D72.820) Active confirmed Problem Insomnia (090253805) Insomnia (G47.00) Active confirmed Problem 8903827 Primary insomnia (F51.01) Active confirmed Problem 886018996 Ischemic cardiomyopathy (I25.5) Active confirmed Problem Localized, primary osteoarthritis of the hand (647398226) Primary osteoarthritis, right hand (M19.041) Active confirmed Problem Localized, primary osteoarthritis of the hand (877168240) Primary osteoarthritis, left hand (M19.042) Active confirmed Problem 216159579 Osteopenia (M85.80) Active confirmed Problem Osteoporosis (55825161) Osteoporosis (M81.0) Active confirmed Problem Age-related macular degeneration (disorder) (828474621) Macular degeneration (H35.30) Active confirmed Problem 539047646 Non-rheumatic mi tral regurgitation (I34.0) Active confirmed Problem Coronary artery disease (63068645) CAD (coronary artery disease) (I25.10) Active confirmed Problem 07187272 Acute IL, inferi or wall (I21.19) Active confirmed Problem 591929176 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 Problem 048299320 Pure hypercholesterolemia (E78.00) Active confirmed Problem Anemia due to blood loss (797022141) Anemia due to blood loss (D50.0) Active confirmed Problem 551070790 Chronic systolic heart failure (I50.22) Active confirmed Problem 387219649 Osteopenia of ne ck of femur, unspecified laterality (M85.859) Active confirmed Problem 904855906 Basal cell carci noma, forehead (C44.319) Active [...] Wyatt Eldridge MD [address] [place] [id number] 07/23/2024 Wyatt Eldridge Lymphocytosis D72.82 0 ; Pure hypercholesterolemia E78.00 and Chronic systolic heart failure I50.22 Wyatt Eldridge MD [address] [place] [id number] 11/04/2024 Wyatt Eldridge Muscle spasm of back M62.830 Wyatt Eldridge MD [address] [place] [id number] 01/30/2025 Wyatt Eldridge Pure hypercholestero lemia E78.00 Wyatt Eldridge MD [address] [place] [address] [id number] 05/03/2024 Wyatt Eldridge Muscle spasm of back M62.830 Wyatt Eldridge MD [address] [place] [id number] 07/30/2024 Wyatt Eldridge Muscle spasm of back M62.830 ; Macular degeneration H35.30 ; Osteoporosis M81.0 ; Chronic systolic heart failure I50.22 ; Pure hypercholesterolemia E78.00 and Depression screening Z13.31 Wyatt Eldridge MD [address] [place] [id number] 02/03/2025 Wyatt Eldridge Weight loss R63.4 ; Ischemic cardiomyopathy I25.5 ; Insomnia G47.00 ; Pure hypercholesterolemia E78.00 and Encounter for administration of vaccine Z23 Wyatt Eldridge MD [address] [place], [place] [id number] 08/22/2024 Wyatt Eldridge MD [address] [place], [place] [id number] 12/20/2024 Wyatt Eldridge Assessments Encounter Date Diagnosis [...] M81.0) send to endocrine/ REFERRAL FAXED TO [facility] 02/03/2025 Insomnia (ICD-10 [...] Name:Wyatt Meyers ier, 07/28/2025 07:45:00 AM, [address] [place] [address], [address], [phone], Provider Name:Wyatt Meyers ier, 08/04/2025 01:00:00 PM, [address] [place] [address], [place] [address], [place], [place], [phone], Insurance Providers Payer Name Payer Address Payer Phone Subscriber Number Group Number Insured Name Patient Relationship to Insured Coverage Start Date Coverage End Date MEDICARE NHIC [address]IR[address] [place] [address] [id number] Rochelle Garcia Self - patient is the insured [facility] [address] [place] [phone] [id number] Rochelle Garcia Self - patient is the [...]
--- OUTSIDE RECORDS SUMMARY | 2025-03-03 16:22 | XMS_ITS | Patient Health Record ---
[facility] Organization [facility] Address [address] [place] [address] Care Team Providers Care Stretcher Helper Name Role Phone Wyatt Eldridge MD Primary Care Provider Aye Grace Unavailable [phone] Allergies No Known Allergies Reason For Referral No Information Medications Medication SIG (Take, Route, Frequency, Duration) Notes Start Date End Date Status Metoprolol Succinate 25 MG 1 capsule Ora lly Once a day Active Aspirin Adult Low Dose Active Lasix Active Rosuvastatin Calcium 40 MG 1 tablet Oral ly Once a day Active Farxiga 5 MG 1 tablet Orally Once a day Active Ammonium Lactate 12 % 1 application Exte rnally to affected areas of dry skin to feet except for between the toes Twice a day; Duration: 30 days Active Losartan Potassium 25 MG 1 tablet Orally Once a day Active Immunizations Vaccine Route Administration Date Status Comme nts Influenza Unknown 01/06/2025 Administered Social History Tobacco Use: Social History Observation [...] atherosclerosis of arteries of lower limbs (disorder) ([id number] ) Atherosclerosis of samish artery of both lower extremities, with unspecified presence of clinical manifestation (I70.203) Active confirmed Q7(A), Q8(2B), Q9(1B,2 C) Vital Signs Blood pressure diastolic 60 mm Hg 02/25/2025 Height 5ft3in in 02/25/2025 Blood pressure systolic 100 mm Hg 02/25/2025 Weight 137 lbs 02/25/2025 BMI 24.27 kg/m2 02/25/2025 Encounters Encounter Location Date Provider Diagnosis [address] [address] 06/18/2024 Aye Periceldon Atherosclerosis of samish artery of both lower extremities, with unspecified presence of clinical manifestation I70.203 ; Xerosis of skin L85.3 ; Tinea unguium B35.1 ; Pain in right toe(s) M79.674 and Pain in left toe(s) M79.[address] [address] 09/11/2024 Aye Perica Xerosis of skin L85. 3 ; Tinea unguium B35.1 ; Atherosclerosis of samish artery of both lower extremities, with unspecified presence of clinical manifestation I70.203 ; Pain in right toe(s) M79.674 and Pain in left toe(s) M79.[address] [address] 02/25/2025 Aye Perica Xerosis of skin L85. 3 ; Tinea unguium B35.1 ; Atherosclerosis of samish artery of both lower extremities, with unspecified presence of clinical manifestation I70.203 ; Pain in right toe(s) M79.674 and Pain in left toe(s) M79.[address] [address] 04/01/2024 Aye Periceldon [address] [address] 12/09/2024 Aye Reardon Assessments Encounter Date Diagnosis (ICD Code) Assessment Notes Treatment Notes Treatment Clinical Notes Section Notes 06/18/2024 Xerosis of skin (ICD-10 - L85.3) 06/18/2024 Atherosclerosis of samish artery of both lower extremities, with unspecified presence of clinical manifestation (ICD-10 - I70.203) Q7(A), Q8(2B), Q9(1B,2C) 09/11/2024 Tinea unguium (ICD-10 - B35.1) 09/11/2024 Xerosis of skin (ICD-10 - L85.3) 02/25/2025 Xerosis of skin (ICD-10 - L85.3) 09/11/2024 Atherosclerosis of samish artery of both lower extremities, with unspecified presence of clinical manifestation (ICD-10 - I70.203) Q7(A), Q8(2B), Q9(1B,2C) 02/25/2025 Tinea unguium (ICD-10 - B35.1) 06/18/2024 Tinea unguium (ICD-10 - B35.1) 06/18/2024 Pain in right toe(s) (ICD-10 - M79.674) 09/11/2024 Pain in right toe(s) (ICD-10 - M79.674) 02/25/2025 Atherosclerosis of samish artery of both lower extremities, with unspecified presence of clinical manifestation (ICD-10 - I70.203) Q7(A), Q8(2B), Q9(1B,2C) 02/25/2025 Pain in right toe(s) (ICD-10 - M79.674) 06/18/2024 Pain in left toe(s) (ICD-10 - M79.675) 09/11/2024 Pain in left toe(s) (ICD-10 - M79.675) 02/25/2025 Pain in left toe(s) (ICD-10 - M79.675) Plan Of Treatment Next Appt Details Provider Name:Aye colón, 06/03/2025 11:30:00 AM, [address] [place] [address], [place], [address], Insurance Providers Payer Name Payer Address Payer Phone Subscriber Number Group Number Insured Name Patient Relationship to Insured Coverage Start Date Coverage End Date Medicare [employer] [address] [place] [address] [phone] [id number] Rochelle Landeros Self - patient is the insured 1 [facility] [address] [place] [address] [id number] Rochelle Landeros Self - patient is the insured Medical (General) History Medical History History ICD Code Back,Hip,and Knee pain Heart disease Vascular phlebitis (clots) Surgical History Surgery Date(Month/Year) heart surgery/ davon clip 12/08/21
--- OUTSIDE RECORDS SUMMARY | 2025-03-03 16:23 | XMS_ITS | Clinical Summary ---
Author Organization [employer] Address [address] [facility] [address] [place] [address] Care Team Providers Care Manager Document Control Name Role Phone Unavailable Primary Care Provider Unavailabl e Encounters Date Type Department Care Team Description 01/28/2025 11:20 AM EDT Nurse Only [facility] [address] [place] [address] Brittany Lowery RN Encounter for vaccination from [...] patient's age to complete this topic Insurance [facility]
== END 2025-03-03 14:05 | disposition home or self-care (01) ==
LOC: HO.HCS 12:53
PROVIDERS: PCP Internal Medicine; Visit Provider Internal Medicine Cardiovascular Disease
DX: I50.9 Heart failure, unspecified (principal); Z98.890 Other specified postprocedural states; Z95.818 Presence of other cardiac implants and grafts; I25.10 Atherosclerotic heart disease of native coronary artery without angina pectoris
CPT/HCPCS: 93010; 99214; G2211

== ENCOUNTER → 2025-03-03 12:52 | Outpatient (BNVA) | payer MEDICARE, OTHER, SELFPAY ==
[2022-08-03 07:45] VITALS: BP 102/50; BP 104/62; BP 126/50; BMI 24.1
== END ==
PROVIDERS: PCP Internal Medicine; Visit Provider Internal Medicine Cardiovascular Disease
DX: I50.31 Acute diastolic (congestive) heart failure (principal); Z98.890 Other specified postprocedural states; Z95.818 Presence of other cardiac implants and grafts; Z79.82 Long term (current) use of aspirin; I11.0 Hypertensive heart disease with heart failure
CPT/HCPCS: 93005; 99212